=== PATIENT | female | born 1955 | race Caucasian/White ===

== ENCOUNTER 2017-07-28 08:00 | Outpatient (RCR) | payer OTHER, SELFPAY ==
[2017-07-12 00:47] VITALS: BP 143/79; PULSE 58; RESP 18; TEMP 35.1; BMI 38.5
[2017-07-14 08:07] VITALS: BP 163/94; PULSE 63; RESP 18; TEMP 36.4; BMI 38.5
--- NOTE | 2017-07-14 08:24 | PCM.WC.HP ---
(1) Leg wound, left Status: Chronic Current Visit: Yes Qualifiers: Encounter type: subsequent encounter Code(s): S81.802A - Unspecified open wound, left lower leg, initial encounter (2) Leg swelling Status: Chronic Current Visit: Yes Code(s): M79.89 - Other specified soft tissue disorders (3) Edema of both legs Status: Chronic Current Visit: Yes Code(s): R60.0 - Localized edema (4) Morbid obesity Status: Chronic Current Visit: Yes Code(s): E66.01 - Morbid (severe) obesity due to excess calories (5) Venous insufficiency Status: Chronic Current Visit: Yes (6) Varicose veins with inflammation Status: Chronic Current Visit: Yes Code(s): I83.10 - Varicose veins of unspecified lower extremity with inflammation (7) Hyperlipidemia Status: Chronic Current Visit: No Code(s): E78.5 - Hyperlipidemia, unspecified (8) Hypertension Status: Chronic Current Visit: No Qualifiers: Code(s): I10 - Essential (primary) hypertension (9) Venous hypertension of left lower extremity Status: Chronic Current Visit: Yes Code(s): I87.302 - Chronic venous hypertension (idiopathic) without complications of left lower extremity History of Present Illness Date of Service: 07/14/17 Chief Complaint: Traumatic wound/injury of the distal left lower extremity History of Wound: This is a 61-year-old female with a long-standing history of chronic venous insufficiency, varicose veins with inflammation, and swelling and edema in the lower extremities. She has previously been treated for her lower extremity venous disease, having undergone endovenous laser ablation of the right great saphenous vein, the right small saphenous vein, and the right accessory saphenous vein on July 17, 2016. The patient is known to have venous disease in the left lower extremity, but failed to pursue definitive treatment of her venous disease in the left lower extremity. As result of her prior venous procedure in July 2016, her right lower extremity has remained relatively asymptomatic and without significant symptomatology. Approximately 2 weeks prior to her current presentation, patient sustained a traumatic wound to the left leg caused by impacting the leg against the bed frame. This occurred on March 08, 2017. The patient did not seek medical attention. She indicates that her tetanus is up-to-date. In the days following her injury, the patient experienced episodes of bita bleeding from the injury site. She scheduled an outpatient appointment in my office, and was evaluated on March 18, 2017. At that time, the traumatic wound was noted on the left medial calf, and massive swelling in both lower extremities, particularly the left. The patient admitted to noncompliance with recommended conservative treatment measures, and had not been using compression on a consistent basis, nor elevating her lower extremities and avoiding idle sitting. Furthermore, she is known to be morbidly obese. Since the patient's initial visit, she has been elevating her lower extremities more consistently. She has also undergone a noninvasive lower extremity arterial study, which reveals triphasic waveforms at ankle level bilaterally, normal anklebrachial indices, and normal digitalbrachial indices. Venous study reveals incompetence of the left great saphenous vein, and incompetence of left great saphenous vein and left small saphenous vein accessory branches. There has been improvement in the swelling of the lower extremities with current measures. However, mild to moderate swelling in the lower extremities persists. 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 She has most recently been applying compression by means of knee-high, graduated compression stockings of 20-30 mmHg compression, worn on a daily basis. The traumatic wound on the left medial calf is relatively unchanged in appearance and size. It is generally pink and healthy in appearance. Topical management has been by means of Promogran. Past Medical History Past Medical History: Chronic Problems Leg wound, left (Chronic) Leg swelling (Chronic) Edema of both legs (Chronic) Morbid obesity (Chronic) Venous insufficiency (Chronic) Varicose veins with inflammation (Chronic) Hyperlipidemia (Chronic) Hypertension (Chronic) Venous hypertension of left lower extremity (Chronic) Surgical History: - - Patient has undergone prior endovenous laser ablation of the right great saphenous vein, right small saphenous vein, and right accessory saphenous vein on July 17, 2016. She is undergone right knee arthroscopy. She also underwent hysterectomy in the past. Patient is a Ab0. Allergies/Adverse Reactions: Allergies hydrocodone bitartrate [From Vicodin] Allergy (Verified 03/24/17 08:27) Swelling codeine Adverse Reaction (Verified 03/24/17 08:27) Nausea Home Medications: Ambulatory Orders Medication Instructions Recorded Aspirin E.C. [Ecotrin] 81 mg PO DAILY@0800 07/19/13 Atorvastatin Calcium [Lipitor] 10 mg PO QHS 07/19/13 Multivitamins,Therapeutic 1 tablet PO DAILY 07/19/13 [Multivitamin] Trazodone HCl 50 mg PO QHS 07/19/13 Losartan Potassium [Cozaar] 25 mg PO DAILY 07/10/16 Sertraline HCl [Zoloft] 50 mg PO DAILY 07/10/16 Oxycodone HCl/Acetaminophen 1 - 2 tablet PO Q6H PRN PRN #20 07/17/16 [Percocet 5/325] tablet - Family History Maternal - - Patient's mother at the age of 74 with a history of Shamika's chorea. Patient's father at the age of 68 with a history of myocardial infarction. Smoking Status: Former smoker Review of Systems Constitutional: Denies: Chills, Fever, Weight Change Eyes: Denies: Pain, Vision Change HEENT: Denies: Difficulty Hearing, Difficulty Swallowing, Sinus Congestion Cardiovascular: Denies: Chest Pain, Palpitations Respiratory: Denies: Cough, Shortness of Breath Gastrointestinal: Denies: Diarrhea, Nausea, Vomiting Genitourinary: Denies: Dysuria, Hematuria Endocrine: Denies: Heat/ Cold Intolerance, Polydipsia, Polyuria Hematologic/ Lymphatic: Denies: Easy Bruising, Easy Bleeding - Physical Exam Vital Signs Temp Pulse Resp BP 97.5 F L 63 18 163/94 H 07/14/17 08:07 07/14/17 08:07 07/14/17 08:07 07/14/17 08:07 General: Alert, Oriented x3, Cooperative, No apparent distress, Well developed, Well nourished HEENT: Atraumatic, PERRLA, EOMI, Normocephalic Oral: Moist Mucosa Neck: No JVD Lungs: Normal air movement Abdomen: Non-Distended Extremities: No clubbing, No cyanosis, No Calf Tenderness, - - Mild edema is noted in the lower extremities bilaterally. The ulceration on the left medial supramalleolar area is relatively unchanged in size. There is no sign of infection or cellulitis. Dimensions are documented elsewhere. There is a small to moderate amount of biofilm and bioburden. Skin: No rashes Wound Measurements and Assessment WC - Nurse 1 - General Ulcer Measurement Start: 07/14/17 00:27 Freq: Status: Active Protocol: Activity Type Activity Date Activity User E-Sign Co-Sign Detail Recorded Client Recorded Date Recorded By Document 07/14/17 08:07 MW [id number] 07/14/17 08:12 MW 07/14/17 08:07 Wound Center Nurse 1 [Ulcer Assessment Protocol: WC.WD.LOC] #2 L Medial Inferior LE -Combined with other wound No -Current Size (cm) - Length 1.0 -Current Size (cm) - Width 0.8 -Current Size (cm) - Depth 0.1 -Total Square Cm 0.80 -Photo Taken No -Epithelialization None Present -Tunneling No -Undermining/Tunneling No -Circular Undermining No -Exudate Amt Small (1-33%) -Exudate Type Serosanguineous -Wound Margin Flat & Intact -Granulation Amt None Present (0 %) -Granulation Quality N/A -Slough/Fibrin Yes -Necrosis Amt Large (67-100%) -Necrotic Tissue Type Adherent Slough -Structure Exposed N/A -Texture (Teresa-wound Skin Appearance) Assessed Localized Edema -Moisture (Teresa-wound Skin Appearance Assessed ) -Color (Teresa-wound Skin Appearance) Erythema Hemosiderin Staining -Temperature (Teresa-wound Skin No Abnormality Appearance) (Pt Warm) -Tenderness on Palpation (Teresa-wound No Skin Appearance) -Ulcer Cleansing Rinsed/ Irrigated with Saline -Foul Odor after Cleansing Yes, Due to Product Use -Anesthetic Used 5% Lidocaine Gel [Edema Assessment] -Lower Limb Edema Present Yes -Left Calf (cm) 45.0 -Left Ankle (cm) 26.5 - Nurse 2 - General Ulcer CM Notes Start: 07/14/17 00:27 Freq: Status: Active Protocol: Activity Type Activity Date Activity User E-Sign Co-Sign Detail Recorded Client Recorded Date Recorded By Document 07/14/17 08:19 JS [id number] 07/14/17 08:22 JS 07/14/17 08:19 Wound Center Nurse 2 [Procedure/Treatment] #2 L Medial Inferior LE -Time 08:22 -Correct Patient Yes -Correct Side, Site, Position Yes -Correct Procedure Yes -Procedure Performed Yes -Type of Procedure Debridement -Clinical Debridement Subcutaneous -Post Debridement Size (cm) - Length 0.7 -Post Debridement Size (cm) - Width 0.9 -Post Debridement Size (cm) - Depth 0.1 -Total Square Cm 0.63 -Wound/Ulcer Outcome Not Healed -Ulcer Cleansing Rinsed/ Irrigated with Saline -Foul Odor after Cleansing No -Bioengineered Tissue No -Cetacaine [place] No -Topical Lidocaine (%) 5 -Bleeding Controlled with NA -Treatment Response Procedure Tolerated Well [See Physician Procedure note for Specifics] Pain Scale: 0-10 Numeric [Pain] -Is Patient Pain Free? Yes Neurological: Cranial nerves II-XII grossly intact, Neuro grossly intact Psych/Mental Status: Normal Affect, Appropriate, Alert and oriented to time, place, person, mood and affect Debridement Note Post-Debridement Measurements/Treatment WC - Nurse 2 - General Ulcer CM Notes Start: 07/14/17 00:27 Freq: Status: Active Protocol: Activity Type Activity Date Activity User E-Sign Co-Sign Detail Recorded Client Recorded Date Recorded By Document 07/14/17 08:19 SULEMAN [id number] 07/14/17 08:22 SULEMAN 07/14/17 08:19 Wound Center Nurse 2 #2 L Medial Inferior LE -Time 08:22 -Correct Patient Yes -Correct Side, Site, Position Yes -Correct Procedure Yes -Procedure Performed Yes -Type of Procedure Debridement -Clinical Debridement Subcutaneous -Post Debridement Size (cm) - Length 0.7 -Post Debridement Size (cm) - Width 0.9 -Post Debridement Size (cm) - Depth 0.1 -Total Square Cm 0.63 -Wound/Ulcer Outcome Not Healed -Ulcer Cleansing Rinsed/ Irrigated with Saline -Foul Odor after Cleansing No -Bioengineered Tissue No -Cetacaine [place] No -Topical Lidocaine (%) 5 -Bleeding Controlled with NA -Treatment Response Procedure Tolerated Well Pain Scale: 0-10 Numeric Is Patient Pain Free? Yes Laterality: Left - Medial supramalleolar area Type of Debridement: Excisional debridement Anesthesia Used: 4% Lidocaine Solution Depth: Down to and including healthy tissue, in the subcutaneous layer Percentage of wound debrided: 100 Instrument Used: 5mm curette Severity: Fat Layer Exposed Amount of bleeding with debridement: Mild Bleeding Controlled with: Compression and gauze Patient tolerated procedure well Assessment/Plan Active Problems Leg wound, left (Chronic) Leg swelling (Chronic) Edema of both legs (Chronic) Morbid obesity (Chronic) Venous insufficiency (Chronic) Varicose veins with inflammation (Chronic) Venous hypertension of left lower extremity (Chronic) Assessment: This is a 61-year-old morbidly obese female with a long-standing history of chronic venous insufficiency, varicose veins with inflammation, and lower extremity swelling and edema. In recent months, she has been relatively noncompliant with conservative treatment measures geared toward management of her lower extremity swelling and edema. In addition, approximately 2 weeks prior to her presentation, the patient sustained a traumatic injury to the left medial calf. She presented approximately 1 week following her injury with massive swelling in the lower extremities, and having experienced several episodes of bleeding from her injury site. A noninvasive lower extremity arterial study is normal, revealing no evidence of significant arterial occlusive disease in the lower extremities. Her most recent venous study, performed on 06/30/2017, revealed incompetence of the left great saphenous vein, left accessory saphenous vein at S3, the left small saphenous vein, a branch of the left small saphenous vein, and a laminating press operator located 13 cm proximal to the left medial malleolus. We will continue current conservative care relative to the chronic venous disease, swelling and edema, and recent traumatic injury to the left lower extremity. Plan: The patient has been instructed to avoid idle standing and sitting. She is to elevate her lower extremities as much as possible. Activity has been encouraged. Weight loss has also been encouraged. We are to continue the use of Promogran applied every other day. The patient is to wear her knee-high graduated compression stockings of 20-30 mmHg compression on a daily basis. Thus far she has been doing so, and appears to have been relatively compliant. She will return in 2 weeks for physician reassessment. Patient is a candidate for endovenous laser ablation of the left great saphenous vein, the left small saphenous vein, 2 accessory saphenous veins, and the incompetent laminating press operator vein in the left calf. She has indicated her desire to proceed with the procedure. We will proceed with plans for endovenous ablation. The preauthorization process is currently underway. Influenza vaccine was not administered today. The patient is not currently a smoker. The patient weighs 270 pounds. She stands 5 feet 11 inches tall. Her BMI is 37.7. This places the patient in the obese class II category. The patient has been advised to lose weight. She has been encouraged to collaborate with her primary care physician to discuss weight loss options and strategies.
[2017-07-28 08:15] VITALS: BP 141/97; PULSE 63; RESP 18; TEMP 36.2; BMI 38.5
--- NOTE | 2017-07-28 08:32 | PCM.WC.HP ---
(1) Leg wound, left Status: Chronic Current Visit: Yes Qualifiers: Encounter type: subsequent encounter Code(s): S81.802A - Unspecified open wound, left lower leg, initial encounter (2) Leg swelling Status: Chronic Current Visit: Yes Code(s): M79.89 - Other specified soft tissue disorders (3) Edema of both legs Status: Chronic Current Visit: Yes Code(s): R60.0 - Localized edema (4) Morbid obesity Status: Chronic Current Visit: Yes Code(s): E66.01 - Morbid (severe) obesity due to excess calories (5) Venous insufficiency Status: Chronic Current Visit: Yes (6) Varicose veins with inflammation Status: Chronic Current Visit: Yes Code(s): I83.10 - Varicose veins of unspecified lower extremity with inflammation (7) Hyperlipidemia Status: Chronic Current Visit: No Code(s): E78.5 - Hyperlipidemia, unspecified (8) Hypertension Status: Chronic Current Visit: No Qualifiers: Code(s): I10 - Essential (primary) hypertension (9) Venous hypertension of left lower extremity Status: Chronic Current Visit: Yes Code(s): I87.302 - Chronic venous hypertension (idiopathic) without complications of left lower extremity History of Present Illness Date of Service: 07/28/17 Chief Complaint: Traumatic wound/injury of the distal left lower extremity History of Wound: This is a 61-year-old female with a long-standing history of chronic venous insufficiency, varicose veins with inflammation, and swelling and edema in the lower extremities. She has previously been treated for her lower extremity venous disease, having undergone endovenous laser ablation of the right great saphenous vein, the right small saphenous vein, and the right accessory saphenous vein on July 17, 2016. The patient is known to have venous disease in the left lower extremity, but failed to pursue definitive treatment of her venous disease in the left lower extremity. As result of her prior venous procedure in July 2016, her right lower extremity has remained relatively asymptomatic and without significant symptomatology. Approximately 2 weeks prior to her current presentation, patient sustained a traumatic wound to the left leg caused by impacting the leg against the bed frame. This occurred on March 08, 2017. The patient did not seek medical attention. She indicates that her tetanus is up-to-date. In the days following her injury, the patient experienced episodes of bita bleeding from the injury site. She scheduled an outpatient appointment in my office, and was evaluated on March 18, 2017. At that time, the traumatic wound was noted on the left medial calf, and massive swelling in both lower extremities, particularly the left. The patient admitted to noncompliance with recommended conservative treatment measures, and had not been using compression on a consistent basis, nor elevating her lower extremities and avoiding idle sitting. Furthermore, she is known to be morbidly obese. Since the patient's initial visit, she has been elevating her lower extremities more consistently. She has also undergone a noninvasive lower extremity arterial study, which reveals triphasic waveforms at ankle level bilaterally, normal anklebrachial indices, and normal digitalbrachial indices. Venous study reveals incompetence of the left great saphenous vein, and incompetence of left great saphenous vein and left small saphenous vein accessory branches. There has been improvement in the swelling of the lower extremities with current measures. She has most recently been applying compression by means of knee-high, graduated compression stockings of 20-30 mmHg compression, worn on a daily basis. The traumatic wound on the left medial calf is smaller in appearance and size. It is generally pink and healthy in appearance. Topical management has been by means of Norma. Past Medical History Past Medical History: Chronic Problems Leg wound, left (Chronic) Leg swelling (Chronic) Edema of both legs (Chronic) Morbid obesity (Chronic) Venous insufficiency (Chronic) Varicose veins with inflammation (Chronic) Hyperlipidemia (Chronic) Hypertension (Chronic) Venous hypertension of left lower extremity (Chronic) Surgical History: - - Patient has undergone prior endovenous laser ablation of the right great saphenous vein, right small saphenous vein, and right accessory saphenous vein on July 17, 2016. She is undergone right knee arthroscopy. She also underwent hysterectomy in the past. Patient is a Ab0. Allergies/Adverse Reactions: Allergies hydrocodone bitartrate [From Vicodin] Allergy (Verified 03/24/17 08:27) Swelling codeine Adverse Reaction (Verified 03/24/17 08:27) Nausea Home Medications: Ambulatory Orders Medication Instructions Recorded Aspirin E.C. [Ecotrin] 81 mg PO DAILY@0800 07/19/13 Atorvastatin Calcium [Lipitor] 10 mg PO QHS 07/19/13 Multivitamins,Therapeutic 1 tablet PO DAILY 07/19/13 [Multivitamin] Trazodone HCl 50 mg PO QHS 07/19/13 Losartan Potassium [Cozaar] 25 mg PO DAILY 07/10/16 Sertraline HCl [Zoloft] 50 mg PO DAILY 07/10/16 Oxycodone HCl/Acetaminophen 1 - 2 tablet PO Q6H PRN PRN #20 07/17/16 [Percocet 5/325] tablet - Family History Maternal - - Patient's mother at the age of 74 with a history of Shamika's chorea. Patient's father at the age of 68 with a history of myocardial infarction. Smoking Status: Former smoker Review of Systems Constitutional: Denies: Chills, Fever, Weight Change Eyes: Denies: Pain, Vision Change HEENT: Denies: Difficulty Hearing, Difficulty Swallowing, Sinus Congestion Cardiovascular: Denies: Chest Pain, Palpitations Respiratory: Denies: Cough, Shortness of Breath Gastrointestinal: Denies: Diarrhea, Nausea, Vomiting Genitourinary: Denies: Dysuria, Hematuria Endocrine: Denies: Heat/ Cold Intolerance, Polydipsia, Polyuria Hematologic/ Lymphatic: Denies: Easy Bruising, Easy Bleeding - Physical Exam Vital Signs Temp Pulse Resp BP 97.1 F L 63 18 141/97 H 07/28/17 08:15 07/28/17 08:15 07/28/17 08:15 07/28/17 08:15 General: Alert, Oriented x3, Cooperative, No apparent distress, Well developed, Well nourished HEENT: Atraumatic, PERRLA, EOMI, Normocephalic Oral: Moist Mucosa Neck: No JVD Lungs: Normal air movement Abdomen: Non-Distended Extremities: No clubbing, No cyanosis, No Calf Tenderness, - - The swelling and edema in the lower extremities appears to be reasonably well controlled. The ulceration on the left medial calf is smaller in size. The base of the ulceration is pink and healthy, with a moderate amount of biofilm bioburden. There is no sign of infection or cellulitis. Dimensions are documented elsewhere. Skin: No rashes Wound Measurements and Assessment WC - Nurse 1 - General Ulcer Measurement Start: 07/14/17 00:27 Freq: Status: Active Protocol: Activity Type Activity Date Activity User E-Sign Co-Sign Detail Recorded Client Recorded Date Recorded By Document 07/28/17 08:15 [id number] 07/28/17 08:18 07/28/17 08:15 Wound Center Nurse 1 [Ulcer Assessment Protocol: EAN.WD.LOC] #2 L Medial Inferior LE -Combined with other wound No -Current Size (cm) - Length 0.2 -Current Size (cm) - Width 0.2 -Current Size (cm) - Depth 0.1 -Total Square Cm 0.04 -Photo Taken No -Epithelialization Small 1-33% -Tunneling No -Undermining/Tunneling No -Circular Undermining No -Classification - Thickness Full Thickness without Exposed Support Structure -Exudate Amt Small (1-33%) -Exudate Type Serosanguineous -Wound Margin Distinct, Outline Attached -Granulation Amt Medium (34-66%) -Granulation Quality Globe -Slough/Fibrin Yes -Necrosis Amt Small (1-33%) -Necrotic Tissue Type Adherent Slough -Structure Exposed Fascia Fat Layer Exposed -Texture (Teresa-wound Skin Appearance) Localized Edema Scarring -Moisture (Teresa-wound Skin Appearance No Abnormality ) -Color (Teresa-wound Skin Appearance) Hemosiderin Staining -Temperature (Teresa-wound Skin No Abnormality Appearance) (Pt Warm) -Tenderness on Palpation (Teresa-wound No Skin Appearance) -Ulcer Cleansing Rinsed/ Irrigated with Saline -Foul Odor after Cleansing No -Anesthetic Used 4% Lidocaine Solution [Edema Assessment] -Lower Limb Edema Present Yes -Left Calf (cm) 45.5 -Left Ankle (cm) 26.5 - Nurse 2 - General Ulcer CM Notes Start: 07/14/17 00:27 Freq: Status: Active Protocol: Activity Type Activity Date Activity User E-Sign Co-Sign Detail Recorded Client Recorded Date Recorded By Document 07/28/17 08:23 [id number] 07/28/17 08:32 07/28/17 08:23 Wound Center Nurse 2 [Procedure/Treatment] #2 L Medial Inferior LE -Time 08:24 -Correct Patient Yes -Correct Side, Site, Position Yes -Correct Procedure Yes -Procedure Performed Yes -Type of Procedure Debridement -Clinical Debridement Subcutaneous -Post Debridement Size (cm) - Length 0.3 -Post Debridement Size (cm) - Width 0.3 -Post Debridement Size (cm) - Depth 0.1 -Total Square Cm 0.09 -Wound/Ulcer Outcome Not Healed -Ulcer Cleansing Rinsed/ Irrigated with Saline -Foul Odor after Cleansing No -Bioengineered Tissue No -Cetacaine Kunia No -Topical Lidocaine (%) 4 -Lidocaine (ml) 5 -Bleeding Controlled with NA -Treatment Response Procedure Tolerated Well [See Physician Procedure note for Specifics] Musculoskeletal: No Muscle Wasting Neurological: Cranial nerves II-XII grossly intact, Neuro grossly intact Psych/Mental Status: Normal Affect, Appropriate, Alert and oriented to time, place, person, mood and affect Debridement Note Post-Debridement Measurements/Treatment WC - Nurse 2 - General Ulcer CM Notes Start: 07/14/17 00:27 Freq: Status: Active Protocol: Activity Type Activity Date Activity User E-Sign Co-Sign Detail Recorded Client Recorded Date Recorded By Document 07/14/17 08:19 [id number] 07/14/17 08:22 JS Document 07/28/17 08:23 [id number] 07/28/17 08:32 JS 07/14/17 07/28/17 08:19 08:23 Wound Center Nurse 2 #2 L Medial Inferior LE -Time 08:22 08:24 -Correct Patient Yes Yes -Correct Side, Site, Position Yes Yes -Correct Procedure Yes Yes -Procedure Performed Yes Yes -Type of Procedure Debridement Debridement -Clinical Debridement Subcutaneous Subcutaneous -Post Debridement Size (cm) - Length 0.7 0.3 -Post Debridement Size (cm) - Width 0.9 0.3 -Post Debridement Size (cm) - Depth 0.1 0.1 -Total Square Cm 0.63 0.09 -Wound/Ulcer Outcome Not Healed Not Healed -Ulcer Cleansing Rinsed/ Rinsed/ Irrigated with Irrigated with Saline Saline -Foul Odor after Cleansing No No -Bioengineered Tissue No No -Cetacaine Kunia No No -Topical Lidocaine (%) 5 4 -Lidocaine (ml) 5 -Bleeding Controlled with NA NA -Treatment Response Procedure Procedure Tolerated Well Tolerated Well Pain Scale: 0-10 Numeric Is Patient Pain Free? Yes Laterality: Left - Medial calf Type of Debridement: Excisional debridement Anesthesia Used: 4% Lidocaine Solution Depth: Down to and including healthy tissue, in the subcutaneous layer Percentage of wound debrided: 100 Instrument Used: 5mm curette Severity: Fat Layer Exposed Amount of bleeding with debridement: Mild Bleeding Controlled with: Compression and gauze Patient tolerated procedure well Assessment/Plan Active Problems Leg wound, left (Chronic) Leg swelling (Chronic) Edema of both legs (Chronic) Morbid obesity (Chronic) Venous insufficiency (Chronic) Varicose veins with inflammation (Chronic) Venous hypertension of left lower extremity (Chronic) Assessment: This is a 61-year-old morbidly obese female with a long-standing history of chronic venous insufficiency, varicose veins with inflammation, and lower extremity swelling and edema. In recent months, she has been relatively noncompliant with conservative treatment measures geared toward management of her lower extremity swelling and edema. In addition, approximately 2 weeks prior to her presentation, the patient sustained a traumatic injury to the left medial calf. She presented approximately 1 week following her injury with massive swelling in the lower extremities, and having experienced several episodes of bleeding from her injury site. A noninvasive lower extremity arterial study is normal, revealing no evidence of significant arterial occlusive disease in the lower extremities. Her most recent venous study, performed on 06/30/2017, revealed incompetence of the left great saphenous vein, left accessory saphenous vein at S3, the left small saphenous vein, a branch of the left small saphenous vein, and a architectural designer located 13 cm proximal to the left medial malleolus. We will continue current conservative care relative to the chronic venous disease, swelling and edema, and recent traumatic injury to the left lower extremity. Plan: The patient has been instructed to avoid idle standing and sitting. She is to elevate her lower extremities as much as possible. Activity has been encouraged. Weight loss has also been encouraged. We are to continue the use of Norma applied every other day. The patient is to wear her knee-high graduated compression stockings of 20-30 mmHg compression on a daily basis. Thus far she has been doing so, and appears to have been relatively compliant. She will return in 3 weeks for physician reassessment. Patient is a candidate for endovenous laser ablation of the left great saphenous vein, the left small saphenous vein, 2 accessory saphenous veins, and the incompetent architectural designer vein in the left calf. She has indicated her desire to proceed with the procedure. We will proceed with plans for endovenous ablation. The preauthorization process is currently underway. Influenza vaccine was not administered today. The patient is not currently a smoker. The patient weighs 270 pounds. She stands 5 feet 11 inches tall. Her BMI is 37.7. This places the patient in the obese class II category. The patient has been advised to lose weight. She has been encouraged to collaborate with her primary care physician to discuss weight loss options and strategies.
--- NOTE | 2017-07-28 08:40 | HP.PCM_ITS ---
(1) Leg wound, left Status: Chronic Current Visit: Yes Qualifiers: Encounter type: subsequent encounter Code(s): S81.802A - Unspecified open wound, left lower leg, initial encounter (2) Leg swelling Status: Chronic Current Visit: Yes Code(s): M79.89 - Other specified soft tissue disorders (3) Edema of both legs Status: Chronic Current Visit: Yes Code(s): R60.0 - Localized edema (4) Morbid obesity Status: Chronic Current Visit: Yes Code(s): E66.01 - Morbid (severe) obesity due to excess calories (5) Venous insufficiency Status: Chronic Current Visit: Yes (6) Varicose veins with inflammation Status: Chronic Current Visit: Yes Code(s): I83.10 - Varicose veins of unspecified lower extremity with inflammation (7) Hyperlipidemia Status: Chronic Current Visit: No Code(s): E78.5 - Hyperlipidemia, unspecified (8) Hypertension Status: Chronic Current Visit: No Qualifiers: Code(s): I10 - Essential (primary) hypertension (9) Venous hypertension of left lower extremity Status: Chronic Current Visit: Yes Code(s): I87.302 - Chronic venous hypertension (idiopathic) without complications of left lower extremity History of Present Illness Date of Service: 07/28/17 Chief Complaint: Traumatic wound/injury of the distal left lower extremity History of Wound: This is a 61-year-old female with a long-standing history of chronic venous insufficiency, varicose veins with inflammation, and swelling and edema in the lower extremities. She has previously been treated for her lower extremity venous disease, having undergone endovenous laser ablation of the right great saphenous vein, the right small saphenous vein, and the right accessory saphenous vein on July 17, 2016. The patient is known to have venous disease in the left lower extremity, but failed to pursue definitive treatment of her venous disease in the left lower extremity. As result of her prior venous procedure in July 2016, her right lower extremity has remained relatively asymptomatic and without significant symptomatology. Approximately 2 weeks prior to her current presentation, patient sustained a traumatic wound to the left leg caused by impacting the leg against the bed frame. This occurred on March 08, 2017. The patient did not seek medical attention. She indicates that her tetanus is up-to-date. In the days following her injury, the patient experienced episodes of bita bleeding from the injury site. She scheduled an outpatient appointment in my office, and was evaluated on March. At that time, the traumatic wound was noted on the left medial calf, and massive swelling in both lower extremities, particularly the left. The patient admitted to noncompliance with recommended conservative treatment measures, and had not been using compression on a consistent basis, nor elevating her lower extremities and avoiding idle sitting. Furthermore, she is known to be morbidly obese. Since the patient's initial visit, she has been elevating her lower extremities more consistently. She has also undergone a noninvasive lower extremity arterial study, which reveals triphasic waveforms at ankle level bilaterally, normal ankle?brachial indices, and normal digital? brachial indices. Venous study reveals incompetence of the left great saphenous vein, and incompetence of left great saphenous vein and left small saphenous vein accessory branches. There has been improvement in the swelling of the lower extremities with current measures. She has most recently been applying compression by means of knee-high, graduated compression stockings of 20-30 mmHg compression, worn on a daily basis. The traumatic wound on the left medial calf is smaller in appearance and size. It is generally pink and healthy in appearance. Topical management has been by means of Norma. Past Medical History Past Medical History: Chronic Problems Leg wound, left (Chronic) Leg swelling (Chronic) Edema of both legs (Chronic) Morbid obesity (Chronic) Venous insufficiency (Chronic) Varicose veins with inflammation (Chronic) Hyperlipidemia (Chronic) Hypertension (Chronic) Venous hypertension of left lower extremity (Chronic) Surgical History: - - Patient has undergone prior endovenous laser ablation of the right great saphenous vein, right small saphenous vein, and right accessory saphenous vein on July 17, 2016. She is undergone right knee arthroscopy. She also underwent hysterectomy in the past. Patient is a Ab0. Allergies/Adverse Reactions: Allergies hydrocodone bitartrate [From Vicodin] Allergy (Verified 03/24/17 08:27) Swelling codeine Adverse Reaction (Verified 03/24/17 08:27) Nausea Home Medications: Ambulatory Orders Medication Instructions Recorded Aspirin E.C. [Ecotrin] 81 mg PO DAILY@0800 07/19/13 Atorvastatin Calcium [Lipitor] 10 mg PO QHS 07/19/13 Multivitamins,Therapeutic 1 tablet PO DAILY 07/19/13 [Multivitamin] Trazodone HCl 50 mg PO QHS 07/19/13 Losartan Potassium [Cozaar] 25 mg PO DAILY 07/10/16 Sertraline HCl [Zoloft] 50 mg PO DAILY 07/10/16 Oxycodone HCl/Acetaminophen 1 - 2 tablet PO Q6H PRN PRN #20 07/17/16 [Percocet 5/325] tablet - Family History Maternal - - Patient's mother at the age of 74 with a history of Shamika's chorea. Patient's father at the age of 68 with a history of myocardial infarction. Smoking Status: Former smoker Review of Systems Constitutional: Denies: Chills, Fever, Weight Change Eyes: Denies: Pain, Vision Change HEENT: Denies: Difficulty Hearing, Difficulty Swallowing, Sinus Congestion Cardiovascular: Denies: Chest Pain, Palpitations Respiratory: Denies: Cough, Shortness of Breath Gastrointestinal: Denies: Diarrhea, Nausea, Vomiting Genitourinary: Denies: Dysuria, Hematuria Endocrine: Denies: Heat/ Cold Intolerance, Polydipsia, Polyuria Hematologic/ Lymphatic: Denies: Easy Bruising, Easy Bleeding - Physical Exam Vital Signs Temp Pulse Resp BP 97.1 F L 63 18 141/97 H 07/28/17 08:15 07/28/17 08:15 07/28/17 08:15 07/28/17 08:15 General: Alert, Oriented x3, Cooperative, No apparent distress, Well developed, Well nourished HEENT: Atraumatic, PERRLA, EOMI, Normocephalic Oral: Moist Mucosa Neck: No JVD Lungs: Normal air movement Abdomen: Non-Distended Extremities: No clubbing, No cyanosis, No Calf Tenderness, - - The swelling and edema in the lower extremities appears to be reasonably well controlled. The ulceration on the left medial calf is smaller in size. The base of the ulceration is pink and healthy, with a moderate amount of biofilm bioburden. There is no sign of infection or cellulitis. Dimensions are documented elsewhere. Skin: No rashes Wound Measurements and Assessment WC - Nurse 1 - General Ulcer Measurement Start: 07/14/17 00:27 Freq: Status: Active Protocol: Activity Type Activity Date Activity User E-Sign Co-Sign Detail Recorded Client Recorded Date Recorded By Document 07/28/17 08:15 [id number] 07/28/17 08:18 07/28/17 08:15 Wound Center Nurse 1 [Ulcer Assessment Protocol: EAN.WD.LOC] #2 L Medial Inferior LE -Combined with other wound No -Current Size (cm) - Length 0.2 -Current Size (cm) - Width 0.2 -Current Size (cm) - Depth 0.1 -Total Square Cm 0.04 -Photo Taken No -Epithelialization Small 1-33% -Tunneling No -Undermining/Tunneling No -Circular Undermining No -Classification - Thickness Full Thickness without Exposed Support Structure -Exudate Amt Small (1-33%) -Exudate Type Serosanguineous -Wound Margin Distinct, Outline Attached -Granulation Amt Medium (34-66%) -Granulation Quality [place] -Slough/Fibrin Yes -Necrosis Amt Small (1-33%) -Necrotic Tissue Type Adherent Slough -Structure Exposed Fascia Fat Layer Exposed -Texture (Teresa-wound Skin Appearance) Localized Edema Scarring -Moisture (Teresa-wound Skin Appearance No Abnormality ) -Color (Teresa-wound Skin Appearance) Hemosiderin Staining -Temperature (Teresa-wound Skin No Abnormality Appearance) (Pt Warm) -Tenderness on Palpation (Teresa-wound No Skin Appearance) -Ulcer Cleansing Rinsed/ Irrigated with Saline -Foul Odor after Cleansing No -Anesthetic Used 4% Lidocaine Solution [Edema Assessment] -Lower Limb Edema Present Yes -Left Calf (cm) 45.5 -Left Ankle (cm) 26.5 - Nurse 2 - General Ulcer CM Notes Start: 07/14/17 00:27 Freq: Status: Active Protocol: Activity Type Activity Date Activity User E-Sign Co-Sign Detail Recorded Client Recorded Date Recorded By Document 07/28/17 08:23 [id number] 07/28/17 08:32 07/28/17 08:23 Wound Center Nurse 2 [Procedure/Treatment] #2 L Medial Inferior LE -Time 08:24 -Correct Patient Yes -Correct Side, Site, Position Yes -Correct Procedure Yes -Procedure Performed Yes -Type of Procedure Debridement -Clinical Debridement Subcutaneous -Post Debridement Size (cm) - Length 0.3 -Post Debridement Size (cm) - Width 0.3 -Post Debridement Size (cm) - Depth 0.1 -Total Square Cm 0.09 -Wound/Ulcer Outcome Not Healed -Ulcer Cleansing Rinsed/ Irrigated with Saline -Foul Odor after Cleansing No -Bioengineered Tissue No -Cetacaine [place] No -Topical Lidocaine (%) 4 -Lidocaine (ml) 5 -Bleeding Controlled with NA -Treatment Response Procedure Tolerated Well [See Physician Procedure note for Specifics] Musculoskeletal: No Muscle Wasting Neurological: Cranial nerves II-XII grossly intact, Neuro grossly intact Psych/Mental Status: Normal Affect, Appropriate, Alert and oriented to time, place, person, mood and affect Debridement Note Post-Debridement Measurements/Treatment WC - Nurse 2 - General Ulcer CM Notes Start: 07/14/17 00:27 Freq: Status: Active Protocol: Activity Type Activity Date Activity User E-Sign Co-Sign Detail Recorded Client Recorded Date Recorded By Document 07/14/17 08:19 [id number] 07/14/17 08:22 JS Document 07/28/17 08:23 [email or web address] 07/28/17 08:32 JS 07/14/17 07/28/17 08:19 08:23 Wound Center Nurse 2 #2 L Medial Inferior LE -Time 08:22 08:24 -Correct Patient Yes Yes -Correct Side, Site, Position Yes Yes -Correct Procedure Yes Yes -Procedure Performed Yes Yes -Type of Procedure Debridement Debridement -Clinical Debridement Subcutaneous Subcutaneous -Post Debridement Size (cm) - Length 0.7 0.3 -Post Debridement Size (cm) - Width 0.9 0.3 -Post Debridement Size (cm) - Depth 0.1 0.1 -Total Square Cm 0.63 0.09 -Wound/Ulcer Outcome Not Healed Not Healed -Ulcer Cleansing Rinsed/ Rinsed/ Irrigated with Irrigated with Saline Saline -Foul Odor after Cleansing No No -Bioengineered Tissue No No -Cetacaine [place] No No -Topical Lidocaine (%) 5 4 -Lidocaine (ml) 5 -Bleeding Controlled with NA NA -Treatment Response Procedure Procedure Tolerated Well Tolerated Well Pain Scale: 0-10 Numeric Is Patient Pain Free? Yes Laterality: Left - Medial calf Type of Debridement: Excisional debridement Anesthesia Used: 4% Lidocaine Solution Depth: Down to and including healthy tissue, in the subcutaneous layer Percentage of wound debrided: 100 Instrument Used: 5mm curette Severity: Fat Layer Exposed Amount of bleeding with debridement: Mild Bleeding Controlled with: Compression and gauze Patient tolerated procedure well Assessment/Plan Active Problems Leg wound, left (Chronic) Leg swelling (Chronic) Edema of both legs (Chronic) Morbid obesity (Chronic) Venous insufficiency (Chronic) Varicose veins with inflammation (Chronic) Venous hypertension of left lower extremity (Chronic) Assessment: This is a 61-year-old morbidly obese female with a long-standing history of chronic venous insufficiency, varicose veins with inflammation, and lower extremity swelling and edema. In recent months, she has been relatively noncompliant with conservative treatment measures geared toward management of her lower extremity swelling and edema. In addition, approximately 2 weeks prior to her presentation, the patient sustained a traumatic injury to the left medial calf. She presented approximately 1 week following her injury with massive swelling in the lower extremities, and having experienced several episodes of bleeding from her injury site. A noninvasive lower extremity arterial study is normal, revealing no evidence of significant arterial occlusive disease in the lower extremities. Her most recent venous study, performed on 06/30/2017, revealed incompetence of the left great saphenous vein , left accessory saphenous vein at S3, the left small saphenous vein, a branch of the left small saphenous vein, and a visual education teacher located 13 cm proximal to the left medial malleolus. We will continue current conservative care relative to the chronic venous disease, swelling and edema, and recent traumatic injury to the left lower extremity. Plan: The patient has been instructed to avoid idle standing and sitting. She is to elevate her lower extremities as much as possible. Activity has been encouraged. Weight loss has also been encouraged. We are to continue the use of Norma applied every other day. The patient is to wear her knee-high graduated compression stockings of 20-30 mmHg compression on a daily basis. Thus far she has been doing so, and appears to have been relatively compliant. She will return in 3 weeks for physician reassessment. Patient is a candidate for endovenous laser ablation of the left great saphenous vein, the left small saphenous vein, 2 accessory saphenous veins, and the incompetent visual education teacher vein in the left calf. She has indicated her desire to proceed with the procedure. We will proceed with plans for endovenous ablation. The preauthorization process is currently underway. Influenza vaccine was not administered today. The patient is not currently a smoker. The patient weighs 270 pounds. She stands 5 feet 11 inches tall. Her BMI is 37.7. This places the patient in the obese class II category. The patient has been advised to lose weight. She has been encouraged to collaborate with her primary care physician to discuss weight loss options and strategies.
== END 2017-08-09 23:59 ==
LOC: WC 08:00
PROVIDERS: Family Provider Nurse Practitioner Family; PCP Nurse Practitioner Family; Visit Provider Surgery
DX: I83.10 Varicose veins of unspecified lower extremity with inflammation (principal); M79.89 Other specified soft tissue disorders; R60.0 Localized edema; E66.01 Morbid (severe) obesity due to excess calories; Z68.37 Body mass index [BMI] 37.0-37.9, adult; Z71.3 Dietary counseling and surveillance; Z91.19 Patient's noncompliance with other medical treatment and regimen; I10 Essential (primary) hypertension; E78.5 Hyperlipidemia, unspecified; W22.03XA Walked into furniture, initial encounter; Z79.899 Other long term (current) drug therapy; Z79.82 Long term (current) use of aspirin; S81.832A Puncture wound without foreign body, left lower leg, initial encounter
CPT/HCPCS: 11042

== ENCOUNTER 2017-09-08 08:11 | Outpatient (RCR) | payer OTHER, SELFPAY ==
[2017-08-10 01:05] VITALS: BP 141/97; PULSE 63; RESP 18; TEMP 36.2; BMI 38.5
[2017-09-08 08:12] VITALS: BP 144/90; PULSE 62; RESP 18; TEMP 36.7; BMI 38.5
--- NOTE | 2017-09-08 08:38 | PCM.WC.HP ---
(1) Leg wound, left Status: Chronic Current Visit: Yes Qualifiers: Encounter type: subsequent encounter Code(s): S81.802A - Unspecified open wound, left lower leg, initial encounter (2) Leg swelling Status: Chronic Current Visit: Yes Code(s): M79.89 - Other specified soft tissue disorders (3) Edema of both legs Status: Chronic Current Visit: Yes Code(s): R60.0 - Localized edema (4) Morbid obesity Status: Chronic Current Visit: Yes Code(s): E66.01 - Morbid (severe) obesity due to excess calories (5) Venous insufficiency Status: Chronic Current Visit: Yes (6) Varicose veins with inflammation Status: Chronic Current Visit: Yes Code(s): I83.10 - Varicose veins of unspecified lower extremity with inflammation (7) Hyperlipidemia Status: Chronic Current Visit: No Code(s): E78.5 - Hyperlipidemia, unspecified (8) Hypertension Status: Chronic Current Visit: No Qualifiers: Code(s): I10 - Essential (primary) hypertension (9) Venous hypertension of left lower extremity Status: Chronic Current Visit: Yes Code(s): I87.302 - Chronic venous hypertension (idiopathic) without complications of left lower extremity History of Present Illness Date of Service: 09/08/17 Chief Complaint: Traumatic wound/injury of the distal left lower extremity History of Wound: This is a 61-year-old female with a long-standing history of chronic venous insufficiency, varicose veins with inflammation, and swelling and edema in the lower extremities. She has previously been treated for her lower extremity venous disease, having undergone endovenous laser ablation of the right great saphenous vein, the right small saphenous vein, and the right accessory saphenous vein on July 17, 2016. The patient is known to have venous disease in the left lower extremity, but failed to pursue definitive treatment of her venous disease in the left lower extremity. As result of her prior venous procedure in July 2016, her right lower extremity has remained relatively asymptomatic and without significant symptomatology. Approximately 2 weeks prior to her current presentation, patient sustained a traumatic wound to the left leg caused by impacting the leg against the bed frame. This occurred on March 08, 2017. The patient did not seek medical attention. She indicates that her tetanus is up-to-date. In the days following her injury, the patient experienced episodes of bita bleeding from the injury site. She scheduled an outpatient appointment in my office, and was evaluated on March 18, 2017. At that time, the traumatic wound was noted on the left medial calf, and massive swelling in both lower extremities, particularly the left. The patient admitted to noncompliance with recommended conservative treatment measures, and had not been using compression on a consistent basis, nor elevating her lower extremities and avoiding idle sitting. Furthermore, she is known to be morbidly obese. Since the patient's initial visit, she has been elevating her lower extremities more consistently. She has also undergone a noninvasive lower extremity arterial study, which reveals triphasic waveforms at ankle level bilaterally, normal anklebrachial indices, and normal digitalbrachial indices. Venous study reveals incompetence of the left great saphenous vein, and incompetence of left great saphenous vein and left small saphenous vein accessory branches. There has been improvement in the swelling of the lower extremities with current measures. She has most recently been applying compression by means of knee-high, graduated compression stockings of 20-30 mmHg compression, worn on a daily basis. The traumatic wound on the left medial calf is much smaller in size, and now nearly healed. Topical management has been by means of Norma. Incidentally, the patient was noted to have a large eschar, some swelling, and erythema on the left chin. She indicates that she was bit by something. She has been recently treated in the [facility] emergency department and by her primary care physician in this regard. Past Medical History Past Medical History: Chronic Problems Leg wound, left (Chronic) Leg swelling (Chronic) Edema of both legs (Chronic) Morbid obesity (Chronic) Venous insufficiency (Chronic) Varicose veins with inflammation (Chronic) Hyperlipidemia (Chronic) Hypertension (Chronic) Venous hypertension of left lower extremity (Chronic) Surgical History: - - Patient has undergone prior endovenous laser ablation of the right great saphenous vein, right small saphenous vein, and right accessory saphenous vein on July 17, 2016. She is undergone right knee arthroscopy. She also underwent hysterectomy in the past. Patient is a Ab0. Allergies/Adverse Reactions: Allergies hydrocodone bitartrate [From Vicodin] Allergy (Verified 03/24/17 08:27) Swelling codeine Adverse Reaction (Verified 03/24/17 08:27) Nausea Home Medications: Ambulatory Orders Medication Instructions Recorded Aspirin E.C. [Ecotrin] 81 mg PO DAILY@0800 07/19/13 Atorvastatin Calcium [Lipitor] 10 mg PO QHS 07/19/13 Multivitamins,Therapeutic 1 tablet PO DAILY 07/19/13 [Multivitamin] Trazodone HCl 50 mg PO QHS 07/19/13 Losartan Potassium [Cozaar] 25 mg PO DAILY 07/10/16 Sertraline HCl [Zoloft] 50 mg PO DAILY 07/10/16 Oxycodone HCl/Acetaminophen 1 - 2 tablet PO Q6H PRN PRN #20 07/17/16 [Percocet 5/325] tablet - Family History Maternal - - Patient's mother at the age of 74 with a history of Morgan's chorea. Patient's father at the age of 68 with a history of myocardial infarction. Smoking Status: Former smoker Review of Systems Constitutional: Denies: Chills, Fever, Weight Change Eyes: Denies: Pain, Vision Change HEENT: Denies: Difficulty Hearing, Difficulty Swallowing, Sinus Congestion Cardiovascular: Denies: Chest Pain, Palpitations Respiratory: Denies: Cough, Shortness of Breath Gastrointestinal: Denies: Diarrhea, Nausea, Vomiting Genitourinary: Denies: Dysuria, Hematuria Endocrine: Denies: Heat/ Cold Intolerance, Polydipsia, Polyuria Hematologic/ Lymphatic: Denies: Easy Bruising, Easy Bleeding - Physical Exam Vital Signs Temp Pulse Resp BP 98.0 F 62 18 144/90 H 09/08/17 08:12 09/08/17 08:12 09/08/17 08:12 09/08/17 08:12 General: Alert, Oriented x3, Cooperative, No apparent distress, Well developed, Well nourished HEENT: Atraumatic, PERRLA, EOMI, Normocephalic, - - Eschar, erythema, and some swelling is noted on the patient's left chin, suspected to be from an insect bite of some type. The patient is under the care of other practitioners in this regard. Oral: Moist Mucosa Neck: No JVD Lungs: Normal air movement Abdomen: Non-Distended Extremities: No clubbing, No cyanosis, No Calf Tenderness, - - Swelling and edema in the lower extremities appears to be well controlled. The ulceration on the left medial calf is now nearly healed. Only a very small portion of the ulceration remains. There is no sign of infection or cellulitis. Ulcer dimensions are documented elsewhere. Skin: No rashes Wound Measurements and Assessment - Nurse 1 - General Ulcer Measurement Start: 09/08/17 08:12 Freq: Status: Active Protocol: Activity Type Activity Date Activity User E-Sign Co-Sign Detail Recorded Client Recorded Date Recorded By Document 09/08/17 08:12 MW [id number] 09/08/17 08:19 MW 09/08/17 08:12 Wound Center Nurse 1 [Ulcer Assessment Protocol: EAN.WD.LOC] #2 L Medial Inferior LE -Combined with other wound No -Current Size (cm) - Length 0.1 -Current Size (cm) - Width 0.1 -Current Size (cm) - Depth 0.1 -Total Square Cm 0.01 -Date of Last Picture (Recall this 09/08/17 field) -Photo Taken Yes -Epithelialization Large 67-100% -Tunneling No -Undermining/Tunneling No -Circular Undermining No -Exudate Amt None Present (0 %) -Granulation Amt None Present (0 %) -Granulation Quality N/A -Slough/Fibrin No -Necrosis Amt None Present (0 %) -Structure Exposed N/A -Texture (Teresa-wound Skin Appearance) Assessed Scarring -Moisture (Teresa-wound Skin Appearance Assessed ) Dry/Scaly -Color (Teresa-wound Skin Appearance) No Abnormality Assessed -Temperature (Teresa-wound Skin No Abnormality Appearance) (Pt Warm) -Tenderness on Palpation (Teresa-wound No Skin Appearance) -Ulcer Cleansing Rinsed/ Irrigated with Saline -Foul Odor after Cleansing No -Anesthetic Used 4% Lidocaine Solution [Edema Assessment] -Lower Limb Edema Present Yes -Right Calf (cm) 48.4 -Right Ankle (cm) 26.5 - Nurse 2 - General Ulcer CM Notes Start: 09/08/17 08:12 Freq: Status: Active Protocol: Activity Type Activity Date Activity User E-Sign Co-Sign Detail Recorded Client Recorded Date Recorded By Document 09/08/17 08:35 DV [id number] 09/08/17 08:36 DV 09/08/17 08:35 Wound Center Nurse 2 [Procedure/Treatment] #2 L Medial Inferior LE -Time 08:35 -Correct Patient Yes -Correct Side, Site, Position Yes -Correct Procedure Yes -Procedure Performed Yes -Type of Procedure Debridement -Clinical Debridement Selective -Post Debridement Size (cm) - Length 0.1 -Post Debridement Size (cm) - Width 0.2 -Post Debridement Size (cm) - Depth 0.1 -Total Square Cm 0.02 -Wound/Ulcer Outcome Not Healed -Ulcer Cleansing Rinsed/ Irrigated with Saline -Foul Odor after Cleansing No -Bioengineered Tissue No -Cetacaine [place] No -Bleeding Controlled with Pressure -Treatment Response Procedure Tolerated Well [See Physician Procedure note for Specifics] Pain Scale: 0-10 Numeric [Pain] -Is Patient Pain Free? Yes Neurological: Cranial nerves II-XII grossly intact, Neuro grossly intact Psych/Mental Status: Normal Affect, Agitated, Alert and oriented to time, place, person, mood and affect Debridement Note Post-Debridement Measurements/Treatment WC - Nurse 2 - General Ulcer CM Notes Start: 09/08/17 08:12 Freq: Status: Active Protocol: Activity Type Activity Date Activity User E-Sign Co-Sign Detail Recorded Client Recorded Date Recorded By Document 09/08/17 08:35 DV [id number] 09/08/17 08:36 DV 09/08/17 08:35 Wound Center Nurse 2 #2 L Medial Inferior LE -Time 08:35 -Correct Patient Yes -Correct Side, Site, Position Yes -Correct Procedure Yes -Procedure Performed Yes -Type of Procedure Debridement -Clinical Debridement Selective -Post Debridement Size (cm) - Length 0.1 -Post Debridement Size (cm) - Width 0.2 -Post Debridement Size (cm) - Depth 0.1 -Total Square Cm 0.02 -Wound/Ulcer Outcome Not Healed -Ulcer Cleansing Rinsed/ Irrigated with Saline -Foul Odor after Cleansing No -Bioengineered Tissue No -Cetacaine [place] No -Bleeding Controlled with Pressure -Treatment Response Procedure Tolerated Well Pain Scale: 0-10 Numeric Is Patient Pain Free? Yes Laterality: Left - Medial calf Type of Debridement: Selective debridement Anesthesia Used: 4% Lidocaine Solution Depth: Down to and including healthy tissue Percentage of wound debrided: 100 Instrument Used: 3mm curette Severity: Limited To Skin Breakdown Amount of bleeding with debridement: Mild Bleeding Controlled with: Pressure Patient tolerated procedure well Assessment/Plan Active Problems Leg wound, left (Chronic) Leg swelling (Chronic) Edema of both legs (Chronic) Morbid obesity (Chronic) Venous insufficiency (Chronic) Varicose veins with inflammation (Chronic) Venous hypertension of left lower extremity (Chronic) Assessment: This is a 61-year-old morbidly obese female with a long-standing history of chronic venous insufficiency, varicose veins with inflammation, and lower extremity swelling and edema. In recent months, she has been relatively noncompliant with conservative treatment measures geared toward management of her lower extremity swelling and edema. In addition, approximately 2 weeks prior to her presentation, the patient sustained a traumatic injury to the left medial calf. She presented approximately 1 week following her injury with massive swelling in the lower extremities, and having experienced several episodes of bleeding from her injury site. A noninvasive lower extremity arterial study is normal, revealing no evidence of significant arterial occlusive disease in the lower extremities. Her most recent venous study, performed on 06/30/2017, revealed incompetence of the left great saphenous vein, left accessory saphenous vein at S3, the left small saphenous vein, a branch of the left small saphenous vein, and a quality control tech located 13 cm proximal to the left medial malleolus. We will continue current conservative care relative to the chronic venous disease, swelling and edema, and recent traumatic injury to the left lower extremity. Plan: The patient has been instructed to avoid idle standing and sitting. She is to elevate her lower extremities as much as possible. Activity has been encouraged. Weight loss has also been encouraged. We are to implement the use of collagen hydrogel applied topically on a daily basis. The patient is to wear her knee-high graduated compression stockings of 20-30 mmHg compression on a daily basis. Thus far she has been doing so, and appears to have been relatively compliant. She will return in 2 weeks for physician reassessment. Patient is a candidate for endovenous laser ablation of the left great saphenous vein, the left small saphenous vein, 2 accessory saphenous veins, and the incompetent quality control tech vein in the left calf. She has indicated her desire to proceed with the procedure. We will proceed with plans for endovenous ablation. The preauthorization process is underway. However, there are some patient financial issues which have delayed this intervention, anticipated to occur at some point in the future. Influenza vaccine was not administered today. The patient is not currently a smoker. She quit her smoking habit approximately 10 months ago. The patient weighs 270 pounds. She stands 5 feet 11 inches tall. Her BMI is 37.7. This places the patient in the obese class II category. The patient has been advised to lose weight. She has been encouraged to collaborate with her primary care physician to discuss weight loss options and strategies.
--- NOTE | 2017-09-08 08:45 | HP.PCM_ITS ---
(1) Leg wound, left Status: Chronic Current Visit: Yes Qualifiers: Encounter type: subsequent encounter Code(s): S81.802A - Unspecified open wound, left lower leg, initial encounter (2) Leg swelling Status: Chronic Current Visit: Yes Code(s): M79.89 - Other specified soft tissue disorders (3) Edema of both legs Status: Chronic Current Visit: Yes Code(s): R60.0 - Localized edema (4) Morbid obesity Status: Chronic Current Visit: Yes Code(s): E66.01 - Morbid (severe) obesity due to excess calories (5) Venous insufficiency Status: Chronic Current Visit: Yes (6) Varicose veins with inflammation Status: Chronic Current Visit: Yes Code(s): I83.10 - Varicose veins of unspecified lower extremity with inflammation (7) Hyperlipidemia Status: Chronic Current Visit: No Code(s): E78.5 - Hyperlipidemia, unspecified (8) Hypertension Status: Chronic Current Visit: No Qualifiers: Code(s): I10 - Essential (primary) hypertension (9) Venous hypertension of left lower extremity Status: Chronic Current Visit: Yes Code(s): I87.302 - Chronic venous hypertension (idiopathic) without complications of left lower extremity History of Present Illness Date of Service: 09/08/17 Chief Complaint: Traumatic wound/injury of the distal left lower extremity History of Wound: This is a 61-year-old female with a long-standing history of chronic venous insufficiency, varicose veins with inflammation, and swelling and edema in the lower extremities. She has previously been treated for her lower extremity venous disease, having undergone endovenous laser ablation of the right great saphenous vein, the right small saphenous vein, and the right accessory saphenous vein on July 17, 2016. The patient is known to have venous disease in the left lower extremity, but failed to pursue definitive treatment of her venous disease in the left lower extremity. As result of her prior venous procedure in July 2016, her right lower extremity has remained relatively asymptomatic and without significant symptomatology. Approximately 2 weeks prior to her current presentation, patient sustained a traumatic wound to the left leg caused by impacting the leg against the bed frame. This occurred on March 08, 2017. The patient did not seek medical attention. She indicates that her tetanus is up-to-date. In the days following her injury, the patient experienced episodes of bita bleeding from the injury site. She scheduled an outpatient appointment in my office, and was evaluated on March. At that time, the traumatic wound was noted on the left medial calf, and massive swelling in both lower extremities, particularly the left. The patient admitted to noncompliance with recommended conservative treatment measures, and had not been using compression on a consistent basis, nor elevating her lower extremities and avoiding idle sitting. Furthermore, she is known to be morbidly obese. Since the patient's initial visit, she has been elevating her lower extremities more consistently. She has also undergone a noninvasive lower extremity arterial study, which reveals triphasic waveforms at ankle level bilaterally, normal ankle?brachial indices, and normal digital? brachial indices. Venous study reveals incompetence of the left great saphenous vein, and incompetence of left great saphenous vein and left small saphenous vein accessory branches. There has been improvement in the swelling of the lower extremities with current measures. She has most recently been applying compression by means of knee-high, graduated compression stockings of 20-30 mmHg compression, worn on a daily basis. The traumatic wound on the left medial calf is much smaller in size, and now nearly healed. Topical management has been by means of Norma. Incidentally, the patient was noted to have a large eschar, some swelling, and erythema on the left chin. She indicates that she was bit by something. She has been recently treated in the [facility] emergency department and by her primary care physician in this regard. Past Medical History Past Medical History: Chronic Problems Leg wound, left (Chronic) Leg swelling (Chronic) Edema of both legs (Chronic) Morbid obesity (Chronic) Venous insufficiency (Chronic) Varicose veins with inflammation (Chronic) Hyperlipidemia (Chronic) Hypertension (Chronic) Venous hypertension of left lower extremity (Chronic) Surgical History: - - Patient has undergone prior endovenous laser ablation of the right great saphenous vein, right small saphenous vein, and right accessory saphenous vein on July 17, 2016. She is undergone right knee arthroscopy. She also underwent hysterectomy in the past. Patient is a Ab0. Allergies/Adverse Reactions: Allergies hydrocodone bitartrate [From Vicodin] Allergy (Verified 03/24/17 08:27) Swelling codeine Adverse Reaction (Verified 03/24/17 08:27) Nausea Home Medications: Ambulatory Orders Medication Instructions Recorded Aspirin E.C. [Ecotrin] 81 mg PO DAILY@0800 07/19/13 Atorvastatin Calcium [Lipitor] 10 mg PO QHS 07/19/13 Multivitamins,Therapeutic 1 tablet PO DAILY 07/19/13 [Multivitamin] Trazodone HCl 50 mg PO QHS 07/19/13 Losartan Potassium [Cozaar] 25 mg PO DAILY 07/10/16 Sertraline HCl [Zoloft] 50 mg PO DAILY 07/10/16 Oxycodone HCl/Acetaminophen 1 - 2 tablet PO Q6H PRN PRN #20 07/17/16 [Percocet 5/325] tablet - Family History Maternal - - Patient's mother at the age of 74 with a history of Ecru's chorea. Patient's father at the age of 68 with a history of myocardial infarction. Smoking Status: Former smoker Review of Systems Constitutional: Denies: Chills, Fever, Weight Change Eyes: Denies: Pain, Vision Change HEENT: Denies: Difficulty Hearing, Difficulty Swallowing, Sinus Congestion Cardiovascular: Denies: Chest Pain, Palpitations Respiratory: Denies: Cough, Shortness of Breath Gastrointestinal: Denies: Diarrhea, Nausea, Vomiting Genitourinary: Denies: Dysuria, Hematuria Endocrine: Denies: Heat/ Cold Intolerance, Polydipsia, Polyuria Hematologic/ Lymphatic: Denies: Easy Bruising, Easy Bleeding - Physical Exam Vital Signs Temp Pulse Resp BP 98.0 F 62 18 144/90 H 09/08/17 08:12 09/08/17 08:12 09/08/17 08:12 09/08/17 08:12 General: Alert, Oriented x3, Cooperative, No apparent distress, Well developed, Well nourished HEENT: Atraumatic, PERRLA, EOMI, Normocephalic, - - Eschar, erythema, and some swelling is noted on the patient's left chin, suspected to be from an insect bite of some type. The patient is under the care of other practitioners in this regard. Oral: Moist Mucosa Neck: No JVD Lungs: Normal air movement Abdomen: Non-Distended Extremities: No clubbing, No cyanosis, No Calf Tenderness, - - Swelling and edema in the lower extremities appears to be well controlled. The ulceration on the left medial calf is now nearly healed. Only a very small portion of the ulceration remains. There is no sign of infection or cellulitis. Ulcer dimensions are documented elsewhere. Skin: No rashes Wound Measurements and Assessment - Nurse 1 - General Ulcer Measurement Start: 09/08/17 08:12 Freq: Status: Active Protocol: Activity Type Activity Date Activity User E-Sign Co-Sign Detail Recorded Client Recorded Date Recorded By Document 09/08/17 08:12 MW [id number] 09/08/17 08:19 MW 09/08/17 08:12 Wound Center Nurse 1 [Ulcer Assessment Protocol: EAN.WD.LOC] #2 L Medial Inferior LE -Combined with other wound No -Current Size (cm) - Length 0.1 -Current Size (cm) - Width 0.1 -Current Size (cm) - Depth 0.1 -Total Square Cm 0.01 -Date of Last Picture (Recall this 09/08/17 field) -Photo Taken Yes -Epithelialization Large 67-100% -Tunneling No -Undermining/Tunneling No -Circular Undermining No -Exudate Amt None Present (0 %) -Granulation Amt None Present (0 %) -Granulation Quality N/A -Slough/Fibrin No -Necrosis Amt None Present (0 %) -Structure Exposed N/A -Texture (Teresa-wound Skin Appearance) Assessed Scarring -Moisture (Teresa-wound Skin Appearance Assessed ) Dry/Scaly -Color (Teresa-wound Skin Appearance) No Abnormality Assessed -Temperature (Teresa-wound Skin No Abnormality Appearance) (Pt Warm) -Tenderness on Palpation (Teresa-wound No Skin Appearance) -Ulcer Cleansing Rinsed/ Irrigated with Saline -Foul Odor after Cleansing No -Anesthetic Used 4% Lidocaine Solution [Edema Assessment] -Lower Limb Edema Present Yes -Right Calf (cm) 48.4 -Right Ankle (cm) 26.5 - Nurse 2 - General Ulcer CM Notes Start: 09/08/17 08:12 Freq: Status: Active Protocol: Activity Type Activity Date Activity User E-Sign Co-Sign Detail Recorded Client Recorded Date Recorded By Document 09/08/17 08:35 DV [id number] 09/08/17 08:36 DV 09/08/17 08:35 Wound Center Nurse 2 [Procedure/Treatment] #2 L Medial Inferior LE -Time 08:35 -Correct Patient Yes -Correct Side, Site, Position Yes -Correct Procedure Yes -Procedure Performed Yes -Type of Procedure Debridement -Clinical Debridement Selective -Post Debridement Size (cm) - Length 0.1 -Post Debridement Size (cm) - Width 0.2 -Post Debridement Size (cm) - Depth 0.1 -Total Square Cm 0.02 -Wound/Ulcer Outcome Not Healed -Ulcer Cleansing Rinsed/ Irrigated with Saline -Foul Odor after Cleansing No -Bioengineered Tissue No -Cetacaine [place] No -Bleeding Controlled with Pressure -Treatment Response Procedure Tolerated Well [See Physician Procedure note for Specifics] Pain Scale: 0-10 Numeric [Pain] -Is Patient Pain Free? Yes Neurological: Cranial nerves II-XII grossly intact, Neuro grossly intact Psych/Mental Status: Normal Affect, Agitated, Alert and oriented to time, place , person, mood and affect Debridement Note Post-Debridement Measurements/Treatment WC - Nurse 2 - General Ulcer CM Notes Start: 09/08/17 08:12 Freq: Status: Active Protocol: Activity Type Activity Date Activity User E-Sign Co-Sign Detail Recorded Client Recorded Date Recorded By Document 09/08/17 08:35 DV [id number] 09/08/17 08:36 DV 09/08/17 08:35 Wound Center Nurse 2 #2 L Medial Inferior LE -Time 08:35 -Correct Patient Yes -Correct Side, Site, Position Yes -Correct Procedure Yes -Procedure Performed Yes -Type of Procedure Debridement -Clinical Debridement Selective -Post Debridement Size (cm) - Length 0.1 -Post Debridement Size (cm) - Width 0.2 -Post Debridement Size (cm) - Depth 0.1 -Total Square Cm 0.02 -Wound/Ulcer Outcome Not Healed -Ulcer Cleansing Rinsed/ Irrigated with Saline -Foul Odor after Cleansing No -Bioengineered Tissue No -Cetacaine [place] No -Bleeding Controlled with Pressure -Treatment Response Procedure Tolerated Well Pain Scale: 0-10 Numeric Is Patient Pain Free? Yes Laterality: Left - Medial calf Type of Debridement: Selective debridement Anesthesia Used: 4% Lidocaine Solution Depth: Down to and including healthy tissue Percentage of wound debrided: 100 Instrument Used: 3mm curette Severity: Limited To Skin Breakdown Amount of bleeding with debridement: Mild Bleeding Controlled with: Pressure Patient tolerated procedure well Assessment/Plan Active Problems Leg wound, left (Chronic) Leg swelling (Chronic) Edema of both legs (Chronic) Morbid obesity (Chronic) Venous insufficiency (Chronic) Varicose veins with inflammation (Chronic) Venous hypertension of left lower extremity (Chronic) Assessment: This is a 61-year-old morbidly obese female with a long-standing history of chronic venous insufficiency, varicose veins with inflammation, and lower extremity swelling and edema. In recent months, she has been relatively noncompliant with conservative treatment measures geared toward management of her lower extremity swelling and edema. In addition, approximately 2 weeks prior to her presentation, the patient sustained a traumatic injury to the left medial calf. She presented approximately 1 week following her injury with massive swelling in the lower extremities, and having experienced several episodes of bleeding from her injury site. A noninvasive lower extremity arterial study is normal, revealing no evidence of significant arterial occlusive disease in the lower extremities. Her most recent venous study, performed on 06/30/2017, revealed incompetence of the left great saphenous vein , left accessory saphenous vein at S3, the left small saphenous vein, a branch of the left small saphenous vein, and a assortment planner located 13 cm proximal to the left medial malleolus. We will continue current conservative care relative to the chronic venous disease, swelling and edema, and recent traumatic injury to the left lower extremity. Plan: The patient has been instructed to avoid idle standing and sitting. She is to elevate her lower extremities as much as possible. Activity has been encouraged. Weight loss has also been encouraged. We are to implement the use of collagen hydrogel applied topically on a daily basis. The patient is to wear her knee-high graduated compression stockings of 20-30 mmHg compression on a daily basis. Thus far she has been doing so, and appears to have been relatively compliant. She will return in 2 weeks for physician reassessment. Patient is a candidate for endovenous laser ablation of the left great saphenous vein, the left small saphenous vein, 2 accessory saphenous veins, and the incompetent assortment planner vein in the left calf. She has indicated her desire to proceed with the procedure. We will proceed with plans for endovenous ablation. The preauthorization process is underway. However, there are some patient financial issues which have delayed this intervention, anticipated to occur at some point in the future. Influenza vaccine was not administered today. The patient is not currently a smoker. She quit her smoking habit approximately 10 months ago. The patient weighs 270 pounds. She stands 5 feet 11 inches tall. Her BMI is 37.7. This places the patient in the obese class II category. The patient has been advised to lose weight. She has been encouraged to collaborate with her primary care physician to discuss weight loss options and strategies.
== END 2017-09-09 23:59 ==
LOC: WC 08:11
PROVIDERS: Family Provider Nurse Practitioner Family; PCP Nurse Practitioner Family; Visit Provider Surgery
DX: S81.832A Puncture wound without foreign body, left lower leg, initial encounter (principal); W22.03XA Walked into furniture, initial encounter; I10 Essential (primary) hypertension; M79.89 Other specified soft tissue disorders; R60.0 Localized edema; E66.01 Morbid (severe) obesity due to excess calories; Z71.3 Dietary counseling and surveillance; E78.5 Hyperlipidemia, unspecified; I83.10 Varicose veins of unspecified lower extremity with inflammation; Z79.899 Other long term (current) drug therapy; Z87.891 Personal history of nicotine dependence; Z91.19 Patient's noncompliance with other medical treatment and regimen; Z68.37 Body mass index [BMI] 37.0-37.9, adult
CPT/HCPCS: 87070; 87077; 87186; 87205; 97597

== ENCOUNTER 2017-09-29 08:00 | Outpatient (RCR) | payer OTHER, SELFPAY ==
[2017-09-08 08:12] VITALS: BP 144/90
[2017-09-10 00:43] VITALS: PULSE 62; RESP 18; TEMP 36.7
[2017-09-29 08:02] VITALS: BP 151/81; PULSE 64; RESP 20; TEMP 36.1; BMI 38.5
--- NOTE | 2017-09-29 08:17 | PCM.WC.HP ---
(1) Venous hypertension of left lower extremity Status: Chronic Current Visit: Yes Code(s): I87.302 - Chronic venous hypertension (idiopathic) without complications of left lower extremity (2) Hypertension Status: Chronic Current Visit: No Qualifiers: Code(s): I10 - Essential (primary) hypertension (3) Hyperlipidemia Status: Chronic Current Visit: No Code(s): E78.5 - Hyperlipidemia, unspecified (4) Varicose veins with inflammation Status: Chronic Current Visit: Yes Code(s): I83.10 - Varicose veins of unspecified lower extremity with inflammation (5) Venous insufficiency Status: Chronic Current Visit: Yes (6) Morbid obesity Status: Chronic Current Visit: Yes Code(s): E66.01 - Morbid (severe) obesity due to excess calories (7) Edema of both legs Status: Chronic Current Visit: Yes Code(s): R60.0 - Localized edema (8) Leg swelling Status: Chronic Current Visit: Yes Code(s): M79.89 - Other specified soft tissue disorders (9) Leg wound, left Status: Chronic Current Visit: Yes Qualifiers: Encounter type: subsequent encounter Code(s): S81.802A - Unspecified open wound, left lower leg, initial encounter History of Present Illness Date of Service: 09/29/17 Chief Complaint: Traumatic wound/injury of the distal left lower extremity History of Wound: This is a 62-year-old female with a long-standing history of chronic venous insufficiency, varicose veins with inflammation, and swelling and edema in the lower extremities. She has previously been treated for her lower extremity venous disease, having undergone endovenous laser ablation of the right great saphenous vein, the right small saphenous vein, and the right accessory saphenous vein on July 17, 2016. The patient is known to have venous disease in the left lower extremity, but failed to pursue definitive treatment of her venous disease in the left lower extremity. As result of her prior venous procedure in July 2016, her right lower extremity has remained relatively asymptomatic and without significant symptomatology. Approximately 2 weeks prior to her current presentation, the patient sustained a traumatic wound to the left leg caused by impacting the leg against the bed frame. This occurred on March 08, 2017. The patient did not seek medical attention. She indicates that her tetanus is up-to-date. In the days following her injury, the patient experienced episodes of bita bleeding from the injury site. She scheduled an outpatient appointment in my office, and was evaluated on March 18, 2017. At that time, the traumatic wound was noted on the left medial calf, and massive swelling in both lower extremities, particularly the left. The patient admitted to noncompliance with recommended conservative treatment measures, and had not been using compression on a consistent basis, nor elevating her lower extremities and avoiding idle sitting. Furthermore, she is known to be morbidly obese. Since the patient's initial visit, she has been elevating her lower extremities more consistently. She has also undergone a noninvasive lower extremity arterial study, which reveals triphasic waveforms at ankle level bilaterally, normal anklebrachial indices, and normal digitalbrachial indices. Venous study reveals incompetence of the left great saphenous vein, left accessory saphenous vein, and incompetence of left small saphenous vein, accessory branch, and intermodal dispatcher. There has been improvement in the swelling of the lower extremities with current measures. She has most recently been applying compression by means of knee-high, graduated compression stockings of 20-30 mmHg compression, worn on a daily basis. The traumatic wound on the left medial calf is now completely healed. Topical management has been by means of collagen hydrogel. Past Medical History Past Medical History: Chronic Problems Venous hypertension of left lower extremity (Chronic) Hypertension (Chronic) Hyperlipidemia (Chronic) Varicose veins with inflammation (Chronic) Venous insufficiency (Chronic) Morbid obesity (Chronic) Edema of both legs (Chronic) Leg swelling (Chronic) Leg wound, left (Chronic) Surgical History: - - Patient has undergone prior endovenous laser ablation of the right great saphenous vein, right small saphenous vein, and right accessory saphenous vein on July 17, 2016. She is undergone right knee arthroscopy. She also underwent hysterectomy in the past. Patient is a Ab0. Allergies/Adverse Reactions: Allergies hydrocodone bitartrate [From Vicodin] Allergy (Verified 03/24/17 08:27) Swelling codeine Adverse Reaction (Verified 03/24/17 08:27) Nausea Home Medications: Ambulatory Orders Medication Instructions Recorded Aspirin E.C. [Ecotrin] 81 mg PO DAILY@0800 07/19/13 Atorvastatin Calcium [Lipitor] 10 mg PO QHS 07/19/13 Multivitamins,Therapeutic 1 tablet PO DAILY 07/19/13 [Multivitamin] Trazodone HCl 50 mg PO QHS 07/19/13 Losartan Potassium [Cozaar] 25 mg PO DAILY 07/10/16 Sertraline HCl [Zoloft] 50 mg PO DAILY 07/10/16 Oxycodone HCl/Acetaminophen 1 - 2 tablet PO Q6H PRN PRN #20 07/17/16 [Percocet 5/325] tablet - Family History Maternal - - Patient's mother at the age of 74 with a history of [place]'s chorea. Patient's father at the age of 68 with a history of myocardial infarction. Smoking Status: Former smoker Review of Systems Constitutional: Denies: Chills, Fever, Weight Change Eyes: Denies: Pain, Vision Change HEENT: Denies: Difficulty Hearing, Difficulty Swallowing, Sinus Congestion Cardiovascular: Denies: Chest Pain, Palpitations Respiratory: Denies: Cough, Shortness of Breath Gastrointestinal: Denies: Diarrhea, Nausea, Vomiting Genitourinary: Denies: Dysuria, Hematuria Endocrine: Denies: Heat/ Cold Intolerance, Polydipsia, Polyuria Hematologic/ Lymphatic: Denies: Easy Bruising, Easy Bleeding - Physical Exam Vital Signs Temp Pulse Resp BP 96.9 F L 64 20 H 151/81 H 09/29/17 08:02 09/29/17 08:02 09/29/17 08:02 09/29/17 08:02 General: Alert, Oriented x3, Cooperative, No apparent distress, Well developed, Well nourished, - - Chin abscess is completely healed. HEENT: Atraumatic, PERRLA, EOMI, Normocephalic Oral: Moist Mucosa Neck: No JVD Lungs: Normal air movement Abdomen: Non-Distended Extremities: No clubbing, No cyanosis, No edema, No Calf Tenderness, - - Left leg wound is completely healed and epithelialized. Skin: No rashes, No breakdown Wound Measurements and Assessment WC - Nurse 1 - General Ulcer Measurement Start: 09/29/17 08:01 Freq: Status: Active Protocol: Activity Type Activity Date Activity User E-Sign Co-Sign Detail Recorded Client Recorded Date Recorded By Document 09/29/17 08:02 OPHELIA [id number] 09/29/17 08:04 OPHELIA 09/29/17 08:02 Wound Center Nurse 1 [Ulcer Assessment] #2 L Medial Inferior LE -Combined with other wound No -Current Size (cm) - Length 0 -Current Size (cm) - Width 0 -Current Size (cm) - Depth 0 -Total Square Cm 0 -Photo Taken Yes -Epithelialization Large 67-100% -Tunneling No -Undermining/Tunneling No -Circular Undermining No -Exudate Amt None Present (0 %) -Wound Margin Flat & Intact -Granulation Amt None Present (0 %) -Structure Exposed N/A -Texture (Teresa-wound Skin Appearance) Assessed Localized Edema -Moisture (Teresa-wound Skin Appearance Assessed ) Dry/Scaly -Color (Teresa-wound Skin Appearance) Assessed -Temperature (Teresa-wound Skin No Abnormality Appearance) (Pt Warm) -Tenderness on Palpation (Teresa-wound No Skin Appearance) [Edema Assessment] -Lower Limb Edema Present Yes -Left Calf (cm) 46.0 -Left Ankle (cm) 25.3 Neurological: Cranial nerves II-XII grossly intact, Neuro grossly intact Psych/Mental Status: Normal Affect, Appropriate, Alert and oriented to time, place, person, mood and affect Debridement Note No debridement was completed today Assessment/Plan Active Problems Venous hypertension of left lower extremity (Chronic) Varicose veins with inflammation (Chronic) Venous insufficiency (Chronic) Morbid obesity (Chronic) Edema of both legs (Chronic) Leg swelling (Chronic) Leg wound, left (Chronic) Assessment: This is a 62-year-old morbidly obese female with a long-standing history of chronic venous insufficiency, varicose veins with inflammation, and lower extremity swelling and edema. In recent months, she has been relatively noncompliant with conservative treatment measures geared toward management of her lower extremity swelling and edema. In addition, approximately 2 weeks prior to her presentation, the patient sustained a traumatic injury to the left medial calf. She presented approximately 1 week following her injury with massive swelling in the lower extremities, and having experienced several episodes of bleeding from her injury site. A noninvasive lower extremity arterial study is normal, revealing no evidence of significant arterial occlusive disease in the lower extremities. Her most recent venous study, performed on 06/30/2017, revealed incompetence of the left great saphenous vein, left accessory saphenous vein at S3, the left small saphenous vein, a branch of the left small saphenous vein, and a intermodal dispatcher located 13 cm proximal to the left medial malleolus. We will continue current conservative care relative to the chronic venous disease. Plan: The patient has been instructed to avoid idle standing and sitting. She is to elevate her lower extremities as much as possible. Activity has been encouraged. Weight loss has also been encouraged. The patient is to wear her knee-high graduated compression stockings of 20-30 mmHg compression on a daily basis. Thus far she has been doing so, and appears to have been relatively compliant. She will be discharged. Patient is a candidate for endovenous laser ablation of the left great saphenous vein, the left small saphenous vein, 2 accessory saphenous veins, and the incompetent intermodal dispatcher vein in the left calf. She has indicated her desire to proceed with the procedure. We will proceed with plans for endovenous ablation. She intends to wait until the end of the year for financial reasons. She intends to continue conservative treatment measures for the time being. The preauthorization process is underway. However, there are some patient financial issues which have delayed this intervention, anticipated to occur at some point in the future. Influenza vaccine was not administered today. The patient is not currently a smoker. She quit her smoking habit approximately 10 months ago. The patient weighs 270 pounds. She stands 5 feet 11 inches tall. Her BMI is 37.7. This places the patient in the obese class II category. The patient has been advised to lose weight. She has been encouraged to collaborate with her primary care physician to discuss weight loss options and strategies.
--- NOTE | 2017-09-29 08:27 | HP.PCM_ITS ---
(1) Venous hypertension of left lower extremity Status: Chronic Current Visit: Yes Code(s): I87.302 - Chronic venous hypertension (idiopathic) without complications of left lower extremity (2) Hypertension Status: Chronic Current Visit: No Qualifiers: Code(s): I10 - Essential (primary) hypertension (3) Hyperlipidemia Status: Chronic Current Visit: No Code(s): E78.5 - Hyperlipidemia, unspecified (4) Varicose veins with inflammation Status: Chronic Current Visit: Yes Code(s): I83.10 - Varicose veins of unspecified lower extremity with inflammation (5) Venous insufficiency Status: Chronic Current Visit: Yes (6) Morbid obesity Status: Chronic Current Visit: Yes Code(s): E66.01 - Morbid (severe) obesity due to excess calories (7) Edema of both legs Status: Chronic Current Visit: Yes Code(s): R60.0 - Localized edema (8) Leg swelling Status: Chronic Current Visit: Yes Code(s): M79.89 - Other specified soft tissue disorders (9) Leg wound, left Status: Chronic Current Visit: Yes Qualifiers: Encounter type: subsequent encounter Code(s): S81.802A - Unspecified open wound, left lower leg, initial encounter History of Present Illness Date of Service: 09/29/17 Chief Complaint: Traumatic wound/injury of the distal left lower extremity History of Wound: This is a 62-year-old female with a long-standing history of chronic venous insufficiency, varicose veins with inflammation, and swelling and edema in the lower extremities. She has previously been treated for her lower extremity venous disease, having undergone endovenous laser ablation of the right great saphenous vein, the right small saphenous vein, and the right accessory saphenous vein on July 17, 2016. The patient is known to have venous disease in the left lower extremity, but failed to pursue definitive treatment of her venous disease in the left lower extremity. As result of her prior venous procedure in July 2016, her right lower extremity has remained relatively asymptomatic and without significant symptomatology. Approximately 2 weeks prior to her current presentation, the patient sustained a traumatic wound to the left leg caused by impacting the leg against the bed frame. This occurred on March 08, 2017. The patient did not seek medical attention. She indicates that her tetanus is up-to-date. In the days following her injury, the patient experienced episodes of bita bleeding from the injury site. She scheduled an outpatient appointment in my office, and was evaluated on March. At that time, the traumatic wound was noted on the left medial calf, and massive swelling in both lower extremities, particularly the left. The patient admitted to noncompliance with recommended conservative treatment measures, and had not been using compression on a consistent basis, nor elevating her lower extremities and avoiding idle sitting. Furthermore, she is known to be morbidly obese. Since the patient's initial visit, she has been elevating her lower extremities more consistently. She has also undergone a noninvasive lower extremity arterial study, which reveals triphasic waveforms at ankle level bilaterally, normal ankle?brachial indices, and normal digital? brachial indices. Venous study reveals incompetence of the left great saphenous vein, left accessory saphenous vein, and incompetence of left small saphenous vein, accessory branch, and drafter chief design. There has been improvement in the swelling of the lower extremities with current measures. She has most recently been applying compression by means of knee-high, graduated compression stockings of 20-30 mmHg compression, worn on a daily basis. The traumatic wound on the left medial calf is now completely healed. Topical management has been by means of collagen hydrogel. Past Medical History Past Medical History: Chronic Problems Venous hypertension of left lower extremity (Chronic) Hypertension (Chronic) Hyperlipidemia (Chronic) Varicose veins with inflammation (Chronic) Venous insufficiency (Chronic) Morbid obesity (Chronic) Edema of both legs (Chronic) Leg swelling (Chronic) Leg wound, left (Chronic) Surgical History: - - Patient has undergone prior endovenous laser ablation of the right great saphenous vein, right small saphenous vein, and right accessory saphenous vein on July 17, 2016. She is undergone right knee arthroscopy. She also underwent hysterectomy in the past. Patient is a Ab0. Allergies/Adverse Reactions: Allergies hydrocodone bitartrate [From Vicodin] Allergy (Verified 03/24/17 08:27) Swelling codeine Adverse Reaction (Verified 03/24/17 08:27) Nausea Home Medications: Ambulatory Orders Medication Instructions Recorded Aspirin E.C. [Ecotrin] 81 mg PO DAILY@0800 07/19/13 Atorvastatin Calcium [Lipitor] 10 mg PO QHS 07/19/13 Multivitamins,Therapeutic 1 tablet PO DAILY 07/19/13 [Multivitamin] Trazodone HCl 50 mg PO QHS 07/19/13 Losartan Potassium [Cozaar] 25 mg PO DAILY 07/10/16 Sertraline HCl [Zoloft] 50 mg PO DAILY 07/10/16 Oxycodone HCl/Acetaminophen 1 - 2 tablet PO Q6H PRN PRN #20 07/17/16 [Percocet 5/325] tablet - Family History Maternal - - Patient's mother at the age of 74 with a history of [place]'s chorea. Patient's father at the age of 68 with a history of myocardial infarction. Smoking Status: Former smoker Review of Systems Constitutional: Denies: Chills, Fever, Weight Change Eyes: Denies: Pain, Vision Change HEENT: Denies: Difficulty Hearing, Difficulty Swallowing, Sinus Congestion Cardiovascular: Denies: Chest Pain, Palpitations Respiratory: Denies: Cough, Shortness of Breath Gastrointestinal: Denies: Diarrhea, Nausea, Vomiting Genitourinary: Denies: Dysuria, Hematuria Endocrine: Denies: Heat/ Cold Intolerance, Polydipsia, Polyuria Hematologic/ Lymphatic: Denies: Easy Bruising, Easy Bleeding - Physical Exam Vital Signs Temp Pulse Resp BP 96.9 F L 64 20 H 151/81 H 09/29/17 08:02 09/29/17 08:02 09/29/17 08:02 09/29/17 08:02 General: Alert, Oriented x3, Cooperative, No apparent distress, Well developed, Well nourished, - - Chin abscess is completely healed. HEENT: Atraumatic, PERRLA, EOMI, Normocephalic Oral: Moist Mucosa Neck: No JVD Lungs: Normal air movement Abdomen: Non-Distended Extremities: No clubbing, No cyanosis, No edema, No Calf Tenderness, - - Left leg wound is completely healed and epithelialized. Skin: No rashes, No breakdown Wound Measurements and Assessment WC - Nurse 1 - General Ulcer Measurement Start: 09/29/17 08:01 Freq: Status: Active Protocol: Activity Type Activity Date Activity User E-Sign Co-Sign Detail Recorded Client Recorded Date Recorded By Document 09/29/17 08:02 OPHELIA [id number] 09/29/17 08:04 OPHELIA 09/29/17 08:02 Wound Center Nurse 1 [Ulcer Assessment] #2 L Medial Inferior LE -Combined with other wound No -Current Size (cm) - Length 0 -Current Size (cm) - Width 0 -Current Size (cm) - Depth 0 -Total Square Cm 0 -Photo Taken Yes -Epithelialization Large 67-100% -Tunneling No -Undermining/Tunneling No -Circular Undermining No -Exudate Amt None Present (0 %) -Wound Margin Flat & Intact -Granulation Amt None Present (0 %) -Structure Exposed N/A -Texture (Teresa-wound Skin Appearance) Assessed Localized Edema -Moisture (Teresa-wound Skin Appearance Assessed ) Dry/Scaly -Color (Teresa-wound Skin Appearance) Assessed -Temperature (Teresa-wound Skin No Abnormality Appearance) (Pt Warm) -Tenderness on Palpation (Teresa-wound No Skin Appearance) [Edema Assessment] -Lower Limb Edema Present Yes -Left Calf (cm) 46.0 -Left Ankle (cm) 25.3 Neurological: Cranial nerves II-XII grossly intact, Neuro grossly intact Psych/Mental Status: Normal Affect, Appropriate, Alert and oriented to time, place, person, mood and affect Debridement Note No debridement was completed today Assessment/Plan Active Problems Venous hypertension of left lower extremity (Chronic) Varicose veins with inflammation (Chronic) Venous insufficiency (Chronic) Morbid obesity (Chronic) Edema of both legs (Chronic) Leg swelling (Chronic) Leg wound, left (Chronic) Assessment: This is a 62-year-old morbidly obese female with a long-standing history of chronic venous insufficiency, varicose veins with inflammation, and lower extremity swelling and edema. In recent months, she has been relatively noncompliant with conservative treatment measures geared toward management of her lower extremity swelling and edema. In addition, approximately 2 weeks prior to her presentation, the patient sustained a traumatic injury to the left medial calf. She presented approximately 1 week following her injury with massive swelling in the lower extremities, and having experienced several episodes of bleeding from her injury site. A noninvasive lower extremity arterial study is normal, revealing no evidence of significant arterial occlusive disease in the lower extremities. Her most recent venous study, performed on 06/30/2017, revealed incompetence of the left great saphenous vein , left accessory saphenous vein at S3, the left small saphenous vein, a branch of the left small saphenous vein, and a drafter chief design located 13 cm proximal to the left medial malleolus. We will continue current conservative care relative to the chronic venous disease. Plan: The patient has been instructed to avoid idle standing and sitting. She is to elevate her lower extremities as much as possible. Activity has been encouraged. Weight loss has also been encouraged. The patient is to wear her knee-high graduated compression stockings of 20-30 mmHg compression on a daily basis. Thus far she has been doing so, and appears to have been relatively compliant. She will be discharged. Patient is a candidate for endovenous laser ablation of the left great saphenous vein, the left small saphenous vein, 2 accessory saphenous veins, and the incompetent drafter chief design vein in the left calf. She has indicated her desire to proceed with the procedure. We will proceed with plans for endovenous ablation. She intends to wait until the end of the year for financial reasons. She intends to continue conservative treatment measures for the time being. The preauthorization process is underway. However, there are some patient financial issues which have delayed this intervention, anticipated to occur at some point in the future. Influenza vaccine was not administered today. The patient is not currently a smoker. She quit her smoking habit approximately 10 months ago. The patient weighs 270 pounds. She stands 5 feet 11 inches tall. Her BMI is 37.7. This places the patient in the obese class II category. The patient has been advised to lose weight. She has been encouraged to collaborate with her primary care physician to discuss weight loss options and strategies.
== END 2017-10-07 23:59 ==
LOC: WC 08:00
PROVIDERS: Family Provider Nurse Practitioner Family; PCP Nurse Practitioner Family; Visit Provider Surgery
DX: I83.12 Varicose veins of left lower extremity with inflammation (principal); I83.11 Varicose veins of right lower extremity with inflammation; R60.0 Localized edema; M79.89 Other specified soft tissue disorders; E66.01 Morbid (severe) obesity due to excess calories; Z68.37 Body mass index [BMI] 37.0-37.9, adult; Z71.3 Dietary counseling and surveillance; I10 Essential (primary) hypertension; E78.5 Hyperlipidemia, unspecified; Z91.19 Patient's noncompliance with other medical treatment and regimen; Z79.899 Other long term (current) drug therapy; Z79.82 Long term (current) use of aspirin; Z87.891 Personal history of nicotine dependence
CPT/HCPCS: 99211; G0463

== ENCOUNTER → 2019-06-15 | Outpatient (CLI) | payer OTHER, SELFPAY ==
[2019-06-10 15:15] VITALS: BMI 37.0
--- NOTE | 2019-06-15 09:59 | VDLE_ITS ---
Reason For Study: pain RIGHT LEFT CFV is compressible, spontaneous, phasic, CFV is compressible, spontaneous, phasic, competent and demonstrates normal competent, and demonstrates normal augmentation. augmentation. FV is compressible, spontaneous, phasic, FV is compressible, spontaneous, phasic, competent and demonstrates normal competent and demonstrates normal augmentation. augmentation. POP V is compressible, spontaneous, phasic, POP V is compressible, spontaneous, phasic, competent and demonstrates normal competent and demonstrates normal augmentation. augmentation. T/P Trunk is compressible. T/P Trunk is compressible. PTV is compressible. PTV is compressible. RT PerV is compressible. LT PerV is compressible. Rt GSV is not visualized above the knee d/t Rt GSV is compressible. vein ablation procedure. Rt GSV is Rt Access V are NONCOMPRESSIBLE and dilated compressible below knee. in various locations just above and below the Procedure knee. Exam performed in department. A preliminary report was called and/or faxed to Hector Gomez. Interpretation Summary No evidence for acute deep venous thrombosis right lower extremity. History of great saphenous vein ablation suprageniculate Patent and compressible right great saphenous vein infrageniculate. No evidence for acute deep venous thrombosis left lower extremity. Patent, compressible left great saphenous vein Superficial thrombophlebitis left accessory veins supra and infra geniculate Ordering Physician: Hector Gomez Referring Physician: IMAN BRISENO Performed By: Malaika Park, JIMMIE, RVT
== END | disposition home or self-care (01) ==
LOC: CVS 09:57
PROVIDERS: Family Provider Nurse Practitioner Family; PCP Nurse Practitioner Family; Referring Provider Physician Assistant; Visit Provider Physician Assistant
DX: M79.661 Pain in right lower leg (principal); M79.662 Pain in left lower leg
CPT/HCPCS: 93970

== ENCOUNTER 2019-07-04 07:25 | Observation (INO) | payer OTHER, SELFPAY ==
[2019-06-10 15:15] VITALS: BP 169/78; PULSE 60; RESP 16; TEMP 36.2; O2SAT 97; BMI 37.0
--- NOTE | 2019-06-10 16:02 | SDCEKG_ITS ---
Test Reason : Blood Pressure : / mmHG Vent. Rate : 051 BPM Atrial Rate : 051 BPM P-R Int : 128 ms QRS Dur : 088 ms QT Int : 450 ms P-R-T Axes : 028 049 053 degrees QTc Int : 414 ms Sinus bradycardia Otherwise normal ECG Confirmed by RAMIRO FLOWERS, HEATHER ([id number]), editor book GAURANG SEO ([id number]) on 06/14/2019 8:41:06 AM Referred By: Luis Felipe Velásquez Confirmed By:HEATHER RUBIO MD
--- NOTE | 2019-06-10 16:05 | RAD_ITS ---
STUDY: X-RAY CHEST REASON FOR EXAM: Female, 63 years old. Preoperative exam TECHNIQUE: Frontal and lateral views of the chest COMPARISON: None. FINDINGS: The lungs are clear. There are no pleural effusions. There is no pneumothorax. The heart is normal in size. The visualized osseous structures are within normal limits. RAD/Chest PA and Lateral IMPRESSION: Clear lungs. Electronically Signed: Ismael Carreon, at 16:51 EDT Tel , Service support ,
[2019-06-10 16:49] LABS: Absolute Lymphocyte Count 2.91 X10^3/uL (0.83-4.51); Absolute Neutrophil Count 4.6 X10^3/uL (2.0-7.7); Basophil# 0.05 X10^3/uL; Basophil% 0.6 % (0-1); Eosinophil# 0.16 X10^3/uL; Eosinophils% 1.9 % (0-5); Hematocrit 43.4 % (37-47); Hemoglobin 14.2 g/dL (12.0-15.0); Lymphocyte # 2.91 X10^3/ul (4.0); Lymphocyte % 35.3 % (19-41); Mean Corp Hgb Conc 32.7 g/dL (32-36); Mean Corpuscular Hgb 31.3 pg (27.0-32.0); Mean Corpuscular Volume 95.6 fL (81-99); Mean Platelet Vol. 10.9 fl (6.2-12.0); Monocyte# 0.52 X10^3/uL; Monocyte% 6.3 % (0-10); NRBC Flagged by Analyzer 0 % (0-5); Neutrophil # 4.59 X10^3/uL (2.7-7.7); Neutrophil % 55.7 % (47-70); Platelet Count 200 K/mm3 (150-450); RBC Distribution Width CV 11.3 % (11.6-14.6); RBC Distribution Width SD 39.8 fl (35.1-43.9); Red Blood Count 4.54 M/mm3 (4.2-5.4); White Blood Count 8.3 K/mm3 (4.4-11.0)
[2019-06-10 17:08] LABS: Anion Gap 7 (5-15); BUN 17 mg/dL (7-18); BUN/Creat Ratio 22.9 RATIO (10-20); Calcium,Total 9.2 mg/dL (8.5-10.1); Chloride 106 mmol/L (98-107); Creatinine, Serum 0.74 mg/dL (0.55-1.02); EST Glomerular Filtration Rate 85 mL/min (>60); Est Glom Filt Rate - Afr Amer 102 mL/min (>60); Estimated Creatinine Clearance 83.43 ml/min; Glucose 100 mg/dL (74-106); Sodium Level 141 mmol/L (136-145)
[2019-07-04] VITALS (10 sets, daily range): BP systolic 111–162; BP diastolic 61–88; PULSE 56–65; RESP 14–16; TEMP 35.8–36.6; O2SAT 94–100; BMI 37.0; BMI 37.1
[2019-07-04] MEDS: Acetaminophen 500 MG Tablet 1000 MG PO ×3 (06:18→22:30)
[2019-07-04] MEDS: Gabapentin 600 MG Tablet PO (06:18)
[2019-07-04] MEDS: Lactated Ringers 1,000 ML 999 ML IV (06:24)
[2019-07-04] MEDS: Magnesium Sulfate 4gm/100mL 4 GM/100 ML IV.SOLN. IV (06:25)
[2019-07-04 06:40] LABS: Bedside Glucose 94 mg/dL (70-110)
--- NOTE | 2019-07-04 07:15 | KNEE_PTH ---
PATIENT: VARGAS ARRIAZA LOC: MS3 U#:[id number] AGE/SX: 63/F ROOM: MS306 RE07/04/[address]: Dr. Luis Felipe Velásquez DO : 1955 BED: 1 DIS: 07/05/2019 SPEC #: [id number] RECD: 07/04/19 10:58 STATUS: MARY KEAGAN #: [id number] MATTHEW: 07/04/19 07:[address]: Luis Felipe Velásquez DEPT: SURGICAL PATHOLOGY RECD BY: Paris Oquendo ENTERED: 07/04/19 11:53 SP TYPE: TOTAL KNEE OTHR DR: ABHINAV Peraza Tissues: Knee, NOS Procedures: Decalcification bone/plaque Surgery Specimen Level IV HEADER OPERATION: Right total knee replacement, left knee steroid injection PRE-OP DIAGNOSIS: Primary osteoarthritis, right knee TISSUE SUBMITTED: Right knee bone and soft tissue MICROSCOPIC DIAGNOSIS Bone and soft tissue, right knee, total knee replacement: Pieces of bone with degenerative osteoarthritic changes. Fibroadipose tissue, fibroconnective tissue and reactive synovial tissue. VICTORIA:viviana 07/08/19 MICROSCOPIC DESCRIPTION Slides are reviewed. GROSS DESCRIPTION Received is one container designated bone and soft tissue right knee. The specimen consists of multiple fragments of nina-yellow bone measuring in aggregate 12 x 10 x 4 cm. Also in the specimen container are multiple fragments of yellow-white soft tissue measuring in aggregate 10 x 8 x 3 cm. A number of bony fragments contain articular surfaces consistent with tibial plateau and femoral condyle and displaying prominent osteophyte formation, eburnation, and bone erosion. Residential Sales Manager sections are submitted in two cassettes as follows: 1 - soft tissue, 2 - bone after decalcification. / VICTORIA:viviaan 07/04/19 :5 [facility]: [id number], [id number]
[2019-07-04] MEDS: Cefazolin 2 GM in 0.9% Normal Saline 100 ML IV (07:30)
[2019-07-04] MEDS: Betamethasone/Betamethasone 30 MG/5 ML Vial (08:04)
--- NOTE | 2019-07-04 10:31 | OP.PCM_ITS ---
Report of Operation Date of Procedure: 07/04/19 Pre-Operative Diagnosis: OA b/l knees Post-Operative Diagnosis: same Surgery/Procedure Performed:: Right TKR and cortisone injection left knee Description of Surgical Findings:: Primary Surgeon/Physician: Luis Felipe Velásquez job cost estimator: Hector Gomez PA-C job cost estimator: Pre-Operative Diagnosis: OA b/l knees Post-Operative Diagnosis: same Surgery/Procedure Performed: Right TKR, Injection left knee with 4cc 1% Lidocaine and 2 cc Celestone Estimated Blood Loss: minimal Specimen's Removed: bone Type of Anesthesia: spinal ASA Class: Implants: [Elko Triathlon size 5 press fit femur, Size 5 press fit tibia, 35 mm press fit patella, 9 mm polyethylene ] Indications: Patient has severe end-stage osteoarthritis diagnosed via x-rays in the knee. They have failed all forms of conservative measures including activity modification, injections, anti-inflammatories, use of assistive device. The patient has pain that affects on a daily basis and prevents him from doing things that they enjoyed. They have elected to undergo the above procedure. The risks of the procedure were discussed at length and their questions were answered. Procedure Description: The patient was greeted in the preoperative area. The [right ] knee was then marked with a surgical marker. Patient was then taken to or [address]. They were administered a dose of antibiotics as well as tranexamic acid. Once adequate anesthesia was obtained and airway was secured to placed in supine position on the operating room table. A well-padded tourniquet was placed on the affected extremity. Leg was then prepped and draped in the usual sterile fashion from the knee down. Ioban was used on the skin. Surgical timeout was then performed and confirmed with all present. Six-inch Esmarch was used to examine the limb and tourniquet was then inflated to 250 mmHg. A longitudinal incision was then planned and carried out in the anterior aspect of the knee. The dissection was then carried the length of the incision the extensor mechanism was identified. Standard medial parapatellar arthrotomy was then performed revealing severe eburnation of bone and periarticular osteophytes. There is complete loss of cartilage especially in the medial compartment with varus alignment. Anterior fat pad was removed for visualization purposes and the anterior medial aspect of the tibia was skeletonized for exposure to the knee. The knee was then flexed the patella was inverted. Opening reamer was then used in the femur approximately 1 cm anterior to the attachment of the PCL. The intramedullary valgus wand was then placed in the femur set at 5? of valgus. The distal femoral cutting jig was then applied to the femur with anticipated resection of approximately 8 mm. This was then made with a oscillating saw. The sizing guide was then placed referencing off the posterior condyles and also reference off the epicondylar axis. This was measured and the appropriate size 4-in-1 cutting jig was then applied to the distal femur. Anterior posterior cuts were made followed by the anterior and posterior chamfer cuts. These bony pieces and fragments were removed and placed on the back table. Posterior retractor was then utilized and the tibia was subluxed anteriorly. Intramedullary tibial alignment jig was then applied to the tibia referencing off the medial one third of the tibial tubercle the anterior tibial spine the middle aspect of the tibiotalar joint. Also reference off patient's quechan slope. The tibial cutting jig was then pinned with anticipated resection of 2 mm off of the deficient medial tibial condyle. This cut was made with the oscillating saw. Once this was complete a laminar quality assurance engineer was utilized in both medial lateral meniscus were removed and a posterior capsular osteophytes were also removed. Posterior capsule release was performed in the posterior capsule as well as the geniculate arteries are treated with the aqua Renetta. The tibia was incised and the appropriate sized tibial tray was then pinned. The femoral trial was then placed and the knee was trialed. Full flexion-extension were easily achieved. The knee seemed to balance quite nicely. Any remaining osteophytes were removed at this time. Once this was complete the patella was everted and the Spring patella reaming device was then utilized the patella was then placed in the appropriate jig and reamer was then used to remove approximately 9 mm of the undersurface of the patella. A soft tissue remaining was in the way was removed and patella trial was then placed listed maintain excellent tracking using the no thumbs technique. The tibial tray at this point was punched to accommodate the fins of the final implant. The trial components were removed and the knee was copiously irrigated. Did use a cocktail of injection for postoperative pain control. The final components were then placed and patellar clamp is placed in the patella. The tourniquet was deflated and hemostasis was perfect with Bovie cautery as well as the aqua Manus. The knee is once again trialed with different size polyethylenes to ensure the full range of motion was achieved as well as excellent balancing ligamentously was achieved. At this point the knee was copiously irrigated. Fi nal implant was then inserted locking mechanism was engaged and confirmed to be locked. The arthrotomy was then closed with #1 Vicryl aggravate type fashion interrupted. Subcutaneous tissue was closed with 0 Vicryl and surgical jd were placed in the skin. A occlusive silver impregnated dressing was then applied followed by well-padded sterile dressing secured with an Bernardo wrap. Under sterile conditions, the left knee was injected with 4 cc of 1% Lidocaine and 2 cc of Celestone Soluspan. The patient was taken to the PACU in stable condition. No complications known at this time. Postoperatively we will maintain standard total knee postoperative protocol. The use of the physician physician assistant surgery was integral during this procedure. They assisted with positioning placement of the tourniquet retracting closure and placement of the dressing. The procedure would have been much more difficult without their expertise and assistance job cost estimator: Hector Gomez Type of Anesthesia:: Spinal Anesthesiologist: Giovanni Goldsmith VTE Documentation VTE Present on Admission: No VTE Mechan Device Prophylaxis: SCD's, Thigh High JJ Hose VTE Pharm Prophylaxis ordered?: Yes
[2019-07-04] MEDS: Lactated Ringers 1,000 ML 75 ML IV (10:47)
[2019-07-04] MEDS: Cefazolin 1 GM/50 ML BAG IV ×2 (16:28→22:30)
[2019-07-04] MEDS: Sertraline 50 MG Tablet PO (22:30)
[2019-07-04] MEDS: Atorvastatin Calcium 10 MG Tablet PO (22:30)
[2019-07-04] MEDS: Senna/Docusate Sodium 1 Tablet 2 TABLET PO (22:31)
[2019-07-04] MEDS: traZODone 100 MG Tablet 150 MG PO (22:31)
[2019-07-05 02:51] VITALS: BP 153/80; PULSE 60; RESP 16; TEMP 36.6; O2SAT 97
[2019-07-05 05:36] LABS: Hematocrit 36.2 % (37-47); Mean Corp Hgb Conc 33.1 g/dL (32-36); Mean Corpuscular Hgb 31.3 pg (27.0-32.0); Mean Corpuscular Volume 94.3 fL (81-99); Mean Platelet Vol. 10.8 fl (6.2-12.0); Platelet Count 174 K/mm3 (150-450); RBC Distribution Width CV 11.3 % (11.6-14.6); RBC Distribution Width SD 38.3 fl (35.1-43.9); Red Blood Count 3.84 M/mm3 (4.2-5.4); White Blood Count 13.5 K/mm3 (4.4-11.0)
[2019-07-05] MEDS: Acetaminophen 500 MG Tablet 1000 MG PO ×2 (05:42→13:04)
[2019-07-05 06:09] LABS: Anion Gap 6 (5-15); BUN 13 mg/dL (7-18); BUN/Creat Ratio 18.8 RATIO (10-20); Calcium,Total 8.8 mg/dL (8.5-10.1); Chloride 112 mmol/L (98-107); Creatinine, Serum 0.69 mg/dL (0.55-1.02); EST Glomerular Filtration Rate 92 mL/min (>60); Est Glom Filt Rate - Afr Amer 111 mL/min (>60); Estimated Creatinine Clearance 89.48 ml/min; Glucose 149 mg/dL (74-106); Potassium 4.4 mmol/L (3.5-5.1); Sodium Level 143 mmol/L (136-145)
--- NOTE | 2019-07-05 07:40 | PN.ORTHO_ITS ---
Subjective: Patient sitting at bedside, pain well managed. Patient eating breakfast. Patient has no complaints. Denies chest pain, shortness breath, calf pain, nausea vomiting. Ready for discharge home today. Objective: Dressing is clean dry intact. Negative signs and symptoms of DVT. Patient is no respiratory distress speaking in full sentences. Labs and vitals within normal limits. - Physical Exam Vitals/I&O's: Vital Signs Temp Pulse Resp BP Pulse Ox 97.9 F 60 16 153/80 H 97 07/05/19 02:51 07/05/19 02:51 07/05/19 02:51 07/05/19 02:51 07/05/19 02:51 Oxygen Flow Rate (L/min) 6 Oxygen Delivery Method Room Air Weight: 113.852 kg Body Mass Index (BMI) 37.0 Intake and Output for Last 24 Hours 07/03/19 07/04/19 07/05/19 23:59 23:59 23:59 Intake Total 2382.5 / 2382.5 1147.5 / 1147.5 Output Total 1999 Balance 2382.5 / 2382.5 -852.5 / -852.5 General: Alert, Oriented x3, Cooperative HEENT: PERRLA Oral: Moist Mucosa Neurological: Cranial nerves II-XII grossly intact Psych/Mental Status: Normal Affect, Alert and oriented to time, place, person, mood and affect Laboratory Results 07/05/19 05:18: WBC 13.5 H, RBC 3.84 L, Hgb 12.0, Hct 36.2 L, MCV 94.3, MCH 31.3, MCHC 33.1, RDW Std Deviation 38.3, RDW Coeff of Gareth 11.3 L, Plt Count 174, MPV 10.8 07/05/19 05:18: Sodium 143, Potassium 4.4, Chloride 112 H, Carbon Dioxide 25.0, Anion Gap 6, BUN 13, Creatinine 0.69, Estim Creat Clear Calc 89.48, Est GFR (MDRD) Af Amer 111, Est GFR (MDRD) Non-Af 92, BUN/Creatinine Ratio 18.8, Glucose 149 H, Calcium 8.8 Current Medications Acetaminophen (Tylenol) 1,000 mg PO Q8 YVROSE Last Admin: 07/05/19 05:42 Dose: 1,000 mg Documented by: Aspirin (Aspirin) 325 mg PO BID [facility] Atorvastatin Calcium (Lipitor) 10 mg PO QHS [facility] Last Admin: 07/04/19 22:30 Dose: 10 mg Documented by: Insulin Human Lispro (Humalog Kwikpen (Bkc)) 1 - 6 unit SC Q4H PRN PRN; Protocol PRN Reason: BG>/= 180, SEE PROTOCOL Losartan Potassium (Cozaar) 25 mg PO DAILY [facility] Ondansetron HCl (Zofran) 4 mg IV Q8H PRN PRN PRN Reason: NAUSEA Oxycodone HCl (Oxyir) 5 - 10 mg PO Q4H PRN PRN PRN Reason: Pain Score 4-10/10 Promethazine HCl (Phenergan) 12.5 mg IM Q6H PRN PRN; Protocol PRN Reason: NAUSEA/VOMITING Senna/Docusate Sodium (Senokot-S, Teresa-Colace) 2 tablet PO BID [facility] Last Admin: 07/04/19 22:31 Dose: 2 tablet Documented by: Sertraline HCl (Zoloft) 50 mg PO QHS [facility] Last Admin: 07/04/19 22:30 Dose: 50 mg Documented by: Sodium Chloride () 10 - 40 ml IV UD PRN PRN Reason: SALINE FLUSH Trazodone HCl (Desyrel) 150 mg PO QHS [facility] Last Admin: 07/04/19 22:31 Dose: 150 mg Documented by: Medical Necessity - Tobacco Use Smoking Status: Former smoker Tobacco Use: Vapor Assessment/Plan Status post right total knee arthroplasty Plan 1. Continue all pain medications as prescribed 2. Continue physical therapy today, weight-bear as tolerated with walker 3. Aspirin 325 mg 1 p.o. every 12 hours x30 days for postop DVT prophylaxis 4. Encourage incentive spirometry 5. Follow-up as scheduled, see pink sheet. Continue physical therapy outpatient 6. Discharge home today after p.m. therapy
--- NOTE | 2019-07-05 07:45 | DCINST_ITS ---
Discharge Diet: No Restrictions Discharge Activity: May Not Drive, May Shower, Use Walker May shower in (days): 2 Ice area for (Minutes): 20 - each hour while awake. Weight Bearing Status: Weight bearing as tolerated Elevate: Operative Extremity Additional Activity Instructions:: Wear elastic stockings for 2 weeks after your surgery. Call your doctor if your incision/area has: Continuous Slow Oozing, Sudden Increased Bleeding, Increased Pain/ Swelling, Increased Redness, Foul Smelling Discharge Call your doctor if you observe: Fever of 101 or Higher, Coldness, Increased Pain - in extremity, Numbness or Tingling, Change in Color, Calf discomfort, Uncontrolled pain Change Dressing in (Days):: 0 - and daily as needed. Remove Dressing in (days):: 8 Cleanse incision/area with: Soap & Water Allergies/Adverse Reactions: Allergies hydrocodone bitartrate [From Vicodin] Allergy (Verified 07/04/19 06:06) Swelling codeine Adverse Reaction (Verified 07/04/19 06:06) Nausea Medications to take at Discharge Atorvastatin Calcium [Lipitor] 10 mg PO QHS 07/19/13 Trazodone HCl 150 mg PO QHS 07/19/13 Sertraline HCl [Zoloft] 50 mg PO DAILY 07/10/16 Losartan Potassium [Cozaar] 25 mg PO DAILY 06/10/19 Acetaminophen [Tylenol] 1,000 mg PO Q8 #90 tab 07/05/19 Aspirin 325 mg PO BID #60 tab 07/05/19 Oxycodone [Oxyir] 5 - 10 mg PO Q4H PRN PRN 7 Days #80 tab 07/05/19 The following prescriptions were given: Aspirin 325 mg PO BID #60 tab Prescription Printed Oxycodone [Oxyir] 5 - 10 mg PO Q4H PRN PRN 7 Days #80 tab PRN Reason: Pain Score 4-10/10 Prescription Printed Acetaminophen [Tylenol] 1,000 mg PO Q8 #90 tab Prescription Printed Primary Care Physician: Karoline Can NP-C [Primary Care Provider] - Test Results: Test results from this visit will be discussed in further detail at your follow- up appointment, if applicable. Please Follow Up With: Hector Gomez PA-C When: see pink sheet
[2019-07-05 08:30] VITALS: BP 162/70; PULSE 60; RESP 16; TEMP 36.8; O2SAT 97
[2019-07-05] MEDS: Aspirin 325 MG Tablet PO (08:30)
[2019-07-05] MEDS: Losartan Potassium 25 MG Tablet PO (08:30)
[2019-07-05] MEDS: Senna/Docusate Sodium 1 Tablet 2 TABLET PO (08:30)
--- NOTE | 2019-07-05 10:45 | CASEMGMT ---
DAVONTE BANGURA Face to Face with patient for initial transition planning/care coordination assessment. RN WILLEM introduced self and role at [facility]. Patient sitting in chair, alert and oriented. Patient willing to participate in assessment and is able to answer all questions appropriately. Care providers, pharmacy, and demographics verified. Patient wishes to discharge home and is setup with outpatient therapy at in [place] on Thursday. Patient states she has no further needs or concerns at this time. CM to follow for discharge planning needs that may arise. PCP: Pamella [facility] CL[facility] Specialists: bruce Velásquez Preferred Pharmacy: [facility] retail Insurance: MMO Prescription Benefit: yes Living Will/HPOA: yes, sister Yahaira Galvan LNOK: sister, Living Arrangements: Patient lives alone in single story home with 10-12 with railing to enter to the home. Patient was independent at home prior to surgery. Transportation: sister DME/C: Patient has walker, raised toilet, and cane at home. Patient is setup with in [place] for outpatient therapy for Thursday. Disposition Plan: Patient to discharge home with family support, outpatient therapy, and follow-up plans in place. Vicenta HERNÁNDEZ, RN, CM
[2019-07-05 13:07] VITALS: BP 143/84; PULSE 64; RESP 18; TEMP 36.8; O2SAT 95
== END 2019-07-05 13:15 | disposition home or self-care (01) ==
LOC: MS3 07-05 06:44
PROVIDERS: Admitting Provider Orthopaedic Surgery; Family Provider Nurse Practitioner Family; PCP Nurse Practitioner Family; Referring Provider Orthopaedic Surgery; Visit Provider Orthopaedic Surgery
PROC: (CPT 27447; principal; 2019-07-04 06:50)
DX: M17.0 Bilateral primary osteoarthritis of knee (principal); I10 Essential (primary) hypertension; G25.81 Restless legs syndrome; E78.00 Pure hypercholesterolemia, unspecified; F41.9 Anxiety disorder, unspecified; Z87.891 Personal history of nicotine dependence; Z79.899 Other long term (current) drug therapy; Z86.718 Personal history of other venous thrombosis and embolism; E66.9 Obesity, unspecified; Z68.41 Body mass index [BMI] 40.0-44.9, adult
CPT/HCPCS: 01400; 27447; 64447; 36415; 71046; 80048; 82962; 85025; 85027; 87081; 88305; 88311; 93005; 94762; 96361; 96365; 96366; 97110; 97162; 97166; 97530; 99218; 99251; C1776; J7120; G0378; G0379; G0463; J0702

== ENCOUNTER 2020-01-15 12:16 | Emergency (ER) | payer BC, SELFPAY ==
[2019-07-04 10:23] VITALS: BMI 37.0
[2020-01-15 12:18] VITALS: BP 183/105; PULSE 64; RESP 17; TEMP 36.1; O2SAT 100; BMI 35.2
--- NOTE | 2020-01-15 12:38 | RAD_ITS ---
STUDY: X-RAY - LEFT WRIST REASON FOR EXAM: Female, 64 years old. Patient fell yesterday and caught herself with her left outstretched arm. Pain in her left wrist into her left forearm. TECHNIQUE: 3 view(s) of the wrist were obtained. COMPARISON: None. FINDINGS: Comminuted fracture at the distal end of the radius extending to the articular surface. Avulsion fracture of the on the styloid. Normal radiocarpal articulation. Normal distal radioulnar articulation. Normal carpal bones. Normal carpal articulations. Normal carpometacarpal articulation of the thumb. Normal second through fifth carpometacarpal articulations. Normal visualized metacarpal bones. Chondrocalcinosis distal to the ulna. RAD/Wrist min 3 Views IMPRESSION: Distal radial and ulnar fractures. Electronically Signed: Magan Rubio DO at 13:34 EDT Tel [phone], Service support ,
--- NOTE | 2020-01-15 12:40 | RAD_ITS ---
STUDY: X-RAY - LEFT RADIUS AND ULNA REASON FOR EXAM: Female, 64 years old. Patient fell yesterday and caught herself with her left outstretched arm. Pain in her left wrist into her left forearm. TECHNIQUE: 2 view(s) of the forearm. COMPARISON: None. FINDINGS: There is mild soft tissue swelling. Chondrocalcinosis distal to the ulna. Comminuted fracture at the distal end of the radius extending to the distal articular surface. Normal visualized ulna. RAD/Forearm 2 Views IMPRESSION: Comminuted distal radial fracture. Electronically Signed: Magan Rubio DO at 13:34 EDT Tel [phone], Service support ,
--- NOTE | 2020-01-15 13:22 | ED.VISSUMM ---
- ER Visit Summary Date of Service: 01/15/20 Chief Complaint: Left wrist pain History of Present Illness: The patient is a 64 F who presents with left wrist pain that began after a fall last night. Patient states she tripped and fell backwards and landed on her outstretched left wrist. Patient applied ice last night and it was feeling better. Patient used an Bernardo wrap over her wrist. Patient states the swelling was improved today but the pain became worse. Patient states her pain is aching and is worse with any movement. Patient denies any paresthesias or weakness. Patient denies any head injury or loss of consciousness. Patient denies any other injuries. Physical Examination: Vital signs are stable. Patient is afebrile. Patient is in no acute distress. Musculoskeletal exam reveals tenderness over the left wrist on the radial and ulnar aspects. There is some edema. There is no ecchymosis. There is no obvious deformity. There is pain to the mid forearm. There is no pain at the elbow. Sensation was intact to light touch in all digits. Capillary refill was less than 2 seconds in all digits. There is good range of motion of all digits of the hand. Range of motion of the left wrist was limited secondary to pain. Test Results: X-rays of the left wrist were obtained. There is a nondisplaced fracture of the distal radius and ulnar styloid. X-rays of the left forearm were obtained. There is no other acute fracture. These were interpreted by myself and the radiologist. Emergency Department Course and Treatment: Patient states she does not tolerate narcotic pain medication well. Patient was placed in a well-padded, custom AP splint was applied by myself. Neurovascular exam was intact after placement of the splint. Patient was instructed to ice and elevate the left wrist. Patient was instructed to follow-up with Dr. Velásquez. She requested to follow-up with him because he did her knee replacement surgery. Patient understood and was agreeable with the plan. All questions were answered. Disposition: Discharge home Impression: 1. Acute fracture left distal radius and ulnar styloid This note was generated with [employer] software. It may contain incorrect words, spelling, and punctuation that were not noted in review of the chart prior to signing ED Disposition - Plan for ED Patient: Disposition: Home or Assisted Living Diagnosis: Fracture of radius, distal, with ulna, left, closed Instructions: ED Fx Colles Wrist No Redu Requ Referrals: Karoline Can, JOANN-C [Primary Care Provider] - Luis Felipe Velásquez DO [STAFF PHYSICIAN] - 3-5 Days
[2020-01-15 14:35] VITALS: BP 164/92; PULSE 70; RESP 16; O2SAT 97
== END 2020-01-15 14:39 | disposition home or self-care (01) ==
PROVIDERS: Emergency Provider Emergency Medicine; PCP Nurse Practitioner Family
DX: S52.615A Nondisplaced fracture of left ulna styloid process, initial encounter for closed fracture (principal); S52.502A Unspecified fracture of the lower end of left radius, initial encounter for closed fracture; W01.0XXA Fall on same level from slipping, tripping and stumbling without subsequent striking against object, initial encounter; Y93.9 Activity, unspecified; Y92.9 Unspecified place or not applicable; E66.9 Obesity, unspecified; I10 Essential (primary) hypertension; F41.9 Anxiety disorder, unspecified; E78.00 Pure hypercholesterolemia, unspecified; Z79.82 Long term (current) use of aspirin; Z79.899 Other long term (current) drug therapy; F17.200 Nicotine dependence, unspecified, uncomplicated
CPT/HCPCS: 29125; 73090; 73110; 99282

== ENCOUNTER → 2020-09-04 07:27 | Outpatient (CLI) | payer BC, SELFPAY ==
--- NOTE | 2020-09-04 07:34 | CT_ITS ---
STUDY: CT SCAN LOWER EXTREMITY LEFT REASON FOR EXAM: Female, 64 years old. VARUS DEFORMITY LEFT KNEE. [facility] PROTOCOL RADIATION DOSAGE (If Supplied By Facility): CTDIvol = ( 19.49 ) mGy, DLP = ( 1264.38 ) mGycm. Individualized dose optimization techniques were used for this CT.? TECHNIQUE: Multiple axial tomographic images of the left hip joint, knee joint and ankle joint were obtained. Coronal and sagittal reconstruction was obtained as well. COMPARISON: None. FINDINGS: Imaging of the hip joint was obtained. There is no evidence of joint space narrowing. No unremarkable as seen. There is a marked degree of joint space narrowing with degenerative spurring involving the medial compartment of the knee joint. There is evidence of chondrocalcinosis of the medial and lateral menisci. There is suggestion of a torn medial meniscus. Minimal joint effusion. Imaging of the ankle joint was obtained. No significant abnormality is seen. CT/Extremity Lower without Contra IMPRESSION: Marked degree of joint space narrowing with the degenerative spur involving the medial compartment of the knee joint with evidence of chondrocalcinosis and findings suggestive of a torn medial meniscus. Electronically Signed: Kamlesh Sanchez MD at 9:02 EST , Service support ,
== END ==
PROVIDERS: PCP Nurse Practitioner Family; Referring Provider Physician Assistant; Visit Provider Physician Assistant
DX: M21.162 Varus deformity, not elsewhere classified, left knee (principal)
CPT/HCPCS: 73700

== ENCOUNTER → 2020-09-20 08:33 | Outpatient (CLI) | payer BC, SELFPAY ==
--- NOTE | 2020-09-20 08:39 | EKG12_ITS ---
Test Reason : PREOP Blood Pressure : / mmHG Vent. Rate : 057 BPM Atrial Rate : 057 BPM P-R Int : 124 ms QRS Dur : 088 ms QT Int : 450 ms P-R-T Axes : 026 029 048 degrees QTc Int : 438 ms Sinus bradycardia Otherwise normal ECG Confirmed by KATHERYN FLOWERS, AMY ([id number]), television news video editor NICHOLE WANG ([id number]) on 09/21/2020 8:35:32 AM Referred By: Hector Gomez Confirmed By:SPENCER CAMPA MD
[2020-09-20 09:47] LABS: Absolute Lymphocyte Count 1.73 X10^3/uL (0.83-4.51); Absolute Neutrophil Count 2.4 X10^3/uL (2.0-7.7); Basophil# 0.04 X10^3/uL; Basophil% 0.8 % (0-1); Eosinophil# 0.18 X10^3/uL; Eosinophils% 3.7 % (0-5); Hematocrit 41.3 % (37-47); Hemoglobin 13.7 g/dL (12.0-15.0); Lymphocyte # 1.73 X10^3/ul (4.0); Lymphocyte % 35.9 % (19-41); Mean Corp Hgb Conc 33.2 g/dL (32-36); Mean Corpuscular Hgb 31.4 pg (27.0-32.0); Mean Corpuscular Volume 94.7 fL (81-99); Mean Platelet Vol. 10.6 fl (6.2-12.0); Monocyte# 0.42 X10^3/uL; Monocyte% 8.7 % (0-10); NRBC Flagged by Analyzer 0 % (0-5); Neutrophil # 2.43 X10^3/uL (2.7-7.7); Neutrophil % 50.5 % (47-70); Platelet Count 239 K/mm3 (150-450); RBC Distribution Width CV 11.5 % (11.6-14.6); RBC Distribution Width SD 39.9 fl (35.1-43.9); Red Blood Count 4.36 M/mm3 (4.2-5.4); White Blood Count 4.8 K/mm3 (4.4-11.0)
[2020-09-20 10:10] LABS: Anion Gap 3 (5-15); BUN 17 mg/dL (7-18); BUN/Creat Ratio 23.7 RATIO (10-20); Calcium,Total 9.4 mg/dL (8.5-10.1); Chloride 109 mmol/L (98-107); Creatinine, Serum 0.72 mg/dL (0.55-1.02); EST Glomerular Filtration Rate 87 mL/min (>60); Est Glom Filt Rate - Afr Amer 106 mL/min (>60); Glucose 95 mg/dL (74-106); Potassium 4.2 mmol/L (3.5-5.1); Sodium Level 141 mmol/L (136-145)
== END ==
PROVIDERS: PCP Nurse Practitioner Family; Referring Provider Physician Assistant; Visit Provider Physician Assistant
DX: Z01.818 Encounter for other preprocedural examination (principal); Z11.59 Encounter for screening for other viral diseases
CPT/HCPCS: 36415; 80048; 85025; 87635; 93005; C9803; U0005; U0003

== ENCOUNTER → 2021-03-04 12:05 | Outpatient (CLI) | payer OTHER, SELFPAY ==
--- NOTE | 2021-03-04 14:15 | NEURO_ITS ---
NCS and/or EMG Patient Report Ordering Doctor: Hector Gomez DATE OF SERVICE: 03/04/21 Indication: Left payroll tax specialist weakness. Numbness of the 4/5th digits of the left hand. Evaluate for ulnar neuropathy. Findings: Nerve conduction studies were performed in the left upper extremity. The left median motor study recording the abductor pollicis brevis showed a normal amplitude, normal distal latency and normal conduction velocity. The left ulnar motor study recording the abductor digiti minimi showed a reduced amplitude, normal distal latency and normal conduction velocity in the forearm segment. Across the elbow, no conduction block was present. Across the elbow, the conduction velocity was reduced, but there was no significant differential slowing of the across-elbow segment compared to the wrist-below elbow segment. The left ulnar motor study recording the first dorsal interosseous showed a reduced amplitude, normal distal latency and normal conduction velocity in the forearm segment. Across the elbow, conduction block was present. Across the elbow, the conduction velocity was reduced, but there was no significant differential slowing of the across-elbow segment compared to the wrist-below elbow segment. The left median sensory response recording digit two showed a normal amplitude, normal latency and mildly slowed conduction velocity. The left ulnar sensory response recording digit five showed an absent response. The left radial sensory response recording over the extensor snuff box showed a normal amplitude, latency and conduction velocity. The left dorsal ulnar sensory response recording volar webspace between digits four and five showed an absent response Needle EMG of the left upper extremity muscles was performed. Active denervation was present in the first dorsal interosseous and flexor digitorum profundus muscles. No active denervation was present in any other muscle. Motor units were long, large and polyphasic with reduced recruitment in the first dorsal interosseous and flexor digitorum profundus muscles. All other muscles showed normal motor unit morphology, activation and recruitment patterns. Impression: This is a markedly abnormal study. There is electrophysiologic evidence consistent with a severe, non-localizable, left ulnar neuropathy. There was no f ocal slowing or conduction block across the elbow to localize the ulnar neuropathy to the elbow. The abnormal dorsal ulnar sensory response implicates a lesion above the wrist. The needle EMG abnormalities in the flexor digitorum profundus implicate a lesion above the wrist. A neuromuscular ultrasound may be considered for further evaluation and lesion localization. David Duran D.O.
== END ==
LOC: PSN 12:06
PROVIDERS: PCP Nurse Practitioner Family; Referring Provider Physician Assistant; Visit Provider Physician Assistant
DX: R20.2 Paresthesia of skin (principal)
CPT/HCPCS: 95886; 95911

== ENCOUNTER → 2025-05-01 | Outpatient (CLI) | payer MEDICARE, SELFPAY ==
--- NOTE | 2025-05-01 10:54 | RAD_ITS ---
PROCEDURE: ANKLE 2 VIEWS 05/01/2025 REASON FOR EXAM: PAIN, CELLULITIS, WOUND MEDIAL TECHNIQUE: Procedure Code: RADANK2 Modality: DX Procedure: ANKLE 2 VIEWS Laterality: FINDINGS: No evidence of acute fracture or dislocation. Diffuse soft tissue edema. Skin irregularity suspicious for a wound. No visualized osseous erosions. Degenerative changes of the visualized foot. Calcaneal enthesophytes. RAD/Ankle 2 Views IMPRESSION: Skin wound and edema. No acute osseous abnormalities. Reading Location: [id number]
== END | disposition home or self-care (01) ==
LOC: MTRAD 10:52
PROVIDERS: PCP Nurse Practitioner Family; Referring Provider Dermatology Pediatric Dermatology; Visit Provider Dermatology Pediatric Dermatology
DX: L03.818 Cellulitis of other sites (principal)
CPT/HCPCS: 73600

== ENCOUNTER 2025-05-04 16:15 | Emergency (ER) | payer MEDICARE, SELFPAY ==
[2025-05-04 16:17] VITALS: BP 151/77; PULSE 62; RESP 18; TEMP 36.1; O2SAT 98; BMI 40.0
--- NOTE | 2025-05-04 16:45 | US_ITS ---
PROCEDURE: VENOUS DUPLEX IMAG/LIMITED/UNI 05/04/2025 REASON FOR EXAM: F 69 y/o TECHNIQUE: Procedure Code: USVDUL Modality: US Procedure: VENOUS DUPLEX IMAG/LIMITED/UNI FINDINGS: There is no intraluminal echogenicity to suggest the presence of a deep venous thrombosis. Appropriate respiratory variation, augmentation and venous compression is noted. Left calf varicose veins. US/Venous Duplex Imag/Limited/Uni IMPRESSION: No DVT. Left calf varicose veins. Reading Location: [id number]
--- OUTSIDE RECORDS SUMMARY | 2025-05-04 17:46 | XMS RPT_ITS | CCD ---
Author Organization [facility] Care Team Providers Care Engraver Pantograph Name Role Phone Iman Briseno Unavailable Unavailable Misti Ingram Unavailable Unavailab le Unavailable Unavailable Unavailable Camelia Lang Unavailable Unavailable Janell Patino Unavailable Unavailable Sofie Live Unavailable Unavailable Iman Briseno Unavailable Unavailable Iman Briseno Unavailable Unavailable Misti Ingram Unavailable Unavailab le Pending Provider Unavailable Unavailable FRANSISCO RODRIGUEZ Admitting Unavailable FRANSISCO RODRIGUEZ Attending Unavailable FRANSISCO RODRIGUEZ Primary Care Unavailable Iman Briseno Unavailable Unavailable Unavailable Unavailable Unavailable Stephani Tinoco Unavailable Misti Ingram MD Unavailable Stephani Britton Primary Care Provider [phone] Stephani Tinoco CNP Primary Care Provider [phone] STEPHANI TINOCO Primary Care Unavailable OREN CORNEJO Attending Unavailable Misti Ingram MD Unavailable STEPHANI TINOCO Referring Unavailable STEPHANI TINOCO Primary Care Unavailable STEPHANI TINOCO Primary Care Unavailable SANDRA HAHN Attending Unavailable STEPHANI TINOCO Primary Care Unavailable STEPHANI TINOCO Primary Care Unavailable STEPHANI TINOCO Attending Unavailable STEPHANI TINOCO Primary Care Unavailable Iman Briseno Primary Care Unavailable Maryam Cartagena Referring Unavailable Maryam Cartagena Attending Unavailable Allergies Allergy Classification Reported Allergen(s) Allergy Type Date of Onset Reaction(s) Facility Acetaminophen / HYDROcodone (2 sources) Acetaminophen / HYDROcodone; Translations: [Vicodin TABS] Drug Allergy Swelling [facility] Work Phone: Sulfonamides (antibiotic) (2 sources) Sulfamethoxazole; Translations: [sulfa] Drug Allergy Nausea [facility] Work Phone: (17 sources) Acetaminophen / HYDROcodone; Translations: [Vicodin TABS] Drug Allergy 06-19-20 21 Swelling [facility] Work Phone: (12 sources) Sulfonamides (Antibiotic); Translations: [sulfa] Allergy to drug (finding) Nausea [facility] Work Phone: (9 sources) Codeine; Translations: [CODEINE] Drug Allergy 06-19-[address] [facility] Work Phone: (8 sources) Sulfamethoxazole; Translations: [SULFAMETHOXAZOLE] Drug Allergy 05-13-[address] [facility] Work Phone: (4 sources) Acetaminophen / HYDROcodone; Translations: [HYDROCODONE-ACETAMI NOPHEN] Drug Allergy 09-06-19 18 Swelling [facility] (1 source) Sulfamethoxazole Propensity to adverse reactions to drug 05-13-20 23 Nausea Only [facility] (1 source) Codeine Drug Allergy 01-15-20 20 [facility] (1 source) HYDROcodone Drug Allergy 01-15-20 [facility] Medications Current Medications Medication Drug Class(es) Dates Sig (Normalized) Sig (Original) adapalene 1 mg/ml topical cream (5 sources) Retinoid Start: 06-19-2021 adapalene (Differin) 0.1 % cream 1 Application 06/19/2021 Active atorvastatin 10 mg oral tablet (18 sources) HMG-CoA Reductase Inhibitor Start: 08-02-2024 take 1 tablet by mouth once daily at bedtime atorvastatin (Lipitor) 10 mg tablet Indications: Mixed hyperlipidemia Take 1 tablet (10 mg) by mouth once daily at bedtime. 90 tablet 1 08/02/2024 Active Start: 06-16-2024 End: 08-02-2024 take 1 tablet by mouth once daily at bedtime atorvastatin (Lipitor) 10 mg tablet Indications: Mixed hyperlipidemia Take 1 tablet (10 mg) by mouth once daily at bedtime. 90 tablet 06/16/2024 08/02/2024 Discontinued (Reorder) Start: 09-19-2019 End: 11-11-2023 take 1 tablet by mouth once daily at bedtime atorvastatin (Lipitor) 10 mg tablet Indications: Mixed hyperlipidemia Take 1 tablet (10 mg) by mouth once daily at bedtime. 90 tablet 1 11/11/2023 Active capsaicin 0.75 mg/ml topical cream (3 sources) Start: 01-12-2024 capsicum (Zost beatriz) 0.075 % topical cream Indications: Herpes zoster without complication Apply topically 3 times a day. 56 g 01/12/2024 Active cephalexin 500 mg oral capsule (4 sources) Cephalosporin Antibacterial Start: 06-14-2024 End: 06-24-2024 take 1 capsule by mouth twice daily cephalexin (Keflex) 500 mg capsule Indications: Skin ulcer of right thigh, limited to breakdown of skin Take 1 capsule (500 mg) by mouth 2 times a day for 10 days. 20 capsule 06/14/2024 06/24/2024 Active Start: 01-08-2024 End: 01-11-2024 take 1 capsule by mouth every eight hours cephALEXin 500 MG capsule Take 1 capsule by mouth every 8 hours for 3 days. 9 capsule 01/08/2024 01/11/2024 Active Start: 01-08-2024 End: 01-08-2024 take 1 dose by mouth once 500 mg, Oral, ONCE, 1 dose, On Thu01/08/24 at 0530 Start: 11-11-2023 End: 11-18-2023 take 1 capsule by mouth three times daily cephalexin (Keflex) 500 mg capsule Indications: Cellulitis of left lower extremity Take 1 capsule (500 mg) by mouth 3 times a day for 7 days. 21 capsule 11/11/2023 11/18/2023 losartan potassium 25 mg oral tablet (4 sources) Angiotensin 2 Receptor Anderson Start: 08-02-2024 take 1 tablet by mouth once daily losartan (Cozaar) 25 mg tablet Indications: Primary hypertension Take 1 tablet (25 mg) by mouth once daily. 90 tablet 1 08/02/2024 Active Start: 11-21-2019 take 1 tablet by [place] th once daily Losartan Potassium 25 MG Oral Tablet Take 1 tablet daily Quantity: 90 Refills: 1 Iman Woodall Start : 21-Nov-2019 Active phenazopyridine hydrochloride 200 mg delayed release oral tablet (2 sources) Start: 01-08-2024 take 1 tablet by mouth three times daily as needed for pain Phenazopyridine 200 MG tablet Take 1 tablet by mouth 3 times daily as needed for Pain (Urinary pain). 6 tablet 01/08/2024 Active Start: 01-08-2024 End: 01-08-2024 take 1 dose by mouth once 200 mg, Oral, ONCE, 1 dose, On Thu01/08/24 at 0530 sertraline 50 mg oral tablet (20 sources) Serotonin Reuptake Inhibitor Start: 08-02-2024 take 1 tablet by mouth once daily sertraline (Zoloft) 50 mg tablet Indications: Adjustment disorder, unspecified type Take 1 tablet (50 mg) by mouth once daily. 90 tablet 1 08/02/2024 Active Start: 06-16-2024 End: 08-02-2024 take 1 tablet by mouth once daily sertraline (Zoloft) 50 mg tablet Indications: Adjustment disorder, unspecified type Take 1 tablet (50 mg) by mouth once daily. 90 tablet 06/16/2024 08/02/2024 Discontinued (Reorder) Start: 06-27-2019 End: 11-11-2023 take 1 tablet by mouth once daily sertraline (Zoloft) 50 mg tablet Indications: Adjustment disorder, unspecified type Take 1 tablet (50 mg) by mouth once daily. 90 tablet 1 11/11/2023 Active traZODone hydrochloride 100 mg oral tablet (20 sources) Serotonin Reuptake Inhibitor Start: 08-02-2024 take 1 tablet by mouth once daily at bedtime traZODone (Desyrel) 100 mg tablet Indications: Insomnia, unspecified type Take 1 tablet (100 mg) by mouth once daily at bedtime. 90 tablet 1 08/02/2024 Active Start: 06-16-2024 End: 08-02-2024 take 1 tablet by mouth once daily at bedtime traZODone (Desyrel) 100 mg tablet Indications: Insomnia, unspecified type Take 1 tablet (100 mg) by mouth once daily at bedtime. 90 tablet 06/16/2024 08/02/2024 Discontinued (Reorder) Start: 05-13-2023 End: 11-11-2023 take 1 tablet by mouth once daily at bedtime traZODone (Desyrel) 100 mg tablet Indications: Insomnia, unspecified type Take 1 tablet (100 mg) by mouth once daily at bedtime. 90 tablet 1 11/11/2023 Active Start: 11-21-2019 take 1 tablet by [place] th at bedtime traZODone HCl - 100 MG Oral Tablet TAKE 1 TABLET AT BEDTIME. Quantity: 90 Refills: 1 Ordered: 02-Sep-2022 Stephani Britton Start : 21-Nov-2019 Active Start: 11-21-2019 take 2 tablets by mo ut at bedtime traZODone HCl - 50 MG Oral Tablet TAKE 2 TABLET Bedtime Quantity: 180 Refills: 1 Iman Woodall Start : 21-Nov-2019 Active take 1 tablet by [place] th at bedtime traZODone 50 MG tablet Take 1 tablet by mouth At bedtime. Active valACYclovir 1000 mg oral tablet (1 source) Herpesvirus Nucleoside Analog DNA Polymerase Inhibitor, Herpes Simplex Virus Nucleoside Analog DNA Polymerase Inhibitor, Herpes Zoster Virus Nucleoside Analog DNA Polymerase Inhibitor Start: 01-12-2024 End: 01-19-2024 take 1 tablet by mouth three times daily valACYclovir (Valtrex) 1 gram tablet Indications: Herpes zoster without complication Take 1 tablet (1,000 mg) by mouth 3 times a day for 7 days. 21 tablet 01/12/2024 01/19/2024 Active Completed/Discontinued Medications Medication Drug Class(es) Dates Sig (Normalized) Sig (Original) azithromycin 250 mg oral tablet (3 sources) Macrolide Antimicrobial Start: 07-22-2021 Azithromycin 250 MG Oral Tablet TAKE 2 TABLETS ON DAY 1 THEN TAKE 1 TABLET A DAY FOR 4 DAYS. Quantity: 1 Refills: 0 Ordered: 22-Jul-2021 Iman Woodall Start : 22-Jul-2021 Active betamethasone 0.0005 mg/mg topical ointment (4 sources) Corticosteroid Start: 02-13-2021 End: 07-22-2021 Betamethasone Dipropionate 0.05 % External Ointment APPLY SPARINGLY TO AFFECTED AREA(S) TWICE DAILY Quantity: 1 Refills: 0 Ordered: 13-Feb-2021 Iman Woodall Start : 13-Feb-2021 End : 22-Jul-2021 Complete dextromethorphan hydrobromide 3 mg/ml / promethazine hydrochloride 1.25 mg/ml oral solution (1 source) Phenothiazine, Uncompetitive M-ykmuak-X-aspartat e Receptor Antagonist, Sigma-1 Agonist Start: 07-26-2021 take 5 mL by mouth every four to six hours as needed for cough Promethazine-DM 6.25-15 MG/5ML Oral Syrup TAKE 5 ML EVERY 4 TO 6 HOURS NEEDED FOR COUGH. Quantity: 120 Refills: 0 Ordered: 26-Jul-2021 Iman Woodall Start : 26-Jul-2021 Active nitrofurantoin, macrocrystals 25 mg / nitrofurantoin, monohydrate 75 mg oral capsule (1 source) Nitrofuran Antibacterial Start: 07-22-2023 End: 11-11-2023 take 1 capsule by mouth twice daily nitrofurantoin, macrocrystal-monoh ydrate, (Macrobid) 100 mg capsule Indications: Dysuria Take 1 capsule (100 mg) by mouth 2 times a day. 14 capsule 07/22/2023 11/11/2023 Discontinued (Therapy completed) predniSONE 20 mg oral tablet (1 source) Start: 07-26-2021 take 2 tablets by mouth once daily at mealtime predniSONE 20 MG Oral Tablet TAKE 2 TABLETS DAILY WITH FOOD Quantity: 10 Refills: 0 Ordered: 26-Jul-2021 Iman Woodall Start : 26-Jul-2021 Active Problems Active Problems Problem Classification Problem Date Documented Da te Episodic/Chronic Abdominal pain (9 sources) Left lower quadrant pain; Translations: [Abdominal pain, left lower quadrant] 01-12-2024 Episodic Adjustment disorders (20 sources) Adjustment disorder; Translations: [Unspecified adjustment reaction] Onset: 3 11-11-2023 Chronic Anxiety disorders (1 source) Anxiety disorder; Translations: [Anxiety state, unspecified] Chronic Chronic ulcer of skin (3 sources) Ulcer of thigh; Translations: [Non-pressure chronic ulcer of right thigh limited to breakdown of skin] Onset: 4 06-14-2024 Chronic Disorders of lipid metabolism (20 sources) Hyperlipidemia; Translations: [Other and unspecified hyperlipidemia] Onset: 3 11-11-2023 Chronic Essential hypertension (20 sources) Hypertensive disorder; Translations: [Unspecified essential hypertension] Onset: 3 11-11-2023 Chronic Fever of unknown origin (3 sources) Fever, unspecified; Translations: [Fever, unspecified] Onset: 0 Episodic Headache; including migraine (1 source) Headache; Translations: [Headache] Onset: 0 Episodic Other connective tissue disease (1 source) Decreased range of knee movement ; Translations: [Decreased range of motion of left knee] Chronic Other inflammatory condition of skin (1 source) Psoriasis; Translations: [Psoriasis, unspecified] 11-11-2023 Chronic Other non-traumatic joint disorders (10 sources) Knee pain; Translations: [Pain in knee region after replacement of knee joint] Episodic Other non-traumatic joint disorders (5 sources) Decreased range of knee movement; Translations: [Stiffness of joint, not elsewhere classified, lower leg] Episodic Other nutritional; endocrine; and metabolic disorders (13 sources) Obesity; Translations: [Obesity, unspecified] Chronic Other nutritional; endocrine; and metabolic disorders (6 sources) Body mass index 30+ - obesity; Translations: [Body Mass Index 33.0-33.9, adult] Chronic Other nutritional; endocrine; and metabolic disorders (8 sources) Severe obesity; Translations: [Morbid obesity] Onset: 3 11-11-2023 Chronic Other nutritional; endocrine; and metabolic disorders (4 sources) Morbid (severe) obesity due to excess calories; Translations: [Morbid (severe) obesity due to excess calories (Multi)] Onset: 4 Chronic Other nutritional; endocrine; and metabolic disorders (2 sources) Body mass index (BMI) 35.0-35.9, adult; Translations: [Body mass index (BMI) 35.0-35.9, adult] Onset: 4 Chronic Other nutritional; endocrine; and metabolic disorders (2 sources) Body mass index (BMI) 37.0-37.9, adult; Translations: [Body mass index (BMI) 37.0-37.9, adult] Onset: 4 Chronic Other nutritional; endocrine; and metabolic disorders (8 sources) Weight loss; Translations: [Loss of weight] Episodic Other screening for suspected conditions (not mental disorders or infectious disease) (20 sources) Patient encounter status; Translations: [Screening for lipoid disorders] Onset: 4 11-11-2023 Episodic Other upper respiratory infections (3 sources) Acute upper respiratory infection; Translations: [Acute upper respiratory infections of unspecified site] Episodic Phlebitis; thrombophlebitis and thromboembolism (14 sources) Thrombophlebitis of superficial veins of lower extremity; Translations: [Phlebitis and thrombophlebitis of superficial vessels of lower extremities] Episodic Residual codes; unclassified (8 sources) Edema of lower extremity; Translations: [Edema] Episodic Residual codes; unclassified (13 sources) Insomnia; Translations: [Insomnia, unspecified] Onset: 3 11-11-2023 Episodic Skin and subcutaneous tissue infections (2 sources) Cellulitis of left lower limb; Translations: [Cellulitis of left lower limb] Onset: 5 11-11-2023 Episodic Unclassified (1 source) Myalgia, unspecified site; Translations: [Myalgia, unspecified site] Onset: 0 Unclassified (1 source) Obesity, class 2; Translations: [Obesity, class 2] Onset: 4 Urinary tract infections (3 sources) Acute cystitis; Translations: [Acute cystitis without hematuria] Onset: 4 01-08-2024 Episodic Viral infection (8 sources) Viral disease; Translations: [Unspecified viral infection] 01-12-2024 Episodic Past or Other Problems Problem Classification Problem Date Documented Date Episodic/Chronic Diabetes mellitus without complication (3 sources) Increased glucose level; Translations: [Other abnormal glucose] Onset: 01-12-2024 11-11-2023 Episodic Immunizations and screening for infectious disease (3 sources) Requires diphtheria, tetanus and pertussis vaccination; Translations: [Encounter for immunization] Onset: 08-02-2024 08-02-2024 Episodic Osteoarthritis (20 sources) Osteoarthritis of knee; Translations: [Osteoarthritis of left knee joint] Onset: 01-12-2023 Resolved: 05-24-2023 05-24-2023 Chronic Other circulatory disease (1 source) H/O: hypertension; Translations: [Personal history of other diseases of circulatory system] Resolved: 09-02-2022 Episodic Other connective tissue disease (17 sources) History of total knee arthroplasty; Translations: [Knee joint replacement] Onset: 01-12-2023 Resolved: 11-19-2023 11-19-2023 Chronic Other connective tissue disease (1 source) H/O: back problem; Translations: [Personal history of other musculoskeletal disorders] Resolved: 09-02-2022 Episodic Other non-traumatic joint disorders (20 sources) Knee stiff; Translations: [Stiffness of joint, not elsewhere classified, lower leg] Resolved: 02-14-2020 Episodic Other non-traumatic joint disorders (20 sources) Pain in left knee; Translations: [Left knee pain] Resolved: 09-02-2022 Episodic Other skin disorders (19 sources) Disorder of skin of lower limb; Translations: [Unspecified disorder of skin and subcutaneous tissue] Onset: 01-12-2023 Resolved: 05-24-2023 05-24-2023 Episodic Other skin disorders (20 sources) Lesion of skin of face; Translations: [Unspecified disorder of skin and subcutaneous tissue] Onset: 01-12-2023 11-11-2023 Episodic Other skin disorders (5 sources) Follicular cysts of skin and subcutaneous tissue; Translations: [Other follicular cysts of the skin and subcutaneous tissue] Onset: 06-19-2021 Resolved: 05-13-2023 05-13-2023 Episodic Other skin disorders (5 sources) Inflamed seborrheic keratosis; Translations: [Inflamed seborrheic keratosis] Onset: 06-19-2021 Resolved: 05-13-2023 05-13-2023 Episodic Residual codes; unclassified (2 sources) Insomnia, unspecified; Translations: [Insomnia, unspecified] Onset: 01-12-2023 Episodic Spondylosis; intervertebral disc disorders; other back problems (18 sources) Low back pain; Translations: [Lumbago] Onset: 01-12-2023 Resolved: 11-19-2023 11-19-2023 Episodic Unclassified (4 sources) Patient encounter status; Translations: [Screening for breast cancer] Unclassified (5 sources) Onset: 11-11-2023 11-11-2023 Unclassified (1 source) Obesity, class 2; Translations: [Obesity, class 2] Onset: 08-02-2024 NEGATED: Highlighted row has not occurred!Residual codes; unclassified (20 sources) Disease Episodic Results Test Name Value Interpretation Reference Range Facility Ankle 2 Viewson 05-01-2025 Ankle 2 Views [facility] [address] [place], [place] [id number] Ankle 2 Views MR#: [id number] Acct: [id number] Name: SKYE SPARROW Rep #: [id number] : 1955 F 69 From: Malick Davila MD PCP: ABHINAV [facility]aza Status: REG CLI Study: Ankle 2 Views Date of Exam: 05/01/25 Exam# [id number] Ordering Dr: Maryam Cartagena MD PROCEDURE: ANKLE 2 VIEWS 05/01/2025 REASON FOR EXAM: PAIN, CELLULITIS, WOUND MEDIAL TECHNIQUE: Procedure Code: RADANK2 Modality: DX Procedure: ANKLE 2 VIEWS Laterality: FINDINGS: No evidence of acute fracture or dislocation. Diffuse soft tissue edema. Skin irregularity suspicious for a wound. No visualized osseous erosions. Degenerative changes of the visualized foot. Calcaneal enthesophytes. RAD/Ankle 2 Views IMPRESSION: Skin wound and edema. No acute osseous abnormalities. Reading Location: [id number] CC: TOUCHER UP-C Iman Briseno; Dr. Maryam Cartagena MD Spa Manager: Signed Normal [facility] CBC W Auto Differential pane l (Bld)on 07-05-2024 Basophils (Bld) [#/Vol] 0.05 x10*3/uL Normal 0.00-0.10 [facility] Comment on above: Performed By: #### 5 7021-8 #### GODINEZ NADEEM ([id number]) [facility] ([facility]) [address] [place] [address] Basophils/100 WBC (Bld) 0.6 % Normal 0.0-2.0 [facility] Comment on above: Performed By: #### 5 7021-8 #### HERBERT SILVER ([id number]) [facility] ([facility]) [address] [place] [address]217 Eosinophils (Bld) [#/Vol] 0.07 x10*3/uL Normal 0.00-0.70 [facility] Comment on above: Performed By: #### 7021-8 #### HERBERT SILVER ([id number]) [facility] ([facility]) [address] [place] [address] 19890 Eosinophils/100 WBC (Bld) 0.9 % Normal 0.0-6.0 [facility] Comment on above: Performed By: #### 70-8 #### HERBERT SILVER ([id number]) [facility] ([facility]) [address] [place] [address] 00373 Erythrocyte distribution width (RBC) [Ratio] 11.9 % Normal 11.5-14.5 [facility] Comment on above: Performed By: #### 7021-8 #### HERBERT SILVER ([id number]) [facility] ([facility]) [address] [place] [address] 58790 Hematocrit (Bld) [Volume fraction] 42.3 % Normal 36.0-46.0 [facility] Comment on above: Performed By: #### 5 7021-8 #### HERBERT SILVER ([id number]) [facility] ([facility]) [address] [place] [address] 46639 Hemoglobin (Bld) [Mass/Vol] 13.5 g/dL Normal 12.0-16.0 [facility] Comment on above: Performed By: #### 7021-8 #### HERBERT SILVER ([id number]) [facility] ([facility]) [address] [place] [address] 74933 Immature granulocytes (Bld) [#/Vol] 0.03 x10*3/uL Normal 0.00-0.70 [facility] Comment on above: Performed By: #### 5 7021-8 #### HERBERT SILVER ([id number]) [facility] ([facility]) [address] [place] [address] 48838 Immature granulocytes/100 WBC (Bld) 0.4 % Normal 0.0-0.9 [facility] Comment on above: Result Comment: Angelita ture Granulocyte Count (IG) includes promyelocytes, myelocytes and metamyelocytes but does not include bands. Percent differential counts (%) should be interpreted in the context of the absolute cell counts (cells/UL). Performed By: #### 5 7021-8 #### HERBERT SILVER ([id number]) [facility] ([facility]) [address] [place] [address] Lymphocytes (Bld) [#/Vol] 1.77 x10*3/uL Normal 1.20-4.80 [facility] Comment on above: Performed By: #### 5 7021-8 #### HERBERT SILVER ([id number]) [facility] ([facility]) [address] [place] [address] 59275 Lymphocytes/100 WBC (Bld) 22.9 % Normal 13.0-44.0 [facility] Comment on above: Performed By: #### 5 7021-8 #### HERBERT SILVER ([id number]) [facility] ([facility]) [address] [place] [address] 88506 MCH (RBC) [Entitic mass] 29.9 pg Normal 26.0-34.0 [facility] Comment on above: Performed By: #### 5 7021-8 #### HERBERT SILVER ([id number]) [facility] ([facility]) [address] [place] [address] 03351 MCHC (RBC) [Mass/Vol] 31.9 g/dL Low 32.0-36.0 [facility] Comment on above: Performed By: #### 5 7021-8 #### HERBERT SILVER ([id number]) [facility] ([facility]) [address] [place] [address] 28156 MCV (RBC) [Entitic vol] 94 fL Normal 80-100 [facility] Comment on above: Performed By: #### 5 7021-8 #### HERBERT SILVER ([id number]) [facility] ([facility]) [address] [place] [address] 38345 Monocytes (Bld) [#/Vol] 0.53 x10*3/uL Normal 0.10-1.00 [facility] Comment on above: Performed By: #### 5 7021-8 #### HERBERT SILVER ([id number]) [facility] ([facility]) [address] [place] [address] 48538 Monocytes/100 WBC (Bld) 6.8 % Normal 2.0-10.0 [facility] Comment on above: Performed By: #### 5 7021-8 #### HERBERT SILVER ([id number]) [facility] ([facility]) [address] [place] [address] 89751 Neutrophils (Bld) [#/Vol] 5.29 x10*3/uL Normal 1.20-7.70 [facility] Comment on above: Result Comment: Perc ent differential counts (%) should be interpreted in the context of the absolute cell counts (cells/uL). Performed By: #### 5 7021-8 #### HERBERT SILVER ([id number]) [facility] ([facility]) [address] [place] [address] 00150 Neutrophils/100 WBC (Bld) 68.4 % Normal 40.0-80.0 [facility] Comment on above: Performed By: #### 5 7021-8 #### HERBERT SILVER ([id number]) [facility] ([facility]) [address] [place] [address] 29692 Nucleated RBC/100 WBC (Bld) [Ratio] 0.0 /100 WBCs Normal 0.0-0.0 [facility] Comment on above: Performed By: #### 5 7021-8 #### HERBERT SILVER ([id number]) [facility] ([facility]) [address] [place] [address] 13095 Platelets (Bld) [#/Vol] 249 x10*3/uL Normal 150-450 [facility] Comment on above: Performed By: #### 5 7021-8 #### HERBERT SILVER ([id number]) [facility] ([facility]) [address] [place] [address] 61534 RBC (Bld) [#/Vol] 4.51 x10*6/uL Normal 4.00-5.20 [facility] Comment on above: Performed By: #### 5 7021-8 #### HERBERT SILVER ([id number]) [facility] [facility] ([facility]) [address] [place] [address] 48752 WBC (Bld) [#/Vol] 7.7 x10*3/uL Normal 4.4-11.3 [facility] Comment on above: Performed By: #### 5 7021-8 #### HERBERT SILVER ([id number]) [facility] ([facility]) [address] [place] [address] 43724 HbA1c (Bld) [Mass fraction]o n 07-05-2024 Average glucose Estimated from glycated hemoglobin (Bld) [Mass/Vol] 120 mg/dL Normal Not Established [facility] Comment on above: Order Comment: Diagn osis of Diabetes-Adults Non-Diabetic: < or = 5.6% Increased risk for developing diabetes: 5.7-6.4% Diagnostic of diabetes: > or = 6.5% Performed By: #### 4 548-4 #### CAYETANO Laureano ([id number]) [facility] ([facility]) [address] [place] [address] Hemoglobin A1c/Hemoglobin.to joan 07-05-2024 HbA1c (Bld) [Mass fraction] 5.8 % High See comment [facility] Comment on above: Order Comment: Diagn osis of Diabetes-Adults Non-Diabetic: < or = 5.6% Increased risk for developing diabetes: 5.7-6.4% Diagnostic of diabetes: > or = 6.5% Performed By: #### 4 548-4 #### CAYETANO Laureano ([id number]) [facility] ([facility]) [address] [place], [place] [id number] Bacteria identifiedon 2023 Bacteria identified Cx Nom (Unsp spec) Test: Tissue/Wound Culture/Smear Specimen Source: Wound/Tissue Specimen Type: Tissue/Biopsy Specimen Date: 06/14/20241123 Result Date: 06/17/202437 Result Status: Final result Abnormal: Yes Resulting Lab: [facility] [address] [place] [address] CULTURE (4+) Abundant Methicillin Resistant Staphylococcus aureus (MRSA) (Abnormal) Methicillin (Oxacillin) resistant Staphylococci are resistant to all currently available Penicillins, Beta-lactam/Beta-lacta elaine inhibitor combinations (including Ampicillin/Sulbactam, Amoxicillin/Clavulanat e and Pipercillin/Tazobactam ), Carbapenems and Cephalosporins (except Ceftaroline). STAIN No polymorphonuclear leukocytes seen (2+) Few Gram positive cocci, clusters SUSCEPTIBILITY Methicillin Resistant Staphylococcus aureus (MRSA) METHOD MICROSCAN ------- ------ CLINDAMYCIN <=0.250 ug/ml Susceptible ERYTHROMYCIN >4 ug/ml Resistant OXACILLIN >2 ug/ml Resistant TETRACYCLINE <=2.000 ug/ml Susceptible TRIMETHOPRIM/SULFAMETH OXAZOLE <=0.5/9.5 ug/ml Susceptible VANCOMYCIN 1.000 ug/ml Susceptible Abnormal [facility] Comment on above: Performed By: #### 6 463-4 #### CAYETANO Laureano ([id number]) [facility] ([facility]) [address] [place] [address] CBC W Auto Differential pane l (Bld)on 01-12-2024 Basophils (Bld) [#/Vol] 0.04 x10*3/uL Normal 0.00-0.10 [facility] Comment on above: Performed By: #### 5 7021-8 #### HERBERT SILVER ([id number]) [facility] ([facility]) [address] [place] [address] Basophils/100 WBC (Bld) 1.0 % Normal 0.0-2.0 [facility] Comment on above: Performed By: #### 5 7021-8 #### HERBERT SILVER ([id number]) [facility] ([facility]) [address] [place] [address] 83673 Eosinophils (Bld) [#/Vol] 0.04 x10*3/uL Normal 0.00-0.70 [facility] Comment on above: Performed By: #### 7021-8 #### HERBERT SILVER ([id number]) [facility] ([facility]) [address] [place] [address] 81168 Eosinophils/100 WBC (Bld) 1.0 % Normal 0.0-6.0 [facility] Comment on above: Performed By: #### 5 7021-8 #### HERBERT SILVER ([id number]) [facility] ([facility]) [address] [place] [address] 17841 Erythrocyte distribution width (RBC) [Ratio] 12.5 % Normal 11.5-14.5 [facility] Comment on above: Performed By: #### 7021-8 #### HERBERT SILVER ([id number]) [facility] ([facility]) [address] [place] [address] 21019 Hematocrit (Bld) [Volume fraction] 41.1 % Normal 36.0-46.0 [facility] Comment on above: Performed By: #### 7021-8 #### HERBERT SILVER ([id number]) [facility] ([facility]) [address] [place] [address] 06747 Hemoglobin (Bld) [Mass/Vol] 13.3 g/dL Normal 12.0-16.0 [facility] Comment on above: Performed By: #### 7021-8 #### HERBERT SILVER ([id number]) [facility] ([facility]) [address] [place] [address] 64724 Immature granulocytes (Bld) [#/Vol] 0.01 x10*3/uL Normal 0.00-0.70 [facility] Comment on above: Performed By: #### 7021-8 #### HERBERT SILVER ([id number]) [facility] ([facility]) [address] [place] [address] 49862 Immature granulocytes/100 WBC (Bld) 0.2 % Normal 0.0-0.9 [facility] Comment on above: Result Comment: Angleita ture Granulocyte Count (IG) includes promyelocytes, myelocytes and metamyelocytes but does not include bands. Percent differential counts (%) should be interpreted in the context of the absolute cell counts (cells/UL). Performed By: #### 5 7021-8 #### HERBERT SILVER ([id number]) [facility] ([facility]) [address] [place] [address] 11502 Lymphocytes (Bld) [#/Vol] 1.16 x10*3/uL Low 1.20-4.80 [facility] Comment on above: Performed By: #### 5 7021-8 #### HERBERT SILVER ([id number]) [facility] ([facility]) [address] [place] [address] 71256 Lymphocytes/100 WBC (Bld) 28.6 % Normal 13.0-44.0 [facility] Comment on above: Performed By: #### 5 7021-8 #### HERBERT SILVER ([id number]) [facility] ([facility]) [address] [place] [address] 29124 MCH (RBC) [Entitic mass] 31.1 pg Normal 26.0-34.0 [facility] Comment on above: Performed By: #### 5 7021-8 #### HERBERT SILVER ([id number]) [facility] ([facility]) [address] [place] [address] 50326 MCHC (RBC) [Mass/Vol] 32.4 g/dL Normal 32.0-36.0 [facility] Comment on above: Performed By: #### 5 7021-8 #### HERBERT SILVER ([id number]) [facility] ([facility]) [address] [place] [address] 11982 MCV (RBC) [Entitic vol] 96 fL Normal 80-100 [facility] Comment on above: Performed By: #### 5 7021-8 #### HERBERT SILVER ([id number]) [facility] ([facility]) [address] [place] [address] 91479 Monocytes (Bld) [#/Vol] 0.49 x10*3/uL Normal 0.10-1.00 [facility] Comment on above: Performed By: #### 5 7021-8 #### HERBERT SILVER ([id number]) [facility] ([facility]) [address] [place] [address] 32578 Monocytes/100 WBC (Bld) 12.1 % Normal 2.0-10.0 [facility] Comment on above: Performed By: #### 5 7021-8 #### HERBERT SILVER ([id number]) [facility] ([facility]) [address] [place] [address] 50300 Neutrophils (Bld) [#/Vol] 2.31 x10*3/uL Normal 1.20-7.70 [facility] Comment on above: Result Comment: Perc ent differential counts (%) should be interpreted in the context of the absolute cell counts (cells/uL). Performed By: #### 5 7021-8 #### HERBERT SILVER ([id number]) [facility] ([facility]) [address] [place] [address] 49123 Neutrophils/100 WBC (Bld) 57.1 % Normal 40.0-80.0 [facility] Comment on above: Performed By: #### 5 7021-8 #### HERBERT SILVER ([id number]) [facility] ([facility]) [address] [place] [address] 43205 Nucleated RBC/100 WBC (Bld) [Ratio] 0.0 /100 WBCs Normal 0.0-0.0 [facility] Comment on above: Performed By: #### 5 7021-8 #### HERBERT SILVER ([id number]) [facility] ([facility]) [address] [place] [address] 27428 Platelets (Bld) [#/Vol] 216 x10*3/uL Normal 150-450 [facility] Comment on above: Performed By: #### 5 7021-8 #### HERBERT SILVER ([id number]) [facility] ([facility]) [address] [place] [address] 71519 RBC (Bld) [#/Vol] 4.27 x10*6/uL Normal 4.00-5.20 [facility] Comment on above: Performed By: #### 5 7021-8 #### HERBERT SILVER ([id number]) [facility] ([facility]) [address] [place], [place] [address] WBC (Bld) [#/Vol] 4.1 x10*3/uL Low 4.4-11.3 [facility] Comment on above: Performed By: #### 5 7021-8 #### HERBERT SILVER ([id number]) [facility] ([facility]) [address] [place] [address] Comprehensive metabolic 2000 panelon 01-12-2024 Albumin BCP dye [Mass/Vol] 4.2 g/dL Normal 3.4-5.0 [facility] Comment on above: Performed By: #### 2 4323-8 #### HERBERT SILVER ([id number]) [facility] ([facility]) [address] [place] [address] 59275 ALP [Catalytic activity/Vol] 50 U/L Normal 33-136 [facility] Comment on above: Performed By: #### 2 432-8 #### HERBERT SILVER ([id number]) [facility] ([facility]) [address] [place] [address] 31119 ALT With P-5'-P [Catalytic activity/Vol] 16 U/L Normal 7-45 [facility] Comment on above: Result Comment: Leha ents treated with Sulfasalazine may generate falsely decreased results for ALT. Performed By: #### 2 4323-8 #### HERBERT SILVER ([id number]) [facility] ([facility]) [address] [place] [address] 48407 Anion gap [Moles/Vol] 10 mmol/L Normal 10-20 [facility] Comment on above: Performed By: #### 2 4323-8 #### HERBERT SILVER ([id number]) [facility] ([facility]) [address] [place] [address] AST With P-5'-P [Catalytic activity/Vol] 15 U/L Normal 9-39 [facility] Comment on above: Performed By: #### 2 4323-8 #### HERBERT SILVER ([id number]) [facility] ([facility]) [address] [place] [address] Bilirubin [Mass/Vol] 1.2 mg/dL Normal 0.0-1.2 [facility] Comment on above: Performed By: #### 2 4322-8 #### HERBERT SILVER ([id number]) [facility] ([facility]) [address] [place] [address] 94245 Calcium [Mass/Vol] 9.0 mg/dL Normal 8.6-10.3 [facility] Comment on above: Performed By: #### 2 4322-8 #### HERBERT SILVER ([id number]) [facility] ([facility]) [address] [place] [address] Chloride [Moles/Vol] 104 mmol/L Normal 98-107 [facility] Comment on above: Performed By: #### 2 4322-8 #### HERBERT SILVER ([id number]) [facility] ([facility]) [address] [place] [address] CO2 [Moles/Vol] 28 mmol/L Normal 21-32 [facility] Comment on above: Performed By: #### 2 4322-8 #### HERBERT SILVER ([id number]) [facility] ([facility]) [address] [place] [address] 12017 Creatinine [Mass/Vol] 0.74 mg/dL Normal 0.50-1.05 [facility] Comment on above: Performed By: #### 2 432-8 #### HERBERT SILVER ([id number]) [facility] ([facility]) [address] [place] [address] Glomerular filtration rate/1.73 sq M.predicted 89 mL/min/1.73m*2 Normal >60 [facility] Comment on above: Result Comment: Calc ulations of estimated GFR are performed using the 2020 CKD-EPI Study Refit equation without the race variable for the IDMS-Traceable creatinine methods. https://jasn.asnjournals.org/content//ASN.97283311 88 Performed By: #### 2 4323-8 #### HERBERT SILVER ([id number]) [facility] ([facility]) [address] [place] [address] 55018 Glucose [Mass/Vol] 112 mg/dL High 74-99 [facility] Comment on above: Performed By: #### 2 4323-8 #### HERBERT SILVER ([id number]) [facility] ([facility]) [address] [place] [address] 96569 Potassium [Moles/Vol] 4.4 mmol/L Normal 3.5-5.3 [facility] Comment on above: Performed By: #### 2 4323-8 #### HERBERT SILVER ([id number]) [facility] ([facility]) [address] [place] [address] 10593 Protein [Mass/Vol] 6.3 g/dL Low 6.4-8.2 [facility] Comment on above: Performed By: #### 2 4323-8 #### HERBERT SILVER ([id number]) [facility] ([facility]) [address] [place] [address] 78839 Sodium [Moles/Vol] 138 mmol/L Normal 136-145 [facility] Comment on above: Performed By: #### 2 4323-8 #### HERBERT SILVER ([id number]) [facility] ([facility]) [address] [place] [address] 93804 Urea nitrogen [Mass/Vol] 15 mg/dL Normal 6-23 [facility] Comment on above: Performed By: #### 2 4323-8 #### HERBERT SILVER ([id number]) [facility] ([facility]) [address] [place] [address] 98557 HbA1c (Bld) [Mass fraction]o n 01-12-2024 Average glucose Estimated from glycated hemoglobin (Bld) [Mass/Vol] 120 mg/dL Normal Not Established [facility] Comment on above: Order Comment: Diagn osis of Diabetes-Adults Non-Diabetic: < or = 5.6% Increased risk for developing diabetes: 5.7-6.4% Diagnostic of diabetes: > or = 6.5% Monitoring of Diabetes Age (y)....................... Therapeutic Goal (%) Adults: >18.........................<7.0 Pediatrics: 13-18...................<7.5 Pediatrics: 7-12....................<8.0 Pediatrics: 0-6..................... 7.5-8.5 [employer] [employer]. Diabetes Care 33(S1)Aug 2009 Performed By: #### 4 548-4 #### GODINEZ NADEEM ([id number]) [facility] ([facility]) [address] [place] [address] Hemoglobin A1c/Hemoglobin.to joan 01-12-2024 HbA1c (Bld) [Mass fraction] 5.8 % High see below [facility] Comment on above: Order Comment: Diagn osis of Diabetes-Adults Non-Diabetic: < or = 5.6% Increased risk for developing diabetes: 5.7-6.4% Diagnostic of diabetes: > or = 6.5% Monitoring of Diabetes Age (y)....................... Therapeutic Goal (%) Adults: >18.........................<7.0 Pediatrics: 13-18...................<7.5 Pediatrics: 7-12....................<8.0 Pediatrics: 0-6..................... 7.5-8.5 [place] [employer]. Diabetes Care 33(S1), Aug 2009 Performed By: #### 4 548-4 #### HERBERT SILVER ([id number]) [facility] ([facility]) [facility] [place] [address] Lipid 1996 panelon 4 Cholesterol [Mass/Vol] 146 mg/dL Normal 0-199 [facility] Comment on above: Result Comment: Age Desirable Borderline High High 0-19 Y 0 - 169 170 - 199 >/= 200 20-24 Y 0 - 189 190 - 224 >/= 225 >24 Y 0 - 199 200 - 239 >/= 240 All ranges are based on fasting samples. Specific therapeutic targets will vary based on patient-specific cardiac risk. Pediatric guidelines reference:Pediatrics 2011, 128(S5).Adult guidelines reference: NCEP ATPIII Guidelines,EUGENIO 2001, 258:2486-97 Venipuncture immediately after or during the administration of Metamizole may lead to falsely low results. Testing should be performed immediately prior to Metamizole dosing. Performed By: #### 2 4331-1 #### HERBERT SILVER ([id number]) [facility] ([facility]) [address] [place] [address] 87732 Cholesterol in HDL [Mass/Vol] 48.0 mg/dL Normal [facility] Comment on above: Result Comment: Age Very Low Low Normal High 0-19 Y < 35 < 40 40-45 ---- 20-24 Y ---- < 40 >45 ---- >24 Y ---- < 40 40-60 >60 Performed By: #### 2 4331-1 #### HERBERT SILVER ([id number]) [facility] ([facility]) [facility] [place] [address] Cholesterol in LDL [Mass/Vol] 73 mg/dL Normal <=99 [facility] Comment on above: Result Comment: Near Borderline AGE Desirable Optimal High High Very High 0-19 Y 0 - 109 --- 110-129 >/= 130 ---- 20-24 Y 0 - 119 --- 120-159 >/= 160 ---- >24 Y 0 - 99 100-129 130-159 160-189 >/=190 Performed By: #### 2 4331-1 #### HERBERT SILVER ([id number]) [facility] ([facility]) [address] [place] [address] 02902 Cholesterol in VLDL [Mass/Vol] 25 mg/dL Normal 0-40 [facility] Comment on above: Performed By: #### 2 4331-1 #### HERBERT SILVER ([id number]) [facility] ([facility]) [address] [place] [address] 44049 CHOLESTEROL/HDL RATIO 3.0 Normal [facility] Comment on above: Result Comment: Ref Values Desirable < 3.4 High Risk > 5.0 Performed By: #### 2 4331-1 #### HERBERT SILVER ([id number]) [facility] ([facility]) [address] [place] [address] 34750 NON HDL CHOLESTEROL 98 mg/dL Normal 0-149 [facility] Comment on above: Result Comment: Age Desirable Borderline High High Very High 0-19 Y 0 - 119 120 - 144 >/= 145 >/= 160 20-24 Y 0 - 149 150 - 189 >/= 190 ---- >24 Y 30 mg/dL above LDL Cholesterol goal Performed By: #### 2 4331-1 #### HERBERT SILVER ([id number]) [facility] ([facility]) [address] [place] [address] 05865 Triglyceride [Mass/Vol] 125 mg/dL Normal 0-149 [facility] Comment on above: Result Comment: Age Desirable Borderline High High Very High 0 D-90 D 19 - 174 ---- ---- ---- 91 D- 9 Y 0 - 74 75 - 99 >/= 100 ---- 10-19 Y 0 - 89 90 - 129 >/= 130 ---- 20-24 Y 0 - 114 115 - 149 >/= 150 ---- >24 Y 0 - 149 150 - 199 200- 499 >/= 500 Venipuncture immediately after or during the administration of Metamizole may lead to falsely low results. Testing should be performed immediately prior to Metamizole dosing. Performed By: #### 2 4331-1 #### GODINEZ NADEEM ([id number]) [facility] ([facility]) [address] [place] [address] POCT UA Automated manually r esultedon 01-12-2024 Appearance (U) Clear Clear [facility] Work Phone: [phone] Glucose Test strip (U) [Mass/Vol] Negative NEGATIVE mg/dl [facility] Work Phone: [phone] Hemoglobin Ql (U) Negative NEGATIVE [facility] Work Phone: [phone] Interpretation and review of laboratory results Abnormal [facility] Work Phone: [phone] Leukocyte esterase Test strip Ql (U) SMALL (1+) Abnormal NEGATIVE [facility] Work Phone: [phone] Nitrite Ql (U) Negative NEGATIVE [facility] Work Phone: [phone] pH (U) 6.0 [pH] No Reference Range Established [facility] Work Phone: [phone] POC Bilirubin, Urine Negative NEGATIVE [facility] Work Phone: [phone] POC Color, Urine Lilia Abnormal Straw, [place] ow, Light-Yellow [facility] Work Phone: [phone] POC Ketones, Urine Negative NEGATIVE mg/dl [facility] Phone: [phone] POC Protein, Urine Negative NEGATIVE, 30 (1+) mg/dl [facility] Work Phone: [phone] POC Specific [place], Urine 1.025 1.005 - 1.035 [facility] Work Phone: [phone] POC Urobilinogen, Urine 4.0 Abnormal 0.2, 1.0 EU/DL [facility] Work Phone: [phone] [facility] Work Phone: [phone] No Panel Informationon 01-07 Interpretation and review of laboratory results Abnormal YouTube URINALYSIS, MACROon 01-08-20 24 Bilirubin Ql (U) Negative NEGATIVE [facility] Clarity (U) CLEAR CLEAR [facility] Color (U) YELLOW YELLOW [facility] Glucose Test strip (U) [Mass/Vol] Negative NEGATIVE mg/dl [facility] Hemoglobin Ql (U) Negative NEGATIVE [facility] Ketones (U) [Mass/Vol] Negative NEGATIVE mg/dl [facility] Leukocyte esterase Test strip Ql (U) SMALL Abnormal NEGATIVE [facility] Nitrite Ql (U) Negative NEGATIVE [facility] pH (U) 6.5 [pH] 5.0 - 7.0 [facility] Protein Ql (U) Negative NEGATIVE mg/dl [facility] Specific gravity (U) [Rel density] 1.025 1.010 - 1.025 [facility] Urobilinogen (U) [Mass/Vol] 0.2 mg/dL [facility] URINE CULTUREon 01-08-2024 Bacteria identified Cx Nom (U) SPECIMEN DESCRIPTION URINE - OTHER CULTURE NO PATHOGENS ISOLATED * Result Note: Testing performed at [place] [address] * REPORT STATUS 01/10/2024 * Result Note: FINAL * Normal [facility] Comment on above: Performed By: #### A URNC #### Testing performed at [address] [address] Testing performed at [address] [address] URINE MACROSCOPICon 01-08-20 24 Bilirubin Ql (U) Negative Normal NEGATIVE [facility] Comment on above: Performed By: #### U MAC, UMIC #### Testing performed at [address] [address] Clarity (U) CLEAR Normal CLEAR [facility] Comment on above: Performed By: #### U MAC, UMIC #### Testing performed at [address] [address] Color (U) YELLOW Normal YELLOW [facility] Comment on above: Performed By: #### U MAC, UMIC #### Testing performed at [address] [address] Glucose Ql (U) Negative Normal NEGATIVE [facility] Comment on above: Performed By: #### U MAC, UMIC #### Testing performed at [address] [address] pH (U) 6.5 [pH] Normal 5.0-7.0 [facility] Comment on above: Performed By: #### U MAC, UMIC #### Testing performed at [address] [address] URINE HEMOGLOBIN Negative Normal NEGATIVE [facility] Comment on above: Performed By: #### U MAC, UMIC #### Testing performed at [address] [address] URINE KETONE Negative Normal NEGATIVE [facility] Comment on above: Performed By: #### U MAC, UMIC #### Testing performed at [address] [address] URINE LEUKOTEST SMALL Abnormal NEGATIVE [facility] Comment on above: Performed By: #### U MAC, UMIC #### Testing performed at [address] [address] URINE NITRATES Negative Normal NEGATIVE [facility] Comment on above: Performed By: #### U MAC, UMIC #### Testing performed at [address] [address] URINE SPEC GRAVITY 1.025 Normal 1.010-1.025 [facility] Comment on above: Performed By: #### U MAC, UMIC #### Testing performed at [address] [address] URINE TOTAL PROTEIN Negative Normal NEGATIVE [facility] Comment on above: Performed By: #### U MAC, UMIC #### Testing performed at [address] [address] Urobilinogen Qn (U) 0.2 {Nikhil'U}/dL Normal 0.2-1.0 [facility] Comment on above: Performed By: #### U MAC, UMIC #### Testing performed at [address] [address] URINE MICROSCOPICon 01-08-20 24 Bacteria LM.HPF (Urine sed) [#/Area] 1+ Abnormal NEGATIVE [facility] Casts LM.LPF (Urine sed) [#/Area] NONE NONE /LPF [facility] Crystals LM Nom (Urine sed) NONE NONE [facility] Epithelial cells LM Ql (Urine sed) 5 TO 10 /HPF [facility] Mucus Ql (Urine sed) Negative NEGATIVE [facility] RBC LM.HPF (Urine sed) [#/Area] 1 TO 5 NEGATIVE /HPF [facility] Urine sediment comments LM Steve (Urine sed) REFLEX CULTURE PER ESTABLISHED CRITERIA. [facility] WBC LM.HPF (Urine sed) [#/Area] '5 TO 10 NEGATIVE /HPF [facility] BACTERIA 1+ Abnormal NEGATIVE [facility] Comment on above: Performed By: #### U MAC, UMIC #### Testing performed at [address] [address] CASTS NONE Normal [facility] Comment on above: Performed By: #### U MAC, UMIC #### Testing performed at [address] [address] CRYSTAL NONE [facility] Comment on above: Performed By: #### U MAC, UMIC #### Testing performed at [address] [address] Epithelial cells LM Ql (Urine sed) 5 TO 10 Normal [facility] Comment on above: Performed By: #### U MAC, UMIC #### Testing performed at [address] [address] Mucus Ql (Urine sed) Negative Normal NEGATIVE [facility] Comment on above: Performed By: #### U MAC, UMIC #### Testing performed at [address] [address] URINE COMMENT REFLEX CULTURE PER ESTABLISHED CRITERIA. Normal [facility] Comment on above: Performed By: #### U MAC, UMIC #### Testing performed at [address] [address] URINE RBC'S 1 TO 5 Normal NEGATIVE [facility] Comment on above: Performed By: #### U MAC, UMIC #### Testing performed at [address] [address] URINE WBC'S '5 TO 10 Normal NEGATIVE [facility] Comment on above: Performed By: #### U MAC, UMIC #### Testing performed at [address] [address] BI MAMMO BILATERAL SCREENING TOMOSYNTHESISon 11-25-2023 BI MAMMO BILATERAL SCREENING TOMOSYNTHESIS Interpreted By: Danielito Clifton, STUDY: BI MAMMO BILATERAL SCREENING TOMOSYNTHESIS; 11/25/2023 11:44 am ACCESSION NUMBER(S): [id number] ORDERING CLINICIAN: STEPHANI TINOCO INDICATION: Screening. COMPARISON: 09/13/2020, 03/27/2022 FINDINGS: 2D and tomosynthesis images were reviewed at 1 mm slice thickness. Density: The breast tissue is almost entirely fatty. No suspicious masses or calcifications are identified. CAD was utilized. IMPRESSION: No mammographic evidence of malignancy. BI-RADS CATEGORY: BI-RADS Category: 1 Negative. Recommendation: Annual Screening. Recommended Date: 1 Year. Laterality: Bilateral. For any future breast imaging appointments, please call [phone] ([phone]). Based on the Tyrer-Cuzick model for breast cancer risk assessment, the patient's lifetime risk of breast cancer is 7.19%. Patients with over a 20% lifetime risk of developing breast cancer may benefit from additional screening with breast MRI or ultrasound. Please note that this estimate is based on responses provided on the patient questionnaire. For more information regarding high risk consultation, please call [phone]. MACRO: None Signed by: Danielito Clifton 11/25/2023 2:59 PM Dictation workstation: [id number] [facility] Comment on above: Order Comment: Last done 03/2022 DBT Breast - bilateralon No mammographic evidence of malignancy. BI-RADS CATEGORY: BI-RADS Category: 1 Negative. Recommendation: Annual Screening. Recommended Date: 1 Year. Laterality: Bilateral. For any future breast imaging appointments, please call [phone] ([phone]). Based on the Tyrer-Cuzick model for breast cancer risk assessment, the patient's lifetime risk of breast cancer is 7.19%. Patients with over a 20% lifetime risk of developing breast cancer may benefit from additional screening with breast MRI or ultrasound. Please note that this estimate is based on responses provided on the patient questionnaire. For more information regarding high risk consultation, please call [phone]. MACRO: None Signed by: Danielito Clifton 11/25/2023 2:59 PM Dictation workstation: [id number] MMODAL Interpreted By: Danielito Clifton, STUDY: BI MAMMO BILATERAL SCREENING TOMOSYNTHESIS; 11/25/2023 11:44 am ACCESSION NUMBER(S): [id number] ORDERING CLINICIAN: STEPHANI TINOCO INDICATION: Screening. COMPARISON: 09/13/2020, 03/27/2022 FINDINGS: 2D and tomosynthesis images were reviewed at 1 mm slice thickness. Density: The breast tissue is almost entirely fatty. No suspicious masses or calcifications are identified. CAD was utilized. MMODAL Danielito Clifton MD - 11/25/2023 Interpreted By: Danielito Clifton, STUDY: BI MAMMO BILATERAL SCREENING TOMOSYNTHESIS; 11/25/2023 11:44 am ACCESSION NUMBER(S): [id number] ORDERING CLINICIAN: STEPHANI TINOCO INDICATION: Screening. COMPARISON: 09/13/2020, 03/27/2022 FINDINGS: 2D and tomosynthesis images were reviewed at 1 mm slice thickness. Density: The breast tissue is almost entirely fatty. No suspicious masses or calcifications are identified. CAD was utilized. IMPRESSION: No mammographic evidence of malignancy. BI-RADS CATEGORY: BI-RADS Category: 1 Negative. Recommendation: Annual Screening. Recommended Date: 1 Year. Laterality: Bilateral. For any future breast imaging appointments, please call [phone] ([phone]). Based on the Tyrer-Cuzick model for breast cancer risk assessment, the patient's lifetime risk of breast cancer is 7.19%. Patients with over a 20% lifetime risk of developing breast cancer may benefit from additional screening with breast MRI or ultrasound. Please note that this estimate is based on responses provided on the patient questionnaire. For more information regarding high risk consultation, please call [phone]. MACRO: None Signed by: Danielito Clifton 11/25/2023 2:59 PM Dictation workstation: [id number] [facility] Work Phone: Radiology Study observation (narrative) [facility] Work Phone: DBT Breast - bilateralOrdere d By: Danielito Clifton on 11-25-2023 [facility] Work Phone: Office Visit (Primary Care F orms)on 09-02-2022 Follow-up visit Diagnosis/Problems Assessed BMI 35.0-35.9,adult (V85.35) (Z68.35) Class 2 severe obesity due to excess calories with serious comorbidity and body mass index (BMI) of 35.0 to 35.9 in adult (278.01,V85.35) (E66.01,Z68.35) Hyperlipidemia (272.4) (E78.5) Skin lesion of face (709.9) (L98.9) Insomnia (780.52) (G47.00) Anxiety disorder (300.00) (F41.9) Screening for diabetes mellitus (V77.1) (Z13.1) Orders Anxiety disorder Renew: Sertraline HCl - 50 MG Oral Tablet; TAKE 1 TABLET DAILY Rx By: Stephani Tinoco; Dispense: 90 Days ; #:90 Tablet; Refill: 1;For: Anxiety disorder; BARON = N; Verified Transmission to [facility]; Last Updated By: MahsaTwylah; 09/02/2022 9:32:08 AM Class 2 severe obesity due to excess calories with serious comorbidity and body mass index (BMI) of 35.0 to 35.9 in adult HEART HEALTHY DIET - LAINEY; Status:Active; Requested for:02Sep2022; Perform:Solexa;Ordered; For:Class 2 severe obesity due to excess calories with serious comorbidity and body mass index (BMI) of 35.0 to 35.9 in adult; Ordered By:Stephani Tinoco; Hyperlipidemia Comprehensive Metabolic Panel; Status:Active; Requested for:[id number]; Perform:Lab Services - Lab To Draw (Blood Test); Due:[id number];Ordered; For:Hyperlipidemia; Ordered By:Stephani Tinoco; Lipid Panel; Status:Active; Requested for:[id number]; Perform:Lab Services - Lab To Draw (Blood Test); Due:73Jmh3814;Ordered; For:Hyperlipidemia; Ordered By:Stephani Tinoco; Insomnia Renew: traZODone HCl - 100 MG Oral Tablet; TAKE 1 TABLET AT BEDTIME Rx By: Stephani Tinoco; Dispense: 90 Days ; #:90 Tablet; Refill: 1;For: Insomnia; BARON = N; Verified Transmission to [facility]; Last Updated By: Mahsa Jumblets; 09/02/2022 9:32:07 AM Screening for diabetes mellitus Hemoglobin A1C; Status:Active; Requested for:[id number]; Perform:Lab Services - Lab To Draw (Blood Test); Due:59Ogt3565;Ordered; For:Screening for diabetes mellitus; Ordered By:Stephani Tinoco; Patient Discussion/Summary Hyperlipidemia: will get labs when she gets back from [place]. Insomnia: Continue Trazodone for sleep. Anxiety: Continue sertraline. Follow up in 6 months, will be a welcome to medicare wellness visit. Chief Complaint Pt presents for routine check up; med review and refills. History of Present IllnessJanice returns for follow up. Insomnia: takes trazodone. Does well for her symptoms. States, I can't sleep without it. anxiety: takes Sertraline. Helps with her anxiety. Denies suicidal/homicidal ideations. skin lesion on chin, behind left ear, and nape of neck: had burned off at dermatology, but has come back. heading to go to [place] and will be back in December. Mammogram: done in march 2022 DEXA: not done- refuses colon cancer screen: refuses Review of Systems Constitutional: not feeling tired. Cardiovascular: no chest pain, no palpitations, no lower extremity edema, no shortness of breath and no chest pressure. Gastrointestinal: no abdominal pain, no constipation, no diarrhea, no nausea and no vomiting. Musculoskeletal: no muscle pain. Neurological: no headache and no dizziness. Active Problems Problems Anxiety disorder (300.00) (F41.9) BMI 35.0-35.9,adult (V85.35) (Z68.35) Class 2 severe obesity due to excess calories with serious comorbidity and body mass index (BMI) of 35.0 to 35.9 in adult (278.01,V85.35) (E66.01,Z68.35) Encounter for screening mammogram for malignant neoplasm of breast (V76.12) (Z12.31) Hyperlipidemia (272.4) (E78.5) Insomnia (780.52) (G47.00) Screening for breast cancer (V76.10) (Z12.39) Screening for colon cancer (V76.51) (Z12.11) Screening for diabetes mellitus (V77.1) (Z13.1) Screening for lipid disorders (V77.91) (Z13.220) Skin lesion of face (709.9) (L98.9) Skin lesion of left leg (709.9) (L98.9) Past Medical History Problems History of hypertension (V12.59) (Z86.79) History of low back pain (V13.59) (Z87.39) History of Left knee pain (719.46) (M25.562) History of Localized osteoarthritis of left knee (715.36) (M17.12) History of Localized osteoarthritis of right knee (715.36) (M17.11) Resolved Date: 14 Feb 2020 History of Pain in knee region after replacement of knee joint (719.46,V43.65) (M25.569,Z96.659) Resolved Date: 14 Feb 2020 History of Status post total left knee replacement (V43.65) (Z96.652) History of Stiffness of right knee, not elsewhere classified (719.56) (M25.661) Resolved Date: 14 Feb 2020 History of Superficial thrombophlebitis of lower extremity, unspecified laterality (451.0) (I80.00) Surgical History Problems History of Carpal tunnel surgery History of Hysterectomy History of Knee replacement History of Stephenson tooth extraction Family History Mother Family history of Garner's chorea (V17.2) (Z82.0) Family history of hypertension (V17.49) (Z82.49) Father Family history of myocardial infarction (V17.3) (Z82.49) Brother Family history of congenita (more content not included)... Normal [facility] Tobacco Screening.on 023 Adult depression screening assessment No [facility] Work Phone: Fall risk assessment a) No falls within the last year [facility] Work Phone: Tobacco use status [facility] b) No [facility] and Work Phone: DIGITAL MAMM SCREENING W/ TO Felipe 03-27-2022 DIGITAL MAMM SCREENING W/ REX Patient Name: SKYE SPARROW STUDY: Digital mammography screening with rex; 03/27/2022 11:16 am ACCESSION NUMBER(S): [id number] ORDERING CLINICIAN: IMAN BRISENO INDICATION: Screening. COMPARISON: Comparison is made to prior digital mammograms dated 09/13/2020 FINDINGS: CC and MLO 2D digital mammograms and digital breast tomosynthesis images were obtained of the bilateral breasts. 3-D volume images were reconstructed in 4 views at an independent workstation as 1 mm slices through the breasts in both the CC and MLO projections. The breast tissue is almost entirely fatty. No discrete mass or focal asymmetry is identified. No suspicious microcalcifications or foci of architectural distortion are seen. There has been no significant change. This study was interpreted with CAD. IMPRESSION: No mammographic evidence of malignancy. BI-RADS CATEGORY: Category: 1 - Negative. Recommendation: 1 Year Screening. Electronically signed by: FELIX HUIZAR MD [facility] - Screening Mammogram w / Tomosynthesison 03-27-2022 MG Breast Screening Normal -[facility] and Work Phone: Office Visiton 03-03-2022 Follow-up visit Diagnoses/Problems Adjustment disorder (309.9) (F43.20) HTN (hypertension) (401.9) (I10) Hyperlipidemia (272.4) (E78.5) Encounter for screening mammogram for malignant neoplasm of breast (V76.12) (Z12.31) Insomnia (780.52) (G47.00) Orders Encounter for screening mammogram for malignant neoplasm of breast Mamm - Screening Mammogram w/ Tomosynthesis; Status:Active; Requested for:[id number]; Radiologist to Determine Optimal Study : Y What are the patient's signs and symptoms ? : Annual Screening Mammogram Hyperlipidemia Start: Atorvastatin Calcium 10 MG Oral Tablet; TAKE 1 TABLET by mouth once a day AT BEDTIME Patient Discussion/Summary Resume atorvastatin. Follow up if headaches and head zaps don't get better after eye exam. Otherwise follow up in 6 mos. Chief Complaint Pt presents for routine check up; lab and med review. History of Present IllnessShe presents today for routine follow up of chronic medical conditions Hyperlipidemia-levels are up, pt has stopped taking the atorvastatin, she has not been eating as good as she was before. Adjustment disorder-on sertraline has been for several years. Doing well wishes to continue. Insomnia- takes trazodone Has been having headaches 3-4 days a week for the last 6-8 mos. She does not wake up with them, they occur during the day and go away after a few hours. She needs an eye exam, it has been 3-4 yrs. She also has had some head zaps they are not pain or dizziness. Her head just feels funny on occasion. No family history of stroke. Family history of Huntingtons chorea and HI. Review of Systems General: Negative except HPI Cardiovascular: Negative except HPI Respiratory: Negative except HPI Gastrointestinal: Negative except HPI : Negative except HPI Neurological: Negative except HPI Active Problems Adjustment disorder (309.9) (F43.20) BMI 33.0-33.9,adult (V85.33) (Z68.33) HTN (hypertension) (401.9) (I10) Hyperlipidemia (272.4) (E78.5) Insomnia (780.52) (G47.00) Left knee pain (719.46) (M25.562) Localized osteoarthritis of left knee (715.36) (M17.12) Lower back pain (724.2) (M54.50) Obesity (278.00) (E66.9) Screening for breast cancer (V76.10) (Z12.39) Screening for colon cancer (V76.51) (Z12.11) Screening for diabetes mellitus (V77.1) (Z13.1) Screening for lipid disorders (V77.91) (Z13.220) Skin lesion of face (709.9) (L98.9) Skin lesion of left leg (709.9) (L98.9) Status post total left knee replacement (V43.65) (Z96.652) Past Medical History History of Localized osteoarthritis of right knee (715.36) (M17.11) Resolved Date: 14 Feb 2020 History of Pain in knee region after replacement of knee joint (719.46,V43.65) (M25.569,Z96.659) Resolved Date: 14 Feb 2020 History of Stiffness of right knee, not elsewhere classified (719.56) (M25.661) Resolved Date: 14 Feb 2020 History of Superficial thrombophlebitis of lower extremity, unspecified laterality (451.0) (I80.00) Surgical History History of Carpal tunnel surgery History of Hysterectomy History of Knee replacement History of Stephenson tooth extraction Family History Family history of Garner's chorea (V17.2) (Z82.0) Family history of hypertension (V17.49) (Z82.49) Family history of myocardial infarction (V17.3) (Z82.49) Family history of congenital heart disease (V19.5) (Z82.79) Family history of Garner's chorea (V17.2) (Z82.0) Family history of hypertension (V17.49) (Z82.49) Family history of Shamika's chorea (V17.2) (Z82.0) Social History Former smoker (V15.82) (Z87.891) Marijuana Occasional alcohol use 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 traZODone HCl - 100 MG Oral TabletTAKE 1 TABLET AT BEDTIME. Vitals Vital Signs Recorded: [id number] 11:06AM Heart Rate68 Niqxunet726, LUE Jkalczcry90, LUE Height5 ft 11 in Lehjfp040 lb 1 oz BMI Lhncvowcjg06.85 kg/m2 BSA Calculated2.35 Tobacco Useb) No Falls Screening (Age 18+)a) No falls within the last year O2 Fydaqvnjcr70 Physical Exam General: well nourished, in no distress Neck: No lymphadenopathy, thyromegaly or carotid bruit. Supple and normal ROM Cardiovascular: RRR, no Murmur, No edema Respiratory: Clear lungs throughout, no cough Abdomen: No tenderness or masses. Normal bowel sounds Neuro: Alert and oriented x 3 Musculoskeletal: Normal gait Signatures Electronically signed by : HIEN Peraza; Mar 03 2022 12:12PM EST (Author) Normal [facility] Tobacco Screening.on 022 Fall risk assessment a) No falls within the last year -[facility] and Work Phone: Tobacco use status [facility] b) No -[facility] Work Phone: BASIC METABOLIC PANELon 02-08 Anion gap [Moles/Vol] 13 mmol/L Normal 10 - 20 [facility] Comment on above: Performed By: #### B MP #### [address] [address] Calcium [Mass/Vol] 9.4 mg/dL Normal 8.6 - 10.3 [facility] [place] Comment on above: Performed By: #### B MP #### [address] [address] Chloride [Moles/Vol] 107 mmol/L Normal 98 - 107 [facility] Comment on above: Performed By: #### B MP #### [address] [address] Creatinine [Mass/Vol] 0.66 mg/dL Normal 0.50 - 1.05 [facility] Comment on above: Performed By: #### B MP #### [address] [address] eGFR FEMALE >90 Normal >90 [facility] Comment on above: Result Comment: CALC ULATIONS OF ESTIMATED GFR ARE PERFORMED USING THE 2020 CKD-EPI STUDY REFIT EQUATION WITHOUT THE RACE VARIABLE FOR THE IDMS-TRACEABLE CREATININE METHODS. https://jasn.asnjournals.org/content//ASN.52227430 88 Performed By: #### B MP #### [address] [address] Glucose [Mass/Vol] 107 mg/dL High 74 - 99 [facility] [place] Comment on above: Performed By: #### B MP #### [address] [address] HCO3 (Bld) [Moles/Vol] 25 mmol/L Normal 21 - 32 [facility] Comment on above: Performed By: #### B MP #### [address] [address] Potassium [Moles/Vol] 4.2 mmol/L Normal 3.5 - 5.3 [facility] Comment on above: Performed By: #### B MP #### [address] [address] Sodium [Moles/Vol] 141 mmol/L Normal 136 - 145 [facility] [place] Comment on above: Performed By: #### B MP #### [address] [address] Urea nitrogen [Mass/Vol] 16 mg/dL Normal 6 - 23 [facility] Comment on above: Performed By: #### B MP #### [address] [address] HEMOGLOBIN A1Con 02-26-2022 Glucose [Mass/Vol] 114 mg/dL Normal [facility] [place] Comment on above: Performed By: #### H BA1E #### [address] [address] HbA1c (Bld) [Mass fraction] 5.6 % Normal [facility] Comment on above: Result Comment: Diag nosis of Diabetes-Adults Non-Diabetic: < or = 5.6% Increased risk for developing diabetes: 5.7-6.4% Diagnostic of diabetes: > or = 6.5% . Monitoring of Diabetes Age (y) Therapeutic Goal (%) Adults: >18 <7.0 Pediatrics: 13-18 <7.5 7-12 <8.0 0- 6 7.5-8.5 [place] [employer]. Diabetes Care 33(S1), Aug 2009. Performed By: #### H BA1E #### [address] [address] Hemoglobin A1Con 02-26-2022 Glucose [Mass/Vol] 114 mg/dL [facility] and Work Phone: HbA1c (Bld) [Mass fraction] 5.6 % [facility] and Work Phone: Comment on above: Diagnosis of Diabete s-Adults Non-Diabetic: < or = 5.6% Increased risk for developing diabetes: 5.7-6.4% Diagnostic of diabetes: > or = 6.5%. Monitoring of Diabetes Age (y) Therapeutic Goal (%) Adults: >18 <7.0 Pediatrics: 13-18 <7.5 7-12 <8.0 0- 6 7.5-8.5 [place] [employer]. Diabetes Care 33(S1), Aug 2009. LIPID PANEL (CORONARY RISK 2 )on 02-26-2022 Cholesterol [Mass/Vol] 264 mg/dL High 0 - 199 [facility] Comment on above: Result Comment: . AGE DESIRABLE BORDERLINE HIGH HIGH 0-19 Y 0 - 169 170 - 199 >/= 200 20-24 Y 0 - 189 190 - 224 >/= 225 >24 Y 0 - 199 200 - 239 >/= 240 All ranges are based on fasting samples. Specific therapeutic targets will vary based on patient-specific cardiac risk. . Pediatric guidelines reference:Pediatrics 2011, 128(S5). Adult guidelines reference: NCEP ATPIII Guidelines, EUGENIO 2001, 258:2486-97 . Venipuncture immediately after or during the administration of Metamizole may lead to falsely low results. Testing should be performed immediately prior to Metamizole dosing. Performed By: #### L IPID #### [address] [address] Cholesterol in HDL [Mass/Vol] 54.0 mg/dL Normal [facility] Comment on above: Result Comment: . AGE VERY LOW LOW NORMAL HIGH 0-19 Y < 35 < 40 40-45 ---- 20-24 Y ---- < 40 >45 ---- >24 Y ---- < 40 40-60 >60 . Performed By: #### L IPID #### [address] [address] Cholesterol in LDL [Mass/Vol] 176 mg/dL High 0 - 99 [facility] Comment on above: Result Comment: . NEAR BORD AGE DESIRABLE OPTIMAL HIGH HIGH VERY HIGH 0-19 Y 0 - 109 --- 110-129 >/= 130 ---- 20-24 Y 0 - 119 --- 120-159 >/= 160 ---- >24 Y 0 - 99 100-129 130-159 160-189 >/=190 . Performed By: #### L IPID #### [address] [address] Cholesterol in VLDL [Mass/Vol] 34 mg/dL Normal 0 - 40 [facility] Comment on above: Performed By: #### L IPID #### [address] [address] Cholesterol.total/C holesterol in HDL [Mass ratio] 4.9 {ratio} Normal [facility] Comment on above: Result Comment: REF VALUES DESIRABLE < 3.4 HIGH RISK > 5.0 Performed By: #### L IPID #### [address] [address] Triglyceride [Mass/Vol] 169 mg/dL High 0 - 149 [facility] Comment on above: Result Comment: . AGE DESIRABLE BORDERLINE HIGH HIGH VERY HIGH 0 D-90 D 19 - 174 ---- ---- ---- 91 D- 9 Y 0 - 74 75 - 99 >/= 100 ---- 10-19 Y 0 - 89 90 - 129 >/= 130 ---- 20-24 Y 0 - 114 115 - 149 >/= 150 ---- >24 Y 0 - 149 150 - 199 200- 499 >/= 500 . Venipuncture immediately after or during the administration of Metamizole may lead to falsely low results. Testing should be performed immediately prior to Metamizole dosing. Performed By: #### L IPID #### [address] [address] Laboratory - Chemistry and C hemistry - challengeon 02-26-2022 Anion gap [Moles/Vol] 13 mmol/L - -[facility] and Work Phone: Calcium [Mass/Vol] 9.4 mg/dL 8.6 - 10.3 [facility] Work Phone: Chloride [Moles/Vol] 107 mmol/L 98 - 107 [facility] and Work Phone: CO2 [Moles/Vol] 25 mmol/L 21 - 32 [facility] and Work Phone: Creatinine [Mass/Vol] 0.66 mg/dL See Below [facility] and Work Phone: Comment on above: Reference Range: 0.5 0 - 1.05 Glucose [Mass/Vol] 107 mg/dL above high threshold 74 - 99 [facility] and Work Phone: Potassium [Moles/Vol] 4.2 mmol/L 3.5 - 5.3 [facility] and Work Phone: Sodium [Moles/Vol] 141 mmol/L 136 - 145 [facility] and Work Phone: Urea nitrogen [Mass/Vol] 16 mg/dL 6 - 23 [facility] and Work Phone: Lipid Panelon 02-26-2022 Cholesterol [Mass/Vol] 264 mg/dL above high threshold 0 - 199 [facility] and Work Phone: Comment on above: . AGE DESIRABLE BORD EMA HIGH HIGH 0-19 Y 0 - 169 170 - 199 >/= 200 20-24 Y 0 - 189 190 - 224 >/= 225 >24 Y 0 - 199 200 - 239 >/= 240 All ranges are based on fasting samples. Specific therapeutic targets will vary based on patient-specific cardiac risk.. Pediatric guidelines reference:Pediatrics 2011, 128(S5). Adult guidelines reference: NCEP ATPIII Guidelines, EUGENIO 2001, 258:2486-97. Venipuncture immediately after or during the administration of Metamizole may lead to falsely low results. Testing should be performed immediately prior to Metamizole dosing. Cholesterol in HDL [Mass/Vol] 54.0 mg/dL [facility] and Work Phone: Comment on above: . AGE VERY LOW LOW N ORMAL HIGH 0-19 Y < 35 < 40 40-45 ---- 20- 24 Y ---- < 40 >45 ---- >24 Y ---- < 40 40-60 >60. Cholesterol in LDL [Mass/Vol] 176 mg/dL above high threshold 0 - 99 [facility] [facility] Work Phone: Comment on above: . NEAR BORD AGE ANA RABLE OPTIMAL HIGH HIGH VERY HIGH 0-19 Y 0 - 109 --- 110-129 >/= 130 ---- 20-24 Y 0 - 119 --- 120-159 >/= 160 ---- >24 Y 0 - 99 100-129 130-159 160-189 >/=190. Cholesterol.total/C holesterol in HDL [Mass ratio] 4.9 {ratio} [facility] Work Phone: Comment on above: REF VALUESDESIRABLE < 3.4HIGH RISK > 5.0 Triglyceride [Mass/Vol] 169 mg/dL above high threshold 0 - 149 [facility] Phone: Comment on above: . AGE DESIRABLE BORD MEA HIGH HIGH VERY HIGH 0 D-90 D 19 - 174 ---- ---- ----91 D- 9 Y 0 - 74 75 - 99 >/= 100 ---- 10-19 Y 0 - 89 90 - 129 >/= 130 ---- 20-24 Y 0 - 114 115 - 149 >/= 150 ---- >24 Y 0 - 149 150 - 199 200- 499 >/= 500. Venipuncture immediately after or during the administration of Metamizole may lead to falsely low results. Testing should be performed immediately prior to Metamizole dosing. Lipid Panel 34 mg/dL 0 - 40 [facility] Work Phone: No Panel Informationon 02-26 >90 >90 [facility] Work Phone: Comment on above: CALCULATIONS OF SUSIE MATED GFR ARE PERFORMED USING THE 2020 CKD-EPI STUDY REFIT EQUATION WITHOUT THE RACE VARIABLE FOR THE IDMS-TRACEABLE CREATININE METHODS.https://jasn.asnjournals.org/content//ASN. 2201066977 Tobacco Screening.on Fall risk assessment a) No falls within the last year [facility] Work Phone: Tobacco use status CPHS b) No [facility] Work Phone: Tobacco Screening.on Fall risk assessment a) No falls within the last year [facility] Work Phone: Tobacco use status CP b) No [facility] Work Phone: CORONAVIRUS PCR [CCL]on REF LAB REPORT Negative Normal [facility] Comment on above: Performed By: #### [id number] #### [facility],[address] [place] [address] COVID 19 Result TOUCHER UP Negative Normal [facility] Comment on above: Result Comment: Nega tive for COVID19 (SARS CoV2) by PCR. This test was developed and its performance characteristics determined by [facility]'s [facility]. This test has been authorized by FDA under an Emergency Use Authorization (EUA). This test has been validated in accordance with the FDA's Guidance Document Policy for Diagnostics Testing in Laboratories Certified to Perform High Complexity Testing under CLIA prior to Emergency use Authorization for Coronavirus Disease 2019 during the Public Health Emergency issued on October 08, 2019[place] [address] Stuart Fischer III, M.D. [id number] Performed By: #### 2 [id number] #### [facility],[address] [place], [place] [id number] COVID 19 Source TOUCHER UP TOUCHER UP SWAB Normal [facility] Comment on above: Performed By: #### [id number] #### [facility],[address] [place], [place] [id number] Cult, Urineon 02-14-2020 Bacteria identified Cx Nom (U) PATIENT: SKYE SPARROW LOCATION: [facility]#: [id number] : 59 AGE: SEX: F ORDERED BY: GIORGI BRISENO: URINE COLLECTED: 02/14/20 08:07ANTIBIOTICS AT MATTHEW.: RECEIVED : 02/14/20 18:36SITE: Clean Catch/Voided R E S U L T S URINE CULTURE,BACTERIAL FINAL 02/15/20 11:25 NO SIGNIFICANT GROWTH. [facility] Work Phone: IO UA (automated w/o microsc opy)on 02-14-2020 Protein (U) [Mass/Vol] Negative [facility] [facility] Work Phone: Comment on above: [employer] : [id number]: 06/2020 IO UA (automated w/o microscopy) Negative [facility] [facility] Work Phone: Comment on above: [employer] : [id number]: 06/2020 IO UA (automated w/o microscopy) 1.020 [facility] Work Phone: Comment on above: [employer] : [id number]: 06/2020 IO UA (automated w/o microscopy) Yellow [facility] Work Phone: Comment on above: [employer] : [id number]: 06/2020 IO UA (automated w/o microscopy) 6.0 [facility] Work Phone: Comment on above: [employer] : [id number]: 06/2020 IO UA (automated w/o microscopy) Normal (0.2-1.0 mg/dl) [facility] [employer] Work Phone: Comment on above: [employer] Mult[employer]ot : [id number]: 06/2020 IO UA (automated w/o microscopy) [employer] Work Phone: Comment on above: [employer] : [id number]: 06/2020 C Urineon 04-15-2019 C Urine Final Report: >100,0 00 cfu/ml Escherichia coli ORGANISM: EC SUSCEPTIBILITY RESULTS Antibiotic FATMATA Dilutn FATMATA Interp ORGANISM: EC Amox/Cla : <=8/4 S Amp : >16 R Amp/Sul : 16/8 I Cefaz : <=8 S Cefo : <=2 S Cipro : <=1 S Gent : <=4 S Levo : <=2 S Emigdio : <=1 S Nitro : <=32 S Pip/Wilbert : <=16 S Tetra : >8 R Tobra : <=4 S SXT : >2/38 R Normal [facility] Comment on above: Performed By: #### [id number] #### [facility] Microbiology Subsection [address] [place] [address] [place] Mamm Screen w/CAD if perf ormed bilaton 12-28-2018 MA Mamm Screen w/CAD if performed bilat Exam Date/Time: 12/27/2018 16:11 EDT Reason for Exam: SCREENING FOR HEART DISEASE BENIGN HTN MIXED HYPERLIPIDEMIA SCREENING;Screening Report STUDY: Digital mammography screening; 12/27/2018 4:11 pm ACCESSION NUMBER(S): [id number] ORDERING CLINICIAN: Iman Briseno INDICATION: Screening. COMPARISON: Comparison is made to prior digital mammograms dated 10/15/2017 and 02/21/2016 FINDINGS: CC and MLO 2D digital mammographic images of the bilateral breasts were obtained. The breast tissue is almost entirely fatty. No discrete mass or focal asymmetry is identified. No suspicious microcalcifications or foci of architectural distortion are seen. There has been no significant change. This study was interpreted with CAD. IMPRESSION: No mammographic evidence of malignancy. BI-RADS CATEGORY: Category: 1 - Negative. Recommendation: Normal Interval Follow-up, Over Age 40. Recall Interval: 12 Months. Breast Density: Fatty. FINAL REPORT Dictated: 12/28/2018 8:30 am Felix Huizar MD Signed (Electronic Signature): 12/28/2018 8:30 am Signed by: Felix Huizar MD Technologist: LACEY Assessment: BI-RADS Category 1-Negative Recommendation: Normal interval follow-up Normal [facility] CT Coronary Artery Calcium S core - JOSE ALBERTOon 12-23-2018 Calcium [Mass/Vol] Exam Date/Time: 12/22/2018 15:41 EDT Reason for Exam: SCREENING FOR HEART DISEASE BENIGN HTN MIXED HYPERLIPIDEMIA SCREENING;Screening Report STUDY: CT Coronary Artery Calcium Score - PONCHOE; 12/22/2018 3:41 pm INDICATION: Screening. COMPARISON: None. ACCESSION NUMBER(S): [id number] ORDERING CLINICIAN: Iman Briseno TECHNIQUE: Using prospective ECG gating, CT scan of the coronary arteries was performed without intravenous contrast. Coronary calcium scoring was performed according to the method of Agatston. FINDINGS: The score and distribution of calcium in the coronary arteries is as follows: LM 0, LAD 538,140 mm2 LCx 81,26 mm2 RCA 21,8 mm2 Total 640 The visualized mid/lower ascending thoracic aorta measures 3.5 cm in diameter. The visualized descending thoracic aorta is within normal limits for course and caliber. Scattered atherosclerotic calcifications are seen in the visualized descending thoracic aorta. The heart is within normal limits for size. No pericardial effusion is present. Small densely calcified lymph nodes are seen in the right hilum and mediastinum. No gross mediastinal lymphadenopathy is identified. There is no focal infiltrate, pleural effusion or pneumothorax identified. No discrete pulmonary nodules or masses are seen within the visualized lungs. IMPRESSION: 1. Coronary artery calcium score of 640, which places the patient in the high risk category, as below. Coronary artery calcium scoring may be helpful in predicting the risk for future coronary heart disease events. According to the [employer] [employer] Clinical Expert Consensus Task Force, such testing provides important prognostic information in patients with Exam Date/Time: 12/22/2018 15:41 EDT Report more than one coronary heart disease risk factor. The coronary artery calcium score correlates with the annual risk of a non-fatal myocardial infarction or coronary heart disease . Coronary artery score Annual Risk 0-99 0.4% 100-399 1.3% >400 2.4% These three breakpoints correspond to lower, intermediate and high risk states for future coronary events. Such information should be used, along with appropriate clinical judgment, to make decisions regarding the intensity of risk factor management strategies to treat blood lipids and to modify other non-lipid coronary risk factors. Reference: [place] P et al. Circulation. 2007; 115:402-426 FINAL REPORT Dictated: 12/23/2018 9:10 am Felix Huizar MD Signed (Electronic Signature): 12/23/2018 9:10 am Signed by: Felix Huizar MD Technologist: [facility] Vital Signs Date Time Vital Sign Value Performing Clinician Facility 08-02-2024 11:13-0500 Body height 177.8 cm Stephani Tinoco APRN-[employer] Work Phone: [facility] 08-02-2024 11:13-0500 Body mass index (BMI) [Ratio] 37.66 kg/m2 Stephani Tinoco SPECIALTY TRIMMER-[employer] Work Phone: [facility] 08-02-2024 11:13-0500 Body weight 119.04 kg Stephani Tinoco SPECIALTY TRIMMER-[employer] Work Phone: [facility] 08-02-2024 11:13-0500 Diastolic blood pressure 90 mm[Hg] Stephani Tinoco SPECIALTY TRIMMER-[employer] Work Phone: [facility] 08-02-2024 11:13-0500 Heart rate 62 /min Stephani Tinoco SPECIALTY TRIMMER-[employer] Work Phone: [facility] 08-02-2024 11:13-0500 Systolic blood pressure 142 mm[Hg] Stephani Tinoco SPECIALTY TRIMMER-[employer] Work Phone: [facility] 06-14-2024 10:50-0500 Body height 177.8 cm Sandra Hahn PA-C Work Phone: [facility] 06-14-2024 10:50-0500 Body mass index (BMI) [Ratio] 33 kg/m2 Sandra Jovani PA-C Work Phone: [facility] 06-14-2024 10:50-0500 Body temperature 97.2 [degF] Sandra Jovani PA-C Work Phone: [facility] 06-14-2024 10:50-0500 Body weight 104.33 kg Sandra Jovani PA-C Work Phone: [phone] [place] [address] 06-14-2024 10:50-0500 Diastolic blood pressure 91 mm[Hg] Sandra Jovani PA-C Work Phone: 2(814)637-831072 [address] 06-14-2024 10:50-0500 Heart rate 56 /min Sandra Jovani PA-C Work Phone: 7(461)[phone] [place] [address] 06-14-2024 10:50-0500 Respiratory rate 14 /min Sandra Jovani PA-C Work Phone: 6(044)[phone] [place] [address] 06-14-2024 10:50-0500 SaO2% (BldA) [Mass fraction] 99 % Sandra Jovani PA-C Work Phone: 0(201)[phone] [place] [address] 06-14-2024 10:50-0500 Systolic blood pressure 146 mm[Hg] Sandra Jovani PA-C Work Phone: [facility] 01-12-2024 11:09040 Body height 180.3 cm Stephani Tinoco SPECIALTY TRIMMER-[employer] Work Phone: [facility] 01-12-2024 11:09040 Body mass index (BMI) [Ratio] 34.45 kg/m2 Stephani Tinoco SPECIALTY TRIMMER-[employer] Work Phone: [facility] 01-12-2024 11:09040 Body weight 112.04 kg Stephani Tinoco SPECIALTY TRIMMER-[employer] Work Phone: [facility] 01-12-2024 11:09-040 Diastolic blood pressure 80 mm[Hg] Stephani Tinoco SPECIALTY TRIMMER-[employer] Work Phone: [facility] 01-12-2024 11:09-0400 Heart rate 74 /min Stephani Tinoco SPECIALTY TRIMMER-[employer] Work Phone: [facility] 01-12-2024 11:09-0400 Systolic blood pressure 140 mm[Hg] Stephani Tinoco SPECIALTY TRIMMER-[employer] Work Phone: [facility] 01-08-2024 05:20-0400 Diastolic blood pressure 84 mm[Hg] Oren Cornejo MD Work Phone: [facility] 01-08-2024 05:20-0400 Heart rate 78 /min Oren Cornejo MD Work Phone: [facility] 01-08-2024 05:20-0400 Respiratory rate 18 /min Oren Cornejo MD Work Phone: [facility] 01-08-2024 05:20-0400 SaO2% (BldA) [Mass fraction] 98 % Oren Cornejo MD Work Phone: [facility] 01-08-2024 05:20-0400 Systolic blood pressure 178 mm[Hg] Oren Cornejo MD Work Phone: [facility] 01-08-2024 03:54-0400 Body height 177.8 cm Oren Cornejo MD Work Phone: [facility] 01-08-2024 03:48-0400 Body temperature 98.49 [degF] Oren Cornejo MD Work Phone: [facility] 11-11-2023 13:58-0400 Body height 180.3 cm Stephani Tinoco SPECIALTY TRIMMER-[employer] Work Phone: [facility] 11-11-2023 13:58-0400 Body mass index (BMI) [Ratio] 35.75 kg/m2 Stephani Tinoco SPECIALTY TRIMMER-[employer] Work Phone: [facility] 11-11-2023 13:58-0400 Body weight 116.26 kg Stephani Tinoco SPECIALTY TRIMMER-[employer] Work Phone: [facility] 11-11-2023 13:58-0400 Diastolic blood pressure 80 mm[Hg] Stephani Tinoco SPECIALTY TRIMMER-[employer] Work Phone: [facility] 11-11-2023 13:58-0400 Heart rate 84 /min Stephanigloria Tinoco SPECIALTY TRIMMER-[employer] Work Phone: [facility] 11-11-2023 13:58-0400 Systolic blood pressure 138 mm[Hg] Stephanigloria Tinoco SPECIALTY TRIMMER-[employer] Work Phone: [facility] 09-02-2022 09:12-0500 Body height 180.34 cm Stephani Tinoco Work Phone: [employer] [facility] Work Phone: 09-02-2022 09:12-0500 Body mass index (BMI) [Ratio] 35.29 kg/m2 Stephani Tinoco Work Phone: [facility] Work Phone: 09-02-2022 09:12-0500 Body surface area Derived from formula 2.33 m2 Stephani Tinoco Work Phone: [employer] [facility] Work Phone: 09-02-2022 09:12-0500 Body weight 114.76 kg Stephani Tinoco Work Phone: [facility] Work Phone: 09-02-2022 09:12-0500 Diastolic blood pressure 76 mm[Hg] Stephani Tinoco Work Phone: [facility] Work Phone: 09-02-2022 09:12-0500 Heart rate 62 /min Stephani Tinoco Work Phone: [facility] Work Phone: 09-02-2022 09:12-0500 SaO2% (BldA) [Mass fraction] 98 % Stephani Tinoco Work Phone: [facility] Work Phone: 09-02-2022 09:12-0500 Systolic blood pressure 122 mm[Hg] Stephani Tinoco Work Phone: [facility] Work Phone: 03-03-2022 11:06-0400 Body height 180.34 cm Iman Briseno Work Phone: [facility] Work Phone: 03-03-2022 11:06-0400 Body mass index (BMI) [Ratio] 35.85 kg/m2 Iman Briseno Work Phone: [facility] Work Phone: 03-03-2022 11:06-0400 Body surface area Derived from formula 2.35 m2 Iman Briseno Work Phone: [facility] Work Phone: 03-03-2022 11:06-0400 Body weight 116.6 kg Iman Briseno Work Phone: [facility] Work Phone: 03-03-2022 11:06-0400 Diastolic blood pressure 74 mm[Hg] Iman Briseno Work Phone: [facility] Work Phone: 03-03-2022 11:06-0400 Heart rate 68 /min Iman Caponepster Work Phone: [facility] Work Phone: 03-03-2022 11:06-0400 SaO2% (BldA) [Mass fraction] 98 % Iman J Pamella Work Phone: [facility] Work Phone: 03-03-2022 11:06-0400 Systolic blood pressure 118 mm[Hg] Iman Briseno Work Phone: [facility] Work Phone: 08-28-2021 10:59-0500 Body height 180.34 cm Iman Briseno Work Phone: [facility] Work Phone: 08-28-2021 10:59-0500 Body mass index (BMI) [Ratio] 33.54 kg/m2 Iman Briseno Work Phone: [facility] Work Phone: 08-28-2021 10:59-0500 Body surface area Derived from formula 2.28 m2 Iman Briseno Work Phone: [facility] Work Phone: 08-28-2021 10:59-0500 Body temperature 97 [degF] Iman Briseno Work Phone: [facility] Work Phone: 08-28-2021 10:59-0500 Body weight 109.09 kg Iman Briseno Work Phone: [facility] Work Phone: 08-28-2021 10:59-0500 Diastolic blood pressure 80 mm[Hg] Iman Briseno Work Phone: [facility] Work Phone: 08-28-2021 10:59-0500 Heart rate 74 /min Iman Briseno Work Phone: [facility] Work Phone: 08-28-2021 10:59-0500 SaO2% (BldA) [Mass fraction] 98 % Iman Briseno Work Phone: [facility] Work Phone: 08-28-2021 10:59-0500 Systolic blood pressure 128 mm[Hg] Iman Briseno Work Phone: [facility] Work Phone: 02-13-2021 12:30-0400 Body height 180.34 cm Iman Briseno Work Phone: [facility] Work Phone: 02-13-2021 12:30-0400 Body mass index (BMI) [Ratio] 32.26 kg/m2 Iman Briseno Work Phone: [facility] Work Phone: 02-13-2021 12:30-0400 Body surface area Derived from formula 2.24 m2 Iman Briseno Work Phone: [facility] Work Phone: 02-13-2021 12:30-0400 Body temperature 97.5 [degF] Iman Briseno Work Phone: [facility] Work Phone: 02-13-2021 12:30-0400 Body weight 104.92 kg Iman Briseno Work Phone: [facility] Work Phone: 02-13-2021 12:30-0400 Diastolic blood pressure 78 mm[Hg] Iman Briseno Work Phone: [facility] Work Phone: 02-13-2021 12:30-0400 Heart rate 73 /min Iman Briseno Work Phone: [facility] Work Phone: 02-13-2021 12:30-0400 SaO2% (BldA) [Mass fraction] 97 % Iman Briseno Work Phone: [facility] Work Phone: 02-13-2021 12:30-0400 Systolic blood pressure 124 mm[Hg] Iman Briseno Work Phone: [facility] Work Phone: 03-21-2020 12:36-0400 BMI (Body Mass Index) 32.01 kg/m2 Iman Briseno [facility] Work Phone: 03-21-2020 12:36-0400 Body Temperature 97.1 [degF] Iman Briseno [facility] Work Phone: 03-21-2020 12:36-0400 Body weight 104.1 kg Iman Briseno [facility] Work Phone: 03-21-2020 12:36-0400 BP Diastolic 78 mm[Hg] Iman Briseno [facility] Work Phone: 03-21-2020 12:36-0400 BP Systolic 120 mm[Hg] Iman Briseno [facility] Work Phone: 03-21-2020 12:36-0400 BSA (Body Surface Area) 2.24 m2 Iman Briseno [facility] Work Phone: 03-21-2020 12:36-0400 Height 180.34 cm Iman Briseno [facility] Work Phone: 03-21-2020 12:36-0400 Pulse (Heart Rate) 64 /min Imankimberly Briseno [facility] Work Phone: 02-14-2020 09:32-0400 BMI (Body Mass Index) 32.79 kg/m2 Iman Briseno [facility] Work Phone: 02-14-2020 09:32-0400 Body Temperature 97.3 [degF] Iman Briseno [facility] Work Phone: 02-14-2020 09:32-0400 Body weight 106.65 kg Iman Briseno [facility] Work Phone: 02-14-2020 09:32-0400 BP Diastolic 80 mm[Hg] Iman Briseno [facility] Work Phone: Comment on above: Location: [facility]; 02-14-2020 09:32-0400 BP Systolic 116 mm[Hg] Iman Briseno [facility] Work Phone: Comment on above: Location: [facility]; 02-14-2020 09:32-0400 BSA (Body Surface Area) 2.26 m2 Iman Briseno [facility] Work Phone: 02-14-2020 09:32-0400 Height 180.34 cm Iman Briseno [facility] Work Phone: 02-14-2020 09:32-0400 Pulse (Heart Rate) 62 /min Iman Briseno [facility] Work Phone: 02-14-2020 09:32-0400 Pulse Oximetry 98 % Iman Briseno [facility] Work Phone: Encounters Encounter Date Encounter Type Care Provider Facility Start: 05-01-2025 ambulatory Iamn Briseno Binui ty:[facility] Start: 08-02-2024 End: 08-02-2024 ambulatory STEPHANI Ramires [facility] Start: 08-02-2024 End: 08-02-2024 Office outpatient visit 25 minutes Stephani Tinoco SPECIALTY TRIMMER-[employer] Work Phone: [facility] Comment on above: Primary hypertension (Primary Dx); Mixed hyperlipidemia; Adjustment disorder, unspecified type; Insomnia, unspecified type; Need for qdvptvlfos-qmbfiuu-nvhrigpdr (Tdap) vaccine; Class 2 severe obesity due to excess calories with serious comorbidity and body mass index (BMI) of 37.0 to 37.9 in adult Start: 07-05-2024 End: 07-05-2024 ambulatory STEPHANI TINOCO [facility] Start: 06-14-2024 End: 06-14-2024 Office outpatient visit 10 minutes Sandra Hahn PA-C Work Phone: [facility] Comment on above: Skin ulcer of right thigh, limited to breakdown of skin (Primary Dx) Start: 06-14-2024 End: 06-14-2024 ambulatory STEPHANI TINOCO [facility] Start: 01-12-2024 End: 01-12-2024 ambulatory STEPHANI TINOCO [facility] Start: 01-12-2024 End: 01-12-2024 Office outpatient visit 15 minutes Stephani Tinoco SPECIALTY TRIMMER-[employer] Work Phone: [facility] Comment on above: Herpes zoster withou t complication (Primary Dx); Pelvic pain Start: 01-08-2024 End: 01-08-2024 Emergency department patient visit Oren Cornejo MD Work Phone: [facility] Start: 11-25-2023 End: 11-25-2023 ambulatory STEPHANI TINOCO [facility] Start: 11-25-2023 End: 11-25-2023 Subsequent hospital visit by physician Kevan [id number] Thel[facility] Comment on above: Encounter for screen ing mammogram for breast cancer Start: 11-11-2023 End: 11-11-2023 Patient encounter procedure Stephani Tinoco SPECIALTY TRIMMER-[employer] Work Phone: [facility] [employer] [facility] Comment on above: Medicare annual well ness visit, subsequent (Primary Dx); Cellulitis of left lower extremity; Mixed hyperlipidemia; Primary hypertension; Adjustment disorder, unspecified type; Insomnia, unspecified type; Skin lesion of face; Psoriasis; Elevated glucose; Encounter for screening mammogram for breast cancer; Screening for colorectal cancer; Screening for diabetes mellitus (DM); Class 2 severe obesity due to excess calories with serious comorbidity and body mass index (BMI) of 35.0 to 35.9 in adult ([facility]) Start: 09-02-2022 Office outpatient vi sit 25 minutes Stephani Tinoco Work Phone: [facility] Work Phone: Start: 03-28-2022 Chart Update Iman Crystal Harp ster Work Phone: -[facility] Work Phone: Start: 03-03-2022 Office outpatient vi sit 25 minutes Iman Caponepster Work Phone: [facility] Work Phone: Start: 02-26-2022 Chart Update Iman Crystal Harp ster Work Phone: -[facility] Work Phone: Start: 02-26-2022 AUDIT Iman Crystal Harp ster Work Phone: -[facility] Work Phone: Start: 08-28-2021 Office outpatient vi sit 25 minutes Iman Caponepster Work Phone: -[facility] Work Phone: Start: 07-26-2021 AUDIT Iman Crystal Harp ster Work Phone: -[facility] Work Phone: Start: 07-22-2021 Office outpatient vi sit 15 minutes Iman Caponepster Work Phone: -[facility] Work Phone: Start: 07-22-2021 Patient encounter procedure Iman Caponepster Work Phone: [facility] Work Phone: Start: 02-13-2021 Office outpatient vi sit 25 minutes Iman Marah Pamella Work Phone: [facility] Work Phone: Start: 02-13-2021 Patient encounter procedure Iman Caponepster Work Phone: [facility] Work Phone: Start: 10-17-2020 Patient encounter procedure [facility] Work Phone: Start: 10-10-2020 Patient encounter procedure [facility] Work Phone: Start: 10-05-2020 Patient encounter procedure [facility] Work Phone: Start: 10-03-2020 Patient encounter procedure [facility] Work Phone: Start: 2020 Patient encounter procedure [facility] Work Phone: Start: 08-14-2020 Patient encounter procedure [facility] Work Phone: Start: 03-21-2020 Patient encounter procedure Iman Onamia [facility] Work Phone: Start: 03-14-2020 End: 03-14-2020 Patient encounter procedure FRANSISCO RODRIGUEZ [facility] Start: 02-14-2020 Patient encounter procedure Iman Onamia [facility] Work Phone: Start: 07-18-2019 Patient encounter procedure [facility] Work Phone: Start: 07-15-2019 Patient encounter procedure [facility] Work Phone: Start: 07-13-2019 Patient encounter procedure Janell Patino [facility] Work Phone: Start: 07-11-2019 Patient encounter procedure Janell Patino [facility] Work Phone: Procedures Date Procedure Procedure Detail Performing Clinician Start: 01-12-2024 Urnls dip stick/tabl et rgnt auto w/o microscopy Stephani Tinoco [employer]MER[employer] Work Phone: Start: 01-12-2024 Lipid 1996 panel - S toña or Plasma Sandra Hahn PA-C Work Phone: Start: 01-08-2024 Culture bacterial quanttative colony count urine Oren Cornejo MD Work Phone: Start: 01-08-2024 Urinalysis, reagent strip without microscopy Oren Cornejo MD Work Phone: Start: 11-25-2023 BI MAMMO BILATERAL SCREENING TOMOSYNTHESIS STEPHANI TINOCO Start: 11-25-2023 End: 11-25-2023 Screening digital breast tomosynthesis bi Stephani Tinoco [employer]MER[employer] Work Phone: Start: 03-27-2022 Mammography Stephani sharma [employer] TR[employer]MER[employer] Work Phone: Start: 02-26-2022 Lipid 1996 panel - S toña or Plasma Stephani Tinoco SPECIALTY TRIMMER[employer] Work Phone: Start: 02-14-2020 CBC W Auto Different ial panel - Blood Iman Briseno Start: 02-14-2020 Comprehensive metabo lic 2000 panel Iman Briseno Start: 02-14-2020 Lipid panel Iman prieto Start: 02-14-2020 TSH WITH REFLEX TO F REE T4 IF ABNORMAL Iman Briseno Arthroplasty of knee Iman Briseno Decompression of med lesly nerve Iman Briseno Extraction of wisdom tooth M elibeatriz Briseno Hysterectomy Iman Guaman r Plan of Treatment Date Care Activity Detail Author Start: 08-02-2034 DTaP/Tdap/Td Vaccine s (2 - Td or Tdap) DTaP/Tdap/Td Vaccines (2 - Td or Tdap) [facility] Start: 2032 RSV High Risk: (Elderly (60+) or Population) (1 - 1-dose 75+ series) RSV High Risk: (Elderly (60+) or Population) (1 - 1-dose 75+ series) [facility] Start: 01-11-2029 Lipid panel Lipid Panel [facility] Start: 07-05-2027 Diabetes mellitus screening Diabetes Screening [facility] Start: 02-26-2027 Lipid panel Lipid Panel [facility] Start: 01-11-2027 Diabetes mellitus screening Diabetes Screening [facility] Start: 07-05-2025 Hemoglobin A1c measurement Diabetes: Hemoglobin A1C [facility] Start: 02-26-2025 Diabetes mellitus screening Diabetes Screening [facility] Start: 01-11-2025 Hemoglobin A1c measurement Diabetes: Hemoglobin A1C [facility] Start: 11-24-2024 Screening for malignant neoplasm of breast Mammogram [facility] Start: 11-15-2024 End: 11-15-2024 Patient encounter procedure 11/15/2024 10:40 AM EDT Office Visit [address] [place] [address] Stephani Tinoco, SPECIALTY [employer]MER[employer] [address] [facility] [address] [place] [address] [facility] Start: 11-11-2024 Medicare Annual Wellness Visit Medicare Annual Wellness Visit (AWV) [facility] Start: 08-02-2024 End: 08-02-2025 Comprehensive metabolic 2000 panel - Serum or Plasma Comprehensive metabolic panel Lab Routine Primary hypertension Expected: 08/02/2024 (Approximate), Expires: 08/02/2025 [facility] Service Area Work Phone: Comment on above: Expected: 08/02/2024 (Approximate), Expires: 08/02/2025 Start: 05-14-2024 Medicare Annual Wellness Visit Medicare Annual Wellness Visit (AWV) [facility] Start: 05-10-2024 End: 05-10-2024 Patient encounter procedure 05/10/2024 1:20 PM EDT Office Visit [facility] [address] [facility] [place] [id number] Stephani Tinoco, SPECIALTY TR[employer]MER[employer] [address] [facility] [address] [place] [address] [facility] Start: 04-10-2024 COVID-19 Vaccine ( season) COVID-[address] () [facility] Start: 04-10-2024 Influenza vaccination [facility] Start: 01-12-2024 End: 01-19-2024 Bacteria identified in Urine by Culture [facility] Service Area Work Phone: Comment on above: Expected: 01/12/2024 (Approximate), Expires: 01/19/2024 Start: 11-25-2023 End: 11-25-2023 Patient encounter procedure 11/25/2023 11:00 AM EDT Appointment [facility] [address] [facility] [address] [place] [id number] [facility] Start: 11-11-2023 End: 11-10-2024 CBC W Auto Differential panel - Blood CBC and Auto Differential Lab Routine Primary hypertension Expected: 11/11/2023 (Approximate), Expires: 11/10/2024 [facility] Work Phone: Comment on above: Expected: 11/11/2023 (Approximate), Expires: 11/10/2024 Start: 11-11-2023 End: 11-10-2024 Cologuard colon cancer screening Cologuard colon cancer screening Lab Routine Screening for colorectal cancer Expected: 11/11/2023 (Approximate), Expires: 11/10/2024 [facility] Work Phone: Comment on above: Expected: 11/11/2023 (Approximate), Expires: 11/10/2024 Start: 11-11-2023 End: 11-10-2024 Comprehensive metabolic 2000 panel - Serum or Plasma Comprehensive Metabolic Panel Lab Routine Mixed hyperlipidemia Expected: 11/11/2023 (Approximate), Expires: 11/10/2024 [facility] Work Phone: Comment on above: Expected: 11/11/2023 (Approximate), Expires: 11/10/2024 Start: 11-11-2023 End: 01-10-2025 DBT Breast - bilateral BI mammo bilateral screening tomosynthesis Imaging Routine Encounter for screening mammogram for breast cancer Expected: 11/11/2023, Expires: 01/10/2025 [facility] Service Area Work Phone: Comment on above: Expected: 11/11/2023 , Expires: 01/10/2025 Start: 11-11-2023 End: 11-10-2024 Hemoglobin A1c/Hemoglobin.total in Blood Hemoglobin A1C Lab Routine Screening for diabetes mellitus (DM) Elevated glucose Expected: 11/11/2023 (Approximate), Expires: 11/10/2024 [facility] Work Phone: Comment on above: Expected: 11/11/2023 (Approximate), Expires: 11/10/2024 Start: 11-11-2023 End: 11-10-2024 Lipid 1996 panel - Serum or Plasma Lipid Panel Lab Routine Mixed hyperlipidemia Expected: 11/11/2023 (Approximate), Expires: 11/10/2024 [facility] Work Phone: Comment on above: Expected: 11/11/2023 (Approximate), Expires: 11/10/2024 Start: 04-10-2023 COVID-19 Vaccine () COVID-19 Vacc[address] () [facility] Start: 03-27-2023 Screening for malignant neoplasm of breast Mammogram [facility] Start: 03-03-2023 Patient encounter procedure MCRANNUAL, Provider: Stephani Tinoco, Status: Pen, Time: 9:20 AM [facility] Work Phone: Start: 2022 Pneumococcal vaccination PNEUMOCOCCAL VACCINE SERIES (1 of 1 - PCV) [facility] Start: 2022 Pneumococcal Vaccine : 65+ Years (1 of 1 - PCV) Pneumococcal Vaccine: 65+ Years (1 of 1 - PCV) [facility] Start: 03-03-2022 EPV, Provider: Iman Briseno, Status: Pen, Time: 11:00 AM EPV, Provider: Iman Briseno, Status: Pen, Time: 11:00 AM [facility] Phone: Start: 01-27-2022 EPV, Provider: Iman Briseno, Status: Pen, Time: 10:00 AM EPV, Provider: Iman Briseno, Status: Pen, Time: 10:00 AM [facility] Phone: Start: 08-14-2021 EPV, Provider: Iman Briseno, Status: Pen, Time: 11:00 AM EPV, Provider: Iman Briseno, Status: Pen, Time: 11:00 AM [facility] Phone: Start: 2017 RSV patient s and/or patients aged 60+ years (1 - 1-dose 60+ series) RSV patients and/or patients aged 60+ years (1 - 1-dose 60+ series) [facility] Start: 2007 Pneumococcal vaccination Pneumococcal Vaccine (1 of 1 - PCV) [facility] Start: 2007 Zoster vaccine hzv live for subcutaneous use ZOSTER (SHINGLES) VACCINE (1 of 2) [facility] Start: 2007 Zoster Vaccines (1 o f 2) Zoster Vaccines (1 of 2) [facility] Start: 2002 Screening for malignant neoplasm of colon COLORECTAL CANCER SCREENING DISCUSSION [facility] Start: 1997 Lipid panel LIPID SCREENING [facility] Start: 1997 Screening for malignant neoplasm of breast MAMMOGRAM SCREENING DISCUSSION [facility] Start: 1979 DTaP/Tdap/Td Vaccine s (1 - Tdap) DTaP/Tdap/Td Vaccines (1 - Tdap) [facility] Start: 1978 Screening for malignant neoplasm of cervix CERVICAL CANCER SCREENING DISCUSSION [facility] Start: 1976 Third diphtheria, tetanus and acellular pertussis (DTaP) vaccination TDAP (ADULT) [facility] Start: 1975 Hepatitis C screening Hepatitis C Sc reening [facility] Start: 1958 MMR Vaccines (1 of 1 - Standard series) MMR Vaccines (1 of 1 - Standard series) [facility] Start: 1957 Hepatitis C screening HEPATITI S C VIRUS SCREENING [facility] Start: 1957 Screening for malignant neoplasm of colon [facility] Start: [address] [facility] Start: 1957 Tetanus vaccination TETANUS [facility] Bacteria identified in Unspecified specimen by Culture Tissue/Wound Culture/Smear Microbiology Routine Skin ulcer of right thigh, limited to breakdown of skin 06/14/2024 11:24 AM EST [facility] Service Area Work Phone: Bacteria identified in Urine by Culture URINE CULTURE Microbiology Routine 01/08/2024 4:12 AM EDT [facility] Work Phone: NEGATED: Highlighted row has been ruled out! Planned Goals not documented [facility] Work Phone: Immunizations Immunization Date Immunization Notes Care Provider Ashtyn martin 08-02-2024 tetanus toxoid, reduced diphtheria toxoid, and acellular pertussis vaccine, adsorbed Stephani Tinoco [facility]MER[facility] Work Phone: [facility] Work Phone: 06-27-2021 influenza, injectabl e, quadrivalent, preservative free Iman Briseno Work Phone: [facility] Work Phone: 07-10-2020 influenza virus vaccine, unspecified formulation Iman Briseno Work Phone: [facility] Work Phone: Comment on above: Series: 07-10-2020 influenza, seasonal, injectable [facility] Work Phone: Comment on above: Series: 07-10-2020 influenza, seasonal, injectable [facility] Work Phone: 07-31-2017 influenza virus vaccine, unspecified formulation Iman Briseno Work Phone: [facility] Work Phone: Payers Date Payer Category Payer Self-pay 2024 Medicare [id number] 2022 Medicare [id number] 2022 Medicare (Managed Care) [employer] [id number] 2022 Medicare [id number] 1957 Unknown [id number] 1957 Unknown [id number] 1957 Unknown [id number] 1957 Unknown [id number] 1957 Unknown [id number] 1957 Unknown [id number] 1957 Unknown [id number] Unknown [id number] Unknown Unknown [id number] Social History Date Type Detail Facility Assertion Unknown if ever smoked [facility] Work Phone: Start: 11-11-2023 End: 11-19-2023 Former smoker Former smoker [facility] Work Phone: Start: 05-13-2023 End: 01-08-2024 Tobacco smoking status NHIS Ex-smoker [facility] Work Phone: History of tobacco use Current smoker [facility] Work Phone: History of tobacco use Cigarette Smoker [facility] Work Phone: Start: 05-13-2023 End: 01-08-2024 Tobacco use and exposure Smokeless tobacco non-user [facility] Work Phone: Start: 11-19-2023 End: 08-02-2024 Alcoholic beverage intake Current drinker of alcohol (finding) [facility] Work Phone: Start: 11-11-2023 End: 08-02-[address] [facility] Work Phone: Start: 1955 Sex assigned at Not on file [facility] Work Phone: Start: 11-01-2023 End: 08-02-2024 Exposure to SARS-CoV-2 (event) Not sure [facility] NEGATED: Highlighted row - - [facility] Work Phone: Functional Status Date Assessment Result Facility NEGATED: Highlighted row Functional performance Functional status health issues are not documented Disease [facility] Work Phone: Mental Status Date Assessment Result Facility NEGATED: Highlighted row Cognitive function [Interpretation] Cognitive status health issues are not documented Disease [facility] Work Phone: Clinical Notes 02-20-2020 to 08-02-2024 Assessment & Plan Note - HIEN Roach - 08/02/2024 11:51 AM ESTAssessment & Plan Note - HIEN Roach - 08/02/2024 11:51 AM ESTJoceline Roberts CMA - 01/12/2024 11:00 AM EDT Note Date & Type Note Facility 08-02-2024 Evaluation + Plan note Associated Problem(s): Insomnia Trazodone 100 mg nightly - refilled [facility] Work Phone: 08-02-2024 Miscellaneous Notes Associated Problem(s): Insomnia Trazodone 100 mg nightly - refilled Associated Problem(s): Adjustment disorder Sertraline 50 mg daily - refilled Associated Problem(s): Hyperlipidemia Continue atorvastatin 10 mg nightly - refilled Associated Problem(s): HTN (hypertension) Is elevated again today. Will start losartan 25 mg daily documented in this encounter [facility] Work Phone: 08-02-2024 Evaluation + Plan note Associated Problem(s): Adjustment disorder Sertraline 50 mg daily - refilled [facility] Work Phone: 08-02-2024 Evaluation + Plan note Associated Problem(s): Hyperlipidemia Continue atorvastatin 10 mg nightly - refilled [facility] Work Phone: 08-02-2024 Evaluation + Plan note Associated Problem(s): HTN (hypertension) Is elevated again today. Will start losartan [address] [facility] Work Phone: 08-02-2024 History of Present illness Narrative Subjective Patient ID: Skye Sparrow is a 68 y.o. female who presents for Med Refill. Med Refill Pertinent negatives include no abdominal pain, arthralgias, chest pain, fatigue, headaches, myalgias, nausea or vomiting. Skye returns for follow up. HTN: elevated again today. Denies chest pain/tightness palpitations. Hyperlipidemia: stable on statin. Denies new muscle aches. Tdap: needs Review of Systems Constitutional: Negative for fatigue. HENT: Negative. Respiratory: Negative for chest tightness and shortness of breath. Cardiovascular: Negative for chest pain, palpitations and leg swelling. Gastrointestinal: Negative for abdominal pain, blood in stool, constipation, diarrhea, nausea and vomiting. Genitourinary: Negative for dysuria. Musculoskeletal: Negative for arthralgias and myalgias. Skin: Negative for color change. Neurological: Negative for dizziness, light-headedness and headaches. Hematological: Negative. Psychiatric/Behavioral: Negative. Objective BP 142/90 Pulse 62 Ht 1.778 m (5' 10) Wt 119 kg (262 lb 7 oz) BMI 37.66 kg/m Physical Exam Vitals and nursing note reviewed. Constitutional: Appearance: Normal appearance. HENT: Head: Normocephalic and atraumatic. Cardiovascular: Rate and Rhythm: Normal rate and regular rhythm. Pulses: Normal pulses. Heart sounds: Normal heart sounds. Pulmonary: Effort: Pulmonary effort is normal. Breath sounds: Normal breath sounds. Skin: General: Skin is warm and dry. Neurological: General: No focal deficit present. Mental Status: She is alert and oriented to person, place, and time. Psychiatric: Mood and Affect: Mood normal. Behavior: Behavior normal. Thought Content: Thought content normal. Judgment: Judgment normal. Assessment/Plan Problem List Items Addressed This Visit ICD-10-CM Adjustment disorder F43.20 Sertraline 50 mg daily - refilled Relevant Medications sertraline (Zoloft) 50 mg tablet HTN (hypertension) - Primary I10 Is elevated again today. Will start losartan 25 mg daily Relevant Medications losartan (Cozaar) 25 mg tablet Other Relevant Orders Comprehensive metabolic panel Hyperlipidemia E78.5 Continue atorvastatin 10 mg nightly - refilled Relevant Medications atorvastatin (Lipitor) 10 mg tablet Insomnia G47.00 Trazodone 100 mg nightly - refilled Relevant Medications traZODone (Desyrel) 100 mg tablet Class 2 severe obesity due to excess calories with serious comorbidity and body mass index (BMI) of 37.0 to 37.9 in adult E66.812, E66.01, Z68.37 Other Visit Diagnoses Codes Need for viyvvnhtgl-tmrvgum-nfviesvar (Tdap) vaccine Z23 Relevant Orders Tdap vaccine, age 7 years and older (Completed) Follow up in November for W exam. Labs before appt. For any new medications that were prescribed today, the patient was educated about their indications for use, administration, frequency and potential side effects of the medication. documented in this encounter [facility] Work Phone: 06-14-2024 History of Present illness Narrative [facility] NOTE: Name: Skye Sparrow, 68 y.o. CSN:[id number] PCP: Stephani Tinoco, [employer] ALL: Allergies Allergen Reactions Codeine Other Hydrocodone-Acetaminophen Swelling Sulfamethoxazole Nausea Only History: Chief Complaint: Abscess (Abscess in the right groin area, red, painful x 4-5 days) Encounter Date: 06/14/2024 HPI: The history was obtained from the patient. Skye is a 68 y.o. female, who presents with a chief complaint of Abscess (Abscess in the right groin area, red, painful x 4-5 days) she's been applying some H2O2 and neosporin to the lesion, thinks she might have been bit by something but she's unsure. The lesion has had some clear discharge and appears like it's improving, but it's persistent. PMHx: Past Medical History: Diagnosis Date Inflamed seborrheic keratosis 06/19/2021 Localized osteoarthritis of left knee 01/12/2023 Other follicular cysts of the skin and subcutaneous tissue 06/19/2021 Pain in unspecified knee 07/15/2019 Pain in knee region after replacement of knee joint Phlebitis and thrombophlebitis of superficial vessels of unspecified lower extremity Superficial thrombophlebitis of lower extremity, unspecified laterality Skin lesion of left leg 01/12/2023 Status post total left knee replacement 01/12/2023 Stiffness of right knee, not elsewhere classified 07/18/2019 Stiffness of right knee, not elsewhere classified Unilateral primary osteoarthritis, right knee 07/18/2019 Localized osteoarthritis of right knee Current Outpatient Medications Medication Sig Dispense Refill adapalene (Differin) 0.1 % cream 1 Application atorvastatin (Lipitor) 10 mg tablet Take 1 tablet (10 mg) by mouth once daily at bedtime. 90 tablet 1 capsicum (Zostrix) 0.075 % topical cream Apply topically 3 times a day. 56 g 0 sertraline (Zoloft) 50 mg tablet Take 1 tablet (50 mg) by mouth once daily. 90 tablet 1 traZODone (Desyrel) 100 mg tablet Take 1 tablet (100 mg) by mouth once daily at bedtime. 90 tablet 1 cephalexin (Keflex) 500 mg capsule Take 1 capsule (500 mg) by mouth 2 times a day for 10 days. 20 capsule 0 No current facility-administered medications for this visit. PMSx: Past Surgical History: Procedure Laterality Date OTHER SURGICAL HISTORY 02/14/2020 Knee replacement OTHER SURGICAL HISTORY 02/14/2020 Hysterectomy OTHER SURGICAL HISTORY 02/14/2020 [place] tooth extraction OTHER SURGICAL HISTORY 02/14/2020 Carpal tunnel surgery Fam Hx: Family History Problem Relation Name Age of Onset Hypertension Mother Heart disease Father SOC. Hx: Social History Socioeconomic History Marital status: Single Spouse name: Not on file Number of children: Not on file Years of education: Not on file Highest education level: Not on file Occupational History Not on file Tobacco Use Smoking status: Former Types: Cigarettes Smokeless tobacco: Never Vaping Use Vaping status: Never Used Substance and Sexual Activity Alcohol use: Yes Alcohol/week: 2.0 standard drinks of alcohol Types: 2 Cans of beer per week Drug use: Yes Types: Marijuana Sexual activity: Not on file Other Topics Concern Not on file Social History Narrative Not on file Social Drivers of Health Financial Resource Strain: Not on file Food Insecurity: Not on file Transportation Needs: Not on file Physical Activity: Not on file Stress: Not on file Social Connections: Not on file Intimate Partner Violence: Not on file Housing Stability: Not on file Vitals: 06/14/24 1050 BP: (!) 146/91 Pulse: 56 Resp: 14 Temp: 36.2 C (97.2 F) SpO2: 99% 104 kg (230 lb) Physical Exam Vitals reviewed. Constitutional: Appearance: Normal appearance. She is normal weight. Eyes: Extraocular Movements: Extraocular movements intact. Pupils: Pupils are equal, round, and reactive to light. Cardiovascular: Pulses: Normal pulses. Pulmonary: Effort: Pulmonary effort is normal. Musculoskeletal: Cervical back: Normal range of motion. Skin: Capillary Refill: Capillary refill takes less than 2 seconds. Findings: Lesion (right inguinal region 1cm lesion ulcerated with minial discharge and soft edges, no observed teleangectasia nor observed bleeding, no local lymphadenopathy) present. Neurological: General: No focal deficit present. Mental Status: She is alert. ____ I did personally review Skye's past medical history, surgical history, social history, as well as family history (when relevant). In this case, I also oversaw the her drug management by reviewing her medication list, allergy list, as well as the medications that I prescribed during the UC course and/or recommended as an out-patient (including possible OTC medications such as acetaminophen, NSAIDs , etc). After reviewing the items above, I did look at previous medical documentation, such as recent hospitalizations, office visits, and/or recent consultations with PCP/specialist. SDOH: Another factor that I considered in Skye's care was her Social Determinants of Health (SDOH). During this UC encounter, she did not have social determinants of health. Those SDOH influencing Skye's care are: none UC COURSE/MEDICAL DECISION MAKING: Skye is a 68 y.o., who presents with a working diagnosis of 1. Skin ulcer of right thigh, limited to breakdown of skin Culture obtained of the right inguinal lesion, initiate tx with aquacel bandage and oral antibiotics, discussed when to seek re-evaluation, may require DERM eval if culture negative. Sandra Hanh PA-C Advanced Practice Provider [facility] documented in this encounter [facility] Work Phone: 01-12-2024 History of Present illness Narrative Abdominal pain duration one week, been to the ER diagenesis of UTI back pain into groin Bowel movements fine, no pain or burning on urination rash on right upper leg nausea, no appetite Images from the original note were not included. Subjective Patient ID: Skye Sparrow is a 68 y.o. female who presents for Abdominal Pain. HPI Skye returns for concerns of abdominal pain. Was treated for UTI on 01/08/24 with Keflex for 3 days. Was prescribed pyridium and was causing her nausea/vomiting. No other nausea/vomiting unless she is having pain. Poor appetite, bowels normal. Pain in right groin and into right flank. Denies any history of kidney stones. Started 10 days ago. Denies fever, getting hot/cold chills. Rash: started last night on outside of right leg. Does not itch. Has a deep pain in her leg under rash and in her right flank/hip/groin area. Pain started 10 days ago. Noticed she has rash all over the top of her thigh and into her right groin. Review of Systems Constitutional: Positive for chills and fatigue. Negative for fever. Respiratory: Negative for chest tightness and shortness of breath. Cardiovascular: Negative for chest pain, palpitations and leg swelling. Gastrointestinal: Negative for abdominal pain, blood in stool, constipation, diarrhea, nausea and vomiting. Genitourinary: Positive for flank pain (right side) and pelvic pain (right side groin pain). Negative for dysuria. Musculoskeletal: Negative for arthralgias and myalgias. Skin: Positive for rash. Negative for color change. Neurological: Negative for dizziness, light-headedness and headaches. Objective BP 140/80 Pulse 74 Ht 1.803 m (5' 11) Wt 112 kg (247 lb) BMI 34.45 kg/m Physical Exam Vitals and nursing note reviewed. Constitutional: Appearance: Normal appearance. Cardiovascular: Rate and Rhythm: Normal rate and regular rhythm. Heart sounds: Normal heart sounds. Pulmonary: Effort: Pulmonary effort is normal. Breath sounds: Normal breath sounds. Abdominal: Tenderness: There is abdominal tenderness (to palpation right mid quadrant). Skin: General: Skin is warm and dry. Findings: Rash present. Rash is vesicular. Comments: Sporadic red raised vesicle lesions noted all over upper right thigh/right groin, right buttocks, right hip. Neurological: Mental Status: She is alert and oriented to person, place, and time. Psychiatric: Mood and Affect: Mood normal. Behavior: Behavior normal. Thought Content: Thought content normal. Judgment: Judgment normal. Assessment/Plan Problem List Items Addressed This Visit None Visit Diagnoses Codes Herpes zoster without complication - Primary B02.9 valtrex 1000 mg TID Capsicum cream as needed for painful rash Relevant Medications capsicum (Zostrix) 0.075 % topical cream valACYclovir (Valtrex) 1 gram tablet Pelvic pain R10.2 Relevant Orders Urine Culture POCT UA Automated manually resulted (Completed) Follow up as scheduled in May. Will contact her with results of labs and urine culture. She will let us know if symptoms persist or worsen. documented in this encounter [facility] Work Phone: 01-08-2024 Emergency department Note Introduced self to patient- urine cup given to patient and walked to bathroom. [facility] 01-08-2024 Emergency department Note Introduced self to patient- urine cup given to patient and walked to bathroom. Emergency Department Report [facility] EMERGENCY DEPARTMENT Service Date:.01/08/24 PCP: Stephani Tinoco Chief Complaint: Chief Complaint Patient presents with Urinary Pain Pt complains of painful urination that started about 5 days ago and has been progressing since. LINSEY Sparrow is a 68 y.o. female presents to the ED today due to painful urination. Patient states that her symptoms started about 5 days ago. She has had increased frequency and dysuria. Denies any fever chills flank pain or vomiting Review of Systems: Review of Systems Constitutional: Negative for chills and fever. Gastrointestinal: Negative for vomiting. Genitourinary: Positive for dysuria and frequency. Past Medical History: Past Medical History: Diagnosis Date Anxiety Essential hypertension, benign Hyperlipidemia Past Surgical History: No past surgical history on file. Allergies: Allergies Allergen Reactions Hydrocodone-Acetaminophen Swelling Codeine Sulfamethoxazole Nausea Only Medications: Patient's Medications New Prescriptions CEPHALEXIN 500 MG CAPSULE Take 1 capsule by mouth every 8 hours for 3 days. PHENAZOPYRIDINE 200 MG TABLET Take 1 tablet by mouth 3 times daily as needed for Pain (Urinary pain). Previous Medications ATORVASTATIN 10 MG TABLET Take 1 tablet by mouth daily. SERTRALINE 50 MG TABLET Take 1 tablet by mouth daily. TRAZODONE 50 MG TABLET Take 1 tablet by mouth At bedtime. Modified Medications No medications on file Discontinued Medications No medications on file Family History: History reviewed. No pertinent family history. Social History: Social History Socioeconomic History Marital status: Single Spouse name: Not on file Number of children: Not on file Years of education: Not on file Highest education level: Not on file Occupational History Not on file Tobacco Use Smoking status: Former Types: Cigarettes Smokeless tobacco: Never Vaping Use Vaping status: Never Used Substance and Sexual Activity Alcohol use: Yes Drug use: Yes Types: Marijuana Sexual activity: Not on file Other Topics Concern Not on file Social History Narrative Not on file Social Determinants of Health Financial Resource Strain: Not on file Food Insecurity: Not on file Transportation Needs: Not on file Physical Activity: Not on file Stress: Not on file Social Connections: Not on file Intimate Partner Violence: Not on file Housing Stability: Not on file Physical Exam: Physical Exam Vitals and nursing note reviewed. Constitutional: Appearance: Normal appearance. HENT: Head: Normocephalic and atraumatic. Eyes: Conjunctiva/sclera: Conjunctivae normal. Cardiovascular: Rate and Rhythm: Normal rate. Pulmonary: Effort: Pulmonary effort is normal. Skin: Capillary Refill: Capillary refill takes less than 2 seconds. Neurological: Mental Status: She is alert and oriented to person, place, and time. Psychiatric: Mood and Affect: Mood normal. Vital Signs During ED Visit Patient Vitals for the past 24 hrs: BP Temp Temp src Pulse Resp SpO2 Height 01/08/24 0354 -- -- -- -- -- -- 1.778 m (5' 10) 01/08/24 0348 182/84 98.5 F (36.9 C) Oral 72 16 96 % -- Orders/Results: Orders Placed This Encounter URINE CULTURE cephALEXin (KEFLEX) capsule 500 mg Phenazopyridine (PYRIDIUM) tablet 200 mg cephALEXin 500 MG capsule Phenazopyridine 200 MG tablet URINALYSIS, MACRO URINE MICROSCOPIC Results for orders placed or performed during the hospital encounter of 01/08/24 URINALYSIS, MACRO Result Value Ref Range COLOR, URINE YELLOW YELLOW APPEARANCE, URINE CLEAR CLEAR Specific Crosby, Urine 1.025 1.010 - 1.025 PH URINE 6.5 5.0 - 7.0 Urine Protein NEGATIVE NEGATIVE mg/dl GLUCOSE, URINE NEGATIVE NEGATIVE mg/dl KETONES, URINE NEGATIVE NEGATIVE mg/dl BILIRUBIN, URINE NEGATIVE NEGATIVE BLOOD, URINE DIPSTICK NEGATIVE NEGATIVE NITRITES, URINE NEGATIVE NEGATIVE UROBILINOGEN, URINE 0.2 0.2 - 1.0 E.U./dL LEUKOCYTE ESTERASE, URINE SMALL (A) NEGATIVE URINE MICROSCOPIC Result Value Ref Range WBC, URINE '5 TO 10 NEGATIVE /HPF RBC, URINE 1 TO 5 NEGATIVE /HPF Epithelial Cells UA 5 TO 10 /HPF Mucus NEGATIVE NEGATIVE BACTERIA, URINE 1+ (A) NEGATIVE CRYSTALS, URINE NONE NONE CASTS, URINE NONE NONE /LPF COMMENT, URINE REFLEX CULTURE PER ESTABLISHED CRITERIA. Radiographic Imaging No orders to display Procedures: Procedures Moderate Sedation Procedure: No ED Summary/MDM Medical Decision Making Amount and/or Complexity of Data Reviewed Labs: ordered. Risk Prescription drug management. Clinical Impression: 1. Acute cystitis without hematuria No follow-ups on file. New Prescriptions CEPHALEXIN 500 MG CAPSULE Take 1 capsule by mouth every 8 hours for 3 days. PHENAZOPYRIDINE 200 MG TABLET Take 1 tablet by mouth 3 times daily as needed for Pain (Urinary pain). Discontinued Medications No medications on file An After Visit Summary was printed and given to the patient with above information. . . Oren Cornejo MD 01/08/24 0507 documented in this encounter [facility] 01-08-2024 Physician Emergency department Note Emergency Department Report [facility] EMERGENCY DEPARTMENT Service Date:.01/08/24 PCP: Stephani Tinoco Chief Complaint: Chief Complaint Patient presents with Urinary Pain Pt complains of painful urination that started about 5 days ago and has been progressing since. HPI Skye Sparrow is a 68 y.o. female presents to the ED today due to painful urination. Patient states that her symptoms started about 5 days ago. She has had increased frequency and dysuria. Denies any fever chills flank pain or vomiting Review of Systems: Review of Systems Constitutional: Negative for chills and fever. Gastrointestinal: Negative for vomiting. Genitourinary: Positive for dysuria and frequency. Past Medical History: Past Medical History: Diagnosis Date Anxiety Essential hypertension, benign Hyperlipidemia Past Surgical History: No past surgical history on file. Allergies: Allergies Allergen Reactions Hydrocodone-Acetaminophen Swelling Codeine Sulfamethoxazole Nausea Only Medications: Patient's Medications New Prescriptions CEPHALEXIN 500 MG CAPSULE Take 1 capsule by mouth every 8 hours for 3 days. PHENAZOPYRIDINE 200 MG TABLET Take 1 tablet by mouth 3 times daily as needed for Pain (Urinary pain). Previous Medications ATORVASTATIN 10 MG TABLET Take 1 tablet by mouth daily. SERTRALINE 50 MG TABLET Take 1 tablet by mouth daily. TRAZODONE 50 MG TABLET Take 1 tablet by mouth At bedtime. Modified Medications No medications on file Discontinued Medications No medications on file Family History: History reviewed. No pertinent family history. Social History: Social History Socioeconomic History Marital status: Single Spouse name: Not on file Number of children: Not on file Years of education: Not on file Highest education level: Not on file Occupational History Not on file Tobacco Use Smoking status: Former Types: Cigarettes Smokeless tobacco: Never Vaping Use Vaping status: Never Used Substance and Sexual Activity Alcohol use: Yes Drug use: Yes Types: Marijuana Sexual activity: Not on file Other Topics Concern Not on file Social History Narrative Not on file Social Determinants of Health Financial Resource Strain: Not on file Food Insecurity: Not on file Transportation Needs: Not on file Physical Activity: Not on file Stress: Not on file Social Connections: Not on file Intimate Partner Violence: Not on file Housing Stability: Not on file Physical Exam: Physical Exam Vitals and nursing note reviewed. Constitutional: Appearance: Normal appearance. HENT: Head: Normocephalic and atraumatic. Eyes: Conjunctiva/sclera: Conjunctivae normal. Cardiovascular: Rate and Rhythm: Normal rate. Pulmonary: Effort: Pulmonary effort is normal. Skin: Capillary Refill: Capillary refill takes less than 2 seconds. Neurological: Mental Status: She is alert and oriented to person, place, and time. Psychiatric: Mood and Affect: Mood normal. Vital Signs During ED Visit Patient Vitals for the past 24 hrs: BP Temp Temp src Pulse Resp SpO2 Height 01/08/24 0354 -- -- -- -- -- -- 1.778 m (5' 10) 01/08/24 0348 182/84 98.5 F (36.9 C) Oral 72 16 96 % -- Orders/Results: Orders Placed This Encounter URINE CULTURE cephALEXin (KEFLEX) capsule 500 mg Phenazopyridine (PYRIDIUM) tablet 200 mg cephALEXin 500 MG capsule Phenazopyridine 200 MG tablet URINALYSIS, MACRO URINE MICROSCOPIC Results for orders placed or performed during the hospital encounter of 01/08/24 URINALYSIS, MACRO Result Value Ref Range COLOR, URINE YELLOW YELLOW APPEARANCE, URINE CLEAR CLEAR Specific Crosby, Urine 1.025 1.010 - 1.025 PH URINE 6.5 5.0 - 7.0 Urine Protein NEGATIVE NEGATIVE mg/dl GLUCOSE, URINE NEGATIVE NEGATIVE mg/dl KETONES, URINE NEGATIVE NEGATIVE mg/dl BILIRUBIN, URINE NEGATIVE NEGATIVE BLOOD, URINE DIPSTICK NEGATIVE NEGATIVE NITRITES, URINE NEGATIVE NEGATIVE UROBILINOGEN, URINE 0.2 0.2 - 1.0 E.U./dL LEUKOCYTE ESTERASE, URINE SMALL (A) NEGATIVE URINE MICROSCOPIC Result Value Ref Range WBC, URINE '5 TO 10 NEGATIVE /HPF RBC, URINE 1 TO 5 NEGATIVE /HPF Epithelial Cells UA 5 TO 10 /HPF Mucus NEGATIVE NEGATIVE BACTERIA, URINE 1+ (A) NEGATIVE CRYSTALS, URINE NONE NONE CASTS, URINE NONE NONE /LPF COMMENT, URINE REFLEX CULTURE PER ESTABLISHED CRITERIA. Radiographic Imaging No orders to display Procedures: Procedures Moderate Sedation Procedure: No ED Summary/MDM Medical Decision Making Amount and/or Complexity of Data Reviewed Labs: ordered. Risk Prescription drug management. Clinical Impression: 1. Acute cystitis without hematuria No follow-ups on file. New Prescriptions CEPHALEXIN 500 MG CAPSULE Take 1 capsule by mouth every 8 hours for 3 days. PHENAZOPYRIDINE 200 MG TABLET Take 1 tablet by mouth 3 times daily as needed for Pain (Urinary pain). Discontinued Medications No medications on file An After Visit Summary was printed and given to the patient with above information. . . Oren Cornejo MD 01/08/24 0507 [facility] 11-19-2023 Evaluation + Plan note Associated Problem(s): Adjustment disorder Sertraline 50 mg daily - refilled [facility] Work Phone: 11-19-2023 Evaluation + Plan note Associated Problem(s): HTN (hypertension) Remains slightly elevated-watch sodium intake [facility] Work Phone: 11-19-2023 Miscellaneous Notes Associated Problem(s): Adjustment disorder Sertraline 50 mg daily - refilled Associated Problem(s): HTN (hypertension) Remains slightly elevated-watch sodium intake Associated Problem(s): Hyperlipidemia Continue atorvastatin 10 mg nightly - refilled Lipid panel ordered Associated Problem(s): Insomnia Trazodone 100 mg nightly - refilled documented in this encounter [facility] Work Phone: 11-19-2023 Evaluation + Plan note Associated Problem(s): Hyperlipidemia Continue atorvastatin 10 mg nightly - refilled Lipid panel ordered [facility] Work Phone: 11-19-2023 Evaluation + Plan note Associated Problem(s): Insomnia Trazodone 100 mg nightly - refilled [facility] Work Phone: 11-11-2023 History of Present illness Narrative Follow up Medicare Wellness, spots on legs documented in this encounter [facility] Work Phone: 07-22-2021 Chief complaint Narrative - Reported An interactive audio and video telecommunication system which permits real time communications between the patient (at the originating site) and provider (at the distant site) was utilized to provide this telehealth service.Verbal consent was requested and obtained from SKYE SPARROW on this date, 07/22/2021 03:20 PM , for a telehealth visit.Pt presents with c/o sinus congestion, cough, feels like water in her ears, slight temp waxing/waning, tired, headache; symptoms progressively getting worse since getting flu shot on 06/27/21. [facility] Work Phone: 07-22-2021 Chief complaint Narrative - Reported An interactive audio and video telecommunication system which permits real time communications between the patient (at the originating site) and provider (at the distant site) was utilized to provide this telehealth service.Verbal consent was requested and obtained from SKYE SPARROW on this date, 07/22/2021 03:20 PM , for a telehealth visit.Pt presents with c/o sinus congestion, cough, feels like water in her ears, slight temp waxing/waning, tired, headache; symptoms progressively getting worse since getting flu shot on 06/27/21. [facility] Work Phone: 06-10-2021 History of Present illness Narrative Trav presents today for evaluation of URI for several weeks. She has been having ear pain, fever, cough and congestion. No ill exposures.She has not gone anywhere since mid June. She denies shortness of breath or chest pain. she denies leg pain or swelling. She does have a headache. She has checked her temperature and it has been okay. [facility] Work Phone: 08-16-2020 History of Present illness Narrative She presents today for routine follow-up of hypertension, stable. Adjustment disorder doing well on sertraline. She has continued to lose weight. I have repeatedly encouraged her to do a colonoscopy. She states that she will try and arrange that and will call us back. She has to find a ride home and has limited options because all of her friends work. He has a skin lesion on the left side of her face but was there proximally 6 months ago and is still present. It is dry and scabby it does not seem to bother her. I would like her to have this checked by dermatology. Plans to have left knee replacement in September.EMG Dr. Trammell left hand numbness and elbow pain.Needs to reschedule colonoscopy and dermatology [facility] Work Phone: 02-20-2020 History of Present illness Narrative She presents today for routine follow-up of hypertension, stable. Adjustment disorder doing well on sertraline. She has continued to lose weight. I have repeatedly encouraged her to do a colonoscopy. She states that she will try and arrange that and will call us back. He has a skin lesion on the left side of her face but was there proximally 12 months ago and is still present. It is dry and scabby it does not seem to bother her. I would like her to have this checked by dermatology. Had left knee replacement in September.EMG ordered by Dr. Trammell for left hand numbness and elbow pain. [facility] Work Phone: Evaluation note Diagnosis Medicare annual wellness visit, subsequent- Primary Cellulitis of left lower extremity Mixed hyperlipidemia Primary hypertension Unspecified essential hypertension Adjustment disorder, unspecified type Insomnia, unspecified type Skin lesion of face Unspecified disorder of skin and subcutaneous tissue Psoriasis Other psoriasis Elevated glucose Other abnormal glucose Encounter for screening mammogram for breast cancer Screening for colorectal cancer Screening for diabetes mellitus (DM) Screening for diabetes mellitus Class 2 severe obesity due to excess calories with serious comorbidity and body mass index (BMI) of 35.0 to 35.9 in adult ([facility]) documented in this encounter [facility] Work Phone: Evaluation note* Diagnosis Encounter for screening mammogram for breast cancer documented in this encounter [facility] Work Phone: Evaluation note* Diagnosis Acute cystitis without hematuria- Primary [facility] Herpes zoster without complication- Primary Pelvic pain documented in this encounter [facility] Work Phone: Evaluation note* Diagnosis Medicare annual wellness visit, initial- Primary Screening for cardiovascular condition Screening for other and unspecified cardiovascular conditions Primary hypertension Unspecified essential hypertension Dysuria Insomnia, unspecified type Adjustment disorder, unspecified type Mixed hyperlipidemia Class 2 severe obesity due to excess calories with serious comorbidity and body mass index (BMI) of 36.0 to 36.9 in adult Medicare annual wellness visit, subsequent- Primary Cellulitis of left lower extremity Mixed hyperlipidemia Primary hypertension Unspecified essential hypertension Adjustment disorder, unspecified type Insomnia, unspecified type Skin lesion of face Unspecified disorder of skin and subcutaneous tissue Psoriasis Other psoriasis Elevated glucose Other abnormal glucose Encounter for screening mammogram for breast cancer Screening for colorectal cancer Screening for diabetes mellitus (DM) Screening for diabetes mellitus Class 2 severe obesity due to excess calories with serious comorbidity and body mass index (BMI) of 35.0 to 35.9 in adult Skin ulcer of right thigh, limited to breakdown of skin- Primary documented in this encounter [facility] Work Phone: Evaluation note* Diagnosis Medicare annual wellness visit, initial- Primary Screening for cardiovascular condition Screening for other and unspecified cardiovascular conditions Primary hypertension Unspecified essential hypertension Dysuria Insomnia, unspecified type Adjustment disorder, unspecified type Mixed hyperlipidemia Class 2 severe obesity due to excess calories with serious comorbidity and body mass index (BMI) of 36.0 to 36.9 in adult Medicare annual wellness visit, subsequent- Primary Cellulitis of left lower extremity Mixed hyperlipidemia Primary hypertension Unspecified essential hypertension Adjustment disorder, unspecified type Insomnia, unspecified type Skin lesion of face Unspecified disorder of skin and subcutaneous tissue Psoriasis Other psoriasis Elevated glucose Other abnormal glucose Encounter for screening mammogram for breast cancer Screening for colorectal cancer Screening for diabetes mellitus (DM) Screening for diabetes mellitus Class 2 severe obesity due to excess calories with serious comorbidity and body mass index (BMI) of 35.0 to 35.9 in adult Primary hypertension- Primary Unspecified essential hypertension Mixed hyperlipidemia Adjustment disorder, unspecified type Insomnia, unspecified type Need for [id number] (Tdap) vaccine Need for prophylactic vaccination with combined [id number] (DTP) vaccine Class 2 severe obesity due to excess calories with serious comorbidity and body mass index (BMI) of 37.0 to 37.9 in adult documented in this encounter [facility] Work Phone: History of Present illness Narrative* She presents today for routine follow up of chronic medical conditions * Hyperlipidemia-levels are up, pt has stopped taking the atorvastatin, she has not been eating as good as she was before. * Adjustment disorder-on sertraline has been for several years. Doing well wishes to continue. * Insomnia- takes trazodone * Has been having headaches 3-4 days a week for the last 6-8 mos. She does not wake up with them, they occur during the day and go away after a few hours. She needs an eye exam, it has been 3-4 yrs. She also has had some head zaps they are not pain or dizziness. Her head just feels funny on occasion. No family history of stroke. Family history of Huntingtons chorea and HI. [facility] [facility] Work Phone: History of Present illness Narrative* Skye returns for follow up. * Insomnia: takes trazodone. Does well for her symptoms. States, I can't sleep without it. * anxiety: takes Sertraline. Helps with her anxiety. Denies suicidal/homicidal ideations. * skin lesion on chin, behind left ear, and nape of neck: had burned off at dermatology, but has come back. * heading to go to [place] and will be back in December. * Mammogram: done in march 2022 * DEXA: not done- refuses * colon cancer screen: refuses [facility] Work Phone: Hospital Discharge instructions* Attachments The following attachments cannot be sent through Care Everywhere. * Urinary Tract Infections (UTIs) in Women ([facility]) ([place] Citizen) documented in this encounterMercy Health West HospitalReason for referral (narrative)* Consultation (Routine) - Closed Specialty Diagnoses / Procedures Referred By Contaden t Referred To Contact Dermatology Diagnoses Skin lesion of face Psoriasis Stephani Tinoco SPECIALTY TRIMMER-ACETYLENE CYLINDER PACKING MIXER [address] [facility] [address] [place] [address] Maryam Cartagena MD [address] [facility] Dermatology & [place] [address] Referral ID Status Reason Start Date Expiration Date V isits Requested Visits Authorized [id number] Closed Specialty Services Required 11/11/2023 11/10/2024 1 1 Electronically signed by Stephani Tinoco SPECIALTY TRIMMER-ACETYLENE CYLINDER PACKING MIXER at 11/11/2023 2:25 PM EDT * Imaging (Routine) - Authorized Specialty Diagnoses / Procedures Referred By Maryanne warren Referred To Contact Radiology Diagnoses Encounter for screening mammogram for breast cancer Procedures BI mammo bilateral screening tomosynthesis Stephani Tinoco SPECIALTY TRIMMER-ACETYLENE CYLINDER PACKING MIXER [address] [facility] [address] [place] [address] Referral ID Status Reason Start Date Expiration Date Visits Requested Visits Authorized [id number] Authorized Perform Procedure 11/11/2023 11/10/2024 1 1 Electronically signed by Stephani Tinoco SPECIALTY TRIMMER-ACETYLENE CYLINDER PACKING MIXER at 11/11/2023 2:[address] [facility] Work Phone: Summary Purpose Family History No Family History Records Found uncle Name Dates Details Family history of Garner 's chorea(V17.2, Z82.0) Status:Active Mother Name Dates Details Family history of hypertensi on(V17.49, Z82.49) Status:Active Family history of Garner 's chorea(V17.2, Z82.0) Status:Active Father Name Dates Details Family history of myocardial infarction(V17.3, Z82.49) Status:Active Brother Name Dates Details Family history of hypertensi on(V17.49, Z82.49) Status:Active Family history of congenital heart disease(V19.5, Z82.79) Status:Active Family history of Garner 's chorea(V17.2, Z82.0) Status:Active uncle Name Dates Details Family history of Garner 's chorea(V17.2, Z82.0) Status:Active Mother Name Dates Details Family history of hypertensi on(V17.49, Z82.49) Status:Active Family history of Shamika 's chorea(V17.2, Z82.0) Status:Active Father Name Dates Details Family history of myocardial infarction(V17.3, Z82.49) Status:Active Brother Name Dates Details Family history of hypertensi on(V17.49, Z82.49) Status:Active Family history of congenital heart disease(V19.5, Z82.79) Status:Active Family history of Garner 's chorea(V17.2, Z82.0) Status:Active uncle Name Dates Details Family history of Garner 's chorea(V17.2, Z82.0) Status:Active Mother Name Dates Details Family history of hypertensi on(V17.49, Z82.49) Status:Active Family history of Garner 's chorea(V17.2, Z82.0) Status:Active Father Name Dates Details Family history of myocardial infarction(V17.3, Z82.49) Status:Active Brother Name Dates Details Family history of hypertensi on(V17.49, Z82.49) Status:Active Family history of congenital heart disease(V19.5, Z82.79) Status:Active Family history of Garner 's chorea(V17.2, Z82.0) Status:Active Unknown Family Member Name Dates Details Family history of hypertensi on: Mother, Brother(V17.49, Z82.49) Status:Active Family history of myocardial infarction: Father(V17.3, Z82.49) Status:Active Family history of congenital heart disease: Brother(V19.5, Z82.79) Status:Active Family history of Garner 's chorea: Mother, Brother, Uncle(V17.2, Z82.0) Status:Active Unknown Family Member Name Dates Details Family history of hypertensi on: Mother, Brother(V17.49, Z82.49) Status:Active Family history of myocardial infarction: Father(V17.3, Z82.49) Status:Active Family history of congenital heart disease: Brother(V19.5, Z82.79) Status:Active Family history of Garner 's chorea: Mother, Brother, Uncle(V17.2, Z82.0) Status:Active Unknown Family Member Name Dates Details Family history of hypertensi on: Mother, Brother(V17.49, Z82.49) Status:Active Family history of Garner 's chorea: Mother, Brother, Uncle(V17.2, Z82.0) Status:Active Family history of congenital heart disease: Brother(V19.5, Z82.79) Status:Active Family history of myocardial infarction: Father(V17.3, Z82.49) Status:Active Unknown Family Member Name Dates Details Family history of Shamika 's chorea: Mother, Brother, Uncle(V17.2, Z82.0) Status:Active Family history of congenital heart disease: Brother(V19.5, Z82.79) Status:Active Family history of myocardial infarction: Father(V17.3, Z82.49) Status:Active Family history of hypertensi on: Mother, Brother(V17.49, Z82.49) Status:Active Unknown Family Member Name Dates Details Family history of hypertensi on: Mother, Brother(V17.49, Z82.49) Status:Active Family history of myocardial infarction: Father(V17.3, Z82.49) Status:Active Family history of congenital heart disease: Brother(V19.5, Z82.79) Status:Active Family history of Shamika 's chorea: Mother, Brother, Uncle(V17.2, Z82.0) Status:Active Unknown Family Member Name Dates Details Family history of hypertensi on: Mother, Brother(V17.49, Z82.49) Status:Active Family history of myocardial infarction: Father(V17.3, Z82.49) Status:Active Family history of congenital heart disease: Brother(V19.5, Z82.79) Status:Active Family history of Shamika 's chorea: Mother, Brother, Uncle(V17.2, Z82.0) Status:Active Unknown Family Member Name Dates Details Family history of hypertensi on: Mother, Brother(V17.49, Z82.49) Status:Active Family history of myocardial infarction: Father(V17.3, Z82.49) Status:Active Family history of congenital heart disease: Brother(V19.5, Z82.79) Status:Active Family history of Shamika 's chorea: Mother, Brother, Uncle(V17.2, Z82.0) Status:Active Unknown Family Member Name Dates Details Family history of hypertensi on: Mother, Brother(V17.49, Z82.49) Status:Active Family history of myocardial infarction: Father(V17.3, Z82.49) Status:Active Family history of congenital heart disease: Brother(V19.5, Z82.79) Status:Active Family history of Shamika 's chorea: Mother, Brother, Uncle(V17.2, Z82.0) Status:Active Unknown Family Member Name Dates Details Family history of hypertensi on: Mother, Brother(V17.49, Z82.49) Status:Active Family history of myocardial infarction: Father(V17.3, Z82.49) Status:Active Family history of congenital heart disease: Brother(V19.5, Z82.79) Status:Active Family history of Garner 's chorea: Mother, Brother, Uncle(V17.2, Z82.0) Status:Active Unknown Family Member Name Dates Details Family history of hypertensi on: Mother, Brother(V17.49, Z82.49) Status:Active Family history of myocardial infarction: Father(V17.3, Z82.49) Status:Active Family history of congenital heart disease: Brother(V19.5, Z82.79) Status:Active Family history of Shamika 's chorea: Mother, Brother, Uncle(V17.2, Z82.0) Status:Active Unknown Family Member Name Dates Details Family history of hypertensi on: Mother, Brother(V17.49, Z82.49) Status:Active Family history of myocardial infarction: Father(V17.3, Z82.49) Status:Active Family history of congenital heart disease: Brother(V19.5, Z82.79) Status:Active Family history of Garner 's chorea: Mother, Brother, Uncle(V17.2, Z82.0) Status:Active Advance Directives No Advanced Directives Records FoundHealthcare Agents on File Name Relationship Healthcare Agent Relationship Communication Irma Acuna Friend Health Care Agent Healthcare Agents on File Name Relationship Healthcare Agent Relationship Communication Irma Lopez Stage Friend Health Care Agent Healthcare Agents on File Name Relationship Healthcare Agent Relationship Communication Irma Lopez Stage Friend Health Care Agent Healthcare Agents on File Name Relationship Healthcare Agent Relationship Communication Irma Lopez Stage Friend Health Care Agent Healthcare Agents on File Name Relationship Healthcare Agent Relationship Communication Irma Lopez Stage Friend Health Care Agent Chief Complaint Pt presents for routine 6 mo check up; med review and refills; c/o rx for itchy spot on lower left leg.Pt presents for routine 6 mo check up; med review and refills; c/o rx for itchy spot on lower left leg.* Pt is here today for a 6 month check up. This note was generated by using [employer] software. It may co ntain errors in wording, punctuate, or spelling. * She is here today for her 6-month checkup. I am seeing her during Iman's absence. She is in [place] and looking forward to going to lunch with friends today. She reports feeling well. We did conduct a full review of systems. She is also had some weight loss in the recent past and attributesit to watching her diet more closely. We discussed her medications and I also did a screening for depression. She states she has more of anxiety than depression and she has been diagnosed with an adjustment disorder. She has done well on the sertraline and we are giving a refill. She also has signif icant insomnia and does well on the trazodone. She states occasionally she takes a second dose. Shestates she has difficulties turning her mind off at night. We also discussed doing screening lab work because in the past she has had an elevated cholesterol and on 1 occasion had a slight elevation in her blood sugar. She is getting ready to leave town and will be returning in the spring. We discussed arranging a follow-up visit in 4 to 6 months from now and she will get the fasting lab work prior to her next follow-up visit. We also discussed colorectal cancer screening and we will be giving her a fecal occult blood test kit today to complete prior to her leaving town. We went over what herweight should be based on her height by reviewing the BMI chart and I also looked into both of her ears because she was feeling some plugging sensation after recent cold. Her EACs are patent and her TMs appear normal. Pt presents for routine check up; lab and med review.Pt presents for routine check up; med review and refills. Reason for Referral Specialty Diagnoses / Procedures Referred By Maryanne warren Referred To Contact Radiology Diagnoses Encounter for screening mammogram for breast cancer Procedures BI mammo bilateral screening tomosynthesis Stephani Tinoco, SPECIALTY TRIMMER-ACETYLENE CYLINDER PACKING MIXER [address] [facility] [address] [place] [address] Referral ID Status Reason Start Date Expiration Date Visits Requested Visits Authorized [id number] Authorized Perform Procedure 11/11/2023 11/10/2024 1 1 Additional Source Comments INFORMATION SOURCE (unrecogn ized section and content) DATE CREATED AUTHOR 04/18/2019 [facility] DATE CREATED AUTHOR AUTHOR'S ORGANIZ ATION 03/19/2020 [facility] DATE CREATED AUTHOR AUTHOR'S ORGANIZ ATION 03/03/2022 [facility] DATE CREATED AUTHOR AUTHOR'S ORGANIZ ATION 04/02/2022 [facility] DATE CREATED AUTHOR AUTHOR'S ORGANIZ ATION 09/14/2022 [facility] DATE CREATED AUTHOR AUTHOR'S ORGANIZ ATION [facility] DATE CREATED AUTHOR AUTHOR'S ORGANIZ ATION 06/23/2024 [facility] DATE CREATED AUTHOR AUTHOR'S ORGANIZ ATION 07/11/2024 [facility] DATE CREATED AUTHOR AUTHOR'S ORGANIZ ATION 03/12/2025 [facility] DATE CREATED AUTHOR AUTHOR'S ORGANIZ ATION 05/03/2025 [facility] Reason for Visit (unrecogniz ed section and content) Reason Comments Follow-up Medicare Annual Wellness Visit Mariann warren Specialty Diagnoses / Procedures Referred By Maryanne warren Referred To Contact Radiology Diagnoses Encounter for screening mammogram for breast cancer Procedures BI mammo bilateral screening tomosynthesis Stephani Tinoco APRN-JORGE [address] [address] Referral ID Status Reason Start Date Expiration Date Visits Requested Visits Authorized [id number] Authorized Perform Procedure 11/11/2023 11/10/2024 1 1 Reason Comments Urinary Pain Pt complains of pain ful urination that started about 5 days ago and has been progressing since. Reason Comments Abdominal Pain Reason Comments Abscess Abscess in the right groin area, red, painful x 4-5 days Reason Comments Med Refill Care Teams (unrecognized sec tion and content) Engraver Pantograph Relationship Specialty Start Date End Date Misti Ingram MD [address] [facility] Medical Office [place] [id number] PCP - [employer] Medicare Advantage PCP 09/10/22 Stephani Tinoco APRN-ACETYLENE CYLINDER PACKING MIXER [facility] [address] [address] PCP - General Family Medicine 02/17/23 Engraver Pantograph Relationship Specialty Start Date End Date Misti Ingram MD [address] [place] [id number] PCP - [employer] Medicare Advantage PCP 09/10/22 Stephani Tinoco APRN-ACETYLENE CYLINDER PACKING MIXER [address] [address] PCP - General Family Medicine 02/17/23 Engraver Pantograph Relationship Specialty Start Date End Date Stephani Tinoco CNP [address] [address] PCP - General Nurse Practitioner - Family 01/08/24 Engraver Pantograph Relationship Specialty Start Date End Date Misti Ingram MD [address] [facility] [place] [address] PCP - [employer] Medicare Advantage PCP 09/10/22 Stephani Tinoco, ALEX-ACETYLENE CYLINDER PACKING MIXER [address] [place] [address] PCP - General Family Medicine 02/17/23 Engraver Pantograph Relationship Specialty Start Date End Date Misti Ingram MD [address] [address] PCP - [employer] Medicare Advantage PCP 09/10/22 Stephani Tinoco, SPECIALTY TRIMMER-ACETYLENE CYLINDER PACKING MIXER [facility] [address] [address] PCP - General Family Medicine 02/17/23 Engraver Pantograph Relationship Specialty Start Date End Date Misti Ingram MD [address] [place] [address] PCP - [employer] Medicare Advantage PCP 09/10/22 Stephani Tinoco, SPECIALTY TRIMMER-ACETYLENE CYLINDER PACKING MIXER [address] [place] [address] PCP - General Family Medicine 02/17/23 Scheduled Active and Recently Administ ered Medications (unrecognized section and content) Medication Order 01/06/2024 01/07/2024 01/08/2024 cephALEXin (KEFLEX) capsule 500 mg (COMPLETED) 500 mg, Oral, ONCE, 1 dose, On Thu01/08/24 at 0530 0518 (Given - Provid er: Danielle Sorensen RN) Phenazopyridine (PYRIDIUM) tablet 200 mg (COMPLETED) 200 mg, Oral, ONCE, 1 dose, On Thu01/08/24 at 0530 6284 (Given - Provid er: Danielle Sorensen RN) FOR RECORDS PERTAINING TO PATIENTS WHO ARE OR HAVE BEEN ENROLLED IN A CHEMICAL DEPENDENCY/SUBSTANCEABUSE PROGRAM, SOME INFORMATION MAY BE OMITTED. This clinical summary was aggregated from multiple sources. Caution should be exercised in using it in the provision of clinical care. This summary normalizes information from multiple sources, and as a consequence, information in this document may materially change the coding, format and clinical context of patient data. In addition, data may be omitted in some cases. CLINICAL DECISIONS SHOULD BE BASED ON THE PRIMARY CLINICAL RECORDS. [facility] [employer] [facility]. provides no warranty or guarantee of the accuracy or completeness of information in this document.
--- NOTE | 2025-05-04 17:47 | EDS_ITS ---
HPI History of Present Illness Chief Complaint: Lower Extremity Injury Detail of Chief Complaint: Patient sent because of pain left calf and swelling Informant: patient Onset/Context/Timing Onset: Yesterday Context: Sudden Onset Timing: Continuous Quality: Pain swelling left calf Location: Left Current Severity: Mild Maximum Severity: Moderate Worsened by: Palpation and ambulation Relieved by: Nothing Associated Symptoms Associated Symptoms: No chest pain or shortness of breath or dyspnea Narrative Narrative: Patient is a 69-year-old woman. She presents with atraumatic left leg pain and swelling. She has no history of PE or DVT. She has no risk factors for either. She denies chest pain or shortness of breath. She denies bruising. She is not on anticoagulant. She has no symptoms of claudication. Prior similar symptoms: No Recent [facility] Medical History Hyperlipidemia Anxiety Home Medications ?Medication ?Instructions ?Recorded ?Last Taken ?Type atorvastatin 10 mg tablet 10 mg PO QHS CHOLESTEROL 05/2207/03/19 22:00 History 10 mg trazodone 150 mg tablet 150 mg PO QHS SLEEP 07/19/13 07/03/19 22:00 History 150 sertraline 50 mg tablet 50 mg PO DAILY ANTIDEPRESSAN T 07/10/16 07/03/19 22:00 History 50 mg acetaminophen 500 mg tablet 1,000 mg (2 x 500 mg) PO Q 8 #90 07/05/19 Unknown Rx tabs Allergy/AdvReac Type Severity Reaction Status Date / Time hydrocodone bitartrate (From Allergy Swelling Verified 05/04/25 16:16 Vicodin) codeine AdvReac Nausea Verified 05/04/25 16:16 Surgical History History of hysterectomy History of carpal tunnel repair History of total bilateral knee replacement Social History Smoking Status: Former smoker ROS ROS ED Constitutional Constitutional ED: Denies chills, fever(s), subjective, sweats or weight loss Cardiovascular Cardiovascular: Denies chest pain or palpitations Respiratory/Chest Respiratory/Chest: Denies cough, dyspnea or dyspnea on exertion Gastrointestinal Gastrointestinal: Denies nausea or vomiting Musculoskeletal Musculoskeletal: Denies arthralgias or myalgias Integumentary Denies rash Neurologic Neurologic: Denies paresthesias or weakness Hematologic/Lymphatic Hematologic/Lymphatic: Reports systems reviewed and no addt'l complaints, except as documented EXAM Physical Exam Const Vital Signs: 05/04/25 16:17 05/04/25 18:22 Temperature 97 F L Temperature Source Temporal Pulse Rate 62 58 L Respiratory Rate 18 16 Blood Pressure 151/77 H 160/88 H Blood Pressure Mean 101 112 Pulse Ox 98 100 Oxygen Delivery Method Room Air Room Air Positive well nourished and well developed General Appearance ED: well developed and NAD; Negative for pallor HEENT Reports moist mucous membranes HEENT Narrative: Head is atraumatic normocephalic. Eyes PERRL and EOMs intact bilaterally General Eye ED: Negative for pale conjunctiva or scleral icterus Neck no lymphadenopathy, supple and no JVD Chest Wall palpation of chest normal Resp normal respiratory effort and clear to auscultation bilaterally Cardio regular rate, regular rhythm, S1 normal heart sound, S2 normal heart sound and no murmurs Extremity Extremity Narrative: There is slight swelling in the left leg. There is pain the patient over the mid posterior left calf. There is no distended leg veins. There is no discoloration of the leg. Neuro oriented x3 and CN's II-XII intact bilaterally Sensorium / Orientation: alert Psych mental status grossly normal Skin no rashes or lesions noted, no wounds and skin turgor normal General Skin Exam: elasticity normal; Negative for jaundice or pallor MDM MDM MDM Narrative Medical decision making narrative: Differential diagnosis is superficial clot which she has had in the past, DVT, muscle strain, muscle tear. Will obtain venous duplex study. Radiography Diagnostic Testing: Clinical Impression(s) from Imaging Studies Venous Duplex 05/04/25 16:45 IMPRESSION: No DVT. Left calf varicose veins. Reading Location: [id number] No DVT noted. Will discharge home with appropriate home-going instruction Discharge Plan Triage Chief Complaint: Lower Extremity Injury ED Provider: Canelo Wray Dx/Rx/DC Orders Clinical Impression: Pain of left calf, Varicose veins of left lower extremity, Hyperlipidemia, Hypertension, Edema of both legs Instructions: ED Varicose Veins Prescriptions: No Action atorvastatin 10 MG tablet 10 mg PO QHS trazodone 150 MG tablet 150 mg PO QHS sertraline 50 MG tablet 50 mg PO DAILY acetaminophen 500 MG tablet 1,000 mg PO Q8 Qty: 90 0RF Primary Care Provider: Stephani Tinoco Referrals: Stephani Tinoco, UNIVERSITY RELATIONS VICE PRESIDENT-C [Primary Care Provider, Family Practice] - As Needed Print Language: Israeli Disposition Disposition: Home, Self Care
[2025-05-04 18:22] VITALS: BP 160/88; PULSE 58; RESP 16; O2SAT 100
== END 2025-05-04 19:05 | disposition home or self-care (01) ==
PROVIDERS: Emergency Provider Emergency Medicine; PCP Nurse Practitioner Family; Visit Provider Emergency Medicine
DX: M79.662 Pain in left lower leg (principal); R60.0 Localized edema; I10 Essential (primary) hypertension; I83.92 Asymptomatic varicose veins of left lower extremity; E78.5 Hyperlipidemia, unspecified; F41.9 Anxiety disorder, unspecified; Z79.899 Other long term (current) drug therapy; Z87.891 Personal history of nicotine dependence
CPT/HCPCS: 93971; 99282

== ENCOUNTER 2025-08-02 14:38 | Emergency (ER) | payer MEDICARE, SELFPAY ==
[2025-08-02 14:39] VITALS: BP 138/77; PULSE 58; RESP 16; TEMP 36.8; O2SAT 96; BMI 40.0
--- NOTE | 2025-08-02 15:02 | EKG12_ITS ---
Test Reason : O Blood Pressure : */* mmHG Vent. Rate : 63 BPM Atrial Rate : 63 BPM P-R Int : 146 ms QRS Dur : 86 ms QT Int : 414 ms P-R-T Axes : 59 18 45 degrees QTcB Int : 423 ms Sinus rhythm with Premature atrial complexes in a pattern of bigeminy Otherwise normal ECG Confirmed by Obey Faye ([id number]), senior technical editor MARTHA KEATING ([id number]) on 08/04/2025 8:47:41 AM Referred By: Confirmed By: Obey Faye
--- NOTE | 2025-08-02 15:09 | EX.ED.DYSGE1 ---
HPI History of Present Illness Chief Complaint: Nausea/Vomiting/Diarrhea PFSH PFSH Medical History Hyperlipidemia Anxiety Home Medications ?Medication ?Instructions ?Recorded ?Last Taken ?Type atorvastatin 10 mg tablet 10 mg PO QHS CHOLESTEROL 07/19/13 07/03/19 22:00 History 10 mg trazodone 150 mg tablet 100 mg PO QHS SLEEP 07/19/13 07/03/19 22:00 History 150 sertraline 50 mg tablet 50 mg PO DAILY ANTIDEPRESSANT 07/10/16 07/03/19 22:00 History 50 mg acetaminophen 500 mg tablet 1,000 mg PO Q8 PRN pain 08/02/25 Unknown History metoclopramide HCl 5 mg tablet 5 mg PO Q8H PRN nausea and 08/02/25 Unknown Rx (Reglan) vomiting 7 days #20 tabs Allergy/AdvReac Type Severity Reaction Status Date / Time hydrocodone bitartrate (From Allergy Swelling Verified 08/02/25 14:40 Vicodin) codeine AdvReac Nausea Verified 08/02/25 14:40 Surgical History History of hysterectomy History of carpal tunnel repair History of total bilateral knee replacement Social History Smoking Status: Former smoker EXAM Physical Exam Const Vital Signs: 08/02/25 14:39 08/02/25 16:38 08/02/25 18:00 Temperature 98.2 F Temperature Source Oral Pulse Rate 58 L 64 68 Respiratory Rate 16 18 13 Blood Pressure 138/77 H 142/89 H 137/87 H Blood Pressure Mean 97 106 103 Pulse Ox 96 93 95 Oxygen Delivery Method Room Air Room Air Room Air MDM MDM MDM Narrative Medical decision making narrative: HISTORY OF PRESENT ILLNESS: Chief complaint: Nausea vomiting and diarrhea 69-year-old female presents with nausea vomiting diarrhea. She is a history of hypertension, hyperlipidemia, varicose veins, venous insufficiency, morbid obesity. Patient states this began 1 month ago. She further states she has had 1 month of intermittent nausea and vomiting. Denies abdominal pain. States cannot keep eating down. Notes no hematemesis, no hematochezia no melena. Denies urinary complaints/vaginal bleeding or discharge. Endorses history of hysterectomy otherwise no abdominal surgeries ROS Pertinent positives: Nausea vomiting and diarrhea Pertinent negatives: As per HPI PHYSICAL EXAM: Nursing triage notes reviewed, Vital signs reviewed Constitutional: please see [facility] HENT: MMM Eyes: Pupils equal round and reactive to light, Extraocular muscles intact Neck: No stridor, no JVD, full neck ROM Lungs: Clear to auscultation, No wheezing or rales. No increased work of breathing, no conversational dyspnea, no accessory muscle use, no nasal flaring. No respiratory distress noted Heart: Regular rate and rhythm, No murmurs, No rubs and No gallops, 2+ distal pulses (radial, femoral, posterior tibial) in all extremities Abdomen: Soft, there is no elicited tenderness, rigidity, rebound or guarding, no obvious peritoneal signs, no palpable pulsatile abdominal masses, no auscultated abdominal bruit : No CVAT Extremities: No edema Neuro: No new focal neurological deficits, cranial nerves II through XII intact, 5/5 strength in all present extremities. Intact sensation to light touch in all present extremities, 2+ reflexes bilateral patella tendons. Skin: No rash or lesions noted MEDICAL DECISION MAKING: Chief Complaint: please see [facility] External records reviewed: Reviewed prior imaging studies: No recent advanced imaging of the abdomen or pelvis noted in the chart Factors affecting care: As per [facility] Social determinants of health: none History obtained from others: none Consults: none [facility] Narrative: Patient was initially hemodynamically stable, afebrile and nontoxic-appearing. Abdominal exam benign. I considered the following differential diagnosis: Ab AAA, small bowel obstruction, abdominal perforation, appendicitis, pancreatitis, hepatobiliary pathology (acute cholecystitis), mesenteric ischemia, pathology (ie nephrolithiasis, pyelonephritis). Dehydration, electrolyte disturbance amongst others I obtained a broad lab and imaging work to further determine if the patient was suffering from a life-threatening etiology. Initially resuscitated the patient with 1 L normal saline and 4 mg IV Zofran ALL IMAGES (IF OBTAINED) HAVE BEEN PERSONALLY REVIEWED AND INTERPRETED BY MYSELF. EKG with normal sinus rhythm, normal axis, normals, no STEMI CBC without leukocytosis, severe anemia, no thrombocytopenia. CT scan of the abdomen shows no evidence of obvious perforation or obstruction Lipase is wnl indicating no pancreatic inflammation. COVID/RSV flu positive for flu A BMP with mild hypokalemia owing to likely diarrhea and vomiting, no AMANDA, no sign of metabolic acidosis or endorgan hypoperfusion Lactate is wnl indicating no end-organ hypoperfusion and/or hypoxia. Repeat abdominal exam is benign. The patient is not able to tolerate p.o. potassium. Her nausea was then treated with a milligram of IV Haldol. Patient was able to pass p.o. challenge after Haldol. She notes symptomatic improvement. No indication for admission at this time. Her symptoms likely associated influenza A. Will give Reglan for home-going and prompt PCP and GI follow-up. Strict return precautions will be discussed. The patient and/or family, caregivers express understanding. The patient and/or family, caregivers agrees with the plan. Shared decision making: I will have a discussion with the patient and or visitors regarding risk/benefits of further testing or admission. They will be made aware of of the risk/benefits inherent in this decision they will be given the opportunity to voice understanding. Total critical care time today provided was at least 0 minutes. This excludes separately billable procedures. Critical care time (if documented) is secondary to the patient having high probability of clinically significant/life threatening deterioration in the patient's condition which required my urgent intervention. Impression: 1. Nausea vomiting and diarrhea 2. Hypokalemia 3. Dehydration Dispo: discharge ome This note was generated with [employer] dictation software. It may contain incorrect words, spelling, and punctuation that were not noted in review of the chart prior to signing. Lab Data Labs: Laboratory Results - last 24 hr 08/02/25 08/02/25 15:12 17:35 WBC 3.5 L RBC 4.38 Hgb 13.0 Hct 40.0 MCV 91.3 MCH 29.7 MCHC 32.5 RDW Std Deviation 42.7 RDW Coeff of Gareth 13.0 Plt Count 224 MPV 10.0 Immature Gran % (Auto) 0.300 Neut % (Auto) 62.7 Lymph % (Auto) 26.4 Sweet [place] % (Auto) 9.7 Eos % (Auto) 0.0 Baso % (Auto) 0.9 Absolute Neuts (auto) 2.2 Absolute Lymphs (auto) 0.93 Nucleated RBC % 0 Sodium 139 Potassium 3.3 L Chloride 104 Carbon Dioxide 24.0 Anion Gap 11 BUN 5 Creatinine 0.67 L Estim Creat Clear Calc 98.84 Est GFR (MDRD) Non-Af 96 BUN/Creatinine Ratio 7.6 L Glucose 119 H Calcium 8.3 Total Bilirubin 0.28 AST 34 H ALT 22 Alkaline Phosphatase 72 Total Protein 5.6 L Albumin 3.0 L Globulin 2.5 Albumin/Globulin Ratio 1.2 Lipase 53 Urine Color Yellow Urine Clarity Clear Urine pH 6.5 Ur Specific [place] 1.010 Urine Protein 30 H Urine Glucose (UA) Normal Urine Ketones Negative Urine Occult Blood 10 H Urine Nitrite Negative Urine Bilirubin Negative Urine Urobilinogen Normal Ur Leukocyte Esterase Negative Urine RBC 5-10 SEEN Urine WBC 0-5 SEEN Ur Squamous Epith Cells 0-5 SEEN Urine Bacteria 1+ Urine Mucus 0 SEEN Radiography Diagnostic Testing: Clinical Impression(s) from Imaging Studies Abdomen/Pelvis CT 08/02/25 16:11 IMPRESSION: 1. No bowel obstruction or active inflammatory process is evident. 2. Fluid within the colon indicating a nonspecific diarrheal illness. 3. Diffuse hepatic steatosis. 4. Trace bibasilar pleural effusions seen in the lower thorax. Reading Location: [facility] Discharge Plan Triage Chief Complaint: Nausea/Vomiting/Diarrhea ED Provider: Isac Mart Dx/Rx/DC Orders Instructions: Dehydration, ED Influenza (Adult) Prescriptions: New metoclopramide HCl [Reglan] 5 mg tablet 5 mg PO Q8H PRN (Reason: nausea and vomiting) 7 Days Qty: 20 0RF No Action atorvastatin 10 MG tablet 10 mg PO QHS trazodone 150 MG tablet 100 mg PO QHS sertraline 50 MG tablet 50 mg PO DAILY acetaminophen 500 MG tablet 1,000 mg PO Q8 PRN (Reason: pain) Primary Care Provider: Tamar Phillips Referrals: FriendParamjit DO [Med Staff - Active Staff, Gastroenterology] Activity Restrictions/Additional Instructions: Thank you for trusting us with your care today! Your labs and images were overall reassuring for life-threatening issue. I suspect your symptoms are related to influenza. Please take Reglan as needed for nausea/vomiting at home. Please take Tylenol (2 pills, 650 mg), ibuprofen (2 pills, 400 mg) every 6 hours as needed for pain and fever control. Please return to the emergency department if your symptoms change or worsen. Please follow with your Gastroenterology for further outpatient evaluation and management. Print Language: Kyrgyz Disposition Disposition: Home, Self Care
--- OUTSIDE RECORDS SUMMARY | 2025-08-02 15:33 | XMS RPT_ITS | CCD ---
Author Organization [facility] CliniSyvt Care Team Providers Care Do All Operator Name Role Phone Iman Briseno Unavailable Unavailable [...] Stephani Tinoco Unavailable Misti Ingram MD Unavailable Earnest JOHNSON-Stephani PATEL Primary Care Provider Stephani Tinoco CNP Primary Care Provider STEPHANI TINOCO Primary Care Unavailable OREN CORNEJO Attending Unavailable Misti Ingram MD Unavailable STEPHANI TNIOCO Referring Unavailable STEPHANI TINOCO Primary Care Unavailable STEPHANI TINOCO Primary Care Unavailable SANDRA HAHN Attending Unavailable STEPHANI TINOCO Primary Care Unavailable STEPHANI TINOCO Primary Care Unavailable Pamella [employer]AKER-CIman Primary Care Physician [phone] Mitzi FLOWERS, Dr. Francisco Attending Physician Dr. Maryam Cartagena MD Referring Provider [phone] Nils FLOWERS, Dr. Lemos Attending Physician Dr. Canelo Wray MD Emergency Department Physician Earenst [employer]-C, Stephani Primary Care Physician Iman Briseno NP Primary Care Unavailable Maryam Cartagena Attending Unavailable Maryam Cartagena Referring Unavailable Canelo Wray Attending Unavailable Stephani Tinoco Primary Care Unavailable STEPHANI TINOCO Attending Unavailable STEPHANI TINOCO Primary Care Unavailable Allergies Allergy Classification Reported Allergen(s) Allergy Type Date of Onset Reaction(s) Facility Acetaminophen / HYDROcodone (2 sources) Acetaminophen / HYDROcodone; Translations: [Vicodin TABS] Drug Allergy Swelling [facility] and Work Phone: Sulfonamides (antibiotic) (2 sources) Sulfamethoxazole; Translations: [sulfa] Drug Allergy Nausea [facility] and Work Phone: (17 sources) Acetaminophen / HYDROcodone; Translations: [Vicodin TABS] Drug Allergy 06-19-20 21 Swelling [facility] Work Phone: (12 sources) Sulfonamides (Antibiotic); Translations: [sulfa] Allergy to drug (finding) Nausea [facility] Work Phone: (11 sources) Codeine; Translations: [CODEINE] Drug Allergy 06-19-20 21 Other [facility] Work Phone: (8 sources) Sulfamethoxazole; Translations: [SULFAMETHOXAZOLE] Drug Allergy 05-13-20 23 Nausea Only [facility] Work Phone: (4 sources) Acetaminophen / HYDROcodone; Translations: [HYDROCODONE-ACETAMI NOPHEN] Drug Allergy 09-06-19 18 Swelling [facility] (1 source) Sulfamethoxazole Propensity to adverse reactions to drug 05-13-20 23 Nausea Only [facility] (3 sources) HYDROcodone; Translations: [hydrocodone bitartrate] Drug Allergy 05-04-20 25 [facility] (1 source) Codeine Drug Allergy 05-04-20 25 [facility] Repository Medications Current Medications Medication Drug Class(es) Dates Sig (Normalized) Sig (Original) acetaminophen 500 mg oral tablet (2 sources) Start: 07-05-2019 take 2 tablets by mouth every eight hours Acetaminophen 500 MG tablet Active 1000 mg PO EVERY 8 HOURS 90 0 July 05, 2019 1:00am Complies with drug therapy adapalene 1 mg/ml topical cream (5 sources) Retinoid Start: 06-19-2021 adapalene (Differin) 0.1 % cream 1 Application 06/19/2021 Active atorvastatin 10 mg oral tablet (20 sources) HMG-CoA Reductase Inhibitor Start: 08-02-2024 take 1 tablet by mouth once daily at bedtime atorvastatin (Lipitor) 10 mg tablet Indications: Mixed hyperlipidemia Take 1 tablet (10 mg) by mouth once daily at bedtime. 90 tablet 1 08/02/2024 Active Start: 07-19-2013 End: 08-02-2024 take 1 tablet by mouth once daily at bedtime atorvastatin (Lipitor) 10 mg tablet Indications: Mixed hyperlipidemia Take 1 tablet (10 mg) by mouth once daily at bedtime. 90 tablet 06/16/2024 08/02/2024 Discontinued (Reorder) capsaicin 0.75 mg/ml topical cream (3 sources) [...] 11/18/2023 losartan potassium 25 mg oral tablet (6 sources) Angiotensin 2 Receptor Anderson Start: 08-02-2024 take 1 tablet by mouth once daily losartan (Cozaar) 25 mg tablet Indications: Primary hypertension Take 1 tablet (25 mg) by mouth once daily. 90 tablet 1 08/02/2024 Active Start: 06-10-2019 End: 05-04-2025 take 1 tablet by mouth once daily Losartan 25 MG tablet Discontinued 25 mg PO DAILY June 10, 2019 12:00am May 04, 2025 5:24pm BP phenazopyridine hydrochloride 200 mg delayed release oral [...] daily. 90 tablet 1 08/02/2024 Active Start: 07-10-2016 End: 08-02-2024 take 1 tablet by mouth once daily sertraline (Zoloft) 50 mg tablet Indications: Adjustment disorder, unspecified type Take 1 tablet (50 mg) by mouth once daily. 90 tablet 06/16/2024 08/02/2024 Discontinued (Reorder) traZODone hydrochloride 100 mg oral tablet (20 [...] 1 Iman Woodall Start : 21-Nov-2019 Active Start: 07-19-2013 take 1 tablet by ir[place] th at bedtime Trazodone 150 MG tablet Active 150 mg PO AT BEDTIME July 19, 2013 1:00am SLEEP Complies with drug therapy take 1 tablet by ir[place] th at [...] Drug Class(es) Dates Sig (Normalized) Sig (Original) aspirin 325 mg oral tablet (2 sources) Platelet Aggregation Inhibitor, Nonsteroidal Anti-inflammatory Drug Start: 07-05-2019 End: 05-04-2025 take 1 tablet by mouth twice daily Aspirin 325 MG tablet Discontinued 325 mg PO TWICE A DAY 60 0 July 05, 2019 1:00am May 04, 2025 5:24pm azithromycin 250 mg oral tablet (3 sources) [...] Start : 13-Feb-2021 End : 22-Jul-2021 Complete calcium ascorbate 500 mg oral tablet (2 sources) Start: 07-19-2013 End: 03-24-2017 take 1 tablet by mouth once daily Ascorbate Calcium (Vitamin C) 500 MG tablet Discontinued 500 mg PO DAILY July 19, 2013 1:00am March 24, 2017 8:31am dextromethorphan hydrobromide 3 mg/ml / promethazine hydrochloride 1.25 mg/ml oral solution (1 source) Phenothiazine, Uncompetitive A-wvglax-A-aspartat e Receptor Antagonist, Sigma-1 Agonist Start: 07-26-2021 take 5 mL by mouth every four to six hours as needed for cough Promethazine-DM 6.25-15 MG/5ML Oral Syrup TAKE 5 ML EVERY 4 TO 6 HOURS NEEDED FOR COUGH. Quantity: 120 Refills: 0 Ordered: 26-Jul-2021 Iman Woodall Start : 26-Jul-2021 Active furosemide 20 mg oral tablet (2 sources) Loop Diuretic Start: 07-10-2016 End: 03-24-2017 take 1 tablet by mouth once daily Furosemide 20 MG tablet Discontinued 20 mg PO DAILY July 10, 2016 1:00am March 24, 2017 8:30am lysine 500 mg oral tablet (2 sources) Start: 07-19-2013 End: 03-24-2017 take 1 tablet by mouth once daily Lysine 500 MG tablet Discontinued 500 mg PO DAILY July 19, 2013 1:00am March 24, 2017 8:30am nabumetone 500 mg oral tablet (2 sources) Nonsteroidal Anti-inflammatory Drug Start: 06-10-2019 End: 07-05-2019 take 1 tablet by mouth twice daily Nabumetone 500 MG tablet Discontinued 500 mg PO TWICE A DAY June 10, 2019 12:00am July 05, 2019 8:44am PAIN nitrofurantoin, macrocrystals 25 mg / nitrofurantoin, monohydrate 75 mg oral capsule (1 source) Nitrofuran Antibacterial Start: 07-22-2023 End: 11-11-2023 take 1 capsule by mouth twice daily nitrofurantoin, macrocrystal-monoh ydrate, (Macrobid) 100 mg capsule Indications: Dysuria Take 1 capsule (100 mg) by mouth 2 times a day. 14 capsule 07/22/2023 11/11/2023 Discontinued (Therapy completed) oxyCODONE hydrochloride 5 mg oral tablet (2 sources) Opioid Agonist Start: 07-05-2019 End: 07-27-2019 take 5-10 mg by mouth every four hours as needed for pain Oxycodone 5 MG tablet Discontinued 5 - 10 mg PO EVERY 4 HOURS NEEDED as needed for Pain Score 4-10/10 80 7 0 July 05, 2019 July 11, 2019 1:00am July 27, 2019 1:08am Acute postoperative pain of right knee Other acute postprocedural pain predniSONE 20 mg oral tablet (1 source) [...] unspecified; Translations: [Fever, unspecified] Onset: 0 Episodic Fracture of upper limb (2 sources) Closed fracture of lower end of radius AND ulna; Translations: [Unspecified fracture of the lower end of left radius, initial encounter for closed fracture] 01-16-2020 Episodic Headache; including migraine (1 source) Headache; Translations: [Headache] Onset: 0 Episodic Open wounds of extremities (2 sources) Injury of left leg; Translations: [Unspecified open wound, left lower leg, initial encounter] 06-30-2017 Episodic Other connective tissue disease (1 source) Decreased range of knee movement ; Translations: [Decreased range of motion of left knee] Chronic Other connective tissue disease (2 sources) Pain of left calf; Translations: [Pain in left lower leg] 05-04-2025 Episodic Other connective tissue disease (2 sources) Swelling of lower limb; Translations: [Other specified soft tissue disorders] 03-24-2017 Episodic Other connective tissue disease (1 source) Pain in left lower leg; Translations: [Pain in left lower leg] Onset: 5 Episodic Other diseases of veins and lymphatics (2 sources) Venous hypertension of lower limb; Translations: [Chronic venous hypertension (idiopathic) without complications of left lower extremity] 03-31-2017 Chronic Other diseases of veins and lymphatics (2 sources) Peripheral venous insufficiency; Translations: [Venous insufficiency (chronic) (peripheral)] 03-24-2017 Episodic Other inflammatory condition of skin (1 source) [...] nutritional; endocrine; and metabolic disorders (2 sources) Morbid obesity; Translations: [Morbid (severe) obesity due to excess calories] 03-24-2017 Chronic Other nutritional; endocrine; and metabolic disorders [...] Translations: [Insomnia, unspecified] Onset: 3 11-11-2023 Episodic Residual codes; unclassified (2 sources) Bilateral lower limb edema; Translations: [Localized edema] 03-24-2017 Episodic Skin and subcutaneous tissue infections (2 sources) Cellulitis of left lower limb; Translations: [Cellulitis of left lower limb] Onset: 5 11-11-2023 Episodic Unclassified (1 source) Myalgia, unspecified site; Translations: [Myalgia, unspecified site] Onset: 0 Unclassified (1 source) Obesity, class 2; Translations: [Obesity, class 2] Onset: 4 Urinary tract infections (3 sources) Acute cystitis; Translations: [Acute cystitis without hematuria] Onset: 4 01-08-2024 Episodic Varicose veins of lower extremity (4 sources) Venous varices; Translations: [Varicose veins of unspecified lower extremity with inflammation] 03-24-2017 Episodic Viral infection (8 sources) Viral disease; [...] Test Name Value Interpretation Reference Range Facility Emergency Department Summary on 05-04-2025 Emergency Department Summary [facility] Medical Records Department [address] [place] [address] Emergency Department Summary 05/04/25 MR#: [id number] Acct: [id number] Name: SKYE SPARROW Rep #: [id number] : 1955 69 From: Canelo Wray MD PCP: ABHINAV Gold Status:REG ER Location: ED HPI History of Present Illness Chief Complaint: Lower Extremity Injury Detail of Chief Complaint: Patient sent because of pain left calf and swelling Informant: patient Onset/Context/Timing Onset: Yesterday Context: Sudden Onset Timing: Continuous Quality: Pain swelling left calf Location: Left Current Severity: Mild Maximum Severity: Moderate Worsened by: Palpation and ambulation Relieved by: Nothing Associated Symptoms Associated Symptoms: No chest pain or shortness of breath or dyspnea Narrative Narrative: Patient is a 69-year-old woman. She presents with atraumatic left leg pain and swelling. She has no history of PE or DVT. She has no risk factors for either. She denies chest pain or shortness of breath. She denies bruising. She is not on anticoagulant. She has no symptoms of claudication. Prior similar symptoms: No Recent Illness/Hospitalizatio n: No PFSH PFSH Medical History Hyperlipidemia Anxiety Home Medications ???Medication ???Instructions ???Recorded ???Last Taken ???Type atorvastatin 10 mg tablet 10 mg PO QHS CHOLESTEROL 07/19/13 07/03/19 22:00 History 10 mg trazodone 150 mg tablet 150 mg PO QHS SLEEP 07/19/1307/03 22:00 History 150 sertraline 50 mg tablet 50 mg PO DAILY ANTIDEPRESSANT 120 08/2507/03/19 22:00 History 50 mg acetaminophen 500 mg tablet 1,000 mg (2 x 500 mg) PO Q8 #90 Unknown Rx tabs Allergy/AdvReac Type Severity Reaction Status Date / Time hydrocodone bitartrate (From Allergy Swelling Verified 05/04/25 16:16 Vicodin) codeine AdvReac Nausea Verified 05/04/25 16:16 Surgical History History of hysterectomy History of carpal tunnel repair History of total bilateral knee replacement Social History Smoking Status: Former smoker ROS ROS ED Constitutional Constitutional ED: Denies chills, fever(s), subjective, sweats or weight loss Cardiovascular Cardiovascular: Denies chest pain or palpitations Respiratory/Chest Respiratory/Chest: Denies cough, dyspnea or dyspnea on exertion Gastrointestinal Gastrointestinal: Denies nausea or vomiting Musculoskeletal Musculoskeletal: Denies arthralgias or myalgias Integumentary Denies rash Neurologic Neurologic: Denies paresthesias or weakness Hematologic/Lymphatic Hematologic/Lymphatic: Reports systems reviewed and no addt'l complaints, except as documented EXAM Physical Exam Const Vital Signs: 05/04/25 16:17 05/04/25 18:22 Temperature 97 F L Temperature Source Temporal Pulse Rate 62 58 L Respiratory Rate 18 16 Blood Pressure 151/77 H 160/88 H Blood Pressure Mean 101 112 Pulse Ox 98 100 Oxygen Delivery Method Room Air Room Air Positive well nourished and well developed General Appearance ED: well developed and NAD; Negative for pallor HEENT Reports moist mucous membranes HEENT Narrative: Head is atraumatic normocephalic. Eyes PERRL and EOMs intact bilaterally General Eye ED: Negative for pale conjunctiva or scleral icterus Neck no lymphadenopathy, supple and no JVD Chest Wall palpation of chest normal Resp normal respiratory effort and clear to auscultation bilaterally Cardio regular rate, regular rhythm, S1 normal heart sound, S2 normal heart sound and no murmurs Extremity Extremity Narrative: There is slight swelling in the left leg. There is pain the patient over the mid posterior left calf. There is no distended leg veins. There is no discoloration of the leg. Neuro oriented x3 and CN's II-XII intact bilaterally Sensorium / Orientation: alert Psych mental status grossly normal Skin no rashes or lesions noted, no wounds and skin turgor normal General Skin Exam: elasticity normal; Negative for jaundice or pallor MDM MDM MDM Narrative Medical decision making narrative: Differential diagnosis is superficial clot which she has had in the past, DVT, muscle strain, muscle tear. Will obtain venous duplex study. Radiography Diagnostic Testing: Clinical Impression(s) from Imaging Studies Venous Duplex 05/04/25 16:45 IMPRESSION: No DVT. Left calf varicose veins. Reading Location: [facility] No DVT noted. Will discharge home with appropriate home-going instruction Discharge Plan Triage Chief Complaint: Lower Extremity In (more content not included)... Normal [facility] Venous Duplex Imag/Limited/U nion 05-04-2025 Venous Duplex Imag/Limited/Uni [facility] Imaging Services [address] [place] [address] Venous Duplex Imag/Limited/Uni MR#: [id number] Acct: [id number] Name: SKYE SPARROW Rep #: [id number] : 1955 F 69 From: Malick Davila MD PCP: VICK GoldC Status: REG ER Study: Venous Duplex Imag/Limited/Uni Date of Exam: 0 05/04/25 Exam# [id number] Ordering Dr: Canelo Wray MD PROCEDURE: VENOUS DUPLEX IMAG/LIMITED/UNI 05/04/2025 REASON FOR EXAM: F 69 y/o TECHNIQUE: Procedure Code: USVDUL Modality: US Procedure: VENOUS DUPLEX IMAG/LIMITED/UNI FINDINGS: There is no intraluminal echogenicity to suggest the presence of a deep venous thrombosis. Appropriate respiratory variation, augmentation and venous compression is noted. Left calf varicose veins. US/Venous Duplex Imag/Limited/Uni IMPRESSION: No DVT. Left calf varicose veins. Reading Location: [facility] CC: WE[employer]ING [employer] SHAKER-C Stephani Tinoco; Dr. Canelo Wray MD Stamping Press Operator: Signed Normal [facility] Ankle 2 Viewson 05-01-2025 Ankle 2 Views [facility] Imaging Services [address] [place] [address] Ankle 2 Views MR#: [id number] Acct: [id number] Name: SKYE SPARROW Rep #: [id number] : 1955 F 69 From: Malick Davila MD PCP: ABHINAV [place] Status: REG CLI Study: Ankle 2 Views Date of Exam: 05/01/25 Exam# [id number] Ordering Dr: Maryam Cartagena MD PROCEDURE: ANKLE [...] edema. No acute osseous abnormalities. Reading Location: [id number] CC: ABHINAV Briseno; Dr. Maryam Cartagena MD Stamping Press Operator: Signed Normal [facility] CBC W Auto Differential pane l (Bld)on 07-05-2024 Basophils (Bld) [#/Vol] 0.05 x10*3/uL Normal 0.00-0.10 [facility] Comment on above: Performed By: #### 5 7021-8 #### HERBERT SILVER ([id number]) [facility] ([facility]) [address] [place] [address] 89663 Basophils/100 WBC (Bld) 0.6 % Normal 0.0-2.0 [facility] Comment on above: Performed By: #### 5 7021-8 #### HERBERT SILVER ([id number]) [facility] ([facility]) [address] [place] [address] 63998 Eosinophils (Bld) [#/Vol] 0.07 x10*3/uL Normal 0.00-0.70 [facility] Comment on above: Performed By: #### 5 7021-8 #### HERBERT SILVER ([id number]) [facility] ([facility]) [address] [place] [address] 39920 Eosinophils/100 WBC (Bld) 0.9 % Normal 0.0-6.0 [facility] Comment on above: Performed By: #### 5 7021-8 #### HERBERT SILVER ([id number]) [facility] ([facility]) [address] [place] [address] 37798 Erythrocyte distribution width (RBC) [Ratio] 11.9 % Normal 11.5-14.5 [facility] Comment on above: Performed By: #### 5 7021-8 #### HERBERT SILVER ([id number]) [facility] ([facility]) [address] [place] [address] 42893 Hematocrit (Bld) [Volume fraction] 42.3 % Normal 36.0-46.0 [facility] Comment on above: Performed By: #### 5 7021-8 #### HERBERT SILVER ([id number]) [facility] ([facility]) [address] [place] [address] 43080 Hemoglobin (Bld) [Mass/Vol] 13.5 g/dL Normal 12.0-16.0 [facility] Comment on above: Performed By: #### 5 7021-8 #### HERBERT SILVER ([id number]) [facility] ([facility]) [address] [place] [address] 34381 Immature granulocytes (Bld) [#/Vol] 0.03 x10*3/uL Normal 0.00-0.70 [facility] Comment on above: Performed By: #### 5 7021-8 #### HERBERT SILVER ([id number]) [facility] ([facility]) [address] [place] [address] 90234 Immature granulocytes/100 WBC (Bld) 0.4 % Normal 0.0-0.9 [facility] Comment on above: Result Comment: Angelita ture Granulocyte Count (IG) includes promyelocytes, myelocytes and metamyelocytes but does not include bands. Percent differential counts (%) should be interpreted in the context of the absolute cell counts (cells/UL). Performed By: #### 5 7021-8 #### HERBERT SILVER ([id number]) [facility] ([facility]) [address] [place] [address] 44841 Lymphocytes (Bld) [#/Vol] 1.77 x10*3/uL Normal 1.20-4.80 [facility] Comment on above: Performed By: #### 5 7021-8 #### HERBERT SILVER ([id number]) [facility] ([facility]) [address] [place] [address] 23055 Lymphocytes/100 WBC (Bld) 22.9 % Normal 13.0-44.0 [facility] Comment on above: Performed By: #### 5 7021-8 #### HERBERT SILVER ([id number]) [facility] ([facility]) [address] [place] [address] MCH (RBC) [Entitic mass] 29.9 pg Normal 26.0-34.0 [facility] Comment on above: Performed By: #### 5 7021-8 #### HERBERT SILVER ([id number]) [facility] ([facility]) [address] [place] [address] MCHC (RBC) [Mass/Vol] 31.9 g/dL Low 32.0-36.0 [facility] Comment on above: Performed By: #### 5 7021-8 #### HERBERT SILVER ([id number]) [facility] ([facility]) [address] [place] [address] 63503 MCV (RBC) [Entitic vol] 94 fL Normal 80-100 [facility] Comment on above: Performed By: #### 5 7021-8 #### HERBERT SILVER ([id number]) [facility] ([facility]) [address] [place] [address] 37709 Monocytes (Bld) [#/Vol] 0.53 x10*3/uL Normal 0.10-1.00 [facility] Comment on above: Performed By: #### 5 7021-8 #### HERBERT SILVER ([id number]) [facility] ([facility]) [address] [place] [address] 38138 Monocytes/100 WBC (Bld) 6.8 % Normal 2.0-10.0 [facility] Comment on above: Performed By: #### 5 7021-8 #### HERBERT SILVER ([id number]) [facility] ([facility]) [address] [place] [address] 25377 Neutrophils (Bld) [#/Vol] 5.29 x10*3/uL Normal 1.20-7.70 [facility] Comment on above: Result Comment: Perc ent differential counts (%) should be interpreted in the context of the absolute cell counts (cells/uL). Performed By: #### 5 7021-8 #### HERBERT SILVER ([id number]) [facility] ([facility]) [address] [place] [address] 28421 Neutrophils/100 WBC (Bld) 68.4 % Normal 40.0-80.0 [facility] Comment on above: Performed By: #### 5 7021-8 #### HERBERT SILVER ([id number]) [facility] ([facility]) [address] [place] [address] 14583 Nucleated RBC/100 WBC (Bld) [Ratio] 0.0 /100 WBCs Normal 0.0-0.0 [facility] Comment on above: Performed By: #### 5 7021-8 #### HERBERT SILVER ([id number]) [facility] ([facility]) [address] [place] [address] 76654 Platelets (Bld) [#/Vol] 249 x10*3/uL Normal 150-450 [facility] Comment on above: Performed By: #### 5 7021-8 #### HERBERT SILVER ([id number]) [facility] ([facility]) [address] [place] [address] 43293 RBC (Bld) [#/Vol] 4.51 x10*6/uL Normal 4.00-5.20 [facility] Comment on above: Performed By: #### 5 7021-8 #### HERBERT SILVER ([id number]) [facility] ([facility]) [address] [place] [address] 54148 WBC (Bld) [#/Vol] 7.7 x10*3/uL Normal 4.4-11.3 [facility] Comment on above: Performed By: #### 5 7021-8 #### HERBERT SILVER ([id number]) [facility] ([facility]) [address] [place] [address] 51083 HbA1c (Bld) [Mass fraction]o n 07-05-2024 Average glucose Estimated from glycated hemoglobin (Bld) [Mass/Vol] 120 mg/dL Normal Not Established [facility] Comment on above: Order Comment: Diagn osis of Diabetes-Adults Non-Diabetic: < or = 5.6% Increased risk for developing diabetes: 5.7-6.4% Diagnostic of diabetes: > or = 6.5% Performed By: #### 4 548-4 #### CAYETANO Laureano ([id number]) [facility] ([facility] [place]) [address] [place] [address] Hemoglobin A1c/Hemoglobin.to joan 07-05-2024 HbA1c (Bld) [Mass fraction] 5.8 % High See comment [facility] Comment on above: Order Comment: Diagn osis of Diabetes-Adults Non-Diabetic: < or = 5.6% Increased risk for developing diabetes: 5.7-6.4% Diagnostic of diabetes: > or = 6.5% Performed By: #### 4 548-4 #### CAYETANO Laureano ([id number]) [facility] ([facility] [place]) [address] [place] [address] Bacteria identifiedon 2023 Bacteria identified Cx Nom (Unsp spec) Test: Tissue/Wound Culture/Smear Specimen Source: Wound/Tissue Specimen Type: Tissue/Biopsy Specimen Date: 06/14/20241123 Result Date: 06/17/2024 0837 Result Status: Final result Abnormal: Yes Resulting Lab: [facility] [address] [place] [address] CULTURE (4+) Abundant Methicillin Resistant Staphylococcus aureus [...] ug/ml Susceptible VANCOMYCIN 1.000 ug/ml Susceptible Abnormal [facility] Comment on above: Performed By: #### 6 463-4 #### CAYETANO Laureano ([id number]) [facility] ([facility]) [id number] [place] [address] CBC W Auto Differential pane l (Bld)on 01-12-2024 Basophils (Bld) [#/Vol] 0.04 x10*3/uL Normal 0.00-0.10 [facility] Comment on above: Performed By: #### 5 7021-8 #### HERBERT SILVER ([id number]) [facility] ([facility]) [address] [place] [address] 43281 Basophils/100 WBC (Bld) 1.0 % Normal 0.0-2.0 [facility] Comment on above: Performed By: #### 5 7021-8 #### HERBERT SILVER ([id number]) [facility] ([facility]) [address] [place] [address] 70608 Eosinophils (Bld) [#/Vol] 0.04 x10*3/uL Normal 0.00-0.70 [facility] Comment on above: Performed By: #### 5 7021-8 #### HERBERT SILVER ([id number]) [facility] ([facility]) [address] [place] [address] 65076 Eosinophils/100 WBC (Bld) 1.0 % Normal 0.0-6.0 [facility] Comment on above: Performed By: #### 5 7021-8 #### HERBERT SILVER ([id number]) [facility] ([facility]) [address] [place] [address] 34495 Erythrocyte distribution width (RBC) [Ratio] 12.5 % Normal 11.5-14.5 [facility] Comment on above: Performed By: #### 5 7021-8 #### HERBERT SILVER ([id number]) [facility] ([facility]) [address] [place] [address] 47221 Hematocrit (Bld) [Volume fraction] 41.1 % Normal 36.0-46.0 [facility] Comment on above: Performed By: #### 5 7021-8 #### HERBERT SILVER ([id number]) [facility] ([facility]) [address] [place] [address] Hemoglobin (Bld) [Mass/Vol] 13.3 g/dL Normal 12.0-16.0 [facility] Comment on above: Performed By: #### 5 7021-8 #### HERBERT SILVER ([id number]) [facility] ([facility]) [address] [place] [address] Immature granulocytes (Bld) [#/Vol] 0.01 x10*3/uL Normal 0.00-0.70 [facility] Comment on above: Performed By: #### 5 7021-8 #### HERBERT SILVER ([id number]) [facility] ([facility]) [address] [place] [address] 27142 Immature granulocytes/100 WBC (Bld) 0.2 % Normal 0.0-0.9 [facility] Comment on above: Result Comment: Angelita ture Granulocyte Count (IG) includes promyelocytes, myelocytes and metamyelocytes but does not include bands. Percent differential counts (%) should be interpreted in the context of the absolute cell counts (cells/UL). Performed By: #### 5 7021-8 #### HERBERT SILVER ([id number]) [facility] ([facility]) [address] [place] [address] 48333 Lymphocytes (Bld) [#/Vol] 1.16 x10*3/uL Low 1.20-4.80 [facility] Comment on above: Performed By: #### 5 7021-8 #### HERBERT SILVER ([id number]) [facility] ([facility]) [address] [place] [address] 79766 Lymphocytes/100 WBC (Bld) 28.6 % Normal 13.0-44.0 [facility] Comment on above: Performed By: #### 5 7021-8 #### HERBERT SILVER ([id number]) [facility] ([facility]) [address] [place] [address] 05706 MCH (RBC) [Entitic mass] 31.1 pg Normal 26.0-34.0 [facility] Comment on above: Performed By: #### 5 7021-8 #### HERBERT SILVER ([id number]) [facility] ([facility]) [address] [place] [address] 69938 MCHC (RBC) [Mass/Vol] 32.4 g/dL Normal 32.0-36.0 [facility] Comment on above: Performed By: #### 5 7021-8 #### HERBERT SILVER ([id number]) [facility] ([facility]) [address] [place] [address] 64697 MCV (RBC) [Entitic vol] 96 fL Normal 80-100 [facility] Comment on above: Performed By: #### 5 7021-8 #### HERBERT SILVER ([id number]) [facility] ([facility]) [address] [place] [address] 72449 Monocytes (Bld) [#/Vol] 0.49 x10*3/uL Normal 0.10-1.00 [facility] Comment on above: Performed By: #### 5 7021-8 #### HERBERT SILVER ([id number]) [facility] ([facility]) [address] [place] [address] 86758 Monocytes/100 WBC (Bld) 12.1 % Normal 2.0-10.0 [facility] Comment on above: Performed By: #### 5 7021-8 #### HERBERT SILVER ([id number]) [facility] ([facility]) [address] [place] [address] 12050 Neutrophils (Bld) [#/Vol] 2.31 x10*3/uL Normal 1.20-7.70 [facility] Comment on above: Result Comment: Perc ent differential counts (%) should be interpreted in the context of the absolute cell counts (cells/uL). Performed By: #### 5 7021-8 #### HERBERT SILVER ([id number]) [facility] ([facility]) [address] [place] [address] 58744 Neutrophils/100 WBC (Bld) 57.1 % Normal 40.0-80.0 [facility] Comment on above: Performed By: #### 5 7021-8 #### HERBERT SILVER ([id number]) [facility] ([facility]) [address] [place] [address] 50739 Nucleated RBC/100 WBC (Bld) [Ratio] 0.0 /100 WBCs Normal 0.0-0.0 [facility] Comment on above: Performed By: #### 5 7021-8 #### HERBERT SILVER ([id number]) [facility] ([facility]) [address] [place] [address] 06650 Platelets (Bld) [#/Vol] 216 x10*3/uL Normal 150-450 [facility] Comment on above: Performed By: #### 5 7021-8 #### HERBERT SILVER ([id number]) [facility] ([facility]) [address] [place] [address] 16913 RBC (Bld) [#/Vol] 4.27 x10*6/uL Normal 4.00-5.20 [facility] Comment on above: Performed By: #### 5 7021-8 #### HERBERT SILVER ([id number]) [facility] ([facility]) [address] [place] [address] 02984 WBC (Bld) [#/Vol] 4.1 x10*3/uL Low 4.4-11.3 [facility] Comment on above: Performed By: #### 5 7021-8 #### HERBERT SILVER ([id number]) [facility] ([facility]) [address] [place] [address] 12525 Comprehensive metabolic 2000 panelon 01-12-2024 Albumin BCP dye [Mass/Vol] 4.2 g/dL Normal 3.4-5.0 [facility] Comment on above: Performed By: #### 2 432-8 #### HERBERT SILVER ([id number]) [facility] ([facility]) [address] [place] [address] ALP [Catalytic activity/Vol] 50 U/L Normal 33-136 [facility] Comment on above: Performed By: #### 2 432-8 #### HERBERT SILVER ([id number]) [facility] ([facility]) [address] [place] [address] 64084 ALT With P-5'-P [Catalytic activity/Vol] 16 U/L Normal 7-45 [facility] Comment on above: Result Comment: Leah ents treated with Sulfasalazine may generate falsely decreased results for ALT. Performed By: #### 2 4322-8 #### HERBERT SILVER ([id number]) [facility] ([facility]) [address] [place] [address] 81518 Anion gap [Moles/Vol] 10 mmol/L Normal 10-20 [facility] Comment on above: Performed By: #### 2 4322-8 #### HERBERT SILVER ([id number]) [facility] ([facility]) [facility] [place] [address] AST With P-5'-P [Catalytic activity/Vol] 15 U/L Normal 9-39 [facility] Comment on above: Performed By: #### 2 4322-8 #### HERBERT SILVER ([id number]) [facility] ([facility]) [address] [place] [address] 39587 Bilirubin [Mass/Vol] 1.2 mg/dL Normal 0.0-1.2 [facility] Comment on above: Performed By: #### 2 4322-8 #### HERBERT SILVER ([id number]) [facility] ([facility]) [address] [place] [address] 99843 Calcium [Mass/Vol] 9.0 mg/dL Normal 8.6-10.3 [facility] Comment on above: Performed By: #### 2 3-8 #### HERBERT SILVER ([id number]) [facility] ([facility]) [address] [place] [address] [place] [address] Chloride [Moles/Vol] 104 mmol/L Normal 98-107 [facility] Comment on above: Performed By: #### 2 4323-8 #### HERBERT SILVER ([id number]) [facility] ([facility]) [address] [place] [address] 00216 CO2 [Moles/Vol] 28 mmol/L Normal 21-32 [facility] Comment on above: Performed By: #### 2 4323-8 #### HERBERT SILVER ([id number]) [facility] ([facility]) [address] [place] [address] 10461 Creatinine [Mass/Vol] 0.74 mg/dL Normal 0.50-1.05 [facility] Comment on above: Performed By: #### 2 432-8 #### HERBERT SILVER ([id number]) [facility] ([facility]) [address] [place] [address] 33951 Glomerular filtration rate/1.73 sq M.predicted 89 mL/min/1.73m*2 Normal >60 [facility] Comment on above: Result Comment: Calc ulations of estimated GFR are performed using the 2020 CKD-EPI Study Refit equation without the race variable for the IDMS-Traceable creatinine methods. https://jasn.asnjournals.org/content/early//ASN.40586468 88 Performed By: #### 2 4323-8 #### HERBERT SILVER ([id number]) [facility] ([facility]) [address] [place] [address] 97653 Glucose [Mass/Vol] 112 mg/dL High 74-99 [facility] Comment on above: Performed By: #### 2 4323-8 #### HERBERT SILVER ([id number]) [facility] ([facility]) [address] [place] [address] 56284 Potassium [Moles/Vol] 4.4 mmol/L Normal 3.5-5.3 [facility] Comment on above: Performed By: #### 2 4323-8 #### HERBERT SILVER ([id number]) [facility] ([facility]) [address] [place] [address] Protein [Mass/Vol] 6.3 g/dL Low 6.4-8.2 [facility] Comment on above: Performed By: #### 2 4323-8 #### HERBERT SILVER ([id number]) [facility] ([facility]) [address] [place] [address] Sodium [Moles/Vol] 138 mmol/L Normal 136-145 [facility] Comment on above: Performed By: #### 2 4323-8 #### HERBERT SILVER ([id number]) [facility] ([facility]) [address] [place] [address] 81902 Urea nitrogen [Mass/Vol] 15 mg/dL Normal 6-23 [facility] Comment on above: Performed By: #### 2 4323-8 #### HERBERT SILVER ([id number]) [facility] ([facility]) [address] [place] [address] 63768 HbA1c (Bld) [Mass fraction]o n 01-12-2024 Average glucose Estimated from glycated hemoglobin (Bld) [Mass/Vol] 120 mg/dL Normal Not Established [facility] Comment on above: Order Comment: Diagn osis of Diabetes-Adults Non-Diabetic: < or = 5.6% Increased risk for developing diabetes: 5.7-6.4% Diagnostic of diabetes: > or = 6.5% Monitoring of Diabetes Age (y)....................... Therapeutic Goal (%) Adults: >18.........................<7.0 Pediatrics: 13-18...................<7.5 Pediatrics: 7-12....................<8.0 Pediatrics: 0-6..................... 7.5-8.5 [employer]. Diabetes Care 33(S1), Aug 2009 Performed By: #### 4 548-4 #### HERBERT SILVER ([id number]) [facility] ([facility]) [facility] [place] 5005[address] Hemoglobin A1c/Hemoglobin.to joan 01-12-2024 HbA1c (Bld) [Mass fraction] 5.8 % High see below [facility] Comment on above: Order Comment: Diagn osis of Diabetes-Adults Non-Diabetic: < or = 5.6% Increased risk for developing diabetes: 5.7-6.4% Diagnostic of diabetes: > or = 6.5% Monitoring of Diabetes Age (y)....................... Therapeutic Goal (%) Adults: >18.........................<7.0 Pediatrics: 13-18...................<7.5 Pediatrics: 7-12....................<8.0 Pediatrics: 0-6..................... 7.5-8.5 [employer]. Diabetes Care 33(S1), Aug 2009 Performed By: #### 4 548-4 #### HERBERT SILVER ([id number]) [facility] ([facility]) [facility] [place] [address] Lipid 1996 panelon 4 Cholesterol [Mass/Vol] 146 mg/dL Normal 0-199 [facility] Comment on above: Result Comment: Age [...] By: #### 2 4331-1 #### HERBERT SILVER ([id number]) [facility] ([facility]) [address] [place] [address] 60913 Cholesterol in HDL [Mass/Vol] 48.0 mg/dL Normal [facility] Comment on above: Result Comment: Age Very Low Low Normal High 0-19 Y < 35 < 40 40-45 ---- 20-24 Y ---- < 40 >45 ---- >24 Y ---- < 40 40-60 >60 Performed By: #### 2 4331-1 #### HERBERT SILVER ([id number]) [facility] ([facility]) [address] [place] [address] 46389 Cholesterol in LDL [Mass/Vol] 73 mg/dL Normal <=99 [facility] Comment on above: Result Comment: Near Borderline AGE Desirable Optimal High High Very High 0-19 Y 0 - 109 --- 110-129 >/= 130 ---- 20-24 Y 0 - 119 --- 120-159 >/= 160 ---- >24 Y 0 - 99 100-129 130-159 160-189 >/=190 Performed By: #### 2 4331-1 #### HERBERT SILVER ([id number]) [facility] ([facility]) [address] [place] [address] 28344 Cholesterol in VLDL [Mass/Vol] 25 mg/dL Normal 0-40 [facility] Comment on above: Performed By: #### 2 4331-1 #### HERBERT SILVER ([id number]) [facility] ([facility]) [address] [place] [address] 76159 CHOLESTEROL/HDL RATIO 3.0 Normal [facility] Comment on above: Result Comment: Ref Values Desirable < 3.4 High Risk > 5.0 Performed By: #### 2 4331-1 #### HERBERT SILVER ([id number]) [facility] ([facility]) [address] [place] [address] 43102 NON HDL CHOLESTEROL 98 mg/dL Normal 0-149 [facility] Comment on above: Result Comment: Age Desirable Borderline High High Very High 0-19 Y 0 - 119 120 - 144 >/= 145 >/= 160 20-24 Y 0 - 149 150 - 189 >/= 190 ---- >24 Y 30 mg/dL above LDL Cholesterol goal Performed By: #### 2 4331-1 #### HERBERT SILVER ([id number]) [facility] ([facility]) [address] [place] [address] Triglyceride [Mass/Vol] 125 mg/dL Normal 0-149 [facility] Comment on above: Result Comment: Age [...] By: #### 2 4331-1 #### HERBERT SILVER ([id number]) [facility] ([facility]) [address] [place] [address] POCT UA Automated manually r esultedon 01-12-2024 Appearance (U) Clear Clear [facility] Work Phone: Glucose Test strip (U) [Mass/Vol] Negative NEGATIVE mg/dl [facility] Work Phone: Hemoglobin Ql (U) Negative NEGATIVE [facility] Work Phone: Interpretation and review of laboratory results Abnormal [facility] Work Phone: Leukocyte esterase Test strip Ql (U) SMALL (1+) Abnormal NEGATIVE [facility] Work Phone: Nitrite Ql (U) Negative NEGATIVE [facility] Work Phone: pH (U) 6.0 [pH] No Reference Range Established [facility] Work Phone: POC Bilirubin, Urine Negative NEGATIVE [facility] Work Phone: POC Color, Urine Lilia Abnormal Straw, [place] ow, Light-Yellow [facility] Work Phone: POC Ketones, Urine Negative NEGATIVE mg/dl [facility]: POC Protein, Urine Negative NEGATIVE, 30 (1+) mg/dl [facility] Work Phone: POC Specific [place], Urine 1.025 1.005 - 1.035 [facility] Work Phone: POC Urobilinogen, Urine 4.0 Abnormal 0.2, 1.0 EU/DL [facility] Work Phone: [facility] Work Phone: No Panel Informationon 01-07 Interpretation and review of laboratory results Abnormal [facility] URINALYSIS, MACROon 01-08-20 24 Bilirubin Ql (U) Negative NEGATIVE [facility] Clarity (U) CLEAR CLEAR [facility] Color (U) YELLOW YELLOW [facility] Glucose Test strip (U) [Mass/Vol] Negative NEGATIVE mg/dl [facility] Hemoglobin Ql (U) Negative NEGATIVE [facility] Ketones (U) [Mass/Vol] Negative NEGATIVE mg/dl [facility] Leukocyte esterase Test strip Ql (U) SMALL Abnormal NEGATIVE [facility] Nitrite Ql (U) Negative NEGATIVE [facility] pH (U) 6.5 [pH] 5.0 - 7.0 [facility] Protein Ql (U) Negative NEGATIVE mg/dl [facility] Specific gravity (U) [Rel density] 1.025 1.010 - 1.025 [facility] Urobilinogen (U) [Mass/Vol] 0.2 mg/dL [facility] URINE CULTUREon 01-08-2024 Bacteria identified Cx Nom (U) SPECIMEN DESCRIPTION URINE - OTHER CULTURE NO PATHOGENS ISOLATED * Result Note: Testing performed at [facility], [place] [address] * REPORT STATUS 01/10/2024 * Result Note: FINAL * Normal [facility] Comment on above: Performed By: #### A URNC #### Testing performed at [address] [place] [address] Testing performed at [address] [place] [address] URINE MACROSCOPICon 01-08-20 24 Bilirubin Ql (U) Negative Normal NEGATIVE [facility] Comment on above: Performed By: #### U MAC, UMIC #### Testing performed at [address] [address] Clarity (U) CLEAR Normal CLEAR [facility] Comment on above: Performed By: #### U MAC, UMIC #### Testing performed at [address] [address] Color (U) YELLOW Normal YELLOW [facility] Comment on above: Performed By: #### U MAC, UMIC #### Testing performed at [address] [address] Glucose Ql (U) Negative Normal NEGATIVE [facility] [place] Comment on above: Performed By: #### U MAC, UMIC #### Testing performed at [address] [address] pH (U) 6.5 [pH] Normal 5.0-7.0 [facility] Comment on above: Performed By: #### U MAC, UMIC #### Testing performed at [address] [place] [address] URINE HEMOGLOBIN Negative Normal NEGATIVE [facility] Comment on above: Performed By: #### U MAC, UMIC #### Testing performed at [address] [place] [address] URINE KETONE Negative Normal NEGATIVE [facility] Comment on above: Performed By: #### U MAC, UMIC #### Testing performed at [address] [address] URINE LEUKOTEST SMALL Abnormal NEGATIVE [facility] Comment on above: Performed By: #### U MAC, UMIC #### Testing performed at [address] [address] URINE NITRATES Negative Normal NEGATIVE [facility] [place] Comment on above: Performed By: #### U MAC, UMIC #### Testing performed at [address] [address] URINE SPEC GRAVITY 1.025 Normal 1.010-1.025 [facility] Comment on above: Performed By: #### U MAC, UMIC #### Testing performed at [address] [address] URINE TOTAL PROTEIN Negative Normal NEGATIVE [facility] Comment on above: Performed By: #### U MAC, UMIC #### Testing performed at [address] [address] Urobilinogen Qn (U) 0.2 {Nikhil'U}/dL Normal 0.2-1.0 [facility] Comment on above: Performed By: #### U MAC, UMIC #### Testing performed at [address] [address] URINE MICROSCOPICon 01-08-20 24 Bacteria LM.HPF (Urine sed) [#/Area] 1+ Abnormal NEGATIVE [facility] Casts LM.LPF (Urine sed) [#/Area] NONE NONE /LPF [facility] Crystals LM Nom (Urine sed) NONE NONE [facility] Epithelial cells LM Ql (Urine sed) 5 TO 10 /HPF [facility] Mucus Ql (Urine sed) Negative NEGATIVE [facility] RBC LM.HPF (Urine sed) [#/Area] 1 TO 5 NEGATIVE /HPF [facility] Urine sediment comments LM Steve (Urine sed) REFLEX CULTURE PER ESTABLISHED CRITERIA. [facility] WBC LM.HPF (Urine sed) [#/Area] '5 TO 10 NEGATIVE /HPF [facility] BACTERIA 1+ Abnormal NEGATIVE [facility] Comment on above: Performed By: #### U MAC, UMIC #### Testing performed at [address] [address] CASTS NONE Normal [facility] Comment on above: Performed By: #### U MAC UMIC #### Testing performed at [address] [address] CRYSTAL NONE Normal [facility] Comment on above: Performed By: #### U MAC, UMIC #### Testing performed at [address] [address] Epithelial cells LM Ql (Urine sed) 5 TO 10 Normal [facility] Comment on above: Performed By: #### U MAC, UMIC #### Testing performed at [address] [place] [address] Mucus Ql (Urine sed) Negative Normal NEGATIVE [facility] Comment on above: Performed By: #### U MAC, UMIC #### Testing performed at [address] [address] URINE COMMENT REFLEX CULTURE PER ESTABLISHED CRITERIA. Normal [facility] Comment on above: Performed By: #### U MAC, UMIC #### Testing performed at [address] [address] URINE RBC'S 1 TO 5 Normal NEGATIVE [facility] Comment on above: Performed By: #### U MAC, UMIC #### Testing performed at [address] [address] URINE WBC'S '5 TO 10 Normal NEGATIVE [facility] Comment on above: Performed By: #### U MAC, UMIC #### Testing performed at [address] [address] BI MAMMO BILATERAL SCREENING TOMOSYNTHESISon 11-25-2023 BI MAMMO BILATERAL SCREENING TOMOSYNTHESIS Interpreted By: Danielito Clifton, STUDY: BI MAMMO BILATERAL SCREENING TOMOSYNTHESIS; 11/25/2023 11:44 am ACCESSION NUMBER(S): [id number] ORDERING CLINICIAN: STEPHANI TINOCO INDICATION: Screening. COMPARISON: [...] any future breast imaging appointments, please call [phone] ([phone]). Based on the Tyrer-Cuzick model for breast cancer risk assessment, the patient's lifetime risk of breast cancer is 7.19%. Patients with over a 20% lifetime risk of developing breast cancer may benefit from additional screening with breast MRI or ultrasound. Please note that this estimate is based on responses provided on the patient questionnaire. For more information regarding high risk consultation, please call [phone]. MACRO: None Signed by: Danielito Clifton 11/25/2023 2:59 PM Dictation workstation: [id number] [facility] [place] Comment on above: Order Comment: Last done 03/2022 DBT Breast - bilateralon No mammographic evidence of malignancy. BI-RADS CATEGORY: BI-RADS Category: 1 Negative. Recommendation: Annual Screening. Recommended Date: 1 Year. Laterality: Bilateral. For any future breast imaging appointments, please call [phone] ([phone]). Based on the Tyrer-Cuzick model for breast cancer risk assessment, the patient's lifetime risk of breast cancer is 7.19%. Patients with over a 20% lifetime risk of developing breast cancer may benefit from additional screening with breast MRI or ultrasound. Please note that this estimate is based on responses provided on the patient questionnaire. For more information regarding high risk consultation, please call [phone]. MACRO: None Signed by: Danielito Clifton 11/25/2023 2:59 PM Dictation workstation: [id number] ERLINDA Interpreted By: Danielito Clifton, STUDY: BI MAMMO BILATERAL SCREENING TOMOSYNTHESIS; 11/25/2023 11:44 am ACCESSION NUMBER(S): [id number] ORDERING CLINICIAN: STEPHANI TINOCO INDICATION: Screening. COMPARISON: 09/13/2020, 03/27/2022 FINDINGS: 2D and tomosynthesis images were reviewed at 1 mm slice thickness. Density: The breast tissue is almost entirely fatty. No suspicious masses or calcifications are identified. CAD was utilized. MMODAL Danielito Clifton MD - 11/25/2023 Interpreted By: Danielito Clifton, STUDY: BI MAMMO BILATERAL SCREENING TOMOSYNTHESIS; 11/25/2023 11:44 am ACCESSION NUMBER(S): [id number] ORDERING CLINICIAN: STEPHANI TINOCO INDICATION: Screening. COMPARISON: [...] any future breast imaging appointments, please call [phone] ([phone]). Based on the Tyrer-Cuzick model for breast cancer risk assessment, the patient's lifetime risk of breast cancer is 7.19%. Patients with over a 20% lifetime risk of developing breast cancer may benefit from additional screening with breast MRI or ultrasound. Please note that this estimate is based on responses provided on the patient questionnaire. For more information regarding high risk consultation, please call [phone]. MACRO: None Signed by: Danielito Clifton 11/25/2023 2:59 PM Dictation workstation: [id number] [facility] Work Phone: Radiology Study observation (narrative) [facility] Work Phone: DBT Breast - bilateralOrdere d By: Danielito Clifton on 11-25-2023 [facility] Work Phone: Office Visit (Primary Care F [...] disorder; BARON = N; Verified Transmission to [facility]; Last Updated By: Mahsa Recoversri[employer]sterias [employer]; 09/02/2022 9:32:08 AM Class 2 severe obesity due to excess calories with serious comorbidity and body mass index (BMI) of 35.0 to 35.9 in adult HEART HEALTHY DIET - LAINEY; Status:Active; Requested for:02Sep2022; Perform:[employer];Ordered; For:Class 2 severe obesity due to excess calories with serious comorbidity and body mass index (BMI) of 35.0 to 35.9 in adult; Ordered By:Stephani Tinoco; Hyperlipidemia Comprehensive Metabolic Panel; Status:Active; Requested for:07Feb2023; Perform:Lab Services - Lab To Draw (Blood Test); Due:[id number];Ordered; For:Hyperlipidemia; Ordered By:Stephani Tinoco; Lipid Panel; Status:Active; Requested for:07Feb2023; Perform:Lab Services - Lab To Draw (Blood Test); Due:[id number];Ordered; For:Hyperlipidemia; Ordered By:Stephani Tinoco; Insomnia Renew: traZODone HCl - 100 MG Oral Tablet; TAKE 1 TABLET AT BEDTIME Rx By: Stephani Tinoco; Dispense: 90 Days ; #:90 Tablet; Refill: 1;For: Insomnia; BARON = N; Verified Transmission to [facility]; Last Updated By: Mike BraggAsterias [employer]; 09/02/2022 9:32:07 AM Screening for diabetes mellitus Hemoglobin A1C; Status:Active; Requested for:07Feb2023; Perform:Lab Services - Lab To Draw (Blood Test); Due:[id number];Ordered; For:Screening for diabetes mellitus; Ordered By:Stephani Tinoco; Patient Discussion/Summary Hyperlipidemia: will get labs when she gets back from [place]. Insomnia: Continue Trazodone for sleep. Anxiety: Continue [...] has come back. heading to go to [place] and will be back in December. Mammogram: [...] Hysterectomy History of Knee replacement History of [place] tooth extraction Family History Mother Family history of Homestead's chorea (V17.2) (Z82.0) Family history of hypertension (V17.49) (Z82.49) Father Family history of myocardial infarction (V17.3) (Z82.49) Brother Family history of congenita (more content not included)... Normal [employer] Tobacco Screening.on 023 Adult depression screening assessment No -[facility] Work Phone: Fall risk assessment a) No falls within the last year -[facility] Work Phone: Tobacco use status [facility] b) No -[facility] Work Phone: DIGITAL MAMM SCREENING W/ TO Felipe 03-27-2022 DIGITAL MAMM SCREENING W/ REX Patient Name: SKYE SPARROW STUDY: Digital mammography screening with rex; 03/27/2022 11:16 am ACCESSION NUMBER(S): [id number] ORDERING CLINICIAN: IMAN BRISENO INDICATION: Screening. COMPARISON: [...] Screening. Electronically signed by: FELIX HUIZAR MD [facility] - Screening Mammogram w / Tomosynthesison 03-27-2022 MG Breast Screening Normal [facility] Work Phone: Office Visiton 03-03-2022 Follow-up visit Diagnoses/Problems Adjustment disorder (309.9) (F43.20) HTN (hypertension) (401.9) (I10) Hyperlipidemia (272.4) (E78.5) Encounter for screening mammogram for malignant neoplasm of breast (V76.12) (Z12.31) Insomnia (780.52) (G47.00) Orders Encounter for screening mammogram for malignant neoplasm of breast Mamm - Screening Mammogram w/ Tomosynthesis; Status:Active; Requested for:[id number]; Radiologist to Determine Optimal Study : Y [...] stroke. Family history of [place] chorea and [place]. Review of Systems General: Negative except HPI [...] Hysterectomy History of Knee replacement History of [place] tooth extraction Family History Family history of Shamika's chorea (V17.2) (Z82.0) Family history of hypertension (V17.49) (Z82.49) Family history of myocardial infarction (V17.3) (Z82.49) Family history of congenital heart disease (V19.5) (Z82.79) Family history of Homestead's chorea (V17.2) (Z82.0) Family history of hypertension (V17.49) (Z82.49) Family history of [place]'s chorea (V17.2) (Z82.0) Social History Former smoker (V15.82) (Z87.891) Marijuana Occasional alcohol use Patient has active durable power of assistant attorney general (DPOA) designee for healthcare Patient has living [...] TABLET AT BEDTIME. Vitals Vital Signs Recorded: [id number] 11:06AM Heart Rate68 Azxzyloq251, LUE Hmosemkas80, LUE Height5 ft 11 in Rduuwc720 lb 1 oz BMI Uqyicdmgzh44.85 kg/m2 BSA Calculated2.35 Tobacco Useb) No Falls Screening (Age 18+)a) No falls within the last year O2 Mppoyqtqap53 Physical Exam General: well nourished, in no distress Neck: No lymphadenopathy, thyromegaly or carotid bruit. Supple and normal ROM Cardiovascular: RRR, no Murmur, No edema Respiratory: Clear lungs throughout, no cough Abdomen: No tenderness or masses. Normal bowel sounds Neuro: Alert and oriented x 3 Musculoskeletal: Normal gait Signatures Electronically signed by : HIEN Peraza; Mar 03 2022 12:12PM EST (Author) Normal [employer] Tobacco Screening.on 022 Fall risk assessment a) No falls within the last year -[facility] Work Phone: Tobacco use status [facility] b) No -[facility] Work Phone: BASIC METABOLIC PANELon 02-08 Anion gap [Moles/Vol] 13 mmol/L Normal 10 - 20 [facility] Comment on above: Performed By: #### B MP #### [facility] [address] [place] [address] Calcium [Mass/Vol] 9.4 mg/dL Normal 8.6 - 10.3 [facility] Comment on above: Performed By: #### B MP #### [address] [address] Chloride [Moles/Vol] 107 mmol/L Normal 98 - 107 [facility] Comment on above: Performed By: #### B MP #### [address] [address] Creatinine [Mass/Vol] 0.66 mg/dL Normal 0.50 - 1.05 [facility] Comment on above: Performed By: #### B MP #### [address] [address] eGFR FEMALE >90 Normal >90 [facility] Comment on above: Result Comment: CALC ULATIONS OF ESTIMATED GFR ARE PERFORMED USING THE 2020 CKD-EPI STUDY REFIT EQUATION WITHOUT THE RACE VARIABLE FOR THE IDMS-TRACEABLE CREATININE METHODS. https://jasn.asnjournals.org/content/early/ASN.85134317 88 Performed By: #### B MP #### [address] [address] Glucose [Mass/Vol] 107 mg/dL High 74 - 99 [facility] Comment on above: Performed By: #### B MP #### [address] [address] HCO3 (Bld) [Moles/Vol] 25 mmol/L Normal 21 - 32 [facility] Comment on above: Performed By: #### B MP #### [address] [address] Potassium [Moles/Vol] 4.2 mmol/L Normal 3.5 - 5.3 [facility] Comment on above: Performed By: #### B MP #### [address] [address] Sodium [Moles/Vol] 141 mmol/L Normal 136 - 145 [facility] Comment on above: Performed By: #### B MP #### [address] [address] Urea nitrogen [Mass/Vol] 16 mg/dL Normal 6 - 23 [facility] Comment on above: Performed By: #### B MP #### [address] [address] HEMOGLOBIN A1Con 02-26-2022 Glucose [Mass/Vol] 114 mg/dL Normal [facility] Comment on above: Performed By: #### H BA1E #### [address] [address] HbA1c (Bld) [Mass fraction] 5.6 % Normal [facility] Comment on above: Result Comment: Diag nosis of Diabetes-Adults Non-Diabetic: < or = 5.6% Increased risk for developing diabetes: 5.7-6.4% Diagnostic of diabetes: > or = 6.5% . Monitoring of Diabetes Age (y) Therapeutic Goal (%) Adults: >18 <7.0 Pediatrics: 13-18 <7.5 7-12 <8.0 0- 6 7.5-8.5 [place] [employer]. Diabetes Care 33(S1), Aug 2009. Performed By: #### H BA1E #### [address] [address] Hemoglobin A1Con 02-26-2022 Glucose [Mass/Vol] 114 mg/dL [facility] Work Phone: HbA1c (Bld) [Mass fraction] 5.6 % [facility] and Work Phone: Comment on above: Diagnosis of Diabete s-Adults Non-Diabetic: < or = 5.6% Increased risk for developing diabetes: 5.7-6.4% Diagnostic of diabetes: > or = 6.5%. Monitoring of Diabetes Age (y) Therapeutic Goal (%) Adults: >18 <7.0 Pediatrics: 13-18 <7.5 7-12 <8.0 0- 6 7.5-8.5 [place] [employer]. Diabetes Care 33(S1), Aug 2009. LIPID PANEL (CORONARY RISK 2 )on 02-26-2022 Cholesterol [Mass/Vol] 264 mg/dL High 0 - 199 [facility] Comment on above: Result Comment: . [...] dosing. Performed By: #### L IPID #### [address] [address] Cholesterol in HDL [Mass/Vol] 54.0 mg/dL Normal [facility] Comment on above: Result Comment: . AGE VERY LOW LOW NORMAL HIGH 0-19 Y < 35 < 40 40-45 ---- 20-24 Y ---- < 40 >45 ---- >24 Y ---- < 40 40-60 >60 . Performed By: #### L IPID #### [address] [address] Cholesterol in LDL [Mass/Vol] 176 mg/dL High 0 - 99 [facility] Comment on above: Result Comment: . NEAR BORD AGE DESIRABLE OPTIMAL HIGH HIGH VERY HIGH 0-19 Y 0 - 109 --- 110-129 >/= 130 ---- 20-24 Y 0 - 119 --- 120-159 >/= 160 ---- >24 Y 0 - 99 100-129 130-159 160-189 >/=190 . Performed By: #### L IPID #### [address] [address] Cholesterol in VLDL [Mass/Vol] 34 mg/dL Normal 0 - 40 [facility] Comment on above: Performed By: #### L IPID #### [address] [address] Cholesterol.total/C holesterol in HDL [Mass ratio] 4.9 {ratio} Normal [facility] Comment on above: Result Comment: REF VALUES DESIRABLE < 3.4 HIGH RISK > 5.0 Performed By: #### L IPID #### [address] [address] Triglyceride [Mass/Vol] 169 mg/dL High 0 - 149 [facility] Comment on above: Result Comment: . [...] dosing. Performed By: #### L IPID #### [facility] [address] [place] [address] Laboratory - Chemistry and C hemistry - challengeon 02-26-2022 Anion gap [Moles/Vol] 13 mmol/L 10 - [facility] Work Phone: Calcium [Mass/Vol] 9.4 mg/dL 8.6 - 10.3 [facility] Work Phone: Chloride [Moles/Vol] 107 mmol/L 98 - 107 [facility] Work Phone: CO2 [Moles/Vol] 25 mmol/L 21 - 32 [facility] Work Phone: Creatinine [Mass/Vol] 0.66 mg/dL See Below [facility] Work Phone: Comment on above: Reference Range: 0.5 0 - 1.05 Glucose [Mass/Vol] 107 mg/dL above high threshold 74 - 99 [facility] Work Phone: Potassium [Moles/Vol] 4.2 mmol/L 3.5 - 5.3 [facility] Work Phone: Sodium [Moles/Vol] 141 mmol/L 136 - 145 [facility] and Work Phone: Urea nitrogen [Mass/Vol] 16 mg/dL 6 - 23 [facility] and Work Phone: Lipid Panelon 02-26-2022 Cholesterol [Mass/Vol] 264 mg/dL above high threshold 0 - 199 [facility] and Work Phone: Comment on above: [...] 128(S5). Adult guidelines reference: NCEP ATPIII Guidelines, EUGEINO 2001, 258:2486-97. Venipuncture immediately after or during the administration of Metamizole may lead to falsely low results. Testing should be performed immediately prior to Metamizole dosing. Cholesterol in HDL [Mass/Vol] 54.0 mg/dL [facility] and Work Phone: Comment on above: . AGE VERY LOW LOW N ORMAL HIGH 0-19 Y < 35 < 40 40-45 ---- 20- 24 Y ---- < 40 >45 ---- >24 Y ---- < 40 40-60 >60. Cholesterol in LDL [Mass/Vol] 176 mg/dL above high threshold 0 - 99 [facility] and Work Phone: Comment on above: . NEAR BORD AGE ANA RABLE OPTIMAL HIGH HIGH VERY HIGH 0-19 Y 0 - 109 --- 110-129 >/= 130 ---- 20-24 Y 0 - 119 --- 120-159 >/= 160 ---- >24 Y 0 - 99 100-129 130-159 160-189 >/=190. Cholesterol.total/C holesterol in HDL [Mass ratio] 4.9 {ratio} [facility] and Work Phone: Comment on above: REF VALUESDESIRABLE < 3.4HIGH RISK > 5.0 Triglyceride [Mass/Vol] 169 mg/dL above high threshold 0 - 149 [facility] and Work Phone: Comment on above: . AGE DESIRABLE BORD EMA HIGH HIGH VERY HIGH 0 D-90 D [...] Lipid Panel 34 mg/dL 0 - 40 [facility] and Work Phone: No Panel Informationon 02-26 >90 >90 [facility] and Work Phone: Comment on above: CALCULATIONS OF SUSIE MATED GFR ARE PERFORMED USING THE 2020 CKD-EPI STUDY REFIT EQUATION WITHOUT THE RACE VARIABLE FOR THE IDMS-TRACEABLE CREATININE METHODS.https://jasn.asnjournals.org/content//ASN. 9203286700 Tobacco Screening.on 022 Fall risk assessment a) No falls within the last year [facility] and Work Phone: Tobacco use status CP b) No [facility] [facility] Work Phone: Tobacco Screening.on 021 Fall risk assessment a) No falls within the last year [facility] and Work Phone: Tobacco use status [facility] b) No [facility] and Work Phone: CORONAVIRUS PCR [CCL]on REF LAB REPORT Negative Normal [facility] Comment on above: Performed By: #### 2 [id number] #### [facility],[address] [place] [address] COVID 19 Result WEARING APPAREL SHAKER Negative Normal [facility] Comment on above: Result Comment: Nega tive for COVID19 (SARS CoV2) by PCR. This test was developed and its performance characteristics determined by [facility] Slade Almaguer [facility] [place]. This test has been authorized by FDA under an Emergency Use Authorization (EUA). This test has been validated in accordance with the FDA's Guidance Document Policy for Diagnostics Testing in Laboratories Certified to Perform High Complexity Testing under CLIA prior to Emergency use Authorization for Coronavirus Disease 2019 during the Public Health Emergency issued on October 08, 2019. [id number] [place] [address] Stuart Fischer III, M.D. [id number] Performed By: #### 2 [id number] #### [facility],[address] [place] [address] COVID 19 Source WEARING APPAREL SHAKER WEARING APPAREL SHAKER SWAB Normal [facility] Comment on above: Performed By: #### 2 [id number] #### [facility],[address] [place] [address] Cult, Urineon 02-14-2020 Bacteria identified Cx Nom (U) PATIENT: SKYE SPARROW LOCATION: [facility]#: [id number] : 59 AGE: SEX: F ORDERED BY: GIORGI BRISENO: URINE COLLECTED: 02/14/20 08:07ANTIBIOTICS AT MATTHEW.: RECEIVED : 02/14/20 18:36SITE: Clean Catch/Voided R E S U L T S URINE CULTURE,BACTERIAL FINAL 02/15/20 11:25 NO SIGNIFICANT GROWTH. [facility] Work Phone: IO UA (automated w/o microsc opy)on 02-14-2020 Protein (U) [Mass/Vol] Negative [facility] Work Phone: Comment on above: [employer] : [id number]: 06/2020 IO UA (automated w/o microscopy) Negative [facility] Work Phone: Comment on above: [employer] : [id number]: 06/2020 IO UA (automated w/o microscopy) 1.020 [facility] Work Phone: Comment on above: [employer] : [id number]: 06/2020 IO UA (automated w/o microscopy) Yellow [facility] Work Phone: Comment on above: [employer] : [id number]: 06/2020 IO UA (automated w/o microscopy) 6.0 [facility] Work Phone: Comment on above: [employer] : [id number]: 06/2020 IO UA (automated w/o microscopy) Normal (0.2-1.0 mg/dl) [facility] Work Phone: Comment on above: [employer] : [id number]: 06/2020 IO UA (automated w/o microscopy) Clear [facility] Work Phone: Comment on above: [employer] : [id number]: 06/2020 C Urineon 04-15-2019 C Urine Final Report: >100,0 00 cfu/ml Escherichia coli ORGANISM: EC SUSCEPTIBILITY RESULTS Antibiotic FTAMATA Dilutn FATMATA Interp ORGANISM: EC Amox/Cla : <=8/4 S Amp : >16 R Amp/Sul : 16/8 I Cefaz : <=8 S Cefo : <=2 S Cipro : <=1 S Gent : <=4 S Levo : <=2 S Emigdio : <=1 S Nitro : <=32 S Pip/Wilbert : <=16 S Tetra : >8 R Tobra : <=4 S SXT : >2/38 R Normal [facility] Comment on above: Performed By: #### 2 [id number] #### [facility] Microbiology Subsection [address] [place] [address] [place] Mamm Screen w/CAD if perf ormed bilaton 12-28-2018 [place] Mamm Screen w/CAD if performed bilat Exam Date/Time: 12/27/2018 16:11 EDT Reason for Exam: SCREENING FOR HEART DISEASE BENIGN HTN MIXED HYPERLIPIDEMIA SCREENING;Screening Report STUDY: Digital mammography screening; 12/27/2018 4:11 pm ACCESSION NUMBER(S): [id number] ORDERING CLINICIAN: Iman Briseno INDICATION: Screening. COMPARISON: [...] am Signed by: Felix Huizar MD Technologist: [facility] Assessment: BI-RADS Category 1-Negative Recommendation: Normal interval follow-up Normal [facility] CT Coronary Artery Calcium S core - SCREEon 12-23-2018 Calcium [Mass/Vol] Exam Date/Time: 12/22/2018 15:41 EDT Reason for Exam: SCREENING FOR HEART DISEASE BENIGN HTN MIXED HYPERLIPIDEMIA SCREENING;Screening Report STUDY: CT Coronary Artery Calcium Score - SCREE; 12/22/2018 3:41 pm INDICATION: Screening. COMPARISON: None. ACCESSION NUMBER(S): [id number] ORDERING CLINICIAN: Iman Briseno TECHNIQUE: Using prospective [...] coronary heart disease events. According to the [place] [employer] Clinical Expert Consensus [...] modify other non-lipid coronary risk factors. Reference: [place] P et al. Circulation. 2007; 115:402-426 FINAL REPORT Dictated: 12/23/2018 9:10 am Felix Huizar MD Signed (Electronic Signature): 12/23/2018 9:10 am Signed by: Felix Huizar MD Technologist: [facility] Vital Signs Date Time Vital Sign Value Performing Clinician Facility 05-04-2025 18:22-0400 Diastolic blood pressure 88 mm[Hg] Iman [place] Work Phone: [facility] 05-04-2025 18:22-0400 Heart rate 58 /min Iman [place] Work Phone: [facility] 05-04-2025 18:22-0400 Respiratory rate 16 /min Iman Portilloter WEARING [employer]PAREL SHAKER-C Work Phone: [facility] 05-04-2025 18:22-0400 SaO2% (BldA) [Mass fraction] 100 % Iman [place] WEARING APPAREL SHAKER-C Work Phone: [facility] 05-04-2025 18:22-0400 Systolic blood pressure 160 mm[Hg] Iman Portilloter WEARING APPAREL SHAKER-C Work Phone: [facility] 05-04-2025 16:17-0400 Body height 177.8 cm Iman Portilloter WEARING APPAREL SHAKER-C Work Phone: [facility] 05-04-2025 16:17-0400 Body mass index (BMI) [Ratio] 40 kg/m2 Iman [place] WEARING APPAREL SHAKER-C Work Phone: [facility] 05-04-2025 16:17-0400 Body temperature 97 [degF] Iman Portilloter WEARING APPAREL SHAKER-C Work Phone: [facility] 05-04-2025 16:17-0400 Body weight 126.64 kg Iman Portilloter WEARING APPAREL SHAKER-C Work Phone: [facility] 08-02-2024 11:13-0500 Body height 177.8 cm Stephani Tinoco WHARF OPERATOR-PUBLIC SPEAKING COACH Work Phone: [facility] 08-02-2024 11:13-0500 Body mass index (BMI) [Ratio] 37.66 kg/m2 Stephani Tinoco WHARF OPERATOR-PUBLIC SPEAKING COACH Work Phone: [facility] 08-02-2024 11:13-0500 Body weight 119.04 kg Stephani Tinoco WHARF OPERATOR-PUBLIC SPEAKING COACH Work Phone: [facility] 08-02-2024 11:13-0500 Diastolic blood pressure 90 mm[Hg] Stephani Tinoco WHARF OPERATOR-PUBLIC SPEAKING COACH Work Phone: [facility] 08-02-2024 11:13-0500 Heart rate 62 /min Stephani Tinoco WHARF OPERATOR-PUBLIC SPEAKING COACH Work Phone: [facility] 08-02-2024 11:13-0500 Systolic blood pressure 142 mm[Hg] Stephani Tinoco WHARF OPERATOR-PUBLIC SPEAKING COACH Work Phone: [facility] 06-14-2024 10:50-0500 Body height 177.8 cm Sandra Jovani PA-C Work Phone: 2(309)367-246004 [place] [address] 06-14-2024 10:50-0500 Body mass index (BMI) [Ratio] 33 kg/m2 Sandra Jovani PA-C Work Phone: 8(038)314-995239 [place] [address] 06-14-2024 10:50-0500 Body temperature 97.2 [degF] Sandra Jovani PA-C Work Phone: 6(264)896-801039 [place] [address] 06-14-2024 10:50-0500 Body weight 104.33 kg Sandra Jovani PA-C Work Phone: 3(159)096-183604 [place] [address] 06-14-2024 10:50-0500 Diastolic blood pressure 91 mm[Hg] Sandra Jovani PA-C Work Phone: 7(423)362-586704 [place] [address] 06-14-2024 10:50-0500 Heart rate 56 /min Sandra Jovani PA-C Work Phone: 1(285)944-796704 [place] [address] 06-14-2024 10:50-0500 Respiratory rate 14 /min Sandra Jovani PA-C Work Phone: 3(846)952-537504 [place] [address] 06-14-2024 10:50-0500 SaO2% (BldA) [Mass fraction] 99 % Sandra Jovani PA-C Work Phone: 0(354)806-245904 [place] [address] 06-14-2024 10:50-0500 Systolic blood pressure 146 mm[Hg] Sandra Jovani PA-C Work Phone: 9(111)426-481439 [place] [address] 01-12-2024 11:09-0400 Body height 180.3 cm Stephani Tinoco WHARF OPERATOR-PUBLIC SPEAKING COACH Work Phone: [facility] 01-12-2024 11:090400 Body mass index (BMI) [Ratio] 34.45 kg/m2 Stephani Tinoco WHARF OPERATOR-PUBLIC SPEAKING COACH Work Phone: [facility] 01-12-2024 11:09040 Body weight 112.04 kg Stephani Tinoco WHARF OPERATOR-PUBLIC SPEAKING COACH Work Phone: [facility] 01-12-2024 11:09-0400 Diastolic blood pressure 80 mm[Hg] Stephani Tinoco WHARF OPERATOR-PUBLIC SPEAKING COACH Work Phone: [facility] 01-12-2024 11:09-0400 Heart rate 74 /min Stephani Tinoco WHARF OPERATOR-PUBLIC SPEAKING COACH Work Phone: [facility] 01-12-2024 11:09-0400 Systolic blood pressure 140 mm[Hg] Stephani Tinoco WHARF OPERATOR-PUBLIC SPEAKING COACH Work Phone: [facility] 01-08-2024 05:20-0400 Diastolic blood pressure 84 mm[Hg] Oren Cornejo MD Work Phone: [facility] 01-08-2024 05:20-0400 Heart rate 78 /min Oren Cornejo MD Work Phone: [facility] 01-08-2024 05:20-0400 Respiratory rate 18 /min Oren Cornejo MD Work Phone: [facility] 01-08-2024 05:20-0400 SaO2% (BldA) [Mass fraction] 98 % Oren Cornejo MD Work Phone: [facility] 01-08-2024 05:20-0400 Systolic blood pressure 178 mm[Hg] Oren Cornejo MD Work Phone: [facility] 01-08-2024 03:54-0400 Body height 177.8 cm Oren Cornejo MD Work Phone: [facility] 01-08-2024 03:48-0400 Body temperature 98.49 [degF] Oren Cornejo MD Work Phone: [facility] 11-11-2023 13:58-0400 Body height 180.3 cm Stephani Tinoco WHARF OPERATOR-PUBLIC SPEAKING COACH Work Phone: [facility] 11-11-2023 13:58-0400 Body mass index (BMI) [Ratio] 35.75 kg/m2 Stephani Tinoco WHARF OPERATOR-PUBLIC SPEAKING COACH Work Phone: [facility] 11-11-2023 13:58-0400 Body weight 116.26 kg Stephani Tinoco WHARF OPERATOR-PUBLIC SPEAKING COACH Work Phone: [facility] 11-11-2023 13:58-0400 Diastolic blood pressure 80 mm[Hg] Stephani Tinoco WHARF OPERATOR-PUBLIC SPEAKING COACH Work Phone: [facility] 11-11-2023 13:58-0400 Heart rate 84 /min Stephani Tinoco WHARF OPERATOR-PUBLIC SPEAKING COACH Work Phone: [facility] 11-11-2023 13:58-0400 Systolic blood pressure 138 mm[Hg] Stephani Tinoco WHARF OPERATOR-PUBLIC SPEAKING COACH Work Phone: [facility] 09-02-2022 09:12-0500 Body height 180.34 cm Stephani Tinoco [facility] Work Phone: 09-02-2022 09:12-0500 Body mass index (BMI) [Ratio] 35.29 kg/m2 Stephani Tinoco Work Phone: [facility] Work Phone: 09-02-2022 09:12-0500 Body surface area Derived from formula 2.33 m2 Stephani Tinoco Work Phone: [facility] Work Phone: 09-02-2022 09:12-0500 Body weight 114.76 kg Stephani Tinoco Work Phone: [facility] Work Phone: 09-02-2022 09:12-0500 Diastolic blood pressure 76 mm[Hg] Stephani Tinoco Work Phone: [facility] Work Phone: 09-02-2022 09:12-0500 Heart rate 62 /min Stephani Tinoco Work Phone: [facility] Work Phone: 09-02-2022 09:12-0500 SaO2% (BldA) [Mass fraction] 98 % Stephani Tinoco Work Phone: [facility] Work Phone: 09-02-2022 09:12-0500 Systolic blood pressure 122 mm[Hg] Stephani Tinoco Work Phone: [facility] Work Phone: 03-03-2022 11:06-0400 Body height 180.34 cm Iman Briseno Work Phone: [facility] Work Phone: 03-03-2022 11:06-0400 Body mass index (BMI) [Ratio] 35.85 kg/m2 Iman Briseno Work Phone: [facility] Work Phone: 03-03-2022 11:06-0400 Body surface area Derived from formula 2.35 m2 Iman Briseno Work Phone: [facility] Work Phone: 03-03-2022 11:06-0400 Body weight 116.6 kg Iman Briseno Work Phone: [facility] Work Phone: 03-03-2022 11:06-0400 Diastolic blood pressure 74 mm[Hg] Iman Briseno Work Phone: [facility] Work Phone: 03-03-2022 11:06-0400 Heart rate 68 /min Iman Briseno Work Phone: [facility] Work Phone: 03-03-2022 11:06-0400 SaO2% (BldA) [Mass fraction] 98 % Iman Briseno Work Phone: [facility] Work Phone: 03-03-2022 11:06-0400 Systolic blood pressure 118 mm[Hg] Iman Briseno Work Phone: [facility] Work Phone: 08-28-2021 10:59-0500 Body height 180.34 cm Iman Briseno Work Phone: [facility] Work Phone: 08-28-2021 10:59-0500 Body mass index (BMI) [Ratio] 33.54 kg/m2 Iman Briseno Work Phone: [facility] Work Phone: 08-28-2021 10:59-0500 Body surface area Derived from formula 2.28 m2 Iman Briseno Work Phone: [facility] Work Phone: 08-28-2021 10:59-0500 Body temperature 97 [degF] Iman Briseno Work Phone: [facility] Work Phone: 08-28-2021 10:59-0500 Body weight 109.09 kg Iman Briseno Work Phone: [facility] Work Phone: 08-28-2021 10:59-0500 Diastolic blood pressure 80 mm[Hg] Iman Briseno Work Phone: [facility] Work Phone: 08-28-2021 10:59-0500 Heart rate 74 /min Iman Briseno Work Phone: [facility] Work Phone: 08-28-2021 10:59-0500 SaO2% (BldA) [Mass fraction] 98 % Iman Briseno Work Phone: [facility] Work Phone: 08-28-2021 10:59-0500 Systolic blood pressure 128 mm[Hg] Iman Briseno Work Phone: [facility] Work Phone: 02-13-2021 12:30-0400 Body height 180.34 cm Iman Briseno Work Phone: [facility] Work Phone: 02-13-2021 12:30-0400 Body mass index (BMI) [Ratio] 32.26 kg/m2 Iman Briseno Work Phone: [facility] Work Phone: 02-13-2021 12:30-0400 Body surface area Derived from formula 2.24 m2 Iman Briseno Work Phone: [facility] Work Phone: 02-13-2021 12:30-0400 Body temperature 97.5 [degF] Iman Briseno Work Phone: [facility] Work Phone: 02-13-2021 12:30-0400 Body weight 104.92 kg Iman Briseno Work Phone: [facility] Work Phone: 02-13-2021 12:30-0400 Diastolic blood pressure 78 mm[Hg] Iman Briseno Work Phone: [facility] Work Phone: 02-13-2021 12:30-0400 Heart rate 73 /min Iman Briseno Work Phone: [facility] Work Phone: 02-13-2021 12:30-0400 SaO2% (BldA) [Mass fraction] 97 % Iman Briseno Work Phone: [facility] Work Phone: 02-13-2021 12:30-0400 Systolic blood pressure 124 mm[Hg] Iman Briseno Work Phone: [facility] Work Phone: 03-21-2020 12:36-0400 BMI (Body Mass Index) 32.01 kg/m2 Iman Briseno [facility] Work Phone: 03-21-2020 12:36-0400 Body Temperature 97.1 [degF] Iman Briseno [facility] Work Phone: 03-21-2020 12:36-0400 Body weight 104.1 kg Iman Briseno [facility] Work Phone: 03-21-2020 12:36-0400 BP Diastolic 78 mm[Hg] Iman [place] [facility] Work Phone: 03-21-2020 12:36-0400 BP Systolic 120 mm[Hg] Iman Briseno [facility] Work Phone: 03-21-2020 12:36-0400 BSA (Body Surface Area) 2.24 m2 Iman Briseno -[facility] Work Phone: 03-21-2020 12:36-0400 Height 180.34 cm Iman Briseno -[facility] Work Phone: 03-21-2020 12:36-0400 Pulse (Heart Rate) 64 /min Iman Briseno -[facility] Work Phone: 02-14-2020 09:32-0400 BMI (Body Mass Index) 32.79 kg/m2 Iman Briseno -[facility] Work Phone: 02-14-2020 09:32-0400 Body Temperature 97.3 [degF] Iman Briseno [facility] Work Phone: 02-14-2020 09:32-0400 Body weight 106.65 kg Iman Briseno [facility] Work Phone: 02-14-2020 09:32-0400 BP Diastolic 80 mm[Hg] Iman Briseno -[facility] Work Phone: Comment on above: Location: [facility]; 02-14-2020 09:32-0400 BP Systolic 116 mm[Hg] Iman Briseno [facility] Work Phone: Comment on above: Location: [facility]; 02-14-2020 09:32-0400 BSA (Body Surface Area) 2.26 m2 Iman Briseno -[facility] Work Phone: 02-14-2020 09:32-0400 Height 180.34 cm Imankimberly Briseno -[facility] Work Phone: 02-14-2020 09:32-0400 Pulse (Heart Rate) 62 /min Iman Briseno [facility] Work Phone: 02-14-2020 09:32-0400 Pulse Oximetry 98 % Iman Briseno [facility] Work Phone: Encounters Encounter Date Encounter Type Care Provider Facility Start: 05-04-2025 End: 05-04-2025 Emergency department patient visit Dr. Canelo Wray MD -Emergency Department Work Phone: Start: 05-01-2025 End: 05-01-2025 ambulatory Iman Briseno [employer] Work Phone: [facility] [place] Start: 05-01-2025 End: 05-01-[address] Maryam Cartagena MD -[facility] [place] Work Phone: Start: 05-01-2025 End: 05-01-2025 ambulatory Iman Briseno [employer] Facility:[facility] Start: 08-02-2024 End: 08-02-2024 ambulatory [facility] Start: 08-02-2024 End: 08-02-2024 Office outpatient visit 25 minutes Stephani K [place] WHARF OPERATOR-PUBLIC SPEAKING COACH Work Phone: [facility] Comment on above: Primary hypertension (Primary Dx); Mixed hyperlipidemia; Adjustment disorder, unspecified type; Insomnia, unspecified type; Need for ynwfsrqafq-indxkub-fzjbihgbz (Tdap) vaccine; Class 2 severe obesity due to excess calories with serious comorbidity and body mass index (BMI) of 37.0 to 37.9 in adult Start: 07-05-2024 End: 07-05-2024 ambulatory STEPHANI K [facility] Start: 06-14-2024 End: 06-14-2024 Office outpatient visit 10 minutes Sandra HYMANC Work Phone: [facility] Comment on above: Skin ulcer of right thigh, limited to breakdown of skin (Primary Dx) Start: 06-14-2024 End: 06-14-2024 ambulatory [facility] Start: 01-12-2024 End: 01-12-2024 ambulatory STEPHANI TINOCO [facility] Start: 01-12-2024 End: 01-12-2024 Office outpatient visit 15 minutes Stephani Tinoco WHARF OPERATOR-PUBLIC SPEAKING COACH Work Phone: [facility] Comment on above: Herpes zoster withou t complication (Primary Dx); Pelvic pain Start: 01-08-2024 End: 01-08-2024 Emergency department patient visit Oren Cornejo MD Work Phone: [facility] Start: 11-25-2023 End: 11-25-2023 ambulatory STEPHANI TINOCO [facility] Start: 11-25-2023 End: 11-25-2023 Subsequent hospital visit by physician Kevan Renee [facility] Comment on above: Encounter for screen ing mammogram for breast cancer Start: 11-11-2023 End: 11-11-2023 Patient encounter procedure Stephani Ramires Tinoco WHARF OPERATOR-PUBLIC SPEAKING COACH Work Phone: [facility] Comment on above: Medicare annual well [...] (BMI) of 35.0 to 35.9 in adult ([facility]) Start: 09-02-2022 Office outpatient vi sit 25 minutes Stephani Tinoco Work Phone: [facility] Work Phone: Start: 03-28-2022 Chart Update Iman pearson Work Phone: [facility] Work Phone: Start: 03-03-2022 Office outpatient vi sit 25 minutes Iman Briseno Work Phone: [facility] Work Phone: Start: 02-26-2022 Chart Update Iman Caponep ster Work Phone: -[facility] Work Phone: Start: 02-26-2022 AUDIT Iman Caponep ster Work Phone: -[facility] Work Phone: Start: 08-28-2021 Office outpatient vi sit 25 minutes Iman Caponepster Work Phone: -[facility] Work Phone: Start: 07-26-2021 AUDIT Iman Caponep ster Work Phone: -[facility] Work Phone: Start: 07-22-2021 Office outpatient vi sit 15 minutes Iman Caponepster Work Phone: -[facility] Work Phone: Start: 07-22-2021 Patient encounter procedure Iman Caponepster Work Phone: -[facility] Work Phone: Start: 02-13-2021 Office outpatient vi sit 25 minutes Iman Portilloter Work Phone: [facility] Work Phone: Start: 02-13-2021 Patient encounter procedure Iman Portilloter Work Phone: -[facility] Work Phone: Start: 10-17-2020 Patient encounter procedure [facility] Work Phone: Start: 10-10-2020 Patient encounter procedure [facility] Work Phone: Start: 10-05-2020 Patient encounter procedure [facility] Work Phone: Start: 10-03-2020 Patient encounter procedure [facility] Work Phone: Start: 2020 Patient encounter procedure [facility] Work Phone: Start: 08-14-2020 Patient encounter procedure [facility] Work Phone: Start: 03-21-2020 Patient encounter procedure Iman Briseno [facility] Work Phone: Start: 03-14-2020 End: 03-14-2020 Patient encounter procedure FRANSISCO Hattie JENNIFER [facility] Start: 02-14-2020 Patient encounter procedure Iman Briseno [facility] Work Phone: Start: 07-18-2019 Patient encounter procedure [facility] Work Phone: Start: 07-15-2019 Patient encounter procedure [facility] Work Phone: Start: 07-13-2019 Patient encounter procedure Janell [facility] Work Phone: Start: 07-11-2019 Patient encounter procedure Janell Pat[facility] Work Phone: Procedures Date Procedure Procedure Detail Performing Clinician Start: 05-01-2025 Radiologic examinati on ankle 2 views Iman Briseno [employer] Work Phone: Start: 01-12-2024 Urnls dip stick/tabl et rgnt auto w/o microscopy Stephani Tinoco WHARF OPERATOR-PUBLIC SPEAKING COACH Work Phone: Start: 01-12-2024 Lipid 1996 panel - S toña or Plasma Sandra Hahn PA-C Work Phone: Start: 01-08-2024 Culture bacterial quanttative colony count urine Oren Cornejo MD Work Phone: Start: 01-08-2024 Urinalysis, reagent strip without microscopy Oren Cornejo MD Work Phone: Start: 11-25-2023 BI MAMMO BILATERAL SCREENING TOMOSYNTHESIS STEPHANI TINOCO Start: 11-25-2023 End: 11-25-2023 Screening digital breast tomosynthesis bi Stephani Tinoco WHARF OPERATOR-PUBLIC SPEAKING COACH Work Phone: Start: 03-27-2022 Mammography Stephani sharma WHARF OPERATOR-PUBLIC SPEAKING COACH Work Phone: Start: 02-26-2022 Lipid 1996 panel - S toña or Plasma Stephani Tinoco WHARF OPERATOR-PUBLIC SPEAKING COACH Work Phone: Start: 02-14-2020 CBC W Auto Different ial panel - Blood Iman Briseno Start: 02-14-2020 Comprehensive metabo lic 2000 panel Iman Briseno Start: 02-14-2020 Lipid panel Iman prieto Start: 02-14-2020 TSH WITH REFLEX TO F REE T4 IF ABNORMAL Iman Briseno Arthroplasty of knee Iman Briseno Decompression of med lesly nerve Iman Briseno Extraction of wisdom tooth M elindkimberly Briseno Hysterectomy Iman Guaman r Plan of Treatment Date Care Activity Detail Author Start: 08-02-2034 DTaP/Tdap/Td Vaccine s (2 - Td or Tdap) DTaP/Tdap/Td Vaccines (2 - Td or Tdap) [facility] Start: 2032 RSV High Risk: (Elderly (60+) or Population) (1 - 1-dose 75+ series) RSV High Risk: (Elderly (60+) or Population) (1 - 1-dose 75+ series) [facility] Start: 01-11-2029 Lipid panel Lipid Panel [facility] Start: 07-05-2027 Diabetes mellitus screening Diabetes Screening [facility] Start: 02-26-2027 Lipid panel Lipid Panel [facility] Start: 01-11-2027 Diabetes mellitus screening Diabetes Screening [facility] Start: 07-05-2025 Hemoglobin A1c measurement Diabetes: Hemoglobin A1C [facility] Start: 05-04-2025 End: 05-04-2025 [facility] Start: 02-26-2025 Diabetes mellitus screening Diabetes Screening [facility] Start: 01-11-2025 Hemoglobin A1c measurement Diabetes: Hemoglobin A1C [facility] Start: 11-24-2024 Screening for malignant neoplasm of breast Mammogram [facility] Start: 11-15-2024 End: 11-15-2024 Patient encounter procedure 11/15/2024 10:40 AM EDT Office Visit [facility] [address] [facility] [address] [place] [address] Stephani Tinoco, WHARF OPERATOR-PUBLIC SPEAKING COACH [address] [facility] [address] [place], [place] [id number] [facility] Start: 11-11-2024 Medicare Annual Wellness Visit Medicare Annual Wellness Visit (AWV) [facility] Start: 08-02-2024 End: 08-02-2025 Comprehensive metabolic 2000 panel - Serum or Plasma Comprehensive metabolic panel Lab Routine Primary hypertension Expected: 08/02/2024 (Approximate), Expires: 08/02/2025 [facility] Service Area Work Phone: Comment on above: Expected: 08/02/2024 (Approximate), Expires: 08/02/2025 Start: 05-14-2024 Medicare Annual Wellness Visit Medicare Annual Wellness Visit (AWV) [facility] Start: 05-10-2024 End: 05-10-2024 Patient encounter procedure 05/10/2024 1:20 PM EDT Office Visit [facility] [address] [place] [address] Stephani Tinoco, WHARF OPERATOR-PUBLIC SPEAKING COACH [address] [facility] [address] [place] [address] [facility] Start: 04-10-2024 COVID-19 Vaccine () COVID-19 Vaccine ( season) [facility] Start: 04-10-2024 Influenza vaccination U [facility] Start: 01-12-2024 End: 01-19-2024 Bacteria identified in Urine by Culture [facility] Service Area Work Phone: Comment on above: Expected: 01/12/2024 (Approximate), Expires: 01/19/2024 Start: 11-25-2023 End: 11-25-2023 Patient encounter procedure 11/25/2023 11:00 AM EDT Appointment [facility] [address] [place] [id number] [facility] Start: 11-11-2023 End: 11-10-2024 CBC W Auto Differential panel - Blood CBC and Auto Differential Lab Routine Primary hypertension Expected: 11/11/2023 (Approximate), Expires: 11/10/2024 [facility] Work Phone: Comment on above: Expected: 11/11/2023 (Approximate), Expires: 11/10/2024 Start: 11-11-2023 End: 11-10-2024 Cologuard colon cancer screening Cologuard colon cancer screening Lab Routine Screening for colorectal cancer Expected: 11/11/2023 (Approximate), Expires: 11/10/2024 [facility] Work Phone: Comment on above: Expected: 11/11/2023 (Approximate), Expires: 11/10/2024 Start: 11-11-2023 End: 11-10-2024 Comprehensive metabolic 2000 panel - Serum or Plasma Comprehensive Metabolic Panel Lab Routine Mixed hyperlipidemia Expected: 11/11/2023 (Approximate), Expires: 11/10/2024 [facility] Work Phone: Comment on above: Expected: 11/11/2023 (Approximate), Expires: 11/10/2024 Start: 11-11-2023 End: 01-10-2025 DBT Breast - bilateral BI mammo bilateral screening tomosynthesis Imaging Routine Encounter for screening mammogram for breast cancer Expected: 11/11/2023, Expires: 01/10/2025 [facility] Service Area Work Phone: Comment on above: Expected: 11/11/2023 , Expires: 01/10/2025 Start: 11-11-2023 End: 11-10-2024 Hemoglobin A1c/Hemoglobin.total in Blood Hemoglobin A1C Lab Routine Screening for diabetes mellitus (DM) Elevated glucose Expected: 11/11/2023 (Approximate), Expires: 11/10/2024 [facility] Work Phone: Comment on above: Expected: 11/11/2023 (Approximate), Expires: 11/10/2024 Start: 11-11-2023 End: 11-10-2024 Lipid 1996 panel - Serum or Plasma Lipid Panel Lab Routine Mixed hyperlipidemia Expected: 11/11/2023 (Approximate), Expires: 11/10/2024 [facility] Work Phone: Comment on above: Expected: 11/11/2023 (Approximate), Expires: 11/10/2024 Start: 04-10-2023 COVID-19 Vaccine ( season) COVID-19 Vaccine ( season) [facility] Start: 03-27-2023 Screening for malignant neoplasm of breast Mammogram [facility] Start: 03-03-2023 Patient encounter procedure MCRANNUAL, Provider: Stephani Tinoco, Status: Pen, Time: 9:20 AM [facility] Work Phone: Start: 2022 Pneumococcal vaccination PNEUMOCOCCAL VACCINE SERIES (1 of 1 - PCV) [facility] Start: 2022 Pneumococcal Vaccine : 65+ Years (1 of 1 - PCV) Pneumococcal Vaccine: 65+ Years (1 of 1 - PCV) [facility] Start: 03-03-2022 EPV, Provider: Iman Briseno, Status: Pen, Time: 11:00 AM EPV, Provider: Iman Briseno, Status: Pen, Time: 11:00 AM [facility] Work Phone: Start: 01-27-2022 EPV, Provider: Iman Briseno, Status: Pen, Time: 10:00 AM EPV, Provider: Iman Briseno, Status: Pen, Time: 10:00 AM [facility] Work Phone: Start: 08-14-2021 EPV, Provider: Iman Briseno, Status: Pen, Time: 11:00 AM EPV, Provider: Iman Briseno, Status: Pen, Time: 11:00 AM [facility] Work Phone: Start: 2017 RSV patient s and/or patients aged 60+ years (1 - 1-dose 60+ series) RSV patients and/or patients aged 60+ years (1 - 1-dose 60+ series) [facility] Start: 2007 Pneumococcal vaccination Pneumococcal Vaccine (1 of 1 - PCV) [facility] Start: 2007 Zoster vaccine hzv live for subcutaneous use ZOSTER (SHINGLES) VACCINE (1 of 2) [facility] Start: 2007 Zoster Vaccines (1 o f 2) Zoster Vaccines (1 of 2) [facility] Start: 2002 Screening for malignant neoplasm of colon COLORECTAL CANCER SCREENING DISCUSSION [facility] Start: 1997 Lipid panel LIPID SCREENING [facility] Start: 1997 Screening for malignant neoplasm of breast MAMMOGRAM SCREENING DISCUSSION [facility] Start: 1979 DTaP/Tdap/Td Vaccine s (1 - Tdap) DTaP/Tdap/Td Vaccines (1 - Tdap) [facility] Start: 1978 Screening for malignant neoplasm of cervix CERVICAL CANCER SCREENING DISCUSSION [facility] Start: 1976 Third diphtheria, tetanus and acellular pertussis (DTaP) vaccination TDAP (ADULT) [facility] Start: 1975 Hepatitis C screening Hepatitis C Sc reening [facility] Start: 1958 MMR Vaccines (1 of 1 - Standard series) MMR Vaccines (1 of 1 - Standard series) [facility] Start: 1957 Hepatitis C screening HEPATITI S C VIRUS SCREENING [facility] Start: 1957 Screening for malignant neoplasm of colon [facility] Start: 1957 Screening for osteoporosis [facility] Start: 1957 Tetanus vaccination TETANUS [facility] Bacteria identified in Unspecified specimen by Culture Tissue/Wound Culture/Smear Microbiology Routine Skin ulcer of right thigh, limited to breakdown of skin 06/14/2024 11:24 AM EST [facility] Service Area Work Phone: Bacteria identified in Urine by Culture URINE CULTURE Microbiology Routine 01/08/2024 4:12 AM EDT [facility] Patient Education ED Varicose Veins [place] [facility] Work Phone: [facility] Work Phone: NEGATED: Highlighted row has been ruled out! Planned Goals not documented [facility] Work Phone: Immunizations Immunization Date Immunization Notes Care Provider Ashtyn martin 08-02-2024 tetanus toxoid, reduced diphtheria toxoid, and acellular pertussis vaccine, adsorbed Stephani Tinoco WHARF OPERATOR-PUBLIC SPEAKING COACH Work Phone: [facility] Work Phone: 06-27-2021 influenza, injectabl e, quadrivalent, preservative free Iman Briseno Work Phone: [facility] Work Phone: 07-10-2020 influenza virus vaccine, unspecified formulation Iman Briseno Work Phone: [facility] Work Phone: Comment on above: Series: 07-10-2020 influenza, seasonal, injectable Camelia Precious [facility] Work Phone: Comment on above: Series: 07-10-2020 influenza, seasonal, injectable Camelia Precious [facility] Work Phone: 07-31-2017 influenza virus vaccine, unspecified formulation Iman Briseno Work Phone: [facility] Work Phone: Payers Date Payer Category Payer Self-pay 2024 Medicare [id number] 2022 Medicare [id number] 2022 Medicare (Managed Care) [employer] [id number] 2022 Medicare [id number] 2014 Unknown [id number] 1955 Unknown [id number] 651 1955 Unknown [id number]. 983 1955 Unknown [id number]. 1243 1955 Unknown [id number] [id number]. 1243 1957 Unknown [id number] [id number]. 1245 1957 Unknown [id number] [id number]. 1245 1955 Unknown [id number] [id number]. 1244 Unknown [id number] Unknown Unknown [id number] [id number] 462 Unknown [id number] [id number]. 462 Social History Date Type Detail Facility Assertion Unknown if ever smoked [facility] Work Phone: Start: 11-11-2023 End: 11-19-2023 Former smoker Former smoker [facility] Work Phone: Start: 05-13-2023 End: 05-04-2025 Tobacco smoking status NHIS Ex-smoker [facility] Work Phone: History of tobacco use Current smoker [facility] Work Phone: History of tobacco use Cigarette Smoker [facility] Work Phone: Start: 05-13-2023 End: 01-08-2024 Tobacco use and exposure Smokeless tobacco non-user [facility] Work Phone: Start: 11-19-2023 End: 08-02-2024 Alcoholic beverage intake Current drinker of alcohol (finding) [facility] Work Phone: Start: 11-11-2023 End: 08-02-2024 Tobacco use panel [facility] Work Phone: Start: 1955 Sex assigned at Not on file U [facility] Work Phone: Start: 11-01-2023 End: 08-02-2024 Exposure to SARS-CoV-2 (event) Not sure [facility] Start: 04-07-2017 Alcohol Alcohol [facility] Start: 04-07-2017 Drugs Drugs [facility] Start: 07-04-2019 Tobacco Use Tobacco Use [facility] Start: 1955 Sex Assigned At Female W [facility] NEGATED: Highlighted row - - [facility] Work Phone: Medical Equipment Procedure Code Equipment Code Equipment Origin al Text Equipment Identifier Dates Total knee replacement triath x3 tib bearing ins- cs FDA Start: 07-04-2019 Total knee replacement triathl trit tibial component FDA Start: 07-04-2019 Total knee replacement triathlon cruc retaining femUr FDA Start: 07-04-2019 Total knee replacement triathlon trit asymm patella FDA Start: 07-04-2019 Total knee replacement triath x3 tib bearing ins- cs FDA Start: 07-04-2019 Total knee replacement triathl trit tibial component FDA Start: 07-04-2019 Total knee replacement triathlon cruc retaining femUr FDA Start: 07-04-2019 Total knee replacement triathlon trit asymm patella FDA Start: 07-04-2019 Functional Status Date Assessment Result Facility NEGATED: Highlighted row Functional performance Functional status health issues are not documented Disease [facility] Work Phone: Mental Status Date Assessment Result Facility NEGATED: Highlighted row Cognitive function [Interpretation] Cognitive status health issues are not documented Disease [facility] Work Phone: Clinical Notes 02-20-2020 to 05-04-2025 Note Date & Type Note Facility 05-04-2025 Discharge summary [facility] 05-04-2025 Radiology Diagnostic study note [facility] Imaging Services [address] [place] [id number] Venous Duplex Imag/Limited/Uni MR#: [id number] Acct: [id number] Name: SKYE SPARROW Rep #: [id number] : 1955 F 69 From: John Davila MD PCP: ABHINAV Gold Status: REG ER Study:Venous Duplex Imag/Limited/Uni Date of Exam: 05/04/25 Exam# [id number] Ordering Dr: Milady Wray MD PROCEDURE: VENOUS DUPLEX IMAG/LIMITED/UNI 05/04/2025 REASON FOR EXAM: F 69 y/o TECHNIQUE: Procedure Code: USVDUL Modality: US Procedure: VENOUS DUPLEX IMAG/LIMITED/UNI FINDINGS: There is no intraluminal echogenicity to suggest the presence of a deep venous thrombosis. Appropriate respiratory variation, augmentation and venous compression is noted. Left calf varicose veins. US/Venous Duplex Imag/Limited/Uni IMPRESSION: No DVT. Left calf varicose veins. Reading Location: [id number] CC: ABHINAV Tinoco; Dr. Canelo Wray MD ~ Stamping Press Operator: Signed [facility] 05-04-2025 Discharge summary Note Date/Time May 04, 2025 6:56pm [facility] Medical Records Department [address] [facility] [place] [address] Emergency Department Summary 05/04/25 MR#: [id number] Acct: [id number] Name: SKYE SPARROW Rep #:[id number] : 1955 69 From: Canelo Wray MD PCP: ABHINAV Gold Status:REG ER Location: ED HPI History of Present Illness Chief Complaint: Lower Extremity Injury Detail of Chief Complaint: Patient sent because of pain left calf and swelling Informant: patient Onset/Context/Timing Onset: Yesterday Context: Sudden Onset Timing: Continuous Quality: Pain swelling left calf Location: Left Current Severity: Mild Maximum Severity: Moderate Worsened by: Palpation and ambulation Relieved by: Nothing Associated Symptoms Associated Symptoms: No chest pain or shortness of breath or dyspnea Narrative Narrative: Patient is a 69-year-old woman. She presents with atraumatic left leg pain and swelling. She has no history of PE or DVT. She has no risk factors for either. She denies chest pain or shortness of breath. She denies bruising. She is noton anticoagulant. She has no symptoms of claudication. Prior similar symptoms: No Recent Illness/Hospitalization: No [facility] Medical History Hyperlipidemia Anxiety Home Medications ?Medication ?Instructions ?Recorded ?Last Taken ?Type atorvastatin 10 mg tablet 10 mg PO QHS CHOLESTEROL 05/2207/03/19 22:00 History 10 mg trazodone 150 mg tablet 150 mg PO QHS SLEEP 07/19/13 07/03/19 22:00 History 150 sertraline 50 mg tablet 50 mg PO DAILY ANTIDEPRESSAN T 07/10/16 07/03/19 22:00 History 50 mg acetaminophen 500 mg tablet 1,000 mg (2 x 500 mg) PO Q 8 #90 07/05/19 Unknown Rx tabs Allergy/AdvReac Type Severity Reaction Status Date / Time hydrocodone bitartrate (From Allergy Swelling Verified 05/04/25 16:16 Vicodin) codeine AdvReac Nausea Verified 05/04/25 16:16 Surgical History History of hysterectomy History of carpal tunnel repair History of total bilateral knee replacement Social History Smoking Status: Former smoker ROS ROS ED Constitutional Constitutional ED: Denies chills, fever(s), subjective, sweats or weight loss Cardiovascular Cardiovascular: Denies chest pain or palpitations Respiratory/Chest Respiratory/Chest: Denies cough, dyspnea or dyspnea on exertion Gastrointestinal Gastrointestinal: Denies nausea or vomiting Musculoskeletal Musculoskeletal: Denies arthralgias or myalgias Integumentary Denies rash Neurologic Neurologic: Denies paresthesias or weakness Hematologic/Lymphatic Hematologic/Lymphatic: Reports systems reviewed and no addt'l complaints, exceptas documented EXAM Physical Exam Const Vital Signs: 05/04/25 16:17 05/04/25 18:22 Temperature 97 F L Temperature Source Temporal Pulse Rate 62 58 L Respiratory Rate 18 16 Blood Pressure 151/77 H 160/88 H Blood Pressure Mean 101 112 Pulse Ox 98 100 Oxygen Delivery Method Room Air Room Air Positive well nourished and well developed General Appearance ED: well developed and NAD; Negative for pallor HEENT Reports moist mucous membranes HEENT Narrative: Head is atraumatic normocephalic. Eyes PERRL and EOMs intact bilaterally General Eye ED: Negative for pale conjunctiva or scleral icterus Neck no lymphadenopathy, supple and no JVD Chest Wall palpation of chest normal Resp normal respiratory effort and clear to auscultation bilaterally Cardio regular rate, regular rhythm, S1 normal heart sound, S2 normal heart sound and no murmurs Extremity Extremity Narrative: There is slight swelling in the left leg. There is pain the patient over the mid posterior left calf. There is no distended leg veins. There is no discoloration of the leg. Neuro oriented x3 and CN's II-XII intact bilaterally Sensorium / Orientation: alert Psych mental status grossly normal Skin no rashes or lesions noted, no wounds and skin turgor normal General Skin Exam: elasticity normal; Negative for jaundice or pallor MDM MDM MDM Narrative Medical decision making narrative: Differential diagnosis is superficial clot which she has had in the past, DVT, muscle strain, muscle tear. Will obtain venous duplex study. Radiography Diagnostic Testing: Clinical Impression(s) from Imaging Studies Venous Duplex 05/04/25 16:45 IMPRESSION: No DVT. Left calf varicose veins. Reading Location: [facility] No DVT noted. Will discharge home with appropriate home-going instruction Discharge Plan Triage Chief Complaint: Lower Extremity Injury ED Provider: Canelo Wray Dx/Rx/DC Orders Clinical Impression: Pain of left calf, Varicose veins of left lower extremity, Hyperlipidemia, Hypertension, Edema of both legs Instructions: ED Varicose Veins Prescriptions: No Action atorvastatin 10 MG tablet 10 mg PO QHS trazodone 150 MG tablet 150 mg PO QHS sertraline 50 MG tablet 50 mg PO DAILY acetaminophen 500 MG tablet 1,000 mg PO Q8 Qty: 90 0RF Primary Care Provider: Stephani Tinoco Referrals: Stephani Tinoco NP-C [Primary Care Provider, Family Practice] - As Needed Print Language: Tuvaluan Disposition Disposition: Home, Self Care What to do if you have Problems For any increased pain, shortness of breath, bleeding, nausea or vomiting, chestpain, or any unexpected problems, contact your Primary Care Provider. Call [facility] ([phone]) or report to the closest Emergency Room. Call 911 if necessary. 05/04/251855 <Electronically signed by Canelo Wray MD> Cosigner Signature (if applicable): CC: ABHINAV Tinoco ~ Signed [facility] Work Phone: 1(566) 841-686009-23-2025 Radiology Diagnostic study note [facility] Imaging Services [address] [place], [place] [address] Ankle 2 Views MR#: [id number] Acct: [id number] Name: SKYE SPARROW Rep #: [id number] : 1955 F 69 From: John Davila MD PCP: Iman Briseno, WEARING APPAREL SHAKER-C Status: REG CLI Study:Ankle 2 Views Date of Exam: Exam# [id number] Ordering Dr: Baltazar Cartagena MD PROCEDURE: ANKLE 2 VIEWS 05/01/2025 [...] edema. No acute osseous abnormalities. Reading Location: [id number] CC: WEARING [employer]PAREL SHAKER-C Iman Briseno; Dr. Maryam Cartagena MD ~ Stamping Press Operator: Signed [facility]12-24-2024 Evaluation + Plan note* Assessment & Plan Note - HIEN Roach - 08/02/2024 11:51 AM ESTAssociated Problem(s): Insomnia Trazodone 100 mg nightly - refilled [facility] Work Phone: [phone]) 982-503612-24-2024 Miscellaneous Notes* Assessment & Plan Note - HIEN Roach - 08/02/2024 11:51 AM ESTAssociated Problem(s): Insomnia Trazodone 100 mg nightly - refilled * Assessment & Plan Note - HIEN Roach - 08/02/2024 11:50 AM EST Associated Problem(s): Adjustment disorder Sertraline 50 mg daily - refilled * Assessment & Plan Note - HIEN Roach - 08/02/2024 11:50 AM EST Associated Problem(s): Hyperlipidemia Continue atorvastatin 10 mg nightly - refilled * Assessment & Plan Note - HIEN Roach - 08/02/2024 11:50 AM EST Associated Problem(s): HTN (hypertension) Is elevated again today. Will start losartan 25 mg daily [facility] Work Phone: 1([phone]) 274-745112-24-2024 Evaluation + Plan note* Assessment & Plan Note - HIEN Roach - 08/02/2024 11:50 AM ESTAssociated Problem(s): Adjustment disorder Sertraline 50 mg daily - refilled [facility] Work Phone: [phone]) 353-281012-24-2024 Evaluation + Plan note* Assessment & Plan Note - HIEN Roach - 08/02/2024 11:50 AM ESTAssociated Problem(s): Hyperlipidemia Continue atorvastatin 10 mg nightly - refilled [facility] Work Phone: [phone]) 540-396712-24-2024 Evaluation + Plan note* Assessment & Plan Note - HIEN Roach - 08/02/2024 11:50 AM ESTAssociated Problem(s): HTN (hypertension) Is elevated again today. Will start losartan 25 mg daily [facility] Work Phone: [phone]) 299-139812-24-2024 History of Present illness Narrative* Stephani Tinoco, WHARF OPERATOR-PUBLIC SPEAKING COACH - 08/02/2024 11:00 AM EST Subjective Patient ID: Skye Sparrow is a [...] serious comorbidity and body mass index (BMI) of37.0 to 37.9 in adult E66.812, E66.01, Z68.37 Other Visit Diagnoses Codes Need for ydrrxbxqbe-jeecxgv-ennagrkck (Tdap) vaccine Z23 Relevant Orders Tdap vaccine, age 7 years and older (Completed) Follow up in November for MCW exam. Labs before appt. For any new medications that were prescribed today, the patient was educated about their indications for use, administration, frequency and potential side effects of the medication. [facility] Work Phone: 1(846) 874-417911-05-2024 History of Present illness Narrative* Sandra Hahn PA-C - 06/14/2024 10:20 AM EST [facility] NOTE: Name: Skye Sparrow, 68 y.o. CSN:[id number] PCP: HIEN Roach ALL: Allergies Allergen Reactions Codeine Other Hydrocodone-Acetaminophen [...] by mouth once daily at bedtime. 90 tablet1 capsicum (Zostrix) 0.075 % topical cream Apply [...] HISTORY 02/14/2020 Hysterectomy OTHER SURGICAL HISTORY 02/14/2020 [place] tooth extraction OTHER SURGICAL HISTORY 02/14/2020 Carpal [...] deficit present. Mental Status: She is alert. I did personally review Skye's past medical history, surgical history, social history, as well asfamily history (when relevant). In this case, I [...] Those SDOH influencing Skye's care are: none COURSE/MEDICAL DECISION MAKING: Skye is a 68 y.o., who presents with a working diagnosis of 1. Skin ulcer of right thigh, limited to breakdown of skin Culture obtained of the right inguinal lesion, initiate tx with aquacel bandage and oral antibiotics, discussed when to seek re-evaluation, may require DERM eval if culture negative. Sandra Hahn PA-C Advanced Practice Provider [facility] documented in this [facility] Work Phone: 1([phone]) 239-578106-04-2024 History of Present illness Narrative* Joceline Roberts CMA - 01/12/2024 11:00 AM EDT Abdominal pain duration one week, been to the ER diagenesis of UTI back pain into groin Bowel movements fine, no pain or burning on urination rash on right upper leg nausea, no appetite * Stephani Tinoco APRN-PUBLIC SPEAKING COACH - 01/12/2024 11:00 AM EDT Images from the original note were not [...] symptoms persist or worsen. documented in this [facility] Work Phone: [phone]) 890-945805-31-2024 Emergency department Note* Danielle Sorensen RN - 01/08/2024 4:02 AM EDT Introduced self to patient- urine cup given to patient and walked to bathroom. [facility]05-31-2024 Emergency department Note* Danielle Soresnen RN - 01/08/2024 4:02 AM EDT Introduced self to patient- urine cup given to patient and walked to bathroom. * Oren Cornejo MD - 01/08/2024 3:58 AM EDT Emergency Department Report [facility] Service Date:.01/08/24 PCP: Stephani Tinoco [...] YELLOW YELLOW APPEARANCE, URINE CLEAR CLEAR Specific [place], Urine 1.025 1.010 - 1.025 PH URINE [...] Cornejo MD 01/08/24 0507 [facility] Physician Emergency department Note* Oren Cornejo MD - 01/08/2024 3:58 AM EDT Emergency Department Report [facility] Service Date:.01/08/24 PCP: Stephani Tinoco [...] YELLOW YELLOW APPEARANCE, URINE CLEAR CLEAR Specific [place], Urine 1.025 1.010 - 1.025 PH URINE [...] information. . . Oren Cornejo MD 01/08/24 0501 [facility]04-11-2024 Evaluation + Plan note* Assessment & Plan Note - HIEN Roach - 11/19/2023 3:14 PM EDTAssociated Problem(s): Adjustment disorder Sertraline 50 mg daily - refilled [facility] Work Phone: [phone]) 367-779404-11-2024 Evaluation + Plan note* Assessment & Plan Note - HIEN Roach - 11/19/2023 3:14 PM EDTAssociated Problem(s): HTN (hypertension) Remains slightly elevated-watch sodium intake [facility] Work Phone: [phone]) 452-510304-11-2024 Miscellaneous Notes* Assessment & Plan Note - HIEN Roach - 11/19/2023 3:14 PM EDTAssociated Problem(s): Adjustment disorder Sertraline 50 mg daily - refilled * Assessment & Plan Note - HIEN Roach - 11/19/2023 3:14 PM EDT Associated Problem(s): HTN (hypertension) Remains slightly elevated-watch sodium intake * Assessment & Plan Note - HIEN Roach - 11/19/2023 3:09 PM EDT Associated Problem(s): Hyperlipidemia Continue atorvastatin 10 mg nightly - refilled Lipid panel ordered * Assessment & Plan Note - HIEN Rocah - 11/19/2023 3:06 PM EDT Associated Problem(s): Insomnia Trazodone 100 mg nightly - refilled [facility] Phone: [phone] 163-529204-11-2024 Evaluation + Plan note* Assessment & Plan Note - HIEN Roach - 11/19/2023 3:09 PM EDTAssociated Problem(s): Hyperlipidemia Continue atorvastatin 10 mg nightly - refilled Lipid panel ordered [facility] Work Phone: [phone]) 704-255704-11-2024 Evaluation + Plan note* Assessment & Plan Note - HIEN Roach - 11/19/2023 3:06 PM EDTAssociated Problem(s): Insomnia Trazodone 100 mg nightly - refilled [facility] Work Phone: [phone]) [phone] History of Present illness Narrative* Joceline Roberts CMA - 11/11/2023 2:00 PM EDT Follow up Medicare Wellness, spots on legs [facility] Work Phone: [phone]) 168-579612-13-2021 Chief complaint Narrative - Reported* An interactive audio and video telecommunication system which permits real time communications between the patient (at the originating site) and provider (at the distant site) was utilized to providethis telehealth service. * Verbal consent was requested and obtained from SKYE SPARROW on this date, 07/22/2021 03:20 PM, for a telehealth visit. * Pt presents with c/o sinus congestion, cough, feels like water in her ears, slight temp waxing/waning, tired, headache; symptoms progressively getting worse since getting flu shot on 06/27/21. -[facility] Work Phone: [phone] 607-373512-13-2021 Chief complaint Narrative - Reported* An interactive audio and video telecommunication system which permits real time communications between the patient (at the originating site) and provider (at the distant site) was utilized to providethis telehealth service. * Verbal consent was requested and obtained from SKYE SPARROW on this date, 07/22/2021 03:20 PM, for a telehealth visit. * Pt presents with c/o sinus congestion, cough, feels like water in her ears, slight temp waxing/waning, tired, headache; symptoms progressively getting worse since getting flu shot on 06/27/21. [facility] Work Phone: [phone] 527-733911-01-2021 History of Present illness NarrativeTrav presents today for evaluation of URI for several weeks. She has been having ear pain, fever, cough and congestion. No ill exposures.She has not gone anywhere since june. She denies shortness of breath or chest pain. she denies leg pain or swelling. She does have a headache. She has checked her temperature and it has been okay.[facility] Work Phone: [phone]) [phone] History of Present illness Narrative* She presents today for routine follow-up of hypertension, stable. Adjustment disorder doing well onsertraline. She has continued to lose weight. I have repeatedly encouraged her to do a colonoscopy.She states that she will try and arrange [...] Plans to have left knee replacement in September. * EMG Dr. Trammell left hand numbness and elbow pain. * Needs to reschedule colonoscopy and dermatology [facility] [employer] Phone: [phone] 167-786107-13-2020 History of Present illness Narrative* She presents today for routine follow-up of hypertension, stable. Adjustment disorder doing well onsertraline. She has continued to lose weight. I have repeatedly encouraged her to do a colonoscopy.She states that she will try and arrange that and will call us back. He has a skin lesion on the left side of her face but was there proximally 12 months ago and is still present. It is dry and scabby it does not seem to bother her. I would like her to have this checked by dermatology. Had left knee replacement in September. * EMG ordered by Dr. Trammell for left hand numbness and elbow pain. [facility] Work Phone: Evaluation note* Diagnosis Medicare annual wellness visit, subsequent- Primary [...] (BMI) of 35.0 to 35.9 in adult ([facility]) documented in this encounter [facility] Work Phone: Evaluation note* Diagnosis Encounter for screening mammogram for breast cancer documented in this encounter [facility] Work Phone: Evaluation note* Diagnosis Acute cystitis without hematuria- Primary Acute cystitis [facility] Diagnosis Herpes zoster without complication- Primary Pelvic pain documented in this encounter [facility] Work Phone: Evaluation note* Diagnosis Medicare annual [...] of skin- Primary documented in this encounter [facility] Work Phone: Evaluation note* Diagnosis Medicare annual [...] unspecified type Insomnia, unspecified type Need for thhuaprkhc-ustfjki-qvdkurhhd (Tdap) vaccine Need for prophylactic vaccination with combined tsqfvesogh-ctnughe-gefiphxxv (DTP) vaccine Class 2 severe obesity due to excess calories with serious comorbidity and body mass index (BMI) of 37.0 to 37.9 in adult documented in this encounter [facility] Work Phone: Evaluation noteNo assessment information available [facility] Work Phone: History of Present illness Narrative* [...] stroke. Family history of [place] chorea and [place]. -[facility] Work Phone: History of Present illness Narrative* [...] come back. * heading to go to [place] and will be back in December. * Mammogram: done in march 2022 * DEXA: not done- refuses * colon cancer screen: refuses -[facility] Work Phone: Hospital Discharge instructions* Attachments The following attachments cannot be sent through Care Everywhere. * Urinary Tract Infections (UTIs) in Women ([facility]) ([place]) documented in this encounterRegional Medical CenterReason for referral (narrative)* Consultation (Routine) - Closed Specialty Diagnoses / Procedures Referred By Maryanne warren Referred To Contact Dermatology Diagnoses Skin lesion of face Psoriasis Stephani Tinoco APRN-CNP [address] [facility] [address] [place] [address] Maryam Cartagena MD [address] [facility] [place] [address] Referral ID Status Reason Start Date Expiration Date V isits Requested Visits Authorized [id number] Closed Specialty Services Required 11/11/2023 11/10/2024 1 1 * Imaging (Routine) - Authorized Specialty Diagnoses / Procedures Referred By Maryanne warren Referred To Contact Radiology Diagnoses Encounter for screening mammogram for breast cancer Procedures BI mammo bilateral screening tomosynthesis Stephani Tinoco APRN-CNP [address] [facility] [address] [place] [address] Referral ID Status Reason Start Date Expiration Date Visits Requested Visits Authorized [id number] Authorized Perform Procedure 11/11/2023 11/10/2024 1 1 [facility] Work Phone: Reason for referral (narrative)No reason for referral information availableWMercy Health [facility] Work Phone: Summary Purpose Family History No Family History Records Found uncle Name Dates Details Family history of Shamika 's chorea(V17.2, Z82.0) Status:Active Mother Name Dates Details Family history of hypertensi on(V17.49, Z82.49) Status:Active Family history of [place] 's chorea(V17.2, Z82.0) Status:Active Father Name Dates Details Family history of myocardial infarction(V17.3, Z82.49) Status:Active Brother Name Dates Details Family history of hypertensi on(V17.49, Z82.49) Status:Active Family history of congenital heart disease(V19.5, Z82.79) Status:Active Family history of Shamika 's chorea(V17.2, Z82.0) Status:Active uncle Name Dates Details Family history of [place] 's chorea(V17.2, Z82.0) Status:Active Mother Name Dates Details Family history of hypertensi on(V17.49, Z82.49) Status:Active Family history of [place] 's chorea(V17.2, Z82.0) Status:Active Father Name Dates Details Family history of myocardial infarction(V17.3, Z82.49) Status:Active Brother Name Dates Details Family history of hypertensi on(V17.49, Z82.49) Status:Active Family history of congenital heart disease(V19.5, Z82.79) Status:Active Family history of Shamika 's chorea(V17.2, Z82.0) Status:Active uncle Name Dates Details Family history of [place] 's chorea(V17.2, Z82.0) Status:Active Mother Name Dates Details Family history of hypertensi on(V17.49, Z82.49) Status:Active Family history of [place] 's chorea(V17.2, Z82.0) Status:Active Father Name Dates Details Family history of myocardial infarction(V17.3, Z82.49) Status:Active Brother Name Dates Details Family history of hypertensi on(V17.49, Z82.49) Status:Active Family history of congenital heart disease(V19.5, Z82.79) Status:Active Family history of [place] 's chorea(V17.2, Z82.0) Status:Active Unknown Family Member Name Dates Details Family history of hypertensi on: Mother, Brother(V17.49, Z82.49) Status:Active Family history of myocardial infarction: Father(V17.3, Z82.49) Status:Active Family history of congenital heart disease: Brother(V19.5, Z82.79) Status:Active Family history of [place] 's chorea: Mother, Brother, Uncle(V17.2, Z82.0) Status:Active Unknown Family Member Name Dates Details Family history of hypertensi on: Mother, Brother(V17.49, Z82.49) Status:Active Family history of myocardial infarction: Father(V17.3, Z82.49) Status:Active Family history of congenital heart disease: Brother(V19.5, Z82.79) Status:Active Family history of [place] 's chorea: Mother, Brother, Uncle(V17.2, Z82.0) Status:Active Unknown Family Member Name Dates Details Family history of hypertensi on: Mother, Brother(V17.49, Z82.49) Status:Active Family history of Shamika 's chorea: Mother, Brother, Uncle(V17.2, Z82.0) Status:Active Family history of congenital heart disease: Brother(V19.5, Z82.79) Status:Active Family history of myocardial infarction: Father(V17.3, Z82.49) Status:Active Unknown Family Member Name Dates Details Family history of [place] 's chorea: Mother, Brother, Uncle(V17.2, Z82.0) Status:Active [...] disease: Brother(V19.5, Z82.79) Status:Active Family history of [place] 's chorea: Mother, Brother, Uncle(V17.2, Z82.0) Status:Active [...] disease: Brother(V19.5, Z82.79) Status:Active Family history of [place] 's chorea: Mother, Brother, Uncle(V17.2, Z82.0) Status:Active Unknown Family Member Name Dates Details Family history of hypertensi on: Mother, Brother(V17.49, Z82.49) Status:Active Family history of myocardial infarction: Father(V17.3, Z82.49) Status:Active Family history of congenital heart disease: Brother(V19.5, Z82.79) Status:Active Family history of [place] 's chorea: Mother, Brother, Uncle(V17.2, Z82.0) Status:Active Unknown Family Member Name Dates Details Family history of hypertensi on: Mother, Brother(V17.49, Z82.49) Status:Active Family history of myocardial infarction: Father(V17.3, Z82.49) Status:Active Family history of congenital heart disease: Brother(V19.5, Z82.79) Status:Active Family history of [place] 's chorea: Mother, Brother, Uncle(V17.2, Z82.0) Status:Active Relationship Condition Age at Onset Recorded Date/T apollo Unknown Family History?- Unknown March 10:41am Family History?- Unknown June 3:15pm Advance Directives No Advanced Directives Records FoundHealthcare Agents on File Name Relationship Healthcare Agent Relationship Communication Irma D Stage Friend Health Care Agent Healthcare Agents on File Name Relationship Healthcare Agent Relationship Communication Irma D Stage Friend Health Care Agent Healthcare Agents on File Name Relationship Healthcare Agent Relationship Communication Irma D Stage Friend Health Care Agent Healthcare Agents on File Name Relationship Healthcare Agent Relationship Communication Irma D Stage Friend Health Care Agent Healthcare Agents on File Name Relationship Healthcare Agent Relationship Communication Irma D Stage Friend Health Care Agent Advance Directive Response Recorded Date/ Time Do you have a Healthcare Power of Housekeeping Assistant? No May 04, 2025 5:20pm Advance Directives Yes July 10, 2016 11:30am Chief Complaint Pt presents for routine 6 mo check up; med review and refills; c/o rx for itchy spot on lower left leg.Pt presents for routine 6 mo check up; med review and refills; c/o rx for itchy spot on lower left leg.* Pt is here today for a 6 month check up. This note was generated by using [employer] software. It may co ntain errors in wording, punctuate, or spelling. * She is here today for her 6-month checkup. I am seeing her during Iman's absence. She is in [employer] and looking forward to going to lunch [...] are giving a refill. She also has significant insomnia and does well on the trazodone. She states occasionally she takes a second dose. Shestates she has difficulties turning her mind off at night. We also discussed doing screening lab work because in the past she has had an elevated cholesterol and on 1 occasion had a slight elevation in her blood sugar. She is getting ready to leave [facility] and will be returning in the spring. We discus sed arranging a follow-up visit in 4 to 6 months from now and she will get the fasting lab work prior to her next follow-up visit. We also discussed colorectal cancer screening and we will be giving her a fecal occult blood test kit today to complete prior to her leaving [facility]. We went over what her weight should be based on her height by [...] BI mammo bilateral screening tomosynthesis Stephani Tinoco, WHARF OPERATOR-PUBLIC SPEAKING COACH [address] [place] [address] Referral ID Status Reason Start Date Expiration Date Visits Requested Visits Authorized [id number] Authorized Perform Procedure 11/11/2023 11/10/2024 1 1 Chief Complaint and Reason for Visit Chief Complaint Admit Date LEFT ANKLE May 01, 2025 10:48am leg pain May 04, 2025 4:15pm Additional Source Comments INFORMATION SOURCE (unrecogn ized section and content) DATE CREATED AUTHOR 04/18/2019 [facility] DATE CREATED AUTHOR AUTHOR'S ORGANIZ ATION [facility]/19/[facility] DATE CREATED AUTHOR AUTHOR'S ORGANIZ ATION 03/03/2022 [facility] DATE CREATED AUTHOR AUTHOR'S ORGANIZ ATION 04/02/2022 [facility] DATE CREATED AUTHOR AUTHOR'S ORGANIZ ATION 09/14/2022 [facility] DATE CREATED AUTHOR AUTHOR'S ORGANIZ ATION 01/10/2024 [facility] DATE CREATED AUTHOR AUTHOR'S ORGANIZ ATION 06/23/2024 [facility] DATE CREATED AUTHOR AUTHOR'S ORGANIZ ATION 07/11/2024 [facility] DATE CREATED AUTHOR AUTHOR'S ORGANIZ ATION 05/17/2025 [facility] DATE CREATED AUTHOR AUTHOR'S ORGANIZ ATION 06/04/2025 [facility] Reason for Visit (unrecogniz ed section and content) Reason Comments Follow-up Medicare Annual Wellness Visit Subsequen t Specialty Diagnoses / Procedures Referred By Contac t Referred To Contact Radiology Diagnoses Encounter for screening mammogram for breast cancer Procedures BI mammo bilateral screening tomosynthesis Stephani Tinoco, WHARF OPERATOR-PUBLIC SPEAKING COACH [address] [facility] [address] [place] [address] Referral ID Status Reason Start Date Expiration Date Visits Requested Visits Authorized [id number] Authorized Perform Procedure 11/11/2023 11/10/2024 1 1 Reason Comments Urinary Pain Pt complains of pain ful urination that started about 5 days ago and has been progressing since. Reason Comments Abdominal Pain Reason Comments Abscess Abscess in the right groin area, red, painful x 4-5 days Reason Comments Med Refill Care Teams (unrecognized sec tion and content) Do All Operator Relationship Specialty Start Date End Date Longorf, Misti A, MD [address] [phone] PCP - [employer] PCP 09/10/22 Stephani Tinoco, WHARF OPERATOR-PUBLIC SPEAKING COACH [facility] [phone] PCP - General Family Medicine 02/17/23 Do All Operator Relationship Specialty Start Date End Date Misti Ingram MD [address] [phone] PCP - [employer]age PCP 09/10/22 Stephani Tinoco, WHARF OPERATOR-PUBLIC SPEAKING COACH [address] [place] [id number] PCP - General Family Medicine 02/17/23 Do All Operator Relationship Specialty Start Date End Date Stephani Tinoco CNP [facility] [address] [address] PCP - General Nurse Practitioner - Family 01/08/24 Do All Operator Relationship Specialty Start Date End Date Misti Ingram MD [address] [phone] PCP - [employer]age PCP 09/10/22 Stephani Tinoco, WHARF OPERATOR-PUBLIC SPEAKING COACH [address] [place] [id number] PCP - General Family Medicine 02/17/23 Do All Operator Relationship Specialty Start Date End Date Misti Ingram MD [address] [address] PCP - [employer]age PCP 09/10/22 Stephani Tinoco APRN-PUBLIC SPEAKING COACH [address] [facility] [address] [place] [address] PCP - General Family Medicine 02/17/23 Do All Operator Relationship Specialty Start Date End Date Misti Ingram MD [address] [id number] PCP - [employer]age PCP 09/10/22 Stephani Tinoco, WHARF OPERATOR-PUBLIC SPEAKING COACH [address] [facility] [address] [place] [address] PCP - General Family Medicine 02/17/23 Team Status: Active Member Role/Relationship Status Dates Stephani Tnioco NP-Mukund Primary care physician Active Team Status: Active Member Role/Relationship Status Dates Iman Briseno NP, [employer]ER-C Primary care physician Activ e Start: May 01, 2025 Dr. Maryam Cartagena MD Attending physician Active Start: May 01, 2025 Dr. Maryam Cartagena MD Referring Provider Active S tart: May 01, 2025 Team Status: Inactive Member Role/Relationship Status Dates Dr. Canelo Wray MD Attending physician Active St art: May 04, 2025 End: May 04, 2025 Dr. Canelo Wray MD Emergency Department Physician Active Start: May 04, 2025 End: May 04, 2025 Stephani Tinoco NP-Mukund Primary care physician Active Start: May 04, 2025 End: May 04, 2025 Team Status: Inactive Member Role/Relationship Status Dates Iman Briseno NP, WEARING [employer] SHAKER-C Primary care physician Activ e Start: May 01, 2025 End: May 01, 2025 Dr. Maryam Cartagena MD Attending physician Active Start: May 01, 2025 End: May 01, 2025 Dr. Maryam Cartagena MD Referring Provider Active S tart: May 01, 2025 End: May 01, 2025 Scheduled Active and Recently Administ ered Medications [...] (Given - Provid er: Danielle Sorensen RN) Goals (unrecognized section and content) Goals may be documented in a n alternate sectionGoals may be documented in an alternate section FOR RECORDS PERTAINING TO PATIENTS WHO ARE [...] BE BASED ON THE PRIMARY CLINICAL RECORDS. [employer] provides no warranty or guarantee of the accuracy or completeness of information in this document.
[2025-08-02 15:36] LABS: Hematocrit 40.0 % (37-47); Hemoglobin 13.0 g/dL (12.0-15.0); Immature Granulocytes Count 0.010 X10^3/uL (0.0-0.0); Mean Corp Hgb Conc 32.5 g/dL (32-36); Mean Corpuscular Volume 91.3 fL (81-99); Mean Platelet Vol. 10.0 fl (6.2-12.0); NRBC Flagged by Analyzer 0 % (0-5); Platelet Count 224 K/mm3 (150-450); RBC Distribution Width CV 13.0 % (11.6-14.6); RBC Distribution Width SD 42.7 fl (35.1-43.9); Red Blood Count 4.38 M/mm3 (4.2-5.4); White Blood Count 3.5 K/mm3 (4.4-11.0)
[2025-08-02] MEDS: 0.9% Normal Saline (1000mL) 1,000 ML 1000 ML IV (15:46)
[2025-08-02 15:59] LABS: Lipase 53 U/L (13-75)
[2025-08-02 16:00] LABS: AST(SGOT) 34 U/L (<=31); Alanine Aminotransfer ALT/SGPT 22 U/L (<=34); Albumin, Serum 3.0 g/dL (3.4-4.8); Alkaline Phosphatase 72 U/L (35-104); Anion Gap 11 (7-18); BUN 5 mg/dL (4-19); BUN/Creat Ratio 7.6 RATIO (10-20); Calcium,Total 8.3 mg/dL (7.6-11.0); Carbon Dioxide 24.0 mmol/L (20.0-29.0); Chloride 104 mmol/L (96-106); Estimated Creatinine Clearance 98.84 ml/min (50-250); Globulin 2.5 g/dL (2.2-4.2); Glucose 119 mg/dL (70-99); Potassium 3.3 mmol/L (3.5-5.1)
--- NOTE | 2025-08-02 16:11 | CT_ITS ---
PROCEDURE: CT ABDOMEN/PELVIS W IV CONT ONLY 08/02/2025 REASON FOR EXAM: N/V/D TECHNIQUE: Procedure Code: [id number] Modality: CT Procedure: ABDOMEN/PELVIS W IV CONT ONLY Coronal and Sagittal reconstruction series were provided. CONTRAST: Isovue-300 VOLUME: 96 mL One or more dose reduction techniques were used (e.g., Automated exposure control, adjustment of the mA and/or kV according to patient size, use of iterative reconstruction technique. RADIATION DOSE SUMMARY: DLP: 1249.8 mGycm COMPARISON: None. FINDINGS: Lung bases: Trace bibasilar pleural effusions, greater on the right. Liver: Diffuse hepatic steatosis. Gallbladder: Unremarkable. No biliary ductal dilatation. Spleen: Unremarkable. Pancreas: Unremarkable. Adrenals: Unremarkable. Kidneys: Normal in size with symmetric enhancement. No urolithiasis or hydronephrosis. Simple interpolar right renal cyst measuring 3.3 cm. Bladder: Underdistended, grossly unremarkable. Reproductive Organs: Prior hysterectomy. Unremarkable adnexae. Bowel: Unremarkable stomach and small bowel. No evidence of obstruction. Normal appendix. Fluid throughout the colon indicating a nonspecific diarrheal illness. No significant wall thickening or active inflammatory changes appreciated. Lymph nodes: No suspicious lymph node enlargement. Vasculature: Normal caliber abdominal aorta. Mild-moderate atherosclerotic disease. Peritoneum / Retroperitoneum: Nonspecific trace pelvic free fluid. No free air. Bones: Mild multilevel degenerative changes of the spine. CT/Abdomen/Pelvis W IV Cont ONLY IMPRESSION: 1. No bowel obstruction or active inflammatory process is evident. 2. Fluid within the colon indicating a nonspecific diarrheal illness. 3. Diffuse hepatic steatosis. 4. Trace bibasilar pleural effusions seen in the lower thorax. Reading Location: [id number]
[2025-08-02] MEDS: Potassium Chloride Oral Tablet 20 MEQ 40 MEQ PO (16:24)
[2025-08-02 16:38] VITALS: BP 142/89; PULSE 64; RESP 18; O2SAT 93
[2025-08-02 17:43] LABS: Mucous, Urine 0 SEEN /hpf (<or=2+)
[2025-08-02] MEDS: 0.9% Normal Saline (1000mL) 1,000 ML 999 ML IV (17:46)
[2025-08-02 17:53] LABS: Color, Urine Yellow (Yellow); Glucose, Dipstick Normal (Normal); Ketone-Dipstick Negative (Negative); Leukocyte Esterase-Dipstick Negative /ul (Negative); Nitrite-Dipstick Negative (Negative); Occult Blood-Urine 10 /ul (Negative); Protein-Dipstick 30 mg/dl (Negative); Specific Gravity, Urine 1.010 (1.002-1.030); Urine Bilirubin Dipstick Negative (Negative)
[2025-08-02 18:00] VITALS: BP 137/87; PULSE 68; RESP 13; O2SAT 95
[2025-08-02 18:06] LABS: Red Blood Cells-Urine 5-10 SEEN /hpf (0-5); Squamous Epithelial Cells - UA 0-5 SEEN /hpf (5-10)
[2025-08-02 18:37] VITALS: BP 137/87; PULSE 68; RESP 16; TEMP 37.9; O2SAT 95
--- NOTE | 2025-08-02 18:44 | ED.RN ---
Dr Mart notified of temp 100.2, ordered tylenol and discharged.
== END 2025-08-02 18:50 | disposition home or self-care (01) ==
PROVIDERS: Emergency Provider Emergency Medicine; PCP Internal Medicine; Visit Provider Emergency Medicine
DX: R11.2 Nausea with vomiting, unspecified (principal); E66.01 Morbid (severe) obesity due to excess calories; R19.7 Diarrhea, unspecified; E87.6 Hypokalemia; E86.0 Dehydration; I10 Essential (primary) hypertension; I87.2 Venous insufficiency (chronic) (peripheral); I83.90 Asymptomatic varicose veins of unspecified lower extremity; F41.9 Anxiety disorder, unspecified; E78.5 Hyperlipidemia, unspecified; Z79.899 Other long term (current) drug therapy; Z87.891 Personal history of nicotine dependence
CPT/HCPCS: 74177; 80053; 81001; 83690; 85025; 87631; 93005; 96361; 96374; 96375; 99285; Q9967; A4216; J2405